=== PATIENT | male | born 1940 | race Caucasian/White ===

== ENCOUNTER → 2019-08-16 14:20 | Outpatient (BNVA) | payer MEDICARE, SELFPAY | PROVIDERS: Family Provider Electrodiagnostic Medicine; PCP Electrodiagnostic Medicine; Visit Provider Specialist | DX: G62.9 Polyneuropathy, unspecified (principal); M54.17 Radiculopathy, lumbosacral region; Z87.891 Personal history of nicotine dependence | CPT/HCPCS: 99214 ==

== ENCOUNTER → 2020-05-01 09:08 | Outpatient (BNVA) | payer MEDICARE, SELFPAY | PROVIDERS: Family Provider Electrodiagnostic Medicine; PCP Electrodiagnostic Medicine; Visit Provider Urology | DX: R31.0 Gross hematuria (principal); N40.1 Benign prostatic hyperplasia with lower urinary tract symptoms; N13.8 Other obstructive and reflux uropathy; Z87.898 Personal history of other specified conditions | CPT/HCPCS: 81003 ==

== ENCOUNTER 2020-07-21 18:20 | Inpatient (IN) | payer MEDICARE, SELFPAY ==
[2020-07-21] VITALS (9 sets, daily range): BP systolic 111–142; BP diastolic 69–106; PULSE 63–75; RESP 13–18; TEMP 36.6; O2SAT 91–99; BMI 26.9
--- NOTE | 2020-07-21 19:01 | ECG_ITS ---
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 Measurements Intervals [place] Rate: 63 P: 61 NC: 183 QRS: 64 QRSD: 102 T: 51 QT: 401 QTc: 410 Interpretive Statements SINUS RHYTHM VOLTAGE CRITERIA FOR LVH [MEETS CRITERIA IN ONE OF: R(aVL), S(V1), R(V5), R(V5/V6)+S(V1)] Compared to ECG 07/31/2018 11:49:45 Left ventricular hypertrophy now present Electronically Signed On 07-22-2020 19:21:13 FIRESTOPPER TECHNICIAN by Terra Crespo M.D. [id number]
--- NOTE | 2020-07-21 19:01 | XRR_ITS ---
PROCEDURE INFORMATION: Exam: XR Chest, 1 View Exam date and time: 07/21/2020 7:07 PM Age: 79 years old Clinical indication: Other: Syncopal; Additional info: Cp TECHNIQUE: Imaging protocol: XR of the chest Views: 1 view. COMPARISON: No relevant prior studies available. FINDINGS: Lungs: Mild emphysematous changes. No focal consolidation. Pleural spaces: Unremarkable. No pleural effusion. No pneumothorax. Heart/Mediastinum: Unremarkable. No cardiomegaly. Bones/joints: Unremarkable. XR/XR chest 1V portable [id number] IMPRESSION: Negative for focal pneumonia.
--- NOTE | 2020-07-21 19:05 | ED_ITS ---
HPI - Syncope General: Chief Complaint: Syncope Stated Complaint: SYNCOPAL EPISODE/ PALE/ DIAPHORETIC Time Seen by Provider: 07/21/20 18:23 Source: patient and EMS Mode of arrival: EMS Limitations: no limitations History of Present Illness: HPI narrative: 79-year-old male states that he had been working outside and came inside sit down and got very diaphoretic and felt sick and had a near syncopal versus possible syncopal event. He was out for seconds and stated he did urinate himself. He denies any headache or chest pain. He states he just feels weak currently and is still diaphoretic. He denies having anything like this in the past. He denies any shortness of breath. Associated symptoms: Deny abdominal pain, fever(s), headache(s) or nausea Review of Systems Const: Denies: fever(s), chills, body aches or change in appetite Eyes: Denies: blurry vision or eye discomfort ENMT: Denies: throat pain or dental pain Card: Reports: syncope Resp: Denies: dyspnea GI: Denies: abdominal pain, nausea, vomiting or diarrhea : Denies: dysuria Musc: Denies: neck pain or back pain Skin/Breast: Denies: rash Neuro: Denies: headache(s) Psych: Denies: depression Riki/Lymph: Denies: easy bruising All/Imm: Denies: urticaria PFSH ED PFSH: Medical History BPH with obstruction/lower urinary tract symptoms Gross hematuria History of BPH History of elevated PSA Incomplete bladder emptying Glass's neuroma of left foot Surgical History History of ankle surgery History of appendectomy History of bilateral inguinal hernia repair History of nasal surgery Status post transurethral resection of prostate Family History Other Cancer Denies family history of Diabetes CAD (coronary artery disease) Hypertension Stroke Social History Smoking and tobacco status: former smoker Quit status (tobacco): has quit using tobacco Year quit tobacco: 1982 Alcohol intake: current Alcohol intake frequency: 0-2 Drinks per Day Alcohol type: wine Adopted: No Caregiver/support person: No Lives independently: No Household members: spouse Marital status: Current occupational status: retired History of recent travel: No Physical Exam Const: COMMON NORMALS: no acute distress, patient oriented x3 and healthy appearing HENMT: COMMON NORMALS: normocephalic and atraumatic HEAD & SCALP: n ormocephalic and atraumatic Eye: COMMON NORMALS: Equal, round and reactive pupils present and EOMs intact bilaterally PUPIL: Yes Equal, round and reactive pupils present Neck/C-Spine: COMMON NORMALS: full ROM and supple Chest: COMMONS NORMALS: normal inspection of the chest and normal palpation of entire chest wall Resp: COMMON NORMALS: normal respiratory effort, No retractions, No use of accessory muscles and clear to auscultation bilaterally AUSCULTATION: clear to auscultation bilaterally Cardio: COMMON NORMALS: regular rate, regular rhythm and No murmurs present (Cardio) RATE: regular rate RHYTHM: regular rhythm GI: COMMON NORMALS: Normal to inspection, nondistended, normoactive bowel sounds present, Soft to palpation, non-tender and no masses PALPATION: Yes Soft to palpation Extremity: COMMON NORMALS: normal to inspection and full ROM Neuro: COMMON NORMALS: patient oriented x3, moves all extremities and no focal motor deficits Psych: COMMON NORMALS: mental status grossly normal, Normal thought process present and cooperative THOUGHT PROCESS: Normal thought process present Skin: COMMON NORMALS: no rashes or lesions noted and no wounds GENERAL SKIN EXAM: no rashes or lesions noted Course Vital Signs: Vital signs: Vital Signs Temperature 97.9 F 07/21/20 18:19 Pulse Rate 69 07/21/20 19:56 Respiratory Rate 14 07/21/20 19:56 Blood Pressure 129/81 07/21/20 19:56 Pulse Oximetry 95 07/21/20 19:56 MDM - Syncope MDM Narrative: Medical decision making narrative: He presents here with a syncopal event. He said no chest pain or headache. His head CT here is negative his 2-hour troponin did increase. We will give him a dose of Lovenox I spoke to the hospitalist and will admit for observation. Lab Data: Labs: Lab Results 07/21/20 07/21/20 07/21/20 Range/Units 18:35 18:35 18:35 WBC 9.6 (4.0-10.0) 10^3/ uL RBC 4.33 (4.1-5.3) 10^6/u L Hgb 12.6 (11.7-16.6) g/dL Hct 37.9 L (42.0-52.0) % MCV 87.5 (80-94) fL MCH 29.1 (28.0-34.0) pg MCHC 33.2 (30.0-36.0) g/dL RDW 14.0 (12.1-15.1) % Plt Count 280 (130-400) 10^3/c mm MPV 9.8 (7.4-10.4) fL Neut % (Auto) 62.5 % Lymph % (Auto) 20.9 % [place] % (Auto) 10.6 % Eos % (Auto) 5.0 % Baso % (Auto) 0.6 % Neut # (Auto) 6.00 (1.8-7.7) 10^3/u L Lymph # (Auto) 2.0 (0.8-4.8) 10^3/u L [place] # (Auto) 1.0 H (0.2-0.9) 10^3/u L Eos # (Auto) 0.5 (0.0-0.8) 10^3/u L Baso # (Auto) 0.1 (0.0-0.1) 10^3/u L Nucleated RBC % (a uto) 0 % Nucleated RBCs # 0.0 /100WBC Sodium 136 (136-145) mmol/L Potassium 4.0 (3.5-5.1) mmol/L Chloride 100 (98-107) mmol/L Carbon Dioxide 24 (22-29) mmol/L Anion Gap 16.0 (5-19) BUN 16 (8-23) mg/dL Creatinine 0.6 L (0.7-1.2) mg/dL GFR Calculation Not Reportable Glucose 120 H (65-115) mg/dL Calculated Osmolal ity 284 L (285-295) mOsm/k g Calcium 9.1 (8.5-10.5) mg/dL Total Bilirubin 0.4 (0.15-1.2) mg/dL AST 24 (0-40) U/L ALT 17 (0-41) U/L Alkaline Phosphata se 68 (40-130) IU/L Troponin T Baselin e 13 (0-15) ng/L Troponin T 120 Min deering (0-15) ng/L Delta Troponin T (0-10) ABS# Total Protein 6.5 L (6.6-8.7) g/dL Albumin 4.2 (3.5-5.2) g/dL Globulin 2.3 (1.3-4.6) g/dL 07/21/20 Range/Units 20:21 WBC (4.0-10.0) 10^3/ uL RBC (4.1-5.3) 10^6/u L Hgb (11.7-16.6) g/dL Hct (42.0-52.0) % MCV (80-94) fL MCH (28.0-34.0) pg MCHC (30.0-36.0) g/dL RDW (12.1-15.1) % Plt Count (130-400) 10^3/c mm MPV (7.4-10.4) fL Neut % (Auto) % Lymph % (Auto) % [place] % (Auto) % Eos % (Auto) % Baso % (Auto) % Neut # (Auto) (1.8-7.7) 10^3/u L Lymph # (Auto) (0.8-4.8) 10^3/u L [place] # (Auto) (0.2-0.9) 10^3/u L Eos # (Auto) (0.0-0.8) 10^3/u L Baso # (Auto) (0.0-0.1) 10^3/u L Nucleated RBC % (a uto) % Nucleated RBCs # /100WBC Sodium (136-145) mmol/L Potassium (3.5-5.1) mmol/L Chloride (98-107) mmol/L Carbon Dioxide (22-29) mmol/L Anion Gap (5-19) BUN (8-23) mg/dL Creatinine (0.7-1.2) mg/dL GFR Calculation Glucose (65-115) mg/dL Calculated Osmolal ity (285-295) mOsm/k g Calcium (8.5-10.5) mg/dL Total Bilirubin (0.15-1.2) mg/dL AST (0-40) U/L ALT (0-41) U/L Alkaline Phosphata se (40-130) IU/L Troponin T Baselin e (0-15) ng/L Troponin T 120 Min [place] 34.23 H (0-15) ng/L Delta Troponin T 21.23 H* (0-10) ABS# Total Protein (6.6-8.7) g/dL Albumin (3.5-5.2) g/dL Globulin (1.3-4.6) g/dL Imaging Data^: CT Head: Attestation: I personally reviewed and interpreted this imaging study as follows: Radiologist's impression: [facility] [address] [address] Scan Report Signed Patient: Marco Antonio Almonte Unit #: [id number] : 1940 Age/Sex: 79 / M ADM Date: 07/21/20 Loc: ER Room/Bed: Attending Dr: Ordering Provider/Ordering MD: Beatriz Key MD Date of Service: 07/21/20 Procedure(s): CT head wo con* [id number] Accession Number(s): [id number] Report Number: [id number] PROCEDURE INFORMATION: Exam: CT Head Without Contrast Exam date and time: 07/21/2020 7:13 PM Age: 79 years old Clinical indication: Syncope and collapse; Patient HX: Syncope while seated TECHNIQUE: Imaging protocol: Computed tomography of the head without contrast. Radiation optimization: All CT scans at this facility use at least one of these dose optimization techniques: automated exposure control; mA and/or kV adjustment per patient size (includes targeted exams where dose is matched to clinical indication); or iterative reconstruction. COMPARISON: No relevant prior studies available. RADIATION DOSE METRICS: Total DLP (mGy-cm): 891.64 FINDINGS: Brain: There is mild cerebral atrophy. No intracranial hemorrhage. No acute brain ischemia. No midline shift of brain. Evans matter and white matter interfaces are preserved. No cerebral sulcal effacement. No basilar cisternal effacement. No space-occupying intracranial mass. Cerebral ventricles: No ventriculomegaly. Bones/joints: Unremarkable. No acute fracture. Paranasal sinuses: Mild severity circumferential right maxillary sinus mucosal thickening. Scattered bilateral ethmoid air cell opacities. Mastoid air cells: Visualized mastoid air cells are well aerated. Soft tissues: Unremarkable. CT/CT head wo con* [id number] IMPRESSION: 1. Negative for acute intracranial abnormality. 2. Mild severity paranasal sinus disease. Radiation Dose CTDIVOL = (mGy): DLP = 891.64 (mGy-cm) CXR: Attestation: I personally reviewed and interpreted this imaging study as follows: My impression: no acute abnormality EKG Data^: EKG 1: Attestation: I personally reviewed and interpreted this EKG as follows: EKG interpretation date: 07/21/20 EKG interpretation time: 19:58 Interpretation: nsr hr [address] or t wave abnormalitiesqrs 102 qtc 407 Discharge Plan Discharge Patient Disposition: Admitted As Inpatient Clinical Impression: Syncope Condition: Stable Prescriptions: No Action [id number] 500 mcg-250 mcg-50 mg-50 mg capsule 1 cap PO DAILY@1200 RF: 0 Men 50 Plus Multivitamin 300-600-300 mcg tablet 1 tab PO DAILY@1200 RF: 0 cholecalciferol (vitamin D3) 50 mcg (2,000 unit) capsule 50 mcg PO DAILY@1200 RF: 0 potassium gluconate 595 mg (99 mg) tablet 595 mg PO DAILY@1200 RF: 0 glucosamine-chondroitin 900 mg tablet See Rx Instructions .ROUTE .COMPLEX RF: 0 magnesium chloride 70 mg tablet,delayed release (DR/EC) 70 mg PO DAILY RF: 0 aspirin [Adult Low Dose Aspirin] 81 mg tablet,delayed release (DR/EC) 81 mg PO DAILY@1200 RF: 0 zinc 50 mg tablet 50 mg PO DAILY@1200 RF: 0 Adult Probiotic 3 billion cell capsule 3,000 mmu cells PO DAILY@1200 RF: 0 Metamucil Packet 1 packet PO DAILY@1200 RF: 0 acetaminophen 1 - 2 tab PO Q6H PRN (Reason: Pain) RF: 0 Referrals: Vazquez Maza DO [Primary Care Provider] - Coding Level of Care Code ED Terminal Computer Operator for Chg Fwd Exam Comprehensive
[2020-07-21 19:28] LABS: Basophils # 0.1 10^3/uL (0.0-0.1); Basophils % 0.6 %; Eosinophils # 0.5 10^3/uL (0.0-0.8); Hematocrit 37.9 % (42.0-52.0); Hemoglobin 12.6 g/dL (11.7-16.6); Lymphocytes % 20.9 %; Mean Corpuscular HGB Conc 33.2 g/dL (30.0-36.0); Mean Corpuscular Hemoglobin 29.1 pg (28.0-34.0); Mean Corpuscular Volume 87.5 fL (80-94); Mean Platelet Volume 9.8 fL (7.4-10.4); Monocytes % 10.6 %; Neutrophils % 62.5 %; Nucleated Red Blood Cells % 0 %; Platelet Count 280 10^3/cmm (130-400); Red Blood Count 4.33 10^6/uL (4.1-5.3); White Blood Count 9.6 10^3/uL (4.0-10.0)
[2020-07-21 19:47] LABS: Alanine Aminotransferase 17 U/L (0-41); Albumin Level 4.2 g/dL (3.5-5.2); Alkaline Phosphatase 68 IU/L (40-130); Aspartate Amino Transferase 24 U/L (0-40); Blood Urea Nitrogen 16 mg/dL (8-23); Calcium 9.1 mg/dL (8.5-10.5); Carbon Dioxide 24 mmol/L (22-29); Chloride 100 mmol/L (98-107); Globulin 2.3 g/dL (1.3-4.6); Glucose 120 mg/dL (65-115); Osmolality Calculated 284 mOsm/kg (285-295); Sodium 136 mmol/L (136-145); Total Bilirubin 0.4 mg/dL (0.15-1.2); Total Protein 6.5 g/dL (6.6-8.7)
[2020-07-21 19:48] LABS: Creatinine Clr Calc Pharmacy 95.6174; Troponin(5th) Baseline 13 ng/L (0-15)
--- NOTE | 2020-07-21 20:22 | PC.NURSE ---
EKG done at 1999 and shown to ER doctor
[2020-07-21 20:48] LABS: Troponin 5 2HR 34.23 ng/L (0-15)
[2020-07-21 20:58] LABS: Troponin 5 2HR Delta 21.23 ABS# (0-10)
--- NOTE | 2020-07-21 21:01 | ECG_ITS ---
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 Measurements Intervals [place] Rate: 70 P: 55 [place]: 180 QRS: 62 QRSD: 98 T: 49 QT: 391 QTc: 424 Interpretive Statements SINUS RHYTHM WITH OCCASIONAL SUPRAVENTRICULAR PREMATURE COMPLEXES POSSIBLE LEFT ATRIAL ENLARGEMENT [-0.1mV P WAVE IN V1/V2] POSSIBLE LEFT VENTRICULAR HYPERTROPHY [VOLTAGE CRITERIA PLUS LAE OR QRS WIDENING] Compared to ECG 07/21/2020 19:58:16 No significant changes Electronically Signed On 07-22-2020 19:35:39 BOX BLANK MACHINE OPERATOR HELPER by Terra Crespo M.D. [id number]
[2020-07-21] MEDS: enoxaparin 100 mg/mL Syringe 90 MG SUBCUT (21:48)
--- NOTE | 2020-07-21 22:11 | PC.NURSE ---
EKG done at 2205 and shown to ER doctor
[2020-07-22] VITALS (59 sets, daily range): BP systolic 108–133; BP diastolic 62–79; PULSE 55–84; RESP 0–27; TEMP 36.4–37.7; O2SAT 90–100
--- NOTE | 2020-07-22 01:01 | ECG_ITS ---
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 Measurements Intervals [place] Rate: 59 P: 29 [place]: 169 QRS: 55 QRSD: 98 T: 37 QT: 401 QTc: 398 Interpretive Statements SINUS BRADYCARDIA VOLTAGE CRITERIA FOR LVH [MEETS CRITERIA IN ONE OF: R(aVL), S(V1), R(V5), R(V5/V6)+S(V1)] Compared to ECG 07/21/2020 22:07:11 Sinus rhythm no longer present Electronically Signed On 07-22-2020 19:35:49 TITLE PROCESSOR by Terra Crespo M.D. [email or web address] general [email or web address] [email or web address] [email or web address] [email or web address]/[id number]
--- NOTE | 2020-07-22 03:47 | PC.NURSE ---
PT IS RESTING IN BED. PT DENIES PAIN. ELECTRICIAN DECK NURSE DID INITIAL ASSESSMENT. PT WAS ORIENTATED TO ROOM. PT IN A SR AND VS WNL. WILL CONTINUE TO MONITOR.
--- NOTE | 2020-07-22 05:02 | USCV_ITS ---
Marco Antonio Almonte Age: 79 Gender: M : 1940 Exam Date: 07/22/2020 07:27 Ordering Phys: Anastasiya Mittal MD Technologist: Bryanna Ulloa Exam Location: [facility] [place] Indication: SYNCOPE BP: 121 / 73 HR: 65 Rhythm: Sinus Technical Quality: Adequate MEASUREMENTS (Male / Female) Normal Values 2D ECHO LV Diastolic Diameter PLAX 4.2 cm 4.2 - 5.9 / 3.9 - 5.3 cm LV Systolic Diameter PLAX 3.1 cm LV Chamber Size 3.4 cm IVS Diastolic Thickness 0.9 cm 0.6 - 1.0 / 0.6 - 0.9 cm IVS Systolic Thickness 1.6 cm LVPW Diastolic Thickness 1.4 cm 0.6 - 1.0 / 0.6 - 0.9 cm LVPW Systolic Thickness 1.9 cm RV Chamber Size 3.9 cm LVOT Diameter 2.1 cm LV Ejection Fraction 2D Teich 51.7 % LV Ejection Fraction MOD 2C 48.2 % LV Ejection Fraction 2C AL 48.9 % LA Diameter 4.0 cm LA Width 3.4 cm LA Height 4.8 cm RA Width 4.7 cm RA Height 5.1 cm Aorta at Sinotubular Diameter 3.5 cm M-MODE LV Diastolic Diameter MM 4.6 cm 4.2 - 5.9 / 3.9 - 5.3 cm LV Systolic Diameter MM 3.2 cm LV Ejection Fraction MM Teich 60.0 % IVS Diastolic Thickness MM 1.1 cm 0.6 - 1.0 / 0.6 - 0.9 cm IVS Systolic Thickness MM 1.5 cm LVPW Diastolic Thickness MM 1.4 cm 0.6 - 1.0 / 0.6 - 0.9 cm LVPW Systolic Thickness MM 1.5 cm Aortic Annulus Diameter 3.5 cm LA Ao Ratio MM 1.1 MV E Point Septal Separation 0.3 cm DOPPLER AV Peak Velocity 485.7 cm/s LVOT Peak Velocity 75.0 cm/s AV Area Cont Eq vti 0.5 cm squared AV Area Cont Eq pk 0.5 cm squared MV Area PHT 2.7 cm squared Mitral E to A Ratio 0.8 MV E' Velocity 40.0 cm/s Mitral E to MV E' Ratio 12.0 Mitral E to LV E' Lateral Ratio 10.6 Mitral E to LV E' Septal Ratio 14.1 TR Peak Velocity 256.6 cm/s TR Peak Gradient 26.3 mmHg TR Mean Velocity 193.5 cm/s TR Mean Gradient 16.9 mmHg TR Velocity Time Integral 73.5 cm TV Peak E Velocity 43.0 cm/s Right Atrial Pressure 3.0 mmHg Pulmonary Artery Systolic Pressu 29.3 mmHg PV Peak Velocity 62.0 cm/s RV Acceleration Time 0.1 s RV Ejection Time 0.3 s RV AcT/ET 0.4 FINDINGS Left Ventricle Moderate concentric left ventricular hypertrophy with a features of mid cavity obliteration during systole. No gross wall motion normalities. Ejection fraction around 70%.Grade I/IV diastolic dysfunction (abnormal relaxation filling pattern), normal to mildly elevated filling pressures. Right Ventricle Normal LV size and ejection fraction Right Atrium Upper limit of normal normal. Left Atrium Mildly dilated left atrium Mitral Valve Thickened mitral valve. Moderate mitral annular calcification. Aortic Valve Stenotic aortic valve with a mild to moderate calcification.trace to mild aortic valve regurgitation. Critical aortic valve stenosis with a peak velocity of 5.01 m/s, peak gradient of 100.5 mmHg with a mean gradient of 51.2 mmHg. The valve area was calculated to be 0.49 cm squared with a valve index of 0.22 Tricuspid Valve Mild tricuspid valve regurgitation. Pulmonic Valve No gross abnormalities noted Pericardium Normal pericardium without effusion. Aorta Normal ascending aorta dimension. CONCLUSIONS 1. Critical aortic valve stenosis with a valve area of 0.49 cm squared.(Peak gradient 100.5 with a mean gradient of 51.2 mm Hg. aortic valve index was 0.22). Mild to moderate aortic valve calcification 2. Moderate concentric left renal hypertrophy with normal ejection fraction of 70%. 3. No significant wall motion normalities. 4. Features of grade 1 left ventricular diastolic dysfunction. 5. Mild left atrial lodgment. 6. Thickened mitral valve with moderate mitral calcification. 7. No intracardiac masses or any pericardial effusion. No similar previous studies are available for comparison. Dr Terra Crespo MD [facility] (Electronically Signed) Final Date: 22 July 2020 14:47 S
--- NOTE | 2020-07-22 05:02 | P.HP_ITS ---
Providers/Chief Complaint Admitting Physician: Anastasiya Mittal MD Primary Care Provider: Vazquez Maza DO Chief Complaint: SYNCOPAL EPISODE/ PALE/ DIAPHORETIC History of Present Illness Marco Antonio Almonte is a 79 year old male who presented after an episode in which she lost it all . He describes having some difficulty getting his truck where he was wanting it to go and difficulty getting into the house. He went to sit down on the couch and really cannot describe well what was going on but it sounds like he passed out. He did have urinary incontinence. Denies any fall or injury. He does not recall any difficulty with his speech preceding this. His witnessed this and was very scared about what happened. Not clear that he had complete loss of consciousness. He does not describe any chest pain, palpitations, nausea or vomiting. He does not really describe dizziness and so many words. He has never experienced anything like today. BPH though is not on any alpha blockade. He was noted to have some bradycardia and also found to have elevated troponin with a +2-hour delta. He is being admitted for further evaluation and treatment under the circumstances. No known history of hypertension, hyperlipidemia, diabetes. He is a remote smoker. No family his tory of coronary artery or other vascular disease. He states that most of his family lived quite long lives. At the present time he is feeling okay. While concerned about what happened he is eager to know when he might be able to get home. Review of Systems Const: Denies: fever(s), chills or change in appetite Eyes: Reports: change in vision ENMT: Denies: throat pain or nasal congestion Card: Reports: syncope; Denies: chest pain, palpitations, edema, dyspnea on exertion or orthopnea Resp: Denies: dyspnea, productive cough or non-productive cough GI: Denies: abdominal pain, nausea, vomiting, diarrhea or constipation : Reports: urinary incontinence (With episode); Denies: difficulty urinating Musc: Reports: back pain Skin/Breast: Denies: rash or pruritus Neuro: Reports: numbness in extremities (Feet); Denies: headache(s), Slurred speech present or seizure-like activity Psych: Denies: anxiety or depression Riki/Lymph: Denies: easy bruising or easy bleeding Medications/Allergies Home Medications Medication Instructions Recorded Confirmed Last Taken Type antiarthritic combination no.2 900 See Rx Instructions .ROUTE .COMPLEX 05/01/20 07/21/20 07/21/20 History mg tablet aspirin 81 mg tablet,delayed 81 mg PO DAILY@119905/01/20 07/21/20 07/21/20 History release cholecalciferol (vitamin D3) 50 50 mcg PO DAILY@119905/01/20 07/21/20 07/21/20 History mcg (2,000 unit) capsule folic 500 mcg-B12 250 mcg-ALA 50 1 cap PO DAILY@119905/01/20 07/21/20 07/21/20 History mg-coQ10 50 xv-ig0-ggi-epa capsule lactobacillus combination no.8 3 3,000 mmu cells PO DAILY@119905/01/20 07/21/20 07/21/20 History billion cell capsule magnesium chloride 70 mg 70 mg PO DAILY 05/01/20 07/21/20 07/21/20 History (magnesium chloride) tablet,delayed release wbasthqz-kch-pycbl acid 300 1 tab PO DAILY@119905/01/20 07/21/20 07/21/20 History mcg-lycopene 600 mcg-lutein 300 mcg tablet potassium gluconate 595 mg (99 mg) 595 mg PO DAILY@119905/01/20 07/21/20 07/21/20 History tablet zinc 50 mg tablet 50 mg PO DAILY@119905/01/20 07/21/20 07/21/20 History acetaminophen 1 - 2 tab PO Q6H PRN 07/21/20 07/21/20 Unknown History psyllium [Metamucil] 1 packet PO DAILY@119907/21/20 07/21/20 07/21/20 History Allergies Allergy/AdvReac Type Severity Reaction Status Date / Time meperidine [From Demerol] Allergy stopped Verified 05/30/20 08:51 breathing PFSH Acute PFSH: Medical History (Updated 07/22/20 @ 05:22 by Anastasiya Mittal MD) BPH with obstruction/lower urinary tract symptoms History of elevated PSA Incomplete bladder emptying Lumbar radiculopathy, chronic L5-S1 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 Surgical History History of ankle surgery History of appendectomy History of bilateral inguinal hernia repair History of nasal surgery Status post transurethral resection of prostate Family History Other Cancer Denies family history of Diabetes CAD (coronary artery disease) Hypertension Stroke Social History (Updated 07/22/20 @ 05:15 by Anastasiya Mittal MD) Smoking and tobacco status: former smoker Quit status (tobacco): has quit using tobacco Year quit tobacco: 1982 Alcohol intake: current Alcohol intake frequency: 0-2 Drinks per Day Alcohol type: wine Adopted: No Household members: spouse Marital status: Current occupational status: retired Vitals/I&O/Wt Last Vital Signs Temp 99.8 F H 07/22/20 03:46 Pulse 63 07/22/20 03:46 Resp 15 07/22/20 03:46 BP 121/73 07/22/20 03:46 Pulse Ox 97 07/22/20 03:46 07/21/20 07/21/20 07/22/20 14:59 22:59 06:59 Intake Total 240 / 240 450 / 690 Balance 240 / 240 450 / 690 Weight last 48 hrs Weight 95.254 kg Physical Exam Const: OTHER: Alert, oriented x3, cooperative HENMT: OTHER: Normocephalic atraumatic, moist mucus membranes Eye: OTHER: Pupils equally round and reactive to light Neck/C-Spine: OTHER: Supple Resp: OTHER: Clear to auscultation bilaterally, no rales, rhonchi or wheezes noted Cardio: OTHER: Bradycardic but regular rhythm, 2/6 holosystolic murmur loudest at the right upper sternal border and radiating into the neck GI: OTHER: Abdomen soft, nontender, nondistended with positive bowel sounds : OTHER: Normal external genitalia Extremity: NARRATIVE EXTREMITY EXAM: No cyanosis, clubbing or edema Neuro: OTHER: Face symmetric, speech clear, moves all extremities Psych: OTHER: Normal affect Skin: OTHER: Dry, no significant rashes or bruises noted Data : 07/21/20 18:35 07/22/20 01:23 Other Labs: Laboratory Last Values WBC 9.6 10^3/uL (4.0-10.0) 07/21/20 18:35 RBC 4.33 10^6/uL (4.1-5.3) 07/21/20 18:35 Hgb 12.6 g/dL (11.7-16.6) 07/21/20 18:35 Hct 37.9 % (42.0-52.0) L 07/21/20 18:35 MCV 87.5 fL (80-94) 07/21/20 18:35 MCH 29.1 pg (28.0-34.0) 07/21/20 18: MCHC 33.2 g/dL (30.0-36.0) 07/21/20 18:35 RDW 14.0 % (12.1-15.1) 07/21/20 18:35 Plt Count 280 10^3/cmm (130-400) 07/21/20 18:35 MPV 9.8 fL (7.4-10.4) 07/21/20 18:35 Neut % (Auto) 62.5 % 07/21/20 18:35 Lymph % (Auto) 20.9 % 07/21/20 18:35 [place] % (Auto) 10.6 % 07/21/20 18:35 Eos % (Auto) 5.0 % 07/21/20 18:35 Baso % (Auto) 0.6 % 07/21/20 18:35 Neut # (Auto) 6.00 10^3/uL (1.8-7.7) 07/21/20 18:35 Lymph # (Auto) 2.0 10^3/uL (0.8-4.8) 07/21/20 18:35 [place] # (Auto) 1.0 10^3/uL (0.2-0.9) H 07/21/20 18:35 Eos # (Auto) 0.5 10^3/uL (0.0-0.8) 07/21/20 18:35 Baso # (Auto) 0.1 10^3/uL (0.0-0.1) 07/21/20 18: Nucleated RBC % (auto) 0 % 07/21/20 18:35 Nucleated RBCs # 0.0 /100WBC 07/21/20 18:35 Sodium 136 mmol/L (136-145) 07/21/20 18: Potassium 4.0 mmol/L (3.5-5.1) 07/21/20 18:35 Chloride 100 mmol/L (98-107) 07/21/20 18:35 Carbon Dioxide 24 mmol/L (22-29) 07/21/20 18:35 Anion Gap 16.0 (5-19) 07/21/20 18:35 BUN 16 mg/dL (8-23) 07/21/20 18:35 Creatinine 0.6 mg/dL (0.7-1.2) L 07/21/20 18:35 GFR Calculation Not Reportable 07/21/20 18:35 Glucose 120 mg/dL (65-115) H 07/21/20 18:35 Calculated Osmolality 284 mOsm/kg (285-295) L 07/21/20 18:35 Calcium 9.1 mg/dL (8.5-10.5) 07/21/20 18:35 Total Bilirubin 0.4 mg/dL (0.15-1.2) 07/21/20 18:35 AST 24 U/L (0-40) 07/21/20 18:35 ALT 17 U/L (0-41) 07/21/20 18:35 Alkaline Phosphatase 68 IU/L (40-130) 07/21/20 18:35 Troponin T Baseline 13 ng/L (0-15) 07/21/20 18:35 Troponin T 120 Minute 34.23 ng/L (0-15) H 07/21/20 20:21 Delta Troponin T 21.23 ABS# (0-10) H* 07/21/20 20:21 Troponin T Hi Sens 6Hr 25.80 ng/L (0-15) H 07/22/20 01:23 Troponin T Hi Sens 6Hr Delta 12.80 ng/L (0-12) H* 07/22/20 01:23 Total Protein 6.5 g/dL (6.6-8.7) L 07/21/20 18:35 Albumin 4.2 g/dL (3.5-5.2) 07/21/20 18:35 Globulin 2.3 g/dL (1.3-4.6) 07/21/20 18:35 CXR: Radiologist's impression: FINDINGS: Lungs: Mild emphysematous changes. No focal consolidation. Pleural spaces: Unremarkable. No pleural effusion. No pneumothorax. Heart/Mediastinum: Unremarkable. No cardiomegaly. Bones/joints: Unremarkable. XR/XR chest 1V portable [id number] IMPRESSION: Negative for focal pneumonia. CT Head: Radiologist's impression: FINDINGS: Brain: There is mild cerebral atrophy. No intracranial hemorrhage. No acute brain ischemia. No midline shift of brain. Evans matter and white matter interfaces are preserved. No cerebral sulcal effacement. No basilar cisternal effacement. No space-occupying intracranial mass. Cerebral ventricles: No ventriculomegaly. Bones/joints: Unremarkable. No acute fracture. Paranasal sinuses: Mild severity circumferential right maxillary sinus mucosal thickening. Scattered bilateral ethmoid air cell opacities. Mastoid air cells: Visualized mastoid air cells are well aerated. Soft tissues: Unremarkable. CT/CT head wo con* [id number] IMPRESSION: 1. Negative for acute intracranial abnormality. 2. Mild severity paranasal sinus disease. A&P Assessment and plan (1) Syncope: Status: Acute Qualifiers: Syncope type: unspecified Qualified Code(s): R55 - Syncope and collapse (2) NSTEMI (non-ST elevated myocardial infarction): Status: Acute (3) Bradycardia: Status: Acute (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 (5) Peripheral neuropathy: Status: Chronic Qualifiers: Peripheral neuropathy type: polyneuropathy, unspecified Qualified Code(s): G62.9 - Polyneuropathy, unspecified Additional A&P Information Observation admission Continue serial cardiac enzymes and EKGs Telemetry monitoring for worsening bradycardic arrhythmia Echocardiogram and carotid ultrasound in the morning Check lipid panel and hemoglobin A1c Aspirin and statin Cardiology consultation, I discussed with Dr. Crespo Have not currently initiated any beta-blockade secondary to intermittent bradycardia Continue Lovenox treatment dose presently Check urinalysis Continue home Metamucil but hold other usual medications which are primarily [id number] for now Supportive care otherwise Further plans pending results of above Plans were discussed with patient and he was given an opportunity to ask questions Full code Attestations Medical Necessity Statement*: Currently anticipated stay less than 2 midnights in a gentleman presenting with what sounds like a syncopal episode today. He is normally fairly active and quite stoic. Unclear exactly what happened but has had some intermittent mild bradycardia and has been found to have a slight bump in his troponin. Necessitates further evaluation at least as noted to ensure safety to return to usual activity. Coding Level of Care Code Acute Travel Consultant for g Fwd Diagnoses Syncope R55 Syncope type: unspecified NSTEMI (non-ST elevated myocardial infarction) I21.4 Bradycardia R00.1 BPH with obstruction/lower urinary tract symptoms N40.1; N13.8 Peripheral neuropathy G62.9 Peripheral neuropathy type: polyneuropathy, unspecified
--- NOTE | 2020-07-22 05:02 | ECG_ITS ---
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 [email or web address] infantsArQulemer[facility].[email or web address]/OM/[id number]
--- NOTE | 2020-07-22 05:14 | USCV_ITS ---
Marco Antonio Almonte Age: 79 Gender: M : 1940 Exam Date: 07/22/2020 07:55 Ordering Phys: Anastasiya Mittal MD Technologist: Bryanna Ulloa [place] [facility] [place]: SYNCOPE Risk Factors: Unknown Previous Vascular Surgery: None Right Brachial BP: / Left Brachial BP: / Right Left Velocity (cm/s) Spectral Plaque Velocity (cm/s) Spectral Plaque Syst/Diast Broadening Syst/Diast Broadening 83.80/ 29.80 Prox CCA 69.10 / 20.20 72.80/ 20.90 Mid CCA 72.20 / 15.50 61.70/ 25.40 Hetro Distal CCA 61.40 / 12.40 Hetro 52.00/ 19.40 Hetro Prox ICA 56.10 / 21.30 Hetro 65.30/ 21.00 Mid ICA 83.30 / 32.30 55.90/ 21.00 Distal ICA 56.10 / 22.60 47.40 Hetro ECA 72.90 Hetro 0.78 ICA/CCA 1.15 Antegrade Vertebral Antegrade 55.90/ 13.20 cm/s 43.90/ 9.70 cm/s Tri Subclavian Bi 87.80 139.4 0 FINDINGS Mild to moderate heterogeneous plaques at the bifurcations bilaterally. Intimal thickening and minimal plaques in the common carotid arteries bilaterally. Antegrade flow in the vertebral arteries bilaterally Normal Doppler flow velocities in the external carotid arteries , subclavian and vertebral arteries bilaterally CONCLUSIONS Mild to moderate heterogeneous plaques at the bifurcations bilaterally with Doppler flow velocities consistent with less than 50% stenosis. Intimal thickening and minimal plaques in the common carotid arteries bilaterally. No significant stenosis in the vertebral or subclavian arteries bilaterally No similar previous studies are available for comparison Dr Terra Crespo MD [facility] (Electronically Signed) Final Date: 22 July 2020 14:54 S
[2020-07-22] MEDS: sodium chloride 0.45% 1,000 ML 30 ML IV (05:37)
--- NOTE | 2020-07-22 06:46 | PC.NURSE ---
PT HAD AN UNEVENTFUL NIGHT. PT DENIES PAIN. WILL CONTINUE TO MONITOR.
[2020-07-22 08:41] LABS: Estmated Average Glucose 105; Hemoglobin A1C 5.3 % (4.0-6.0)
[2020-07-22 08:48] LABS: Blood Urea Nitrogen 14 mg/dL (8-23); Calcium 9.2 mg/dL (8.5-10.5); Carbon Dioxide 24 mmol/L (22-29); Chloride 101 mmol/L (98-107); Chol HDL Ratio 4.47 mg/dL (1.0-5.00); Cholesterol 219 mg/dL (0-200); Creatinine Clr Calc Pharmacy 95.6174; Glucose 108 mg/dL (65-115); HDL Cholesterol 49 mg/dL (60-100); LDL Cholesterol Calculated 153 mg/dL (50-129); LDL HDL Ratio 3.12 RATIO (0.00-3.22); Magnesium 2.3 mg/dL (1.7-2.3); NT Pro B Type Natriuretic Pept 593 pg/mL (0-450); Osmolality Calculated 283 mOsm/kg (285-295); Sodium 136 mmol/L (136-145); Triglycerides 83 mg/dL (0-150)
[2020-07-22 08:57] LABS: Anion Gap 15.1 (5-19); Potassium 4.1 mmol/L (3.5-5.1)
--- NOTE | 2020-07-22 09:07 | PM.CONSULT ---
Providers/Reason For Consult Consulting Physican/Specialty*: CARLOS Crespo MD/cardiology Reason for Consult*: Patient with syncope/near syncope, elevated troponin T Attending Physician: London Karimi MD Primary Care Provider: Vazquez Maza DO History of Present Illness History of Present Illness Marco Antonio Almonte is a 79 year old male is admitted to the hospital through the emergency room, where he presented with complaints of near syncopal episode. He was found to have elevated troponin T with a significant delta at 2 hours. Cardiology consult is requested for further cardiac evaluation recommendations. Mr. Almonte apparently has been doing okay up until last evening when he started getting dizzy, lightheaded while working underneath a trailer. He was feeling extremely weak and felt like going to pass out. 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 Because of the symptoms, he somehow managed to get back into his truck. He sat inside the truck for a while. He felt somewhat better. He managed to get back in his house afterwards. He was sitting up in a chair and was found to be diaphoretic and pale by his . He also was feeling dizzy lightheaded and weak all over the body. Because of the persistence of the symptoms, his called the ambulance and he was brought to the hospital. In the emergency room, his symptoms gradually started subsiding. He had a CT of the head which revealed no acute intracranial pathology. Some features of chronic sinusitis. His chest x-ray was unremarkable. EKG did not reveal any acute ischemic changes. His baseline troponin T was 13 with a 2-hour delta of 21. The BNP was in the 500 range. Patient denies any chest pain. He has some musculoskeletal pain in the shoulders. Denies any fever or chills. No cough. He has been feeling somewhat tired and short of breath lately. He is known to have no cardiac illnesses. He was told to have a heart murmur sometime ago but never had any echocardiogram or other cardiac work-up. He has been fairly healthy otherwise. He is known to have BPH and is being followed up by a urologist. At the time of my examination, patient may have some amount of weakness but he is almost back to his baseline. Denies any unusual shortness of breath. No headache or blurring of vision. No focal motor deficits. No other specific complaints. Patient has no history for any endocarditis. No history for rheumatic valvular heart disease. He had jaundice at the age of 7. No other significant illnesses in the past Review of Systems Narrative: CONSTITUTIONAL: No fever or chills. EYES: No blurring of vision or other visual disturbances lately. ENT: No hoarseness of voice, auditory disturbances or sore throat. CARDIOVASCULAR: As mentioned above. RESPIRATORY: No significant cough. GASTROINTESTINAL: No hematemesis or melena. GENITOURINARY: No dysuria or hematuria. INTEGUMENTARY: No skin rashes or history of skin cancer. NEURO: Syncopal episode as mentioned above. He has a history of numbness affecting both feet PSYCHIATRIC: No history of psychosis or major depression. HEMATOLOGIC: No bleeding disorders or significant anemia. ENDOCRINE: No history of polyuria or polydipsia. MUSCULOSKELETAL: No recent joint pain or swelling. ALLERGY/IMMUNOLOGY: As mentioned above. Meds/Allergies Home Medications and Allergies Home Medications Medication Instructions Recorded Confirmed Last Taken Type antiarthritic combination no.2 900 See Rx Instructions .ROUTE .COMPLEX 05/01/20 07/21/20 07/21/20 History mg tablet aspirin 81 mg tablet,delayed 81 mg PO DAILY@119905/01/20 07/21/20 07/21/20 History release cholecalciferol (vitamin D3) 50 50 mcg PO DAILY@119905/01/20 07/21/20 07/21/20 History mcg (2,000 unit) capsule folic 500 mcg-B12 250 mcg-ALA 50 1 cap PO DAILY@119905/01/20 07/21/20 07/21/20 History mg-coQ10 50 [id number]-epa capsule lactobacillus combination no.8 3 3,000 mmu cells PO DAILY@119905/01/20 07/21/20 07/21/20 History billion cell capsule magnesium chloride 70 mg 70 mg PO DAILY 05/01/20 07/21/20 07/21/20 History (magnesium chloride) tablet,delayed release whsmhhng-jsy-ooscd acid 300 1 tab PO DAILY@119905/01/20 07/21/20 07/21/20 History mcg-lycopene 600 mcg-lutein 300 mcg tablet potassium gluconate 595 mg (99 mg) 595 mg PO DAILY@119905/01/20 07/21/20 07/21/20 History tablet zinc 50 mg tablet 50 mg PO DAILY@1200 05/01/20 07/21/20 07/21/20 History acetaminophen 1 - 2 tab PO Q6H PRN 07/21/20 07/21/20 Unknown History psyllium [Metamucil] 1 packet PO DAILY@1200 07/21/20 07/21/20 07/21/20 History Allergies Allergy/AdvReac Type Severity Reaction Status Date / Time meperidine [From Demerol] Allergy stopped Verified 05/30/20 08:51 breathing Current Medications Current Medications Generic Name Dose Route Start Last Admin Trade Name Freq PRN Reason Stop Dose Admin Sodium Chloride 1,000 mls @ 30 mls/hr 07/22/20 05:15 07/22/20 05:37 Sodium Chloride 0.45% IV 30 mls/hr .Q24H NETO Administration PFSH Acute PFSH: Medical History BPH with obstruction/lower urinary tract symptoms History of elevated PSA Incomplete bladder emptying Lumbar radiculopathy, chronic L5-S1 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 Surgical History History of ankle surgery History of appendectomy History of bilateral inguinal hernia repair History of nasal surgery Status post transurethral resection of prostate Family History Other Cancer Denies family history of Diabetes CAD (coronary artery disease) Hypertension Stroke Social History Smoking and tobacco status: former smoker Quit status (tobacco): has quit using tobacco Year quit tobacco: 1982 Alcohol intake: current Alcohol intake frequency: 0-2 Drinks per Day Alcohol type: wine Adopted: No Household members: spouse Marital status: Current occupational status: retired Vitals/I&O/Wt Last Vital Signs Temp 97.8 F 07/22/20 07:52 Pulse 61 07/22/20 07:52 Resp 13 07/22/20 07:52 BP 123/79 07/22/20 07:52 Pulse Ox 98 07/22/20 07:52 07/21/20 07/22/20 07/22/20 22:59 06:59 14:59 Intake Total 240 / 240 450 / 690 Balance 240 / 240 450 / 690 Weight last 48 hrs Weight 210 lb Physical Exam Narrative: EXAM NARRATIVE: GENERAL: The patient is alert and oriented times three. Not in any acute distress. HEENT: No significant pallor, icterus or lymphadenopathy. The pupils are reactant to light. Oral cavity: There are no mucous membrane lesions. Funduscopic examination: The disk margins appear to be sharp with no exudates or hemorrhages. NECK: Trachea appears to be central. No masses noted. No JVD or thyromegaly appreciated. No carotid bruit. RESPIRATORY: Chest is symmetrical. No intercostals muscle retraction or any accessory muscle activation. There is no chest wall tenderness. Breath sounds are heard bilaterally. No rales or rhonchi heard. No evidence of any consolidation. BREASTS: Deferred. HEART: Ejection systolic murmur of grade 5/6 in the aortic area. No diastolic murmurs. No pericardial rub. ABDOMEN: No vessel pulsations or distention. No tenderness. No organomegaly appreciated. No abdominal bruit. Bowel sounds are normally heard. : Deferred. RECTAL: Deferred. LYMPHATIC: No lymphadenopathy noted in the neck or groin. EXTREMITIES: No edema or cyanosis. No clubbing. The pulses are symmetrical bilaterally. The radial, femoral, dorsalis pedis and the posterior tibial pulses are palpated and found to be relatively of low volume and amplitude. MUSCULOSKELETAL: No acute joint deformities or swelling SKIN: There are no significant scars or skin rash noted. NEUROPSYCHIATRIC: The patient is alert and oriented x3. The higher functions are grossly within normal limits. No tremors or rigidity noted. Data Labs: Other Labs: Laboratory Last Values WBC 9.6 10^3/uL (4.0- 10.0) 07/21/20 18:35 RBC 4.33 10^6/uL (4.1 -5.3) 07/21/20 18:35 Hgb 12.6 g/dL (11.7-1 6.6) 07/21/20 18:35 Hct 37.9 % (42.0-52.0 ) L 07/21/20 18:35 MCV 87.5 fL (80-94) 07/21/20 18:35 MCH 29.1 pg (28.0-34. 0) 07/21/20 18:35 MCHC 33.2 g/dL (30.0-3 6.0) 07/21/20 18:35 RDW 14.0 % (12.1-15.1 ) 07/21/20 18:35 Plt Count 280 10^3/cmm (130 -400) 07/21/20 18:35 MPV 9.8 fL (7.4-10.4) 07/21/20 18:35 Neut % (Auto) 62.5 % 07/21/20 18:35 Lymph % (Auto) 20.9 % 07/21/20 18:35 Dillon % (Auto) 10.6 % 07/21/20 18:35 Eos % (Auto) 5.0 % 07/21/20 18:35 Baso % (Auto) 0.6 % 07/21/20 18:35 Neut # (Auto) 6.00 10^3/uL (1.8 -7.7) 07/21/20 18:35 Lymph # (Auto) 2.0 10^3/uL (0.8- 4.8) 07/21/20 18:35 Dillon # (Auto) 1.0 10^3/uL (0.2- 0.9) H 07/21/20 18:35 Eos # (Auto) 0.5 10^3/uL (0.0- 0.8) 07/21/20 18:35 Baso # (Auto) 0.1 10^3/uL (0.0- 0.1) 07/21/20 18:35 Nucleated RBC % (a uto) 0 % 07/21/20 18:35 Nucleated RBCs # 0.0 /100WBC 07/21/20 18:35 Sodium 136 mmol/L (136-1 45) 07/22/20 01:23 Potassium 4.1 mmol/L (3.5-5 .1) 07/22/20 01:23 Chloride 101 mmol/L (98-10 7) 07/22/20 01:23 Carbon Dioxide 24 mmol/L (22-29) 07/22/20 01:23 Anion Gap 15.1 (5-19) 07/22/20 01:23 BUN 14 mg/dL (8-23) 07/22/20 01:23 Creatinine 0.5 mg/dL (0.7-1. 2) L 07/22/20 01:23 GFR Calculation Not Reportable 07/22/20 01:23 Glucose 108 mg/dL (65-115 ) 07/22/20 01:23 Estimat Average Gl ucose 105 07/21/20 18:35 Hemoglobin A1c 5.3 % (4.0-6.0) 07/21/20 18:35 Calculated Osmolal ity 283 mOsm/kg (285- 295) L 07/22/20 01:23 Calcium 9.2 mg/dL (8.5-10 .5) 07/22/20 01:23 Magnesium 2.3 mg/dL (1.7-2. 3) 07/22/20 01:23 Total Bilirubin 0.4 mg/dL (0.15-1 .2) 07/21/20 18:35 AST 24 U/L (0-40) 07/21/20 18:35 ALT 17 U/L (0-41) 07/21/20 18:35 Alkaline Phosphata se 68 IU/L (40-130) 07/21/20 18:35 Troponin T Baselin e 13 ng/L (0-15) 07/21/20 18:35 Troponin T 120 Min taryn 34.23 ng/L (0-15) H 07/21/20 20:21 Delta Troponin T 21.23 ABS# (0-10) H* 07/21/20 20:21 Troponin T Hi Sens 6Hr 25.80 ng/L (0-15) H 07/22/20 01:23 Troponin T Hi Sens 6Hr Delta 12.80 ng/L (0-12) H* 07/22/20 01:23 NT-Pro-B Natriuret Pep 593 pg/mL (0-450) H 07/22/20 01:23 Total Protein 6.5 g/dL (6.6-8.7 ) L 07/21/20 18:35 Albumin 4.2 g/dL (3.5-5.2 ) 07/21/20 18:35 Globulin 2.3 g/dL (1.3-4.6 ) 07/21/20 18:35 Triglycerides 83 mg/dL (0-150) 07/22/20 01:23 Cholesterol 219 mg/dL (0-200) H 07/22/20 01:23 LDL Cholesterol, C alc 153 mg/dL (50-129 ) H 07/22/20 01:23 HDL Cholesterol 49 mg/dL (60-100) L 07/22/20 01:23 LDL/HDL Ratio 3.12 RATIO (0.00- 3.22) 07/22/20 01:23 Cholesterol/HDL Ra kenya 4.47 mg/dL (1.0-5 .00) 07/22/20 01:23 A&P Assessment and plan (1) Near syncope: The etiology of the syncope is not clear at this time. Most likely the patient may have had some form of cardiac arrhythmia or an acute diastolic heart failure. He has no clinical evidence of any heart failure. The severe aortic valve stenosis could be a major contributing factor for his current symptomatology. Hemodynamically he seems to be stable at this time. Status: Resolved (2) Severe aortic valve stenosis: Patient has echocardiogram evidence of severe aortic valve stenosis. His current symptoms could be related to this. He requires further cardiac work-up to decide on further management. Status: Acute (3) NSTEMI (non-ST elevated myocardial infarction): The elevated troponin T is suggestive of a non-ST elevation myocardial infarction. Possibility of some form of cardiac arrhythmia causing the troponin elevation also is a consideration. EKG does not reveal any acute ischemic changes. Status: Resolved (4) Peripheral neuropathy: Patient has a history of longstanding numbness of both leg/feet. No recent changes. Status: Chronic Qualifiers: Peripheral neuropathy type: polyneuropathy, unspecified Qualified Code(s): G62.9 - Polyneuropathy, unspecified (5) History of elevated PSA: He is being followed by the urologist. No other specific symptoms at this point. Status: Chronic Additional A&P Information Patient may benefit from a cardiac catheterization, to further evaluate his coronary arteries. We will check his lipid profile. I will be reviewing his echocardiogram and carotid Doppler examination which were done this morning. After reviewing this, further recommendations will be made. Thank you for the opportunity to evaluate this patient and make these recommendations. Patient may be kept n.p.o. for the time being. 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
[2020-07-22] MEDS: aspirin 325 mg EC Tablet PO (09:48)
[2020-07-22] MEDS: psyllium powder Pkt 1 PACKET PO (09:48)
--- NOTE | 2020-07-22 09:50 | PC.NURSE ---
Dr Crespo at bedside during medication administration instruction to hold this dose
[2020-07-22 10:42] LABS: ABG PCO2 35.8 mmHg (35-45); ABG PH Result 7.48 (7.35-7.45); Arterial Blood Gas Hematocrit 39.5 % (42-52); Base Excess ABG 3.2 mmol/L (-2.0-2.0); Blood Gas Sample Site Brachial, right; Blood Gas Sample Type Arterial; HCO3 ABG 26.7 mmol/L (22-26); Oxygen Device ROOM AIR
[2020-07-22] MEDS: diphenhydrAMINE 50 mg Capsule PO (11:28)
--- NOTE | 2020-07-22 11:42 | XACV_ITS ---
Exam Room: [facility] Ht: 183 cm Wt: 95 kg BSA: 2.22 m2 Gender: Male : 1940 Any Known Allergies: Demerol Exam Priority: Routine Procedure(s): Procedure Description: Diagnostic procedure Procedure Description: Right Heart Catheterization Procedure Description: O2 saturation Procedure Description: Coronary Angiography Diagnostic Cath Status: Elective Diagnostic Findings * No significant disease noted in the Left Main, LAD, Circumflex, or RCA coronary arteries. * Coronary angiography shows right dominance. * The left main is a medium caliber vessel with minimal plaques at the ostium. No significant stenotic lesions. * The left anterior descending artery is a medium caliber vessel which appears to wrap around the LV apex. The proximal LAD was found to have around 30 to 40% diffuse eccentric narrowing with calcification. * The left circumflex artery is a medium caliber vessel which was found to have around 40% ostial narrowing. It is nondominant vessel with no other significant stenotic lesions. * The intermedius artery is a small to medium caliber high obtuse marginal branch with minimal intimal irregularities. * The right coronary artery is a medium to large caliber dominant vessel with mild diffuse disease. The ostium of the artery was found to have moderate calcification. No other significant stenotic lesions. PCI Status: Elective Conclusions 1. 79-year-old white male with no significant past medical history, presenting with near syncopal episode. Elevated troponin T. He was found to have critical aortic valve stenosis with a valve area of 0.49 cm2 by echocardiogram. For further evaluation of his coronary status, a cardiac catheterization was recommended. Patient underwent left and right heart catheterization with left and right coronary angiogram. The findings are as follows. 2. Mild diffuse coronary artery disease with some coronary calcification especially in the proximal segments. Normal right heart pressures. Cardiac output of 5.6 with an index of 2.6. Recommendations * Continue current medical management and risk factor modification. * Based on the above findings, patient may benefit from aortic valve replacement. This will be discussed the patient family in detail and a final decision will be made afterwards. Patient was transferred back to the medical floor in stable condition. Diagnostic RX Recommendation: other cardiac therapy w/o CABG/PCI Left Ventriculography Findings: * LV gram was not attempted because of the critical . Pressures Phase:Rest AO : 92 / 63 ( 75 ) @ 6:55:00 AM RV : 31 / -1 / @ 6:41:00 AM PA : 25 / 5 ( 14 ) @ 6:37:00 AM RA : a wave = v wave = mean = 4 @ 6:42:00 AM Hemodynamic Findings Right atrial pressure was 5 mmHg. The right ventricular pressure was 30/2. PA pressure was 30/80 with a mean of 14. Pulmonary capillary wedge pressure was 4 mmHg. The cardiac output was calculated to be 5.63 with an index of 2.6(Yo's). O2 Content Phase:Rest PA : O2 Content O2: 65.6 @ 6:37:00 AM Saturations Phase:Rest AO : 92 @ 6:55:00 AM RA : 66 @ 6:45:00 AM RV : 66 @ 6:42:00 AM PA : 66 @ 6:37:00 AM Cardiac Output Phase:Rest Yo : 6 @ 6:55:00 AM Yo Cardiac Index: 3 @ 6:55:00 AM Clinical Evaluation EBL: 5mL-10mL Procedural Details Procedure Consent Obtained. Pre-Procedure Time Out. Identified patient by full name and date of as verbalized by the patient/guarantor. Does the consent match the physician's order: Yes. Accurate & Complete Informed Consent: Yes. Inpatient/Outpatient History & Physical on Chart: Yes. If H&P is completed, is and addenduem needed: No; If yes, is the addendum complete: N/A. Visualize and Verify Site with Patient/Guarantor: N/A. Relevant Radiology Images available: Yes. Pre-op teaching completed and patient verbalized understanding. The risks, benefits, and alternatives of sedation and/or procedure were discussed by physician. The patient agrees to continue. Procedure started. PERRLA. [place], equal hand bottle hop bilaterally. Lungs clear x 5 lobes. IV Site on Arrival: 20 gauge in the left anticubital. IV Fluids: 0.9% NaCl at KVO. 0 mL infused prior to supervisor laboratory. Pre Procedural Pulses: bilateral radial was 3+. Oxygen started at 2liters/min via nasal canula. bilateral groins was prepped with chloroprep then draped in the usual sterile fashion. right radial was prepped with chloroprep then draped in the usual sterile fashion. Physician notified. Baseline sample Acquired. HR: 76 BPM. Equipment: 6F - Radial. [employer] Manifold Kit Model BT 2000. Cardiac Cath Pack. Heparinized Saline (2 units/mL), 1000 mL bag. Physician arrived. Physician scrubbed in. Immediate Pre-Procedure Time Out. Correct Patient: Yes; Correct Procedure: Yes; Correct Site: Yes; Correct Patient Position: Yes; Correct Supplies: Yes; Dried Flammable Prep: Yes; Blood Products Available: No;. Lidocaine 1% infiltrated to the right groin. Venous access obtained with a micropuncture set. Arterial access obtained with micropuncture set. Harrington-Eduard MON catheter inserted. Arterial sheath flushed. Harrington-Eduard out. A 5 anguillan JR4 catheter in over wire. Catheter out. 6FR sheath exchanged for 6FR Flexor 45cm sheath. A 5 anguillan JR4 catheter in over wire. Multiple views taken of right coronary artery. Catheter out. A 5 anguillan JL4 catheter in over wire. Catheter out. A 5 anguillan JL5 catheter in over wire. Multiple views taken of left coronary artery. Catheter out. 6FR flexor sheath exchanged for 6FR regular sheath. Sheath(s) sutured into position with 2-0 silk and sterile 4x4's and Op-site applied over the site. No oozing or signs and symptoms of hematoma noted. Arterial sheath flushed and connected to tranducer and pressure bag with heparinized saline. Post Procedure: Pulses reassessed and unchanged. A Manual Compression was successful obtaining hemostatsis at the Right Femoral vein insertion site. A Suture was successful obtaining hemostatsis at the Right Femoral artery insertion site. PERRLA. Strong, equal hand bottle hop bilaterally. No VTE prophylaxis required. Medication's Wasted: Lidocaine 1% = 4 mL. Medication's Wasted: Verapamil = 5 mg. Medication's Wasted: Heparin = 2500 units. Total IV fluids: 300 mL. Contrast type used: Omnipaque 300 mgI/mL, 500 mL bottle. Post-op diagnosis: Normal Coronaries. [facility] Clinical Fraility Score: 3: Managing Well. Intermission Coordinator Indications: New Onset Angina. Chest Pain Symptom Assessment: Typical Angina Symptoms. Cardiovascular Instability: No. Complications: None. Estimated blood loss: 5mL-10mL. Vital chart was stopped. Procedure completed. Patient transferred by bed to 1st floor. Access Site Site: Right Femoral vein Sheath Size: 6 Fr Hemostasis Method: Manual Compression Hemostasis Success: Successful Site: Right Femoral artery Sheath Size: 5 Fr Hemostasis Method: Suture Hemostasis Success: Successful Procedure Medications Start: 12:12 PM Stop: 12:12 PM Medication: Fentanyl Amount: 50 mcg Route: I.V. Start: 12:13 PM Stop: 12:13 PM Medication: Versed Amount: 1 mg Route: I.V. Start: 12:15 PM Stop: 12:15 PM Medication: Versed Amount: 1 mg Route: I.V. Start: 12:24 PM Stop: 12:24 PM Medication: Fentanyl Amount: 25 mcg Route: I.V. Start: 12:27 PM Stop: 12:27 PM Medication: Versed Amount: 1 mg Route: I.V. Start: 12:42 PM Stop: 12:42 PM Medication: 0.9% Saline Amount: 250 ml Route: I.V. bolus Start: 12:46 PM Stop: 12:46 PM Medication: Versed Amount: 1 mg Route: I.V. Start: 12:51 PM Stop: 12:51 PM Medication: Heparin Amount: 1500 units Route: I.V. Start: 12:55 PM Stop: 12:55 PM Medication: Fentanyl Amount: 25 mcg Route: I.V. I, the attending physician, have reviewed and verified all procedure medications. Yes, all medications given per verbal order History/Risk Factors Hypertension: No Dyslipidemia: No Peripheral Arterial Disease (PAD): No Myocardial Infarction (ME): No Obesity: No Renal Disease: No Prior Interventions PCI: No CABG: No Valve Surgery: No Report Signatures Finalized by Dr Terra Crespo MD [facility] on 07/22/2020 03:07 PM
[2020-07-22] MEDS: sodium chloride 0.9% 1,000 ML 50 ML IV (11:56)
--- NOTE | 2020-07-22 12:14 | W.PM.OPSUD ---
Surgery/Procedure H&P Update DATE OF PROCEDURE: July 22, 2020 DATE H&P PERFORMED: 07/22/20 PREOP DIAGNOSIS: Severe aortic valve stenosis/non-ST elevation myocardial infarction PLANNED PROCEDURE: Operation Date: 07/22/20 12:00 Proposed Procedures p Cardiac Catheterization(Bilateral) - Terra Crespo MD PATIENT REASSESSED PRIOR TO SEDATION, WITH NO CHANGE NOTED: Yes PHYSICAL EXAM: alert, clear to auscultation bilaterally and regular rate & rhythm AIRWAY EVAL/ANESTHESIA PLAN: normal airway, see other exam findings, ASA III, Monitored Anesthesia, Local Anesthesia, Risks, benefits & alternatives of sedation and/or procedure discussed and Patient agrees to continue as planned
--- NOTE | 2020-07-22 12:24 | PC.CHAP ---
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 electric motor repairing supervisor visit [] Patient/Family/Request visit [] Outpatient visit [] Follow-up visit [] Physician referral [] Code/Alert [XX] Routine visit [XX] Staff referral [] Actively dying [] Patient sleeping [] Family support [] [] Out of room [] Palliative care [] [] Receiving care in room [] Pre-surgical visit [] Trauma [] Long length of stay [] ICU visit [] Other: Relational/Emotional Strength [XX] Patient feels connected with others/family/visitors/staff [] Distress [] Loneliness/isolation [] Abandonment Spirituality of Patient [] Person of Pau [] Attends Denominational of their Pau [] Believes in Prayer [] Reads Bible or Alevism materials [] There are Spiritual issues to be addressed [employer] Interventions [] Prayer [] Active listening [XX] Non-anxious presence [] Spiritual/emotional support [] Crisis/trauma care [] Spiritual counseling [] Bereavement support [] Provided bereavement packet [] Provided Bible/devotional materials [] Provided toy/stuffed animal, coloring book to patient or family member [] Provided Communion [] Anointing/Dana [] Salvation [] Completed spiritual assessment [] Other: Impact on Illness or Injury [] Angry [] Fearful [] Anxious [] Often cries [] Exhaustion [] Unable to work [] Unable to attend jehovah's witness [] Unable to walk/stand [] Unable to read [] Unable to drive [] Unable to eat/drink [] Unable to sleep [] Unable to be with family [] Patient intubated [] Other: Summary: Pt was seen prior to be taken to brick and blocker aid labor. Pt was not interested in visiting or prayer. It seemed as tho' pt was trying to relax before the procedure. [employer] Bus Driver offered to keep him in prayer. Time spent with patient: < 5 mins
--- NOTE | 2020-07-22 12:47 | P.PN_ITS ---
Subjective Subjective: Interval history: Patient was examined this morning, he is having his bedside echocardiogram and carotid artery ultrasound, I he tells me that he is doing better, this is never happened before, denies a history of heart failure, no history of CAD, is not exactly sure what aortic stenosis is, but does tell me that when he was preparing his mobile home this afternoon, when he got up off the floor, he just did not feel well, he might of had some chest pain, some lightheadedness, he got into his truck and just did not feel well, he was able to get to his home, where his called EMS Vitals/I&O/Wt Last Vital Signs Temp 97.6 F 07/22/20 11:39 Pulse 59 L 07/22/20 11:39 Resp 12 07/22/20 11:39 BP 112/69 07/22/20 11:39 Pulse Ox 97 07/22/20 11:39 07/21/20 07/22/20 07/22/20 22:59 06:59 14:59 Intake Total 240 / 240 450 / 690 189 / 189 Balance 240 / 240 450 / 690 189 / 189 Weight last 48 hrs Weight 95.254 kg Physical Exam Const: COMMON NORMALS: no acute distress and patient oriented x3 HENMT: COMMON NORMALS: normocephalic HEAD & SCALP: normocephalic Neck/C-Spine: COMMON NORMALS: no JVD Resp: COMMON NORMALS: normal respiratory effort, No retractions, No use of accessory muscles and clear to auscultation bilaterally AUSCULTATION: clear to auscultation bilaterally Cardio: COMMON NORMALS: no JVD, regular rate, regular rhythm, S1 normal heart sound present and S2 normal heart sound present RATE: regular rate RHYTHM: regular rhythm HEART SOUNDS: S1 normal heart sound present, S2 normal heart sound present and Murmur heart sound present GI: COMMON NORMALS: Normal to inspection, nondistended, normoactive bowel sounds present, Soft to palpation, non-tender, No hepatosplenomegaly present, no masses and no bruits PALPATION: Yes Soft to palpation and Yes No h epatosplenomegaly present Extremity: COMMON NORMALS: capillary refill normal, no clubbing, cyanosis or edema, no calf tenderness and no pedal edema Neuro: COMMON NORMALS: patient oriented x3 Psych: COMMON NORMALS: mental status grossly normal Data : 07/21/20 18:35 07/22/20 01:23 A&P Assessment and plan (1) Syncope: Syncope likely secondary to NSTEMI and aortic stenosis -Carotid artery ultrasound pending -Plans on performing a cardiac catheterization later on this morning -Ultrasound shows severe aortic stenosis, will need a TAVR -Currently on aspirin, statin -A1c 5.3 -LDL 153, HDL 49, cholesterol 219 -Telemetry monitoring -Cardiology on consult -Full code -Therapeutic Lovenox for DVT prophylaxis Status: Acute Qualifiers: Syncope type: unspecified Qualified Code(s): R55 - Syncope and collapse (2) NSTEMI (non-ST elevated myocardial infarction): 6-hour troponin 25.8, delta 12.8 Cardiology on consult Plans on performing cardiac catheterization this morning Status: Acute (3) Bradycardia: Continue telemetry monitoring Status: Acute (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 (5) Peripheral neuropathy: Status: Chronic Qualifiers: Peripheral neuropathy type: polyneuropathy, unspecified Qualified Code(s): G62.9 - Polyneuropathy, unspecified (6) Severe aortic valve stenosis: Status: Acute Additional A&P Information atment dose presently Check urinalysis Continue home Metamucil but hold other usual medications which are primarily [id number] for now Supportive care otherwise Further plans pending results of above Plans were discussed with patient and he was given an opportunity to ask qu estions Full code Attestations Medical Necessity Statement*: Patient requires hospitalization, inpatient, g reater than 2 midnights, for NSTEMI, syncope likely secondary to severe aortic stenosis Coding Level of Care Code 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
--- NOTE | 2020-07-22 15:35 | PM.TDS ---
Transfer Summary Providers Date of Admission: 07/22/20 13:17 Date of Discharge: 07/22/20 Attending Provider at Admission: Anastasiya Mittal MD Attending Provider at Transfer: [place] Karimi MD Primary Care Provider: Vazquez Maza DO Anticipated Date of Transfer: Anticipated date of transfer: 07/22/20 Receiving Facility & Provider: Receiving Provider: [] Receiving facility: [] Diagnoses at Discharge Discharge Diagnosis (1) Syncope: Status: Acute Qualifiers: Syncope type: unspecified Qualified Code(s): R55 - Syncope and collapse (2) NSTEMI (non-ST elevated myocardial infarction): Status: Acute (3) Bradycardia: Status: Acute (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 (5) Peripheral neuropathy: Status: 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 Qualifiers: Peripheral neuropathy type: polyneuropathy, unspecified Qualified Code(s): G62.9 - Polyneuropathy, unspecified (6) Severe aortic valve stenosis: Status: Acute Reason for Visit Reason for Visit: SYNCOPAL EPISODE/ PALE/ DIAPHORETIC Hospital Course Hospital Course this is a 79-year-old male with a past medical history of BPH, lumbar radiculopathy, peripheral neuropathy who presents to [facility] due to complaints of presyncopal symptoms Patient was admitted to [facility] for presyncope, CT on the admission did not show significant evidence of acute stroke, patient had no focal neurologic deficits, carotid artery ultrasound showed no hemodynamically significant carotid artery stenosis, UA unremarkable for UTI, chest x-ray unremarkable for pneumonia, no significant electrolyte abnormalities, TSH within normal limits, his EKG did not show any acute ST-T wave changes, his 6-hour troponin was 25.8, 6-hour delta was 12.8 he was kept on aspirin, statin, with telemetry monitoring. Patient's echocardiogram showed critical aortic valve stenosis with an aortic valve area of 0.49 cm?. Cardiology was consulted, patient underwent a cardiac catheterization that did not show any significant obstructive CAD. Thus, patient symptomatology was related to critical aortic valve stenosis. Dr. Jiménez from [facility] accepted transfer for TAVR procedure. Physical Exam Const: COMMON NORMALS: no acute distress and patient oriented x3 HENMT: COMMON NORMALS: normocephalic HEAD & SCALP: normocephalic Neck/C-Spine: COMMON NORMALS: no JVD Resp: COMMON NORMALS: normal respiratory effort, No retractions, No use of accessory muscles and clear to auscultation bilaterally AUSCULTATION: clear to auscultation bilaterally Cardio: COMMON NORMALS: no JVD, regular rate, regular rhythm, S1 normal heart sound present and S2 normal heart sound present RATE: regular rate RHYTHM: regular rhythm HEART SOUNDS: S1 normal heart sound present, S2 normal heart sound present and Murmur heart sound present GI: COMMON NORMALS: Normal to inspection, nondistended, normoactive bowel sounds present, Soft to palpation, non-tender, No hepatosplenomegaly present, no masses and no bruits PALPATION: Yes Soft to palpation and Yes No hepatosplenomegaly present Extremity: COMMON NORMALS: capillary refill normal, no clubbing, cyanosis or edema, no calf tenderness and no pedal edema Neuro: COMMON NORMALS: patient oriented x3 Psych: COMMON NORMALS: mental status grossly normal TS Data Data Completed and Pending: Completed Studies During Hospitalization Category Date Time Status CT head wo con* 7 [id number] Urgent Cat Scan 07/21/20 19:07 Completed MEDICAL RECORDS DIRECTOR request for service Routin e Exams 07/22/20 11:42 Completed XR chest 1V chin ble [id number] Stat Exams 07/21/20 19:01 Completed CV carotid duplex BI* [id number] Routine Ultrasound 07/22/20 05:14 Completed CV echo complete* [id number] Routine Ultrasound 07/22/20 05:02 Completed Pending at discharge Category Date Time Status Complete Blood Co unt w/Auto AM LABS Lab 07/23/20 04:00 Ordered Complete Blood Co unt w/Auto AM LABS Lab 07/24/20 04:00 Ordered Complete Blood Co unt w/Auto AM LABS Lab 07/25/20 04:00 Ordered Comprehensive Met abolic Panel AM LA BS Lab 07/23/20 04:00 Ordered Comprehensive Met abolic Panel AM LA BS Lab 07/24/20 04:00 Ordered Comprehensive Met abolic Panel AM LA BS Lab 07/25/20 04:00 Ordered Magnesium AM LABS Lab 07/23/20 04:00 Ordered Magnesium AM LABS Lab 07/24/20 04:00 Ordered Magnesium AM LABS Lab 07/25/20 04:00 Ordered Phosphorus AM LAB S Lab 07/23/20 04:00 Ordered Phosphorus AM LAB S Lab 07/24/20 04:00 Ordered Phosphorus AM LAB S Lab 07/25/20 04:00 Ordered Urinalysis Routin e Lab 07/22/20 05:16 Uncollected Labs from last 24 hours 07/22/20 07/22/20 07/21/20 01:23 01:23 21:22 WBC RBC Hgb Hct MCV MCH MCHC RDW Plt Count MPV Neut % (Auto) Lymph % (Auto) [place] % (Auto) Eos % (Auto) Baso % (Auto) Neut # (Auto) Lymph # (Auto) [place] # (Auto) Eos # (Auto) Baso # (Auto) Nucleated RBC % (a uto) Nucleated RBCs # Specimen Type Arterial Sample Site Brachial, right ABG pH 7.48 H ABG pCO2 35.8 ABG pO2 81.0 ABG HCO3 26.7 H ABG Base Excess 3.2 H Owen Test N/a Hematocrit 39.5 L O2 Delivery Device Room air FiO2 21.0 Inoculator ID Jlg Sodium 136 Potassium 4.1 Chloride 101 Carbon Dioxide 24 Anion Gap 15.1 BUN 14 Creatinine 0.5 L GFR Calculation Not Reportable Glucose 108 Estimat Average Gl ucose Hemoglobin A1c Calculated Osmolal ity 283 L Calcium 9.2 Magnesium 2.3 Total Bilirubin AST ALT Alkaline Phosphata se Troponin T Baselin e Troponin T 120 Min morongo Delta Troponin T Troponin T Hi Sens 6Hr 25.80 H Troponin T Hi Sens 6Hr Delta 12.80 H* NT-Pro-B Natriuret Pep 593 H Total Protein Albumin Globulin Triglycerides 83 Cholesterol 219 H LDL Cholesterol, C alc 153 H HDL Cholesterol 49 L LDL/HDL Ratio 3.12 Cholesterol/HDL Ra kenya 4.47 07/21/20 07/21/20 07/21/20 20:21 18:35 18:35 WBC RBC Hgb Hct MCV MCH MCHC RDW Plt Count MPV Neut % (Auto) Lymph % (Auto) [place] % (Auto) Eos % (Auto) Baso % (Auto) Neut # (Auto) Lymph # (Auto) [place] # (Auto) Eos # (Auto) Baso # (Auto) Nucleated RBC % (a uto) Nucleated RBCs # Specimen Type Sample Site ABG pH ABG pCO2 ABG pO2 ABG HCO3 ABG Base Excess Owen Test Hematocrit O2 Delivery Device FiO2 Inoculator ID Sodium Potassium Chloride Carbon Dioxide Anion Gap BUN Creatinine GFR Calculation Glucose Estimat Average Gl ucose 105 Hemoglobin A1c 5.3 Calculated Osmolal ity Calcium Magnesium Total Bilirubin AST ALT Alkaline Phosphata se Troponin T Baselin e 13 Troponin T 120 Min morongo 34.23 H Delta Troponin T 21.23 H* Troponin T Hi Sens 6Hr Troponin T Hi Sens 6Hr Delta NT-Pro-B Natriuret Pep Total Protein Albumin Globulin Triglycerides Cholesterol LDL Cholesterol, C alc HDL Cholesterol LDL/HDL Ratio Cholesterol/HDL Ra kenya 07/21/20 07/21/20 18:35 18:35 WBC 9.6 RBC 4.33 Hgb 12.6 Hct 37.9 L MCV 87.5 MCH 29.1 MCHC 33.2 RDW 14.0 Plt Count 280 MPV 9.8 Neut % (Auto) 62.5 Lymph % (Auto) 20.9 [place] % (Auto) 10.6 Eos % (Auto) 5.0 Baso % (Auto) 0.6 Neut # (Auto) 6.00 Lymph # (Auto) 2.0 [place] # (Auto) 1.0 H Eos # (Auto) 0.5 Baso # (Auto) 0.1 Nucleated RBC % (a uto) 0 Nucleated RBCs # 0.0 Specimen Type Sample Site ABG pH ABG pCO2 ABG pO2 ABG HCO3 ABG Base Excess Owen Test Hematocrit O2 Delivery Device FiO2 Inoculator ID Sodium 136 Potassium 4.0 Chloride 100 Carbon Dioxide 24 Anion Gap 16.0 BUN 16 Creatinine 0.6 L GFR Calculation Not Reportable Glucose 120 H Estimat Average Gl ucose Hemoglobin A1c Calculated Osmolal ity 284 L Calcium 9.1 Magnesium Total Bilirubin 0.4 AST 24 ALT 17 Alkaline Phosphata se 68 Troponin T Baselin e Troponin T 120 Min morongo Delta Troponin T Troponin T Hi Sens 6Hr Troponin T Hi Sens 6Hr Delta NT-Pro-B Natriuret Pep Total Protein 6.5 L Albumin 4.2 Globulin 2.3 Triglycerides Cholesterol LDL Cholesterol, C alc HDL Cholesterol LDL/HDL Ratio Cholesterol/HDL Ra kenya Vitals: Last Vital Signs Temp 97.6 F 07/22/20 11:39 Pulse 60 07/22/20 14:41 Resp 20 H 07/22/20 13:45 BP 109/65 07/22/20 13:45 Pulse Ox 98 07/22/20 14:41 TS Medications Medications Home Medications antiarthritic combination no.2 900 mg tablet See Rx Instructions .ROUTE .COMPLEX 05/01/20 [History Confirmed 07/21/20] aspirin 81 mg tablet,delayed release 81 mg PO DAILY@1200 05/01/20 [History Confirmed 07/21/20] cholecalciferol (vitamin D3) 50 mcg (2,000 unit) capsule 50 mcg PO DAILY@1200 05/01/20 [History Confirmed 07/21/20] folic 500 mcg-B12 250 mcg-ALA 50 mg-coQ10 50 [id number] capsule 1 cap PO DAILY@1200 05/01/20 [History Confirmed 07/21/20] lactobacillus combination no.8 3 billion cell capsule 3,000 mmu cells PO DAILY@1200 05/01/20 [History Confirmed 07/21/20] magnesium chloride 70 mg (magnesium chloride) tablet,delayed release 70 mg PO DAILY 05/01/20 [History Confirmed 07/21/20] tlpiuuxw-dis-olqmr acid 300 mcg-lycopene 600 mcg-lutein 300 mcg tablet 1 tab PO DAILY@119905/01/20 [History Confirmed 07/21/20] potassium gluconate 595 mg (99 mg) tablet 595 mg PO DAILY@1200 05/01/20 [History Confirmed 07/21/20] zinc 50 mg tablet 50 mg PO DAILY@119905/01/20 [History Confirmed 07/21/20] acetaminophen 1 - 2 tab PO Q6H PRN 07/21/20 [History Confirmed 07/21/20] psyllium [Metamucil] 1 packet PO DAILY@1200 07/21/20 [History Confirmed 07/21/20] Active Medications Acetaminophen (Acetaminophen 325 Mg Tablet) 650 mg PO Q6H PRN PRN Reason: Mild/Mod Pain Or Temp >/= 101 Aspirin (Aspirin 325 Mg Ec Tablet) 325 mg PO DAILY COUNTS INCLUDE 234 BEDS AT THE [facility] Last Admin: 07/22/20 09:48 Dose: 325 mg Documented by: Atorvastatin Calcium (Atorvastatin 40 Mg Tablet) 40 mg PO BEDTIME COUNTS INCLUDE 234 BEDS AT THE [facility] Bisacodyl (Bisacodyl 5 Mg Tablet) 10 mg PO DAILY PRN PRN Reason: CONSTIPATION Calcium Carbonate (Calcium Carbonate 500 Mg Chew Tablet) 1,000 mg PO Q4H PRN PRN Reason: DYSPEPSI Enoxaparin Sodium (Enoxaparin 100 Mg/Ml Syringe) 100 mg 1 mg/kg (100 mg) SUBCUT Q12H COUNTS INCLUDE 234 BEDS AT THE [facility] Last Admin: 07/22/20 09:48 Dose: Not Given Documented by: Sodium Chloride (Sodium Chloride 0.45%) 1,000 mls @ 30 mls/hr IV .Q24H NETO Last Infusion: 07/22/20 11:55 Dose: 0 mls/hr Documented by: Sodium Chloride (Sodium Chloride 0.9%) 1,000 mls @ 50 mls/hr IV .Q20H ONE Stop: 07/23/20 06:18 Last Admin: 07/22/20 11:56 Dose: 50 mls/hr Documented by: Ondansetron HCl (Ondansetron 2 Mg/Ml Sdv 2 Ml) 4 mg IVP Q8H PRN PRN Reason: vomiting, or N/V if npo Psyllium Hydrophilic Mucilloid (Psyllium Powder Pkt) 1 packet PO DAILY COUNTS INCLUDE 234 BEDS AT THE [facility] Last Admin: 07/22/20 09:48 Dose: 1 packet Documented by: Discharge Plan Discharge Patient Disposition: Home Condition: Stable Prescriptions: No Action [id number] 500 mcg-250 mcg-50 mg-50 mg capsule 1 cap PO DAILY@1200 RF: 0 Men 50 Plus Multivitamin 300-600-300 mcg tablet 1 tab PO DAILY@1200 RF: 0 cholecalciferol (vitamin D3) 50 mcg (2,000 unit) capsule 50 mcg PO DAILY@1200 RF: 0 potassium gluconate 595 mg (99 mg) tablet 595 mg PO DAILY@1200 RF: 0 glucosamine-chondroitin 900 mg tablet See Rx Instructions .ROUTE .COMPLEX RF: 0 magnesium chloride 70 mg tablet,delayed release (DR/EC) 70 mg PO DAILY RF: 0 aspirin [Adult Low Dose Aspirin] 81 mg tablet,delayed release (DR/EC) 81 mg PO DAILY@1200 RF: 0 zinc 50 mg tablet 50 mg PO DAILY@1200 RF: 0 Adult Probiotic 3 billion cell capsule 3,000 mmu cells PO DAILY@1200 RF: 0 Metamucil Packet 1 packet PO DAILY@1200 RF: 0 acetaminophen 1 - 2 tab PO Q6H PRN (Reason: Pain) RF: 0 Referrals: Vazquez Maza DO [Primary Care Provider] - Transfer Attestations Time Spent in Transfer Care*: less than 30 min Quality Metrics Clinical Quality Measures: During this hospital stay, did patient experience: None Coding Level of Care Code Acute Thumb Sewer for g Fwd Diagnoses Syncope R55 Syncope type: unspecified NSTEMI (non-ST elevated myocardial infarction) I21.4 Bradycardia R00.1 BPH with obstruction/lower urinary tract symptoms N40.1; N13.8 Peripheral neuropathy G62.9 Peripheral neuropathy type: polyneuropathy, unspecified Severe aortic valve stenosis I35.0
--- NOTE | 2020-07-22 17:30 | PC.NURSE ---
patient transferred to [facility] for TAVR report called to marisa RN room [id number] patient transferred via ambulance patient alert oriented and instable condition
== END 2020-07-22 17:28 | disposition short-term general hospital (02) | DRG 281 ==
LOC: ER 21:22 → CSU 21:35
PROVIDERS: Internal Medicine Cardiovascular Disease; Admitting Provider Hospitalist; Emergency Provider Emergency Medicine; PCP Electrodiagnostic Medicine; Visit Provider Family Medicine
PROC: 4A023N7 Measurement of Cardiac Sampling and Pressure, Left Heart, Percutaneous Approach (ICD-10-PCS; principal; 2020-07-22 12:00)
DX: I21.4 Non-ST elevation (NSTEMI) myocardial infarction (principal); N13.8 Other obstructive and reflux uropathy; I35.0 Nonrheumatic aortic (valve) stenosis; N40.1 Benign prostatic hyperplasia with lower urinary tract symptoms; R00.1 Bradycardia, unspecified; G62.9 Polyneuropathy, unspecified; M54.16 Radiculopathy, lumbar region; Z79.82 Long term (current) use of aspirin; Z87.891 Personal history of nicotine dependence
CPT/HCPCS: 36415; 36600; 70450; 71045; 80048; 80053; 80061; 82803; 83036; 83735; 83880; 84484; 85025; 93005; 93306; 93456; 93880; 96372; 99285; C1751; C1769; C1887; C1894; G0378; J1644; J1650; J2250; J3010; J3490; J7030; Q0163; Q9967

== ENCOUNTER 2020-08-11 13:57 | Emergency (ER) | payer MEDICARE, SELFPAY ==
[2020-08-11] VITALS (7 sets, daily range): BP systolic 129–186; BP diastolic 61–99; PULSE 61–81; RESP 15–23; TEMP 37.1; O2SAT 96–98; BMI 24.6
--- NOTE | 2020-08-11 14:25 | ED_ITS ---
HPI - Abdominal Pain General: Chief Complaint: Abdominal Pain Stated Complaint: blood in urine Time Seen by Provider: 08/11/20 14:10 History of Present Illness: HPI narrative: 79-year-old male comes in with gross hematuria noted overnight. 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 He is not had any other signs of bleeding no hematochezia melena hematemesis coffee-ground emesis. No fever sweats chills no dysuria urgency or frequency Pertinent past history: none (Recent TAVR procedure, with initiation dual of antiplatelet therapy) Onset (ago): hour(s) Severity: moderate Quality: cramping Radiation: none Exacerbating factors: nothing Relieving factors: nothing Associated Symptoms: Reports hematuria; Denies anorexia, belching, bloating, change in bowel habits, change in stool character, chills, coffee ground emesis, constipation, GI cramping, diarrhea, dyspepsia, dysuria, excessive flatus, fever(s), heartburn, hematochezia, hematemesis, fecal incontinence, loose stools, melena, nausea, poor appetite, syncope and vomiting Review of Systems Const: Denies: fever(s) or chills Card: Denies: syncope GI: Denies: nausea, vomiting, hematemesis, coffee ground emesis, heartburn, constipation, bloating, GI cramping, belching, excessive flatus, fecal incontinence, change in bowel habits, change in stool character, hematochezia or melena : Reports: hematuria; Denies: dysuria PFSH ED PFSH: Medical History BPH with obstruction/lower urinary tract symptoms History of elevated PSA Incomplete bladder emptying Lumbar radiculopathy, chronic L5-S1 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 Surgical History History of ankle surgery History of appendectomy History of bilateral inguinal hernia repair History of nasal surgery Status post transurethral resection of prostate Family History Other Cancer Denies family history of Diabetes CAD (coronary artery disease) Hypertension Stroke Social History (Reviewed 08/11/20 @ 16:59 by CARMINE Boone Smoking and tobacco status: former smoker Quit status (tobacco): has quit using tobacco Year quit tobacco: 1982 Alcohol intake: current Alcohol intake frequency: 0-2 Drinks per Day Alcohol type: wine Adopted: No Household members: spouse Marital status: Current occupational status: retired Physical Exam Const: COMMON NORMALS: no acute distress GENERAL APPEARANCE: cooperative and comfortable ORIENTATION/CONSCIOUSNESS: Yes awake, Yes oriented to person, Yes oriented to place and Yes oriented to time HENMT: COMMON NORMALS: normocephalic, atraumatic and hearing grossly normal bilaterally HEAD & SCALP: normocephalic and atraumatic Eye: COMMON NORMALS: Equal, round and reactive pupils present, EOMs intact bilaterally, conjunctivae normal and no scleral icterus CONJUNCTIVA: Yes conjunctivae normal PUPIL: Yes Equal, round and reactive pupils present Neck/C-Spine: COMMON NORMALS: full ROM, no lymphadenopathy, supple and no JVD Lymph: LYMPHATIC: no lymphadenopathy noted and no lymphedema noted Resp: COMMON NORMALS: normal respiratory effort, No retractions, No use of accessory muscles and clear to auscultation bilaterally AUSCULTATION: clear to auscultation bilaterally Cardio: COMMON NORMALS: no JVD, regular rate, regular rhythm and No murmurs present (Cardio) RATE: regular rate RHYTHM: regular rhythm GI: COMMON NORMALS: Soft to palpation and No hepatosplenomegaly present AUSCULTATION: Yes normoactive bowel sounds PALPATION: Yes Soft to palpation, No Tenderness to palpation present (GI), No Guarding due to palpation present (GI) and Yes No hepatosplenomegaly present Extremity: COMMON NORMALS: normal to inspection, capillary refill normal, no clubbing, cyanosis or edema, no calf tenderness and no pedal edema Neuro: SENSORIUM/ORIENTATION: Yes oriented to person, Yes oriented to place and Yes oriented to time Skin: COMMON NORMALS: no rashes or lesions noted GENERAL SKIN EXAM: no rashes or lesions noted Course Vital Signs: Vital signs: Vital Signs Temperature 98.8 F 08/11/20 14:03 Pulse Rate 81 08/11/20 17:07 Respiratory Rate 15 08/11/20 17:07 Blood Pressure 149/85 08/11/20 16:54 Pulse Oximetry 97 08/11/20 17:07 MDM - Abdominal Pain MDM Narrative: Medical decision making narrative: Patient is asymptomatic gross hematuria with a normal CT. We will get him set up to see Elliott in follow-up. If he has worsening symptoms or is unable to empty his bladder he should return at this point is able to void without difficulty so he does not need a catheter. 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 Lab Data: Labs: Lab Results 08/11/20 08/11/20 08/11/20 Range/Units 14:20 14:20 14:20 WBC 8.1 (4.0-10.0) 10^3/ uL RBC 4.46 (4.1-5.3) 10^6/u L Hgb 12.9 (11.7-16.6) g/dL Hct 39.2 L (42.0-52.0) % MCV 87.9 (80-94) fL MCH 28.9 (28.0-34.0) pg MCHC 32.9 (30.0-36.0) g/dL RDW 13.5 (12.1-15.1) % Plt Count 340 (130-400) 10^3/c mm MPV 8.7 (7.4-10.4) fL Neut % (Auto) 67.3 % Lymph % (Auto) 16.4 % Caldwell % (Auto) 10.8 % Eos % (Auto) 4.3 % Baso % (Auto) 1.0 % Neut # (Auto) 5.41 (1.8-7.7) 10^3/u L Lymph # (Auto) 1.3 (0.8-4.8) 10^3/u L Caldwell # (Auto) 0.9 (0.2-0.9) 10^3/u L Eos # (Auto) 0.4 (0.0-0.8) 10^3/u L Baso # (Auto) 0.1 (0.0-0.1) 10^3/u L Nucleated RBC % (a uto) 0 % Nucleated RBCs # 0.0 /100WBC PT 14.90 (12.1-14.9) SECO NDS INR 1.14 (0.8-1.2) APTT 33.5 (23.9-36.7) SECO NDS Sodium 135 L (136-145) mmol/L Potassium 4.3 (3.5-5.1) mmol/L Chloride 100 (98-107) mmol/L Carbon Dioxide 27 (22-29) mmol/L Anion Gap 12.3 (5-19) BUN 12 (8-23) mg/dL Creatinine 0.7 (0.7-1.2) mg/dL GFR Calculation Not Reportable Glucose 96 (65-115) mg/dL Calculated Osmolal ity 280 L (285-295) mOsm/k g Calcium 9.4 (8.5-10.5) mg/dL Total Bilirubin 0.3 (0.15-1.2) mg/dL AST 22 (0-40) U/L ALT 19 (0-41) U/L Alkaline Phosphata se 83 (40-130) IU/L Creatine Kinase 119 (39-308) U/L Total Protein 7.0 (6.6-8.7) g/dL Albumin 4.4 (3.5-5.2) g/dL Globulin 2.6 (1.3-4.6) g/dL Urine Color (Yellow) Urine Appearance (CLEAR) Urine pH (5-7) Ur Specific Gravit y (1.005-1.030) Urine Protein (Negative) Urine Glucose (UA) (Normal) Urine Ketones (Negative) Urine Blood (Negative) Urine Nitrate (Negative) Urine Bilirubin (Negative) Urine Urobilinogen (Negative) mg/dL Ur Leukocyte Bree ase (Negative) Urine RBC (0-2) /hpf Urine WBC (0-5) /hpf Ur Squamous Epith Cells (0-5) /hpf Amorphous Sediment Urine Bacteria (NONE) /hpf // Range/Units 15:03 WBC (4.0-10.0) 10^3/ uL RBC (4.1-5.3) 10^6/u L Hgb (11.7-16.6) g/dL Hct (42.0-52.0) % MCV (80-94) fL MCH (28.0-34.0) pg MCHC (30.0-36.0) g/dL RDW (12.1-15.1) % Plt Count (130-400) 10^3/c mm MPV (7.4-10.4) fL Neut % (Auto) % Lymph % (Auto) % Caldwell % (Auto) % Eos % (Auto) % Baso % (Auto) % Neut # (Auto) (1.8-7.7) 10^3/u L Lymph # (Auto) (0.8-4.8) 10^3/u L Caldwell # (Auto) (0.2-0.9) 10^3/u L Eos # (Auto) (0.0-0.8) 10^3/u L Baso # (Auto) (0.0-0.1) 10^3/u L Nucleated RBC % (a uto) % Nucleated RBCs # /100WBC PT (12.1-14.9) SECO NDS INR (0.8-1.2) APTT (23.9-36.7) SECO NDS Sodium (136-145) mmol/L Potassium (3.5-5.1) mmol/L Chloride (98-107) mmol/L Carbon Dioxide (22-29) mmol/L Anion Gap (5-19) BUN (8-23) mg/dL Creatinine (0.7-1.2) mg/dL GFR Calculation Glucose (65-115) mg/dL Calculated Osmolal ity (285-295) mOsm/k g Calcium (8.5-10.5) mg/dL Total Bilirubin (0.15-1.2) mg/dL AST (0-40) U/L ALT (0-41) U/L Alkaline Phosphata se (40-130) IU/L Creatine Kinase (39-308) U/L Total Protein (6.6-8.7) g/dL Albumin (3.5-5.2) g/dL Globulin (1.3-4.6) g/dL Urine Color Red (Yellow) Urine Appearance Turbid (CLEAR) Urine pH 7 (5-7) Ur Specific Gravit y 1.010 (1.005-1.030) Urine Protein 1+ H (Negative) Urine Glucose (UA) Norm (Normal) Urine Ketones Negative (Negative) Urine Blood 3+ H (Negative) Urine Nitrate Negative (Negative) Urine Bilirubin Neg (Negative) Urine Urobilinogen Norm (Negative) mg/dL Ur Leukocyte Bree ase Trace H (Negative) Urine RBC Too numerous to c nt H (0-2) /hpf Urine WBC 0-4 H (0-5) /hpf Ur Squamous Epith Cells 0-4 H (0-5) /hpf Amorphous Sediment Not Reportable Urine Bacteria Trace (NONE) /hpf Discharge Plan Discharge Patient Disposition: Home Clinical Impression: Gross hematuria Condition: Stable Prescriptions: No Action [id number] 500 mcg-250 mcg-50 mg-50 mg capsule 1 cap PO DAILY@0700 RF: 0 Men 50 Plus Multivitamin 300-600-300 mcg tablet 1 tab PO DAILY@0700 RF: 0 cholecalciferol (vitamin D3) 50 mcg (2,000 unit) capsule 50 mcg PO DAILY@0700 RF: 0 potassium gluconate 595 mg (99 mg) tablet 595 mg PO DAILY@0700 RF: 0 glucosamine-chondroitin 900 mg tablet See Rx Instructions .ROUTE .COMPLEX RF: 0 magnesium chloride 70 mg tablet,delayed release (DR/EC) 70 mg PO DAILY@07 RF: 0 aspirin [Adult Low Dose Aspirin] 81 mg tablet,delayed release (DR/EC) 81 mg PO DAILY@0700 RF: 0 zinc 50 mg tablet 50 mg PO DAILY@0700 RF: 0 Adult Probiotic 3 billion cell capsule 3 mmu cells PO DAILY@1200 RF: 0 Metamucil Packet 1 packet PO DAILY@0700 RF: 0 acetaminophen 1 - 2 tab PO Q6H PRN (Reason: Pain) RF: 0 atorvastatin 40 mg tablet 40 mg PO DAILY@2200 RF: 0 clopidogrel 75 mg tablet 75 mg PO DAILY@07 RF: 0 Discharge Orders: Discharge ED (Routine); Ordered 08/11/20 Ordered By: Ned Subramanian Referrals: Vazquez Maza DO [Primary Care Provider] - Discharge Diet: Usual diet Discharge Activity: Limit activity as instructed Patient Instructions: Opioid Safety Activity Restrictions/Additional Instructions: No strenuous activities. Case management will follow up with you for an appointment with urology. If you become unable to void return to the emergency room. 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
--- NOTE | 2020-08-11 14:26 | XR_ITS ---
WS: [id number] Portable AP upright chest, 08/11/2020 Clinical Data: dyspnea/cough Comparison: Portable chest, 07/21/2020. Findings: No nodules, masses or effusions are seen. The heart is normal. The pulmonary vascularity is not increased. No pneumonia or pneumothorax is seen. The costophrenic angles were not included on th e film. The aortic arch and descending aorta are tortuous. XR/XR chest 1V portable [id number] Impression: Atherosclerosis.
[2020-08-11 14:44] LABS: Basophils # 0.1 10^3/uL (0.0-0.1); Eosinophils # 0.4 10^3/uL (0.0-0.8); Eosinophils % 4.3 %; Hematocrit 39.2 % (42.0-52.0); Hemoglobin 12.9 g/dL (11.7-16.6); Lymphocytes # 1.3 10^3/uL (0.8-4.8); Lymphocytes % 16.4 %; Mean Corpuscular HGB Conc 32.9 g/dL (30.0-36.0); Mean Corpuscular Hemoglobin 28.9 pg (28.0-34.0); Mean Corpuscular Volume 87.9 fL (80-94); Mean Platelet Volume 8.7 fL (7.4-10.4); Monocytes # 0.9 10^3/uL (0.2-0.9); Monocytes % 10.8 %; Neutrophils # 5.41 10^3/uL (1.8-7.7); Neutrophils % 67.3 %; Nucleated Red Blood Cells % 0 %; Platelet Count 340 10^3/cmm (130-400); Red Blood Count 4.46 10^6/uL (4.1-5.3); Red Cell Distribution Width 13.5 % (12.1-15.1); White Blood Count 8.1 10^3/uL (4.0-10.0)
[2020-08-11 15:01] LABS: INR 1.14 (0.8-1.2)
[2020-08-11 15:04] LABS: Partial Thromboplastin Time 33.5 SECONDS (23.9-36.7)
[2020-08-11 15:05] LABS: Alanine Aminotransferase 19 U/L (0-41); Albumin Level 4.4 g/dL (3.5-5.2); Alkaline Phosphatase 83 IU/L (40-130); Anion Gap 12.3 (5-19); Aspartate Amino Transferase 22 U/L (0-40); Blood Urea Nitrogen 12 mg/dL (8-23); Calcium 9.4 mg/dL (8.5-10.5); Carbon Dioxide 27 mmol/L (22-29); Chloride 100 mmol/L (98-107); Creatine Phosphokinase 119 U/L (39-308); Globulin 2.6 g/dL (1.3-4.6); Glucose 96 mg/dL (65-115); Osmolality Calculated 280 mOsm/kg (285-295); Potassium 4.3 mmol/L (3.5-5.1); Sodium 135 mmol/L (136-145); Total Bilirubin 0.3 mg/dL (0.15-1.2)
--- NOTE | 2020-08-11 15:23 | CTR_ITS ---
PROCEDURE INFORMATION: Exam: CT Abdomen And Pelvis Without Contrast Exam date and time: 08/11/2020 4:06 PM Age: 79 years old Clinical indication: Other: Hematuria; Abdominal pain; Prior surgery; Additional info: Flank pain TECHNIQUE: Imaging protocol: Computed tomography of the abdomen and pelvis without contrast. Total images: 333 Radiation optimization: All CT scans at this facility use at least one of these dose optimization techniques: automated exposure control; mA and/or kV adjustment per patient size (includes targeted exams where dose is matched to clinical indication); or iterative reconstruction. COMPARISON: CT abdomen pelvis w con* [id number] 04/22/2019 3:39 PM RADIATION DOSE METRICS: Total DLP (mGy-cm): 1507.19 FINDINGS: Lungs: Limited assessment of the lung bases fails to reveal evidence for active cardiopulmonary process. Mild senile fibrosis. No visible pericardial effusion. Coronary artery disease. Calcified mitral annulus. Liver: Stable small 1 cm simple hepatic cyst medial segment right hepatic lobe. No visible hepatic mass. Gallbladder and bile ducts: Normal. No calcified stones. No ductal dilation. Pancreas: Pancreas unremarkable. No visible pancreatic ductal ectasia. Spleen: Few scattered splenic granulomas of antecedent disease. Adrenal glands: Adrenal glands unremarkable. Kidneys and ureters: No visible hydronephrosis or perinephric fluid. No visible nephrolithiasis or visible ureterolithiasis. Stomach and bowel: Diverticulosis coli without visible evidence for acute diverticulitis. Nonobstructive bowel pattern. No visible adynamic or reactive ileus. Appendix: The appendix is not visualized presumed surgically absent. Intraperitoneal space: No visible evidence of mesenteric lymphadenitis or active mesenteritis/panniculitis. No visible pneumoperitoneum intraperitoneal ascites. Vasculature: The abdominal aorta is diffusely nonaneurysmal. Moderately advanced arterial sclerotic disease. 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 Again this remains stable. Length 29 mm in greatest with transverse diameter 25 mm and AP width only 21 mm. Lymph nodes: No current visible evidence of active mesenteric or retroperitoneal lymphadenopathy. Urinary bladder: Urinary bladder without filling defect. No visible bladder stone. No visible asymmetrical bladder wall thickening. Reproductive: Prostate hypertrophy. Bones/joints: No visible active or acute osseous pathology. Advanced degenerative disease and degenerative disc disease of the spine with spondylosis deformans and facet arthrosis. Mild levoscoliosis. Soft tissues: Left inguinal hernia containing fat only of small size. CT/CT kidney stone [id number] IMPRESSION: 1. No visible hydronephrosis, hydroureter, ureterolithiasis, nephrolithiasis, or nephrocalcinosis. 2. Other nonurgent, nonemergent, chronic, and age related findings as detailed in text above. Radiation Dose CTDIVOL = (mGy): DLP = 1507.19 (mGy-cm)
[2020-08-11 16:39] LABS: Urine Appearance Turbid (CLEAR); Urine Color Red (Yellow); pH Urine 7 (5-7)
[2020-08-11 16:40] LABS: Add Urine Culture? Yes; Add Urine Microscopic? YES; Bacteria Urine TRACE /hpf; Bilirubin Urine Neg (Negative); Blood Urine 3+ (Negative); Glucose Urine UA Norm (Normal); Ketones Urine Negative (Negative); Leukocyte Esterase Urine Trace (Negative); Nitrate Urine Negative (Negative); Protein Urine 1+ (Negative); RBC Urine TOO NUMEROUS TO CNT /hpf (0-2); Squamous Epithelial Cell Urine 0-4 /hpf (0-5); Urobilinogen Urine Norm (Negative); WBC Urine 0-4 /hpf (0-5)
--- NOTE | 2020-08-14 09:09 | DCPLANNER ---
off track betting manager had message to schedule a follow up appointment for patient with Dr. Gallagher. off track betting manager called the office of Dr. Gallagher, spoke with Yvonne, gave clinic patients information. off track betting manager was told that patients information would be printed and reviewed. Clinic will call patient with appointment information.
--- NOTE | 2020-08-15 07:55 | DCPLANNER ---
Patient has a follow up appointment scheduled for , August 17, 2020 at 11:[address] Gallagher - clinic will call patient with appointment information.
--- NOTE | 2020-08-30 15:48 | DCPLANNER ---
Patient had a follow up appointment scheduled for 08.17.[address] Gallagher - patient did attend appointment.
== END 2020-08-11 17:14 | disposition home or self-care (01) ==
PROVIDERS: Emergency Provider Family Medicine; PCP Electrodiagnostic Medicine
DX: R31.0 Gross hematuria (principal); Z79.82 Long term (current) use of aspirin; Z79.02 Long term (current) use of antithrombotics/antiplatelets; Z87.891 Personal history of nicotine dependence
CPT/HCPCS: 71045; 74176; 80053; 81001; 82550; 85025; 85610; 85730; 87086; 99283

== ENCOUNTER → 2020-08-17 10:01 | Outpatient (BNVA) | payer MEDICARE, SELFPAY | PROVIDERS: PCP Electrodiagnostic Medicine; Visit Provider Urology | DX: R31.0 Gross hematuria (principal) | CPT/HCPCS: 81003 ==

== ENCOUNTER → 2020-09-11 09:04 | Outpatient (BNVA) | payer MEDICARE, SELFPAY | PROVIDERS: PCP Electrodiagnostic Medicine; Visit Provider Internal Medicine Cardiovascular Disease | DX: E78.5 Hyperlipidemia, unspecified (principal) | CPT/HCPCS: 80061; 80076 ==

== ENCOUNTER 2020-10-28 08:38 | Emergency (ER) | payer MEDICARE, SELFPAY ==
[2020-10-28 08:41] VITALS: BP 184/96; PULSE 68; RESP 18; TEMP 36; O2SAT 97; BMI 24.1
--- NOTE | 2020-10-28 08:52 | CTR_ITS ---
PROCEDURE INFORMATION: Exam: CT Head Without Contrast Exam date and time: 10/28/2020 8:56 AM Age: 80 years old Clinical indication: Dizziness TECHNIQUE: Imaging protocol: Computed tomography of the head without contrast. Radiation optimization: All CT scans at this facility use at least one of these dose optimization techniques: automated exposure control; mA and/or kV adjustment per patient size (includes targeted exams where dose is matched to clinical indication); or iterative reconstruction. COMPARISON: CT HEAD 07/21/2020 7:31 PM RADIATION DOSE METRICS: Total DLP (mGy-cm): 790.67 FINDINGS: Brain: No acute appearing brain parenchymal abnormality. No intracranial hemorrhage. No extraaxial fluid collections. There is mild diffuse cerebral atrophy. Cerebral ventricles: No hydrocephalus. Bones/joints: No calvarial fracture. Paranasal sinuses: There is multifocal mucoperiosteal thickening. Mastoid air cells: The mastoid air cells are aerated. Soft tissues: No acute soft tissue abnormality. CT/CT head wo con* [id number] IMPRESSION: No acute intracranial abnormality. Radiation Dose CTDIVOL = (mGy): DLP = 790.67 (mGy-cm)
--- NOTE | 2020-10-28 08:52 | XRR_ITS ---
PROCEDURE INFORMATION: Exam: XR Chest Exam date and time: 10/28/2020 8:56 AM Age: 80 years old Clinical indication: Pain; Chest pressure; Chest pain TECHNIQUE: Imaging protocol: XR of the chest. Views: 1 view. COMPARISON: CR XR chest 1V portable [id number] 08/11/2020 2:29 PM FINDINGS: Lungs: No pneumonia or pulmonary edema. Pleural spaces: No pleural effusion or pneumothorax. Heart/Mediastinum: The cardiac silhouette is not enlarged. The mediastinal contours are normal. Vasculature: The aorta is atherosclerotic. Prior TAVR. Bones/joints: There are multilevel bridging osteophytes in the spine. XR/XR chest 1V portable [id number] IMPRESSION: No acute abnormality.
--- NOTE | 2020-10-28 08:54 | ECG_ITS ---
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 Measurements Intervals [place] Rate: 63 P: 24 MS: 166 QRS: 45 QRSD: 102 T: 31 QT: 366 QTc: 376 Interpretive Statements SINUS RHYTHM Compared to ECG 07/22/2020 09:52:32 Left ventricular hypertrophy no longer present Electronically Signed On 10-28-2020 16:48:33 CDT by Wenceslao Medina M.D. [id number]
--- NOTE | 2020-10-28 08:55 | ED_ITS ---
HPI - General Adult General: Chief complaint: General Medical Stated complaint: blood pressure is high Time Seen by Provider: 10/28/20 08:47 Source: patient, family and RN notes reviewed Limitations: no limitations History of Present Illness: HPI narrative: This patient presents to the emergency department for 2 days worth of feeling off balance balance when he gets up and moves around. Patient also describes headache and dizziness. And has had discomfort in his chest. Patient recently had aortic valve procedure July of this year in [place] at [facility]. Patient states that he does not take any blood pressure medicines and his blood pressure is usually around 120 systolic. But this morning they are close to 170s. On arrival 184. Patient states has been having issues with fullness in his head and dry sinuses concerning for possible issues related to his head making him dizzy. Patient states sometimes he just feels like he is off balance. When he gets up and walks around. Patient denies nausea vomiting or falling. Will do medical evaluation treat as needed. Location: head and chest Radiation: non-radiation Severity: moderate Quality: aching Pain Consistency: intermittent Associated symptoms: Reports chest pain; Deny dyspnea, headache(s), nausea, rash, palpitations or vomiting Review of Systems General: Reports: 10 or more systems reviewed and unremarkable except in HPI and below Const: Denies: fever(s), chills, body aches or fatigue Eyes: Denies: change in vision or blurry vision ENMT: Denies: throat pain, hoarseness or mouth pain Card: Reports: chest pain; Denies: palpitations Resp: Denies: dyspnea GI: Denies: nausea or vomiting : Denies: flank pain, dysuria, urinary frequency, urinary urgency or urinary hesitancy Musc: Denies: neck pain, back pain, extremity pain, extremity swelling, joint pain, joint swelling, joint redness, joint warmth or limited range of motion Skin/Breast: Denies: rash Neuro: Reports: dizziness; Denies: headache(s) Psych: Denies: anxiety or depression PFS ED PFSH: Medical History BPH with obstruction/lower urinary tract symptoms History of elevated PSA Incomplete bladder emptying Lumbar radiculopathy, chronic L5-S1 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 Surgical History History of ankle surgery History of appendectomy History of bilateral inguinal hernia repair History of nasal surgery S/P TAVR (transcatheter aortic valve replacement) Status post transurethral resection of prostate Family History Mother Cancer Denies family history of Diabetes CAD (coronary artery disease) Clotting disorder Dementia Chronic kidney disease (CKD) Suicide Anesthesia complication Bleeding disorder Lung disease Hypertension Stroke Social History Smoking and tobacco status: former smoker Quit status (tobacco): has quit using tobacco Year quit tobacco: 1982 Alcohol intake: current Alcohol intake frequency: 0-2 Drinks per Day Alcohol type: wine Adopted: No Household members: spouse Marital status: Current occupational status: retired Physical Exam Const: COMMON NORMALS: no acute distress, average body habitus, patient oriented x3, no limitations, healthy appearing, alert and well nourished HENMT: COMMON NORMALS: normocephalic, atraumatic, external ears normal, EAC's normal, TM's normal bilaterally, Normal external nose present and Normal nasal mucous membranes and turbinates present HEAD & SCALP: normocephalic and atraumatic NOSE: Normal external nose present and Normal nasal mucous membranes and turbinates present EXTERNAL EAR: Yes external ears normal EXTERNAL AUDITORY CANAL: EAC's normal TYMPANIC MEMBRANE: TM's normal bilaterally Neck/C-Spine: COMMON NORMALS: full ROM, no lymphadenopathy, supple, no meningeal signs, no JVD, Thyroid normal and No carotid bruits THYROID: Th yroid normal Chest: COMMONS NORMALS: normal inspection of the chest, normal palpation of entire chest wall, normal inspection of the breasts and normal palpation of the breasts Breast/axilla inspection: Yes normal inspection of the breasts BREAST/AXILLA PALPATION: Yes normal palpation of the breasts Resp: COMMON NORMALS: normal respiratory effort, No retractions, No use of accessory muscles, clear to auscultation bilaterally and percussion normal AUSCULTATION: clear to auscultation bilaterally PERCUSSION: percussion normal Cardio: COMMON NORMALS: no JVD, regular rate, regular rhythm, S1 normal heart sound present, S2 normal heart sound present, No gallops present (Cardio), No clicks present (Cardio), No murmurs present (Cardio), No rub (Cardio) and Peripheral pulses 2+ throughout RATE: regular rate RHYTHM: regular rhythm HEART SOUNDS: S1 normal heart sound present and S2 normal heart sound present PERIPHERAL PULSES: Peripheral pulses 2+ throughout GI: COMMON NORMALS: Normal to inspection, nondistended, normoactive bowel sounds present, Soft to palpation, non-tender, No hepatosplenomegaly present, no masses and no bruits PALPATION: Yes Soft to palpation and Yes No hepatosplenomegaly present : COMMON NORMALS: Yes no CVA tenderness BLADDER/KIDNEY EXAM: Yes no CVA tenderness Back/Pelvis: COMMON NORMALS: no CVA tenderness, thoracic and lumbar spine normal to inspection, no thoracic nor lumbar tenderness, thoraco-lumbar ROM normal and straight leg raise negative bilaterally Extremity: COMMON NORMALS: normal to inspection, full ROM, capillary refill normal, no joint enlargement, no clubbing, cyanosis or edema, no calf tenderness and no pedal edema Neuro: COMMON NORMALS: patient oriented x3 SENSORIUM/ORIENTATION: Yes alert MENINGEAL SIGNS: Yes no meningeal signs Course Reevaluation(s): Reevaluation #1: Patient resting comfortably comfortably. Blood pressures come down to 140 systolic and patient has no complaints. Patient CT scan negative for any acute findings and all evaluation in the emergency department negative for any acute findings. Patient is stable patient be discharged home. Patient will continue her blood pressure log and follow-up with his primary care physician in 3 to 5 days. Patient states understanding is discharged Time: 10:34 Vital Signs: Vital signs: Vital Signs Temperature 96.8 F L 10/28/20 08:41 Pulse Rate 68 10/28/20 08:41 Respiratory Rate 18 10/28/20 08:41 Blood Pressure 184/96 10/28/20 08:41 Pulse Oximetry 97 10/28/20 08:41 MDM - General Adult MDM Narrative: Medical decision making narrative: This patient presents to the emergency department for 2 days worth of feeling off balance balance when he gets up and moves around. Patient also describes headache and dizziness. And has had discomfort in his chest. Patient recently had aortic valve procedure July of this year in [place] at [facility]. Patient states that he does not take any blood pressure medicines and his blood pressure is usually around 120 systolic. But this morning they are close to 170s. On arrival 184. Patient states has been having issues with fullness in his head and dry sinuses concerning for possible issues related to his head making him dizzy. Patient states sometimes he just feels like he is off balance. When he gets up and walks around. Patient denies nausea vomiting or falling. Patient resting comfortably comfortably. Blood pressures come down to 140 systolic and patient has no complaints. Patient CT scan negative for any acute findings and all evaluation in the emergency department negative for any acute findings. Patient is stable patient be discharged home. Patient will continue her blood pressure log and follow-up with his primary care physician in 3 to 5 days. Medical Records: Attestation: I reviewed the patient's medical records. Lab Data: Attestation: I reviewed the patient's lab results. Labs: Lab Results 10/28/20 10/28/20 10/28/20 Range/Units 09:40 09:40 09:40 WBC 8.7 (4.0-10.0) 10^3/ uL RBC 4.79 (4.1-5.3) 10^6/u L Hgb 13.7 (11.7-16.6) g/dL Hct 41.3 L (42.0-52.0) % MCV 86.2 (80-94) fL MCH 28.6 (28.0-34.0) pg MCHC 33.2 (30.0-36.0) g/dL RDW 15.3 H (12.1-15.1) % Plt Count 267 (130-400) 10^3/c mm MPV 9.1 (7.4-10.4) fL Neut % (Auto) 76.0 % Lymph % (Auto) 11.4 % [place] % (Auto) 9.2 % Eos % (Auto) 2.4 % Baso % (Auto) 0.8 % Neut # (Auto) 6.61 (1.8-7.7) 10^3/u L Lymph # (Auto) 1.0 (0.8-4.8) 10^3/u L [place] # (Auto) 0.8 (0.2-0.9) 10^3/u L Eos # (Auto) 0.2 (0.0-0.8) 10^3/u L Baso # (Auto) 0.1 (0.0-0.1) 10^3/u L Nucleated RBC % (a uto) 0 % Nucleated RBCs # 0.0 /100WBC PT 14.00 (12.1-14.9) SECO NDS INR 1.05 (0.8-1.2) APTT 32.0 (23.9-36.7) SECO NDS Sodium 136 (136-145) mmol/L Potassium 4.5 (3.5-5.1) mmol/L Chloride 100 (98-107) mmol/L Carbon Dioxide 26 (22-29) mmol/L Anion Gap 14.5 (5-19) BUN 10 (8-23) mg/dL GFR Calculation Not Reportable Glucose 86 (65-115) mg/dL Calcium 8.8 (8.5-10.5) mg/dL Total Bilirubin 0.4 (0.15-1.2) mg/dL AST 21 (0-40) U/L ALT 14 (0-41) U/L Alkaline Phosphata se 75 (40-130) IU/L Troponin T Baselin e (0-15) ng/L NT-Pro-B Natriuret Pep 145 (0-450) pg/mL Total Protein 6.8 (6.6-8.7) g/dL Albumin 4.3 (3.5-5.2) g/dL Globulin 2.5 (1.3-4.6) g/dL Urine Color (Yellow) Urine Appearance (CLEAR) Urine pH (5-7) Ur Specific Gravit y (1.005-1.030) Urine Protein (Negative) Urine Glucose (UA) (Normal) Urine Ketones (Negative) Urine Blood (Negative) Urine Nitrate (Negative) Urine Bilirubin (Negative) Urine Urobilinogen (Negative) mg/dL Ur Leukocyte Bree ase (Negative) 10/28/20 10/28/20 Range/Units 09:40 09:40 WBC (4.0-10.0) 10^3/ uL RBC (4.1-5.3) 10^6/u L Hgb (11.7-16.6) g/dL Hct (42.0-52.0) % MCV (80-94) fL MCH (28.0-34.0) pg MCHC (30.0-36.0) g/dL RDW (12.1-15.1) % Plt Count (130-400) 10^3/c mm MPV (7.4-10.4) fL Neut % (Auto) % Lymph % (Auto) % [place] % (Auto) % Eos % (Auto) % Baso % (Auto) % Neut # (Auto) (1.8-7.7) 10^3/u L Lymph # (Auto) (0.8-4.8) 10^3/u L [place] # (Auto) (0.2-0.9) 10^3/u L Eos # (Auto) (0.0-0.8) 10^3/u L Baso # (Auto) (0.0-0.1) 10^3/u L Nucleated RBC % (a uto) % Nucleated RBCs # /100WBC PT (12.1-14.9) SECO NDS INR (0.8-1.2) APTT (23.9-36.7) SECO NDS Sodium (136-145) mmol/L Potassium (3.5-5.1) mmol/L Chloride (98-107) mmol/L Carbon Dioxide (22-29) mmol/L Anion Gap (5-19) BUN (8-23) mg/dL GFR Calculation Glucose (65-115) mg/dL Calcium (8.5-10.5) mg/dL Total Bilirubin (0.15-1.2) mg/dL AST (0-40) U/L ALT (0-41) U/L Alkaline Phosphata se (40-130) IU/L Troponin T Baselin e 9 (0-15) ng/L NT-Pro-B Natriuret Pep (0-450) pg/mL Total Protein (6.6-8.7) g/dL Albumin (3.5-5.2) g/dL Globulin (1.3-4.6) g/dL Urine Color Straw (Yellow) Urine Appearance Clear (CLEAR) Urine pH 7 (5-7) Ur Specific Gravit y 1.005 (1.005-1.030) Urine Protein Neg (Negative) Urine Glucose (UA) Norm (Normal) Urine Ketones Negative (Negative) Urine Blood Neg (Negative) Urine Nitrate Negative (Negative) Urine Bilirubin Neg (Negative) Urine Urobilinogen Norm (Negative) mg/dL Ur Leukocyte Bree ase Negative (Negative) Imaging Data^: CXR: Attestation: I personally reviewed and interpreted this imaging study as follows: My impression: No acute findings CT Head: Attestation: I personally reviewed and interpreted this imaging study as follows: My impression: No acute findings Radiologist's impression: No acute findings EKG Data^: EKG 1: Attestation: I personally reviewed and interpreted this EKG as follows: EKG interpretation date: 10/28/20 EKG interpretation time: 08:57 Prior EKG tracings: not available for review Computer generated interpretation: Chest X-Ray 10/28/20 08:52 IMPRESSION: No acute abnormality. Head CT 10/28/20 08:52 IMPRESSION: No acute intracranial abnormality. Radiation Dose CTDIVOL = (mGy): DLP = 790.67 (mGy-cm) Discharge Plan Discharge Patient Disposition: Home Clinical Impression: Benign essential HTN, Dizziness Condition: Stable Prescriptions: No Action [id number] 500 mcg-250 mcg-50 mg-50 mg capsule 1 cap PO DAILY@0700 RF: 0 Men 50 Plus Multivitamin 300-600-300 mcg tablet 1 tab PO DAILY@0700 RF: 0 cholecalciferol (vitamin D3) 50 mcg (2,000 unit) capsule 50 mcg PO DAILY@0700 RF: 0 potassium gluconate 595 mg (99 mg) tablet 595 mg PO DAILY@0700 RF: 0 glucosamine-chondroitin 900 mg tablet See Rx Instructions .ROUTE .COMPLEX RF: 0 magnesium chloride 70 mg tablet,delayed release (DR/EC) 70 mg PO DAILY@07 RF: 0 zinc 50 mg tablet 50 mg PO DAILY@0700 RF: 0 Adult Probiotic 3 billion cell capsule 3 mmu cells PO DAILY@1200 RF: 0 Metamucil Packet 1 packet PO DAILY@0700 RF: 0 acetaminophen 1 - 2 tab PO Q6H PRN (Reason: Pain) RF: 0 clopidogrel 75 mg tablet 75 mg PO DAILY@07 RF: 0 Discharge Orders: Discharge ED (Routine); Ordered 10/28/20 Ordered By: Mark Godwin Referrals: Vazquez Maza, [Primary Care Provider] - Discharge Diet: Usual diet Discharge Activity: Resume usual activity Patient Instructions: Opioid Safety Activity Restrictions/Additional Instructions: Continue all home medications. Keep and maintain a blood pressure log as instructed. Follow-up with PCP in 2 to 3 days. Coding Level of Care Code ED Air Duct Mechanic for Martag Fwd Exam Comprehensive
[2020-10-28 09:53] LABS: Add Urine Microscopic? NO; Basophils # 0.1 10^3/uL (0.0-0.1); Basophils % 0.8 %; Eosinophils # 0.2 10^3/uL (0.0-0.8); Eosinophils % 2.4 %; Hematocrit 41.3 % (42.0-52.0); Hemoglobin 13.7 g/dL (11.7-16.6); Lymphocytes % 11.4 %; Mean Corpuscular HGB Conc 33.2 g/dL (30.0-36.0); Mean Corpuscular Hemoglobin 28.6 pg (28.0-34.0); Mean Corpuscular Volume 86.2 fL (80-94); Mean Platelet Volume 9.1 fL (7.4-10.4); Monocytes # 0.8 10^3/uL (0.2-0.9); Monocytes % 9.2 %; Neutrophils # 6.61 10^3/uL (1.8-7.7); Nucleated Red Blood Cells % 0 %; Platelet Count 267 10^3/cmm (130-400); Red Blood Count 4.79 10^6/uL (4.1-5.3); Red Cell Distribution Width 15.3 % (12.1-15.1); White Blood Count 8.7 10^3/uL (4.0-10.0)
[2020-10-28 09:55] LABS: Charge for UA Resulting for Rev
[2020-10-28 10:13] LABS: Specific Gravity, Urine 1.005 (1.005-1.030); Urine Appearance Clear (CLEAR); Urine Color Straw (Yellow); pH Urine 7 (5-7)
[2020-10-28 10:14] LABS: Bilirubin Urine Neg (Negative); Blood Urine Neg (Negative); Glucose Urine UA Norm (Normal); Ketones Urine Negative (Negative); Leukocyte Esterase Urine Negative (Negative); Nitrate Urine Negative (Negative); Protein Urine Neg (Negative); Urobilinogen Urine Norm (Negative)
[2020-10-28 10:16] LABS: INR 1.05 (0.8-1.2)
[2020-10-28 10:24] LABS: Troponin(5th) Baseline 9 ng/L (0-15)
[2020-10-28 10:33] LABS: Alanine Aminotransferase 14 U/L (0-41); Albumin Level 4.3 g/dL (3.5-5.2); Alkaline Phosphatase 75 IU/L (40-130); Anion Gap 14.5 (5-19); Aspartate Amino Transferase 21 U/L (0-40); Blood Urea Nitrogen 10 mg/dL (8-23); Calcium 8.8 mg/dL (8.5-10.5); Carbon Dioxide 26 mmol/L (22-29); Chloride 100 mmol/L (98-107); Globulin 2.5 g/dL (1.3-4.6); Glucose 86 mg/dL (65-115); NT Pro B Type Natriuretic Pept 145 pg/mL (0-450); Osmolality Calculated 280 mOsm/kg (285-295); Potassium 4.5 mmol/L (3.5-5.1); Sodium 136 mmol/L (136-145); Total Bilirubin 0.4 mg/dL (0.15-1.2); Total Protein 6.8 g/dL (6.6-8.7)
[2020-10-28 10:55] VITALS: BP 149/86; PULSE 65; RESP 18; O2SAT 97
== END 2020-10-28 10:56 | disposition home or self-care (01) ==
PROVIDERS: Emergency Provider Emergency Medicine; PCP Electrodiagnostic Medicine
DX: I10 Essential (primary) hypertension (principal); R42 Dizziness and giddiness; Z79.02 Long term (current) use of antithrombotics/antiplatelets; Z87.891 Personal history of nicotine dependence; I70.0 Atherosclerosis of aorta; R07.9 Chest pain, unspecified
CPT/HCPCS: 70450; 71045; 80048; 80053; 81003; 83880; 84484; 85025; 85610; 85730; 93005; 99283

== ENCOUNTER → 2020-11-21 08:59 | Outpatient (BNVA) | payer MEDICARE, SELFPAY | PROVIDERS: PCP Electrodiagnostic Medicine; Visit Provider Internal Medicine Cardiovascular Disease | DX: E78.5 Hyperlipidemia, unspecified (principal) | CPT/HCPCS: 80061 ==

== ENCOUNTER → 2021-01-22 08:32 | Outpatient (BNVA) | payer MEDICARE, SELFPAY | PROVIDERS: PCP Electrodiagnostic Medicine; Visit Provider Internal Medicine Cardiovascular Disease | DX: E78.5 Hyperlipidemia, unspecified (principal) | CPT/HCPCS: 80061 ==

== ENCOUNTER → 2021-04-03 09:30 | Outpatient (BNVA) | payer MEDICARE, SELFPAY | PROVIDERS: PCP Electrodiagnostic Medicine; Visit Provider Internal Medicine Cardiovascular Disease | DX: E78.5 Hyperlipidemia, unspecified (principal) | CPT/HCPCS: 80061 ==

== ENCOUNTER 2021-06-13 12:14 | Outpatient (CLI) | payer MEDICARE, SELFPAY ==
--- NOTE | 2021-06-13 12:45 | USCV_ITS ---
Marco Antonio Almonte Age: 80 Gender: M : 1940 Exam Date: 06/13/2021 13:06 Ordering Phys: Terra Crespo MD ([email or web address]) Technologist: IRMA [place] [facility] [place]: dyspnea BP: / HR: Rhythm: Other Technical Quality: Adequate MEASUREMENTS (Male / Female) Normal Values FINDINGS Left Ventricle Normal left ventricular size and systolic function, EF 60%.No regional wall motion abnormalities. Right Ventricle The right ventricle is normal in size and function. Right Atrium The right atrium is normal in size. Left Atrium The left atrium is normal in size. Mitral Valve Structurally normal mitral valve. Moderate mitral annular calcification. Trace mitral valve regurgitation. Aortic Valve Thickened aortic valve. Trace to mild aortic valve regurgitation. Mild aortic valve stenosis, mean gradient 13.5 mmHg, MANUEL 1.65 cm squared. Velocity of 2.54 m/s Tricuspid Valve No gross abnormalities noted Pulmonic Valve Pulmonic valve not well visualized. Pericardium Normal pericardium without effusion. Aorta Normal ascending aorta dimension. CONCLUSIONS Normal left ventricular size and systolic function, EF 60%.No regional wall motion abnormalities. Mild aortic valve stenosis, mean gradient 13.5 mmHg, MANUEL 1.65 cm squared. Velocity of 2.54 m/s. Moderate mitral annular calcification. Thickened mitral valves. Trace mitral valve regurgitation. Trace to mild aortic regurgitation. There is no pericardial effusion. There are no intracardiac masses. Compared to the study from 07/22/2020, the aortic valve stenosis appears to be mild at this time time. Dr Terra Crespo MD [facility] (Electronically Signed) Final Date: 13 June 2021 15:22 S
== END 2021-06-13 12:15 | disposition home or self-care (01) ==
LOC: RAD 12:16
PROVIDERS: PCP Electrodiagnostic Medicine; Visit Provider Internal Medicine Cardiovascular Disease
DX: R06.00 Dyspnea, unspecified (principal); E78.5 Hyperlipidemia, unspecified; I08.0 Rheumatic disorders of both mitral and aortic valves
CPT/HCPCS: 93306

== ENCOUNTER 2021-07-03 09:57 | Outpatient (CLI) | payer MEDICARE, SELFPAY ==
--- NOTE | 2021-07-03 10:20 | XR_ITS ---
WS: [id number] Lumbar spine, 3 views, 07/03/2021 Clinical Data: ACUTE SACROILITIS Comparison: None. Findings: No compression fractures or subluxation is seen. There is disc space narrowing at all lumbar disc lev els. There is a levoscoliosis. There is osteoarthritis of all the lumbar vertebral bodies. There is l oss of the normal lordotic curvature. The transverse processes and SI joints are normal. There is calcification of the abdominal aorta with no aneurysm. XR/XR lumbar spine 2-3V* [id number] Impression: 1. Degenerative disc narrowing at all vertebral body levels with a levoscoliosi s. 2. 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
--- NOTE | 2021-07-03 10:20 | XR_ITS ---
WS: [id number] Right knee, 3 views, 07/03/2021 Clinical Data: ACUTE SACROILITIS/R KNEE PAIN/PATELLO-FEMORAL SYNDROME Comparison: None. Findings: No fractures or dislocations are seen. The joint spaces are normal. The patella is intact. The soft t issues are unremarkable. There is minimal vascular calcification. XR/XR knee RT 3V* [id number] Impression: Negative right knee. Kellgren-Ruperto Classification: grade 0 (none): definite absence of x-ray esau nges of osteoarthritis
== END 2021-07-03 09:58 | disposition home or self-care (01) ==
LOC: RAD 10:10
PROVIDERS: PCP Electrodiagnostic Medicine; Visit Provider Electrodiagnostic Medicine
DX: M25.561 Pain in right knee (principal); M46.1 Sacroiliitis, not elsewhere classified; M47.816 Spondylosis without myelopathy or radiculopathy, lumbar region
CPT/HCPCS: 72100; 73562

== ENCOUNTER → 2021-07-23 09:46 | Outpatient (BNVA) | payer MEDICARE, SELFPAY | PROVIDERS: PCP Electrodiagnostic Medicine; Referring Provider Electrodiagnostic Medicine; Visit Provider Specialist | DX: M17.0 Bilateral primary osteoarthritis of knee (principal) | CPT/HCPCS: 73560; 73565 ==

== ENCOUNTER 2021-09-04 13:29 | Outpatient (CLI) | payer MEDICARE, SELFPAY ==
--- NOTE | 2021-09-04 13:45 | MR_ITS ---
WS: [id number] MRI RIGHT KNEE NONCONTRAST TECHNIQUE: Axial PD, coronal PD fat sat, coronal PD, sagittal PD, and sagittal PD fat-sat images obta ined. CLINICAL INFORMATION: M25.569 - Pain in unspecified kne COMPARISON: None. FINDINGS: Distal quadriceps and patella tendons are intact. Normal ACL and PCL. Hypertrophic patella. Small sup rapatellar effusion. Advanced degenerative narrowing medial and lateral joint compartments worse in t he lateral joint compartment. Grade IV chondromalacia with subchondral edema in the lateral femoral c ondyle and tibial plateau. Blunting of the posterior horn lateral meniscus likely due to chronic tear or prior meniscectomy. hronic appearing intrasubstance signal abnormality involving the medial meniscus with chronic thinni ng. Grade III chondromalacia patella. No subchondral edema. Normal medial and lateral patellar retina culum. Normal popliteal fossa. Normal medial and lateral collateral ligaments. MR/MR knee RT wo con* [id number] IMPRESSION: 1. Advanced tricompartmental degenerative arthritis worse in lateral joint com partment with subchondral edema involving the lateral femoral condyle and tibia l plateau. Complete loss of the lateral compartment joint space. 2. Grade IV chondromalacia lateral joint compartment. 3. Normal ACL and PCL. 4. Blunting of the posterior horn lateral meniscus likely due to chronic tear or prior partial meniscectomy. 5. Hypertrophic patella with grade III chondromalacia. 6. Medial and lateral collateral ligaments are intact. 7. Small suprapatellar effusion. Outbridge grading: grade IV: full-thickness cartilage loss with underlying bon e reactive changes
== END 2021-09-04 13:30 | disposition home or self-care (01) ==
LOC: RAD 13:30
PROVIDERS: PCP Electrodiagnostic Medicine; Visit Provider Specialist
DX: M17.11 Unilateral primary osteoarthritis, right knee (principal); M22.41 Chondromalacia patellae, right knee; M25.461 Effusion, right knee
CPT/HCPCS: 73721

== ENCOUNTER → 2021-09-17 09:59 | Outpatient (BNVA) | payer MEDICARE, SELFPAY | PROVIDERS: PCP Electrodiagnostic Medicine; Visit Provider Internal Medicine Cardiovascular Disease | DX: I10 Essential (primary) hypertension (principal); R00.2 Palpitations; I77.9 Disorder of arteries and arterioles, unspecified; E78.5 Hyperlipidemia, unspecified; I25.10 Atherosclerotic heart disease of native coronary artery without angina pectoris; Z95.2 Presence of prosthetic heart valve; Z87.891 Personal history of nicotine dependence | CPT/HCPCS: 36415; 80048; 83880; 84443; 99214 ==

== ENCOUNTER 2021-10-23 10:51 | Outpatient (CLI) | payer MEDICARE, SELFPAY ==
[2021-10-23 11:46] LABS: Basophils # 0.1 10^3/uL (0.0-0.1); Eosinophils # 0.5 10^3/uL (0.0-0.8); Eosinophils % 5.8 %; Hematocrit 41.5 % (42.0-52.0); Hemoglobin 13.9 g/dL (11.7-16.6); Lymphocytes # 2.1 10^3/uL (0.8-4.8); Lymphocytes % 25.2 %; Mean Corpuscular HGB Conc 33.5 g/dL (30.0-36.0); Mean Corpuscular Hemoglobin 29.4 pg (28.0-34.0); Mean Corpuscular Volume 87.9 fl (80-94); Mean Platelet Volume 9.2 fL (7.4-10.4); Monocytes % 11.8 %; Neutrophils # 4.56 10^3/uL (1.8-7.7); Neutrophils % 56.1 %; Nucleated Red Blood Cells % 0 %; Platelet Count 269 10^3/cmm (130-400); Red Blood Count 4.72 10^6/uL (4.1-5.3); White Blood Count 8.1 10^3/uL (4.0-10.0)
[2021-10-23 12:03] LABS: Anion Gap 13.6 (5-19); Blood Urea Nitrogen 13 mg/dL (8-23); Calcium 8.9 mg/dL (8.5-10.5); Carbon Dioxide 26 mmol/L (22-29); Chloride 97 mmol/L (98-107); Glucose 101 mg/dL (65-115); Magnesium 2.3 mg/dL (1.7-2.3); Osmolality Calculated 274 mOsm/kg (285-295); Potassium 4.6 mmol/L (3.5-5.1); Sodium 132 mmol/L (136-145); Thyroid Stimulating Hormone 1.87 uIU/mL (0.27-4.20)
== END 2021-10-23 10:52 | disposition home or self-care (01) ==
LOC: LAB 10:56
PROVIDERS: PCP Electrodiagnostic Medicine; Visit Provider Internal Medicine Cardiovascular Disease
DX: R00.1 Bradycardia, unspecified (principal); R00.2 Palpitations; I25.10 Atherosclerotic heart disease of native coronary artery without angina pectoris
CPT/HCPCS: 80048; 83735; 84443; 85025

== ENCOUNTER → 2021-10-29 09:19 | Outpatient (BNVA) | payer MEDICARE, SELFPAY | PROVIDERS: PCP Electrodiagnostic Medicine; Visit Provider Specialist | DX: M17.11 Unilateral primary osteoarthritis, right knee (principal) | CPT/HCPCS: 99213 ==

== ENCOUNTER → 2021-11-06 09:03 | Outpatient (BNVA) | payer MEDICARE, SELFPAY | PROVIDERS: PCP Electrodiagnostic Medicine; Visit Provider Podiatrist Foot & Ankle Surgery | DX: L60.3 Nail dystrophy (principal); I73.9 Peripheral vascular disease, unspecified; G62.9 Polyneuropathy, unspecified; Q66.221 Congenital metatarsus adductus, right foot; Q66.222 Congenital metatarsus adductus, left foot; Q66.71 Congenital pes cavus, right foot; Q66.72 Congenital pes cavus, left foot; M77.41 Metatarsalgia, right foot; M77.42 Metatarsalgia, left foot; M79.671 Pain in right foot; M79.672 Pain in left foot | CPT/HCPCS: 11721 ==

== ENCOUNTER 2021-11-09 18:09 | Emergency (ER) | payer MEDICARE, SELFPAY ==
[2021-11-09 18:18] VITALS: BP 98/53; PULSE 93; RESP 16; TEMP 36.9; O2SAT 96; BMI 24.1
--- NOTE | 2021-11-09 18:47 | XRR_ITS ---
PROCEDURE INFORMATION: Exam: XR Chest Exam date and time: 11/09/2021 7:01 PM Age: 81 years old Clinical indication: Cardiovascular condition or disease; Other: Lower extremity edema; Additional info: SOB TECHNIQUE: Imaging protocol: XR of the chest. Views: 1 view. COMPARISON: CR XR chest 1V portable [id number] 10/28/2020 9:04 AM FINDINGS: Lungs: Unremarkable. No consolidation. Pleural spaces: Unremarkable. No pleural effusion. No pneumothorax. Heart/Mediastinum: Unremarkable. No cardiomegaly. TAVR is present. Bones/joints: Unremarkable. XR/XR chest 1V portable [id number] IMPRESSION: No acute findings.
--- NOTE | 2021-11-09 18:47 | ECG_ITS ---
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 Measurements Intervals [place] Rate: 129 P: NE: QRS: 65 QRSD: 93 T: 5 QT: 271 QTc: 398 Interpretive Statements ATRIAL FIBRILLATION WITH RAPID VENTRICULAR RESPONSE NONSPECIFIC T-WAVE ABNORMALITY ABNORMAL RHYTHM ECG Compared to ECG 10/28/2020 08:57:00 T-wave abnormality now present Sinus rhythm no longer present Electronically Signed On 11-09-2021 22:32:34 CDT by Wenceslao Medina M.D. [id number] f
[2021-11-09] MEDS: sodium chloride 0.9% 500 ML 999 ML IV (19:00)
[2021-11-09 19:20] LABS: Basophils # 0.1 10^3/uL (0.0-0.1); Basophils % 0.7 %; Eosinophils # 0.1 10^3/uL (0.0-0.8); Eosinophils % 1.2 %; Hematocrit 42.1 % (42.0-52.0); Hemoglobin 14.3 g/dL (11.7-16.6); Lymphocytes # 1.8 10^3/uL (0.8-4.8); Mean Corpuscular Hemoglobin 29.2 pg (28.0-34.0); Mean Corpuscular Volume 86.1 fl (80-94); Mean Platelet Volume 9.3 fL (7.4-10.4); Monocytes # 0.9 10^3/uL (0.2-0.9); Monocytes % 8.8 %; Nucleated Red Blood Cells % 0 %; Platelet Count 284 10^3/cmm (130-400); Red Blood Count 4.89 10^6/uL (4.1-5.3)
[2021-11-09 19:42] LABS: INR 1.08 (0.8-1.2); Troponin(5th) Baseline 35 ng/L (0-15)
[2021-11-09 19:43] LABS: Partial Thromboplastin Time 30.9 SECONDS (23.9-36.7)
[2021-11-09 19:45] LABS: D Dimer 1.69 ug/mIFEU (0-0.59)
[2021-11-09 19:50] LABS: Procalcitonin 0.05 ng/mL (0-0.5)
[2021-11-09 20:01] LABS: Alanine Aminotransferase 17 U/L (0-41); Albumin Level 4.8 g/dL (3.5-5.2); Alkaline Phosphatase 78 IU/L (40-130); Anion Gap 18.1 (5-19); Aspartate Amino Transferase 22 U/L (0-40); Blood Urea Nitrogen 15 mg/dL (8-23); Calcium 9.7 mg/dL (8.5-10.5); Carbon Dioxide 24 mmol/L (22-29); Chloride 96 mmol/L (98-107); Creatine Phosphokinase 187 U/L (39-308); Globulin 2.6 g/dL (1.3-4.6); Glucose 82 mg/dL (65-115); Osmolality Calculated 278 mOsm/kg (285-295); Potassium 4.1 mmol/L (3.5-5.1); Sodium 134 mmol/L (136-145); Total Bilirubin 0.5 mg/dL (0.15-1.2); Total Protein 7.4 g/dL (6.6-8.7)
--- NOTE | 2021-11-09 20:13 | CTR_ITS ---
PROCEDURE INFORMATION: Exam: CTA Chest With Contrast Exam date and time: 11/09/2021 8:32 PM Age: 81 years old Clinical indication: Abnormal findings; Abnormal diagnostic tests; Elevated d-dimer; Other: Palpitations/ hypotension; Prior surgery; Surgery type: Tavr; Patient HX: Patient C/O palpitations with hypotension. Elevated d dimer. ; Additional info: SOB, palpiations. TECHNIQUE: Imaging protocol: Computed tomographic angiography of the chest with contrast. 3D rendering (Not supervised by radiologist): MIP and/or 3D reconstructed images were created by the technologist. Radiation optimization: All CT scans at this facility use at least one of these dose optimization techniques: automated exposure control; mA and/or kV adjustment per patient size (includes targeted exams where dose is matched to clinical indication); or iterative reconstruction. Contrast material: OMNI 350; Contrast volume: 70 ml; Contrast route: INTRAVENOUS (IV); COMPARISON: CR (CHEST, ) 11/09/2021 7:01 PM RADIATION DOSE METRICS: Total DLP (mGy-cm): 593.3 FINDINGS: Pulmonary arteries: Normal. No pulmonary emboli. Aorta: Unremarkable. No aortic aneurysm. No aortic dissection. Lungs: Mild severity emphysematous lung changes. Negative for consolidation. Negative for endobronchial obstruction. Pleural spaces: Unremarkable. No pneumothorax. No pleural effusion. Heart: TAVR is present. Cardiac chambers are unremarkable. Negative for pericardial effusion. Lymph nodes: Unremarkable. No enlarged lymph nodes. Bones/joints: Unremarkable. No acute fracture. Soft tissues: Unremarkable. CT/CT angio chest PE protcl [id number] IMPRESSION: Negative CTA chest. No acute abnormality identified.
[2021-11-09] MEDS: dilTIAZem 5 mg/mL SDV 5 mL 10 MG IVP (20:20)
[2021-11-09] MEDS: iohexol 350 mg/mL 100 mL Btl IV (20:34)
--- NOTE | 2021-11-09 20:47 | ECG_ITS ---
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 Measurements Intervals [place] Rate: 89 P: 50 OR: 225 QRS: 51 QRSD: 96 T: 39 QT: 349 QTc: 426 Interpretive Statements SINUS RHYTHM WITH PVCs Compared to ECG 11/09/2021 18:30:23 Atrial fibrillation no longer present T-wave abnormality no longer present Electronically Signed On 11-09-2021 22:37:06 CDT by Wenceslao Medina M.D. [id number]
[2021-11-09 21:00] VITALS: BP 110/78; PULSE 84; RESP 18; O2SAT 98
[2021-11-09 21:34] LABS: NT Pro B Type Natriuretic Pept 582 pg/mL (0-450)
[2021-11-09 21:57] LABS: Troponin 5 2HR 31.86 ng/L (0-15)
[2021-11-09 22:00] VITALS: BP 117/78; PULSE 93; RESP 18; O2SAT 98
[2021-11-09 22:00] LABS: Troponin 5 2HR Delta -3.14 ABS# (0-10)
--- NOTE | 2021-11-10 15:28 | W.ED.ARRPALP ---
HPI - Arrhythmia/Palpitations General: Chief Complaint: Arrhythmia/Palpitations Stated Complaint: heart problems and aourtic valve pressure problems Time Seen by Provider: 11/09/21 18:33 Source: patient History of Present Illness: 81-year-old male with a history of TAVR procedure for aortic valve disease presents with palpitations. He notes that he had a very stressful day, and began to feel palpitations. He was recently worn a Holter monitor for months due to similar type symptoms. He had not heard specific results of his Holter response. He denies significant chest pain. He denies significant shortness of breath, although he feels tired. His palpitations seem to have improved significantly since his arrival. MD complaint: rapid heart beat and heart racing Onset (ago): hour(s) Duration: constant Severity: moderate Context: occurred during rest Arrhythmia history: other Associated symptoms: Reports anxiety and nausea; Deny cough, diaphoresis, muscle cramps, sense of impending doom, short of breath, syncope or vomiting Review of Systems Const: Denies: fever(s) or diaphoresis Eyes: Denies: change in vision ENMT: Reports: nasal congestion; Denies: throat pain Card: Reports: palpitations; Denies: chest pain or syncope Resp: Reports: non-productive cough; Denies: dyspnea, productive cough or wheezing GI: Reports: nausea; Denies: vomiting Musc: Denies: muscle cramps Psych: Reports: anxiety PFSH ED PFSH: Medical History BPH with obstruction/lower urinary tract symptoms History of elevated PSA Incomplete bladder emptying Lumbar radiculopathy, chronic L5-S1 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 Surgical History History of ankle surgery History of appendectomy History of bilateral inguinal hernia repair History of nasal surgery S/P TAVR (transcatheter aortic valve replacement) Status post transurethral resection of prostate Family History Mother Cancer Denies family history of Diabetes CAD (coronary artery disease) Clotting disorder Dementia Chronic kidney disease (CKD) Suicide Anesthesia complication Bleeding disorder Lung disease Hypertension Stroke Social History (Reviewed 11/10/21 @ 16:32 by CARMINE Mckinney Smoking and tobacco status: former smoker Quit status (tobacco): has quit using tobacco Year quit tobacco: 1982 Alcohol intake: current Alcohol intake frequency: 0-2 Drinks per Day Alcohol type: wine Adopted: No Household members: spouse Marital status: Current occupational status: retired Physical Exam Const: GENERAL APPEARANCE: cooperative; not ill appearing and not frail appearing HENMT: COMMON NORMALS: normocephalic, atraumatic and Normal external nose present HEAD & SCALP: normocephalic and atraumatic FACE & SINUS: normal facial exam and face symmetric NOSE: Normal external nose present THROAT: posterior oropharynx normal Eye: COMMON NORMALS: Equal, round and reactive pupils present and EOMs intact bilaterally PUPIL: Yes Equal, round and reactive pupils present Neck/C-Spine: GENERAL: Yes trachea midline Chest: CHEST: Yes Symmetrical chest wall rise Resp: COMMON NORMALS: normal respiratory effort, No use of accessory muscles and clear to auscultation bilaterally AUSCULTATION: clear to auscultation bilaterally Cardio: RATE: tachycardic RHYTHM: abnormal rhythm irregularly irregular GI: COMMON NORMALS: Normal to inspection, nondistended, normoactive bowel sounds present and Soft to palpation PALPATION: Yes Soft to palpation Extremity: COMMON NORMALS: no pedal edema Neuro: BRAD COMA SCALE: document GCS findings Brad coma scale eye opening: Spontaneous [place] coma scale verbal response: Orientated Brad coma scale motor response: Obey commands [place] coma scale total score: 15 Course Vital Signs: Vital signs: Vital Signs Temperature 98.4 F 11/09/21 18:18 Pulse Rate 93 11/09/21 22:00 Respiratory Rate 18 11/09/21 22:00 Blood Pressure 117/78 11/09/21 22:00 Pulse Oximetry 98 11/09/21 22:00 MDM - Arrhythmia/Palpitations Medical Decision Making Patient's initial EKG showed an A. fib rhythm. The baseline is a bit off, so it is difficult to say. He was given 10 of Cardizem for tachycardia. His tachycardia improved significantly. Patient is asymptomatic. His CBC is normal. His BMP is normal. His second EKG actually showed a sinus arrhythmia, with frequent PACs. I looked at his Holter monitor results, these seem to be similar. His potassium is normal. His troponin was mildly elevated, but did not change significantly at 2 hours. His inflammatory markers are normal. He did have an elevation in his D-dimer, so CT angio of the chest was performed and is negative. He wishes to go home. He was offered observation admission. He will follow-up with his roll changer. Lab Data : 11/09/21 19:02 11/09/21 19:02 Radiology Impressions Chest X-Ray 11/09/21 18:47 IMPRESSION: No acute findings. Chest CTA 11/09/21 20:13 IMPRESSION: Negative CTA chest. No acute abnormality identified. Laboratory Results WBC 10.0 10^3/uL (4.0-10.0) 11/09/21 19: RBC 4.89 10^6/uL (4.1-5.3) 11/09/21 19: Hgb 14.3 g/dL (11.7-16.6) 11/09/21 19:02 Hct 42.1 % (42.0-52.0) 11/09/21 19:02 MCV 86.1 fl (80-94) 11/09/21 19:02 MCH 29.2 pg (28.0-34.0) 11/09/21 19:02 MCHC 34.0 g/dL (30.0-36.0) 11/09/21 19:02 RDW 14.0 % (12.1-15.1) 11/09/21 19:02 Plt Count 284 10^3/cmm (130-400) 11/09/21 19:02 MPV 9.3 fL (7.4-10.4) 11/09/21 19:02 Neut % (Auto) 71.0 % 11/09/21 19:02 Lymph % (Auto) 18.0 % 11/09/21 19:02 [place] % (Auto) 8.8 % 11/09/21 19:02 Eos % (Auto) 1.2 % 11/09/21 19:02 Baso % (Auto) 0.7 % 11/09/21 19:02 Neut # (Auto) 7.10 10^3/uL (1.8-7.7) 11/09/21 19:02 Lymph # (Auto) 1.8 10^3/uL (0.8-4.8) 11/09/21 19:02 [place] # (Auto) 0.9 10^3/uL (0.2-0.9) 11/09/21 19:02 Eos # (Auto) 0.1 10^3/uL (0.0-0.8) 11/09/21 19:02 Baso # (Auto) 0.1 10^3/uL (0.0-0.1) 11/09/21 19:02 Nucleated RBC % (auto) 0 % 11/09/21 19:02 Nucleated RBCs # 0.0 /100WBC 11/09/21 19:02 PT 14.30 SECONDS (12.1-14.9) 11/09/21 19:02 INR 1.08 (0.8-1.2) 11/09/21 19:02 APTT 30.9 SECONDS (23.9-36.7) 11/09/21 19:02 D-Dimer 1.69 ug/mIFEU (0-0.59) H 11/09/21 19:02 Sodium 134 mmol/L (136-145) L 11/09/21 19:02 Potassium 4.1 mmol/L (3.5-5.1) 11/09/21 19:02 Chloride 96 mmol/L (98-107) L 11/09/21 19:02 Carbon Dioxide 24 mmol/L (22-29) 11/09/21 19:02 Anion Gap 18.1 (5-19) 11/09/21 19:02 BUN 15 mg/dL (8-23) 11/09/21 19:02 Creatinine 0.8 mg/dL (0.7-1.2) 11/09/21 19:02 GFR Calculation Not Reportable 11/09/21 19:02 Glucose 82 mg/dL (65-115) 11/09/21 19:02 Calculated Osmolality 278 mOsm/kg (285-295) L 11/09/21 19:02 Calcium 9.7 mg/dL (8.5-10.5) 11/09/21 19:02 Total Bilirubin 0.5 mg/dL (0.15-1.2) 11/09/21 19:02 AST 22 U/L (0-40) 11/09/21 19:02 ALT 17 U/L (0-41) 11/09/21 19:02 Alkaline Phosphatase 78 IU/L (40-130) 11/09/21 19:02 Creatine Kinase 187 U/L (39-308) 11/09/21 19:02 Troponin T Baseline 35 ng/L (0-15) H 11/09/21 19:02 Troponin T 120 Minute 31.86 ng/L (0-15) H 11/09/21 21:36 Delta Troponin T -3.14 ABS# (0-10) L 11/09/21 21:36 C-Reactive Protein 3.0 mg/L (0.0-4.9) 11/09/21 19:02 NT-Pro-B Natriuret Pep 582 pg/mL (0-450) H 11/09/21 19:02 Total Protein 7.4 g/dL (6.6-8.7) 11/09/21 19:02 Albumin 4.8 g/dL (3.5-5.2) 11/09/21 19:02 Globulin 2.6 g/dL (1.3-4.6) 11/09/21 19:02 Procalcitonin 0.05 ng/mL (0-0.5) 11/09/21 19:02 Discharge Plan Discharge Patient Disposition: Home Clinical Impression: Palpitations Condition: Stable Prescriptions: No Action [id number] 500 mcg-250 mcg-50 mg-50 mg capsule 1 cap PO DAILY@0700 0RF Men 50 Plus Multivitamin 300-600-300 mcg tablet 1 tab PO DAILY@0700 0RF cholecalciferol (vitamin D3) 50 mcg (2,000 unit) capsule 50 mcg PO DAILY@0700 0RF potassium gluconate 595 mg (99 mg) tablet 595 mg PO DAILY@0700 0RF glucosamine-chondroitin 900 mg tablet 900 mg PO DAILY 0RF magnesium chloride 70 mg tablet,delayed release (DR/EC) 70 mg PO DAILY@07 0RF zinc 50 mg tablet 50 mg PO DAILY@0700 0RF Adult Probiotic 3 billion cell capsule 3 mmu cells PO DAILY@1200 0RF Rx Instructions: 1 capsule daily (DME) Custom Molded Orthotics See Rx Instructions .Route .MEDSUPPLY Qty: 1 0RF Rx Instructions: As directed Alpha and [place] clopidogrel 75 mg tablet 75 mg PO DAILY@07 Qty: 90 3RF atorvastatin 20 mg tablet 20 mg PO DAILY Qty: 90 3RF ezetimibe [Zetia] 10 mg tablet 10 mg PO DAILY Qty: 90 3RF metoprolol tartrate 50 mg tablet 50 mg PO BID Qty: 60 5RF acetaminophen 325 mg Tablet 325 mg PO QID PRN (Reason: Pain) 0RF Metamucil Packet 1 packet PO DAILY@0700 0RF Xyzal 5 mg tablet 5 mg PO DAILY 0RF Discharge Orders: Discharge ED (Routine); Ordered 11/09/21 Ordered By: Juan Manuel León Referrals: Vazquez Maza DO [Primary Care Provider] - Patient Instructions: Heart Palpitations (ED) Activity Restrictions/Additional Instructions: Return for worsening palpitations or feeling like your heart is racing or the beat is irregular, chest discomfort, shortness of breath, any other concerning symptoms. Call your heart doctor on Friday morning, let them know you were here, they may wish to perform more tests on you. Coding Level of Care Code ED Accounts Receivable Specialist for Justa Rodriguez
== END 2021-11-09 22:23 | disposition home or self-care (01) ==
PROVIDERS: Emergency Provider Emergency Medicine; PCP Electrodiagnostic Medicine
DX: R00.2 Palpitations (principal); R79.1 Abnormal coagulation profile; R00.0 Tachycardia, unspecified; Z87.891 Personal history of nicotine dependence; Z95.2 Presence of prosthetic heart valve; Z79.02 Long term (current) use of antithrombotics/antiplatelets
CPT/HCPCS: 71045; 71275; 80053; 82550; 83880; 84145; 84484; 85025; 85378; 85610; 85730; 86140; 93005; 96374; 99285; J3490; J7040; Q9967

== ENCOUNTER → 2021-11-15 13:36 | Outpatient (BNVA) | payer MEDICARE, SELFPAY | PROVIDERS: PCP Electrodiagnostic Medicine; Visit Provider Internal Medicine Cardiovascular Disease | DX: I25.10 Atherosclerotic heart disease of native coronary artery without angina pectoris (principal); I49.9 Cardiac arrhythmia, unspecified; I77.9 Disorder of arteries and arterioles, unspecified; Z95.2 Presence of prosthetic heart valve; E78.5 Hyperlipidemia, unspecified; Z87.891 Personal history of nicotine dependence | CPT/HCPCS: 99214 ==

== ENCOUNTER 2021-11-26 08:38 | Emergency (ER) | payer MEDICARE, SELFPAY ==
[2021-11-26 09:27] VITALS: BP 164/85; PULSE 57; RESP 16; TEMP 36.3; O2SAT 99; BMI 24.3
[2021-11-26 09:53] LABS: Basophils # 0.1 10^3/uL (0.0-0.1); Basophils % 0.6 %; Eosinophils # 0.3 10^3/uL (0.0-0.8); Eosinophils % 2.5 %; Hematocrit 41.4 % (42.0-52.0); Hemoglobin 14.3 g/dL (11.7-16.6); Lymphocytes # 1.4 10^3/uL (0.8-4.8); Lymphocytes % 10.3 %; Mean Corpuscular HGB Conc 34.5 g/dL (30.0-36.0); Mean Corpuscular Hemoglobin 29.7 pg (28.0-34.0); Mean Corpuscular Volume 85.9 fl (80-94); Mean Platelet Volume 9.4 fL (7.4-10.4); Monocytes # 1.2 10^3/uL (0.2-0.9); Monocytes % 8.6 %; Neutrophils # 10.73 10^3/uL (1.8-7.7); Neutrophils % 77.5 %; Nucleated Red Blood Cells % 0 %; Platelet Count 263 10^3/cmm (130-400); Red Blood Count 4.82 10^6/uL (4.1-5.3); Red Cell Distribution Width 13.8 % (12.1-15.1); White Blood Count 13.8 10^3/uL (4.0-10.0)
--- NOTE | 2021-11-26 10:06 | CT_ITS ---
WS: [id number] CT ABDOMEN PELVIS TECHNIQUE: Noncontrast CT of the abdomen and pelvis with coronal and sagittal reformatted images. CLINICAL INFORMATION: flank pain COMPARISON: CT August 11, 2020 DLP: 1452.[address] scans at [facility] use at least one of these dose optimization techniques: automated e xposure control; mA and/or kV adjustment per patient size (includes targeted exams where dose is matc hed to clinical indication); or iterative reconstruction. FINDINGS: Prior postoperative changes in the prostate with TURP. Enlarged prostate measuring 5.5 cm in maximum dimension. Increased attenuation debris or blood products within the dorsal bladder. Urine distended bladder. Th is is new from August 11, 2020. Adrenal glands are normal. No obstructing renal or ureteral calculi. Normal GE junction. Stomach and proximal small bowel are normal in appearance. Normal noncontrast liver. Small RIGHT hepatic cyst. Ga llbladder appears unremarkable. Fatty atrophy of the pancreas. Bibasilar atelectasis. Normal caliber abdominal aorta. Aortic calcification. 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 Abdominal aorta measures 2.7 x 2.8 cm in maximum dimension. Ectatic c alcified proximal common iliac arteries. Sigmoid diverticulosis. No evidence of high-grade small or large bowel obstruction. Surgical clips in the RIGHT lower quadrant. Advanced spondylitic changes lumbar spine similar to previous. CT/CT kidney stone 96949 IMPRESSION: 1. Increased attenuation soft tissue thickening or debris in the dorsal bladde r likely hematoma/blood products. Recommend further evaluation with cystoscopy to evaluate for underlying mass/TCC. 2. Prior TURP defect in the prostate. Prostate enlargement measuring 5.5 CM. 3. 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 Aorta measures 2.7 x 2.8 cm unchanged. 4. Tortuous and ectatic common iliac arteries bilaterally unchanged. 5. No other acute findings.
[2021-11-26 10:09] LABS: Alanine Aminotransferase 13 U/L (0-41); Albumin Level 4.8 g/dL (3.5-5.2); Alkaline Phosphatase 85 IU/L (40-130); Anion Gap 12.4 (5-19); Aspartate Amino Transferase 21 U/L (0-40); Blood Urea Nitrogen 13 mg/dL (8-23); Calcium 9.3 mg/dL (8.5-10.5); Carbon Dioxide 29 mmol/L (22-29); Chloride 96 mmol/L (98-107); Globulin 2.8 g/dL (1.3-4.6); Glucose 75 mg/dL (65-115); Lipase 25 U/L (13-60); Osmolality Calculated 275 mOsm/kg (285-295); Potassium 4.4 mmol/L (3.5-5.1); Sodium 133 mmol/L (136-145); Total Bilirubin 0.5 mg/dL (0.15-1.2); Total Protein 7.6 g/dL (6.6-8.7)
--- NOTE | 2021-11-26 10:36 | W.ED.MALEGU ---
HPI - Male Genitourinary General: Chief complaint: Urogenital-Male Stated complaint: urinating blood/high BP/right sided back pain Time Seen by Provider: 11/26/21 10:04 Source: patient Mode of arrival: ambulatory History of Present Illness: 81-year-old male began having painless hematuria this morning. He has had problems with prostate past several years ago he had a TURP done according to him as done by Dr. Gallagher. He is otherwise been fine since then. He had a TAVR procedure done about a month ago he still is on clopidogrel from now but is not on any other anticoagulants. He denies any fever sweats or chills feels like he is having a hard time initiating urination and emptying bladder but he has been able to go so far. He went shortly before coming into the ER this morning. He denies any fever sweats chills no flank pain. No previous history of renal stones. MD Complaint: other (Hematuria) Onset (ago): hour(s) Duration: constant Severity: moderate Quality: aching Relieving factors: urination Exacerbating factors: none Associated symptoms: Reports hematuria; Deny discharge, dysuria, fevers/chills, nausea, rash, swelling, urinary incontinence, urinary retention, mass or vomiting Review of Systems Const: Denies: fever(s), chills, body aches, change in appetite, fatigue or malaise ENMT: Denies: throat pain, ear or mastoid pain, nasal discharge or nasal congestion Card: Denies: chest pain, edema, dyspnea on exertion or orthopnea Resp: Denies: dyspnea, productive cough or non-productive cough GI: Denies: nausea or vomiting : Reports: difficulty urinating and hematuria; Denies: flank pain, dysuria, urinary frequency, urinary urgency or urinary incontinence Skin/Breast: Denies: rash or pruritus PFSH ED PFSH: Medical History BPH with obstruction/lower urinary tract symptoms History of elevated PSA Incomplete bladder emptying Lumbar radiculopathy, chronic L5-S1 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 Surgical History History of ankle surgery History of appendectomy History of bilateral inguinal hernia repair History of nasal surgery S/P TAVR (transcatheter aortic valve replacement) Status post transurethral resection of prostate Family History Mother Cancer Denies family history of Diabetes CAD (coronary artery disease) Clotting disorder Dementia Chronic kidney disease (CKD) Suicide Anesthesia complication Bleeding disorder Lung disease Hypertension Stroke Social History Smoking and tobacco status: former smoker Quit status (tobacco): has quit using tobacco Year quit tobacco: 1982 Alcohol intake: current Alcohol intake frequency: 0-2 Drinks per Day Alcohol type: wine Adopted: No Household members: spouse Marital status: Current occupational status: retired Physical Exam Const: COMMON NORMALS: no acute distress GENERAL APPEARANCE: cooperative and comfortable ORIENTATION/CONSCIOUSNESS: Yes awake, Yes oriented to person, Yes oriented to place and Yes oriented to time HENMT: COMMON NORMALS: normocephalic, atraumatic and hearing grossly normal bilaterally HEAD & SCALP: normocephalic and atraumatic Neck/C-Spine: COMMON NORMALS: no JVD Resp: COMMON NORMALS: normal respiratory effort, No retractions, No use of accessory muscles and clear to auscultation bilaterally AUSCULTATION: clear to auscultation bilaterally Cardio: COMMON NORMALS: no JVD, regular rate, regular rhythm and No murmurs present (Cardio) RATE: regular rate RHYTHM: regular rhythm GI: COMMON NORMALS: Soft to palpation and No hepatosplenomegaly present AUSCULTATION: Yes normoactive bowel sounds PALPATION: Yes Soft to palpation, No Tenderness to palpation present (GI), No Guarding due to palpation present (GI) and Yes No hepatosplenomegaly present Extremity: COMMON NORMALS: normal to inspection, capillary refill normal, no clubbing, cyanosis or edema, no calf tenderness and no pedal edema Neuro: SENSORIUM/ORIENTATION: Yes oriented to person, Yes oriented to place and Yes oriented to time Skin: COMMON NORMALS: no rashes or lesions noted GENERAL SKIN EXAM: no rashes or lesions noted Course Vital Signs: Vital signs: Vital Signs Temperature 97.4 F L 11/26/21 09:27 Pulse Rate 57 L 11/26/21 09:27 Respiratory Rate 16 11/26/21 09:27 Blood Pressure 164/85 11/26/21 09:27 Pulse Oximetry 99 11/26/21 09:27 MDM - Male Medical Decision Making Greater than 600 postvoid residual we will go ahead and place [place] with leg bag irrigate discharge home on [place] follow-up with Dr. Gallagher Medical Records I reviewed the patient's medical records. Lab Data I reviewed the patient's lab results. : 11/26/21 09:35 11/26/21 09:35 Radiology Impressions Abdomen/Pelvis CT 11/26/21 10:06 IMPRESSION: 1. Increased attenuation soft tissue thickening or debris in the dorsal bladder likely hematoma/blood products. Recommend further evaluation with cystoscopy to evaluate for underlying mass/TCC. 2. Prior TURP defect in the prostate. Prostate enlargement measuring 5.5 CM. 3. 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 Aorta measures 2.7 x 2.8 cm unchanged. 4. Tortuous and ectatic common iliac arteries bilaterally unchanged. 5. No other acute findings. Laboratory Results WBC 13.8 10^3/uL (4.0-10.0) H 11/26/21 09:35 RBC 4.82 10^6/uL (4.1-5.3) 11/26/21 09:35 Hgb 14.3 g/dL (11.7-16.6) 11/26/21 09:35 Hct 41.4 % (42.0-52.0) L 11/26/21 09:35 MCV 85.9 fl (80-94) 11/26/21 09:35 MCH 29.7 pg (28.0-34.0) 11/26/21 09:35 MCHC 34.5 g/dL (30.0-36.0) 11/26/21 09:35 RDW 13.8 % (12.1-15.1) 11/26/21 09:35 Plt Count 263 10^3/cmm (130-400) 11/26/21 09:35 MPV 9.4 fL (7.4-10.4) 11/26/21 09:35 Neut % (Auto) 77.5 % 11/26/21 09:35 Lymph % (Auto) 10.3 % 11/26/21 09:35 [place] % (Auto) 8.6 % 11/26/21 09:35 Eos % (Auto) 2.5 % 11/26/21 09:35 Baso % (Auto) 0.6 % 11/26/21 09:35 Neut # (Auto) 10.73 10^3/uL (1.8-7.7) H 11/26/21 09:35 Lymph # (Auto) 1.4 10^3/uL (0.8-4.8) 11/26/21 09:35 [place] # (Auto) 1.2 10^3/uL (0.2-0.9) H 11/26/21 09:35 Eos # (Auto) 0.3 10^3/uL (0.0-0.8) 11/26/21 09:35 Baso # (Auto) 0.1 10^3/uL (0.0-0.1) 11/26/21 09:35 Nucleated RBC % (auto) 0 % 11/26/21 09:35 Nucleated RBCs # 0.0 /100WBC 11/26/21 09:35 PT 13.20 SECONDS (12.1-14.9) 11/26/21 10:50 INR 0.97 (0.8-1.2) 11/26/21 10:50 APTT 32.3 SECONDS (23.9-36.7) 11/26/21 10:50 Sodium 133 mmol/L (136-145) L 11/26/21 09:35 Potassium 4.4 mmol/L (3.5-5.1) 11/26/21 09:35 Chloride 96 mmol/L (98-107) L 11/26/21 09:35 Carbon Dioxide 29 mmol/L (22-29) 11/26/21 09:35 Anion Gap 12.4 (5-19) 11/26/21 09:35 BUN 13 mg/dL (8-23) 11/26/21 09:35 Creatinine 0.7 mg/dL (0.7-1.2) 11/26/21 09:35 GFR Calculation Not Reportable 11/26/21 09:35 Glucose 75 mg/dL (65-115) 11/26/21 09:35 Calculated Osmolality 275 mOsm/kg (285-295) L 11/26/21 09:35 Calcium 9.3 mg/dL (8.5-10.5) 11/26/21 09:35 Total Bilirubin 0.5 mg/dL (0.15-1.2) 11/26/21 09:35 AST 21 U/L (0-40) 11/26/21 09:35 ALT 13 U/L (0-41) 11/26/21 09:35 Alkaline Phosphatase 85 IU/L (40-130) 11/26/21 09:35 Total Protein 7.6 g/dL (6.6-8.7) 11/26/21 09:35 Albumin 4.8 g/dL (3.5-5.2) 11/26/21 09:35 Globulin 2.8 g/dL (1.3-4.6) 11/26/21 09:35 Lipase 25 U/L (13-60) 11/26/21 09:35 Urine Color Red (Yellow) 11/26/21 10:41 Urine Appearance Turbid (CLEAR) 11/26/21 10:41 Urine pH 7 (5-7) 11/26/21 10:41 Ur Specific [place] 1.010 (1.005-1.030) 11/26/21 10:41 Urine Protein 3+ (Negative) H 11/26/21 10:41 Urine Glucose (UA) Norm (Normal) 11/26/21 10:41 Urine Ketones Negative (Negative) 11/26/21 10:41 Urine Blood 3+ (Negative) H 11/26/21 10:41 Urine Nitrate Negative (Negative) 11/26/21 10:41 Urine Bilirubin Neg (Negative) 11/26/21 10:41 Urine Urobilinogen Norm mg/dL (Negative) 11/26/21 10:41 Ur Leukocyte Esterase 1+ (Negative) H 11/26/21 10:41 Urine RBC Too numerous to cnt /hpf (0-2) H 11/26/21 10:41 Urine WBC None /hpf (0-5) 11/26/21 10:41 Ur Squamous Epith Cells None /hpf (0-5) 11/26/21 10:41 Amorphous Sediment Not Reportable 11/26/21 10:41 Urine Bacteria None /hpf (NONE) 11/26/21 10:41 Discharge Plan Discharge Patient Disposition: Home Clinical Impression: Hematuria, Acute urinary retention Condition: Stable Prescriptions: New tamsulosin 0.4 mg capsule 0.4 mg PO DAILY Qty: 30 0RF No Action [id number] 500 mcg-250 mcg-50 mg-50 mg capsule 1 cap PO DAILY@0700 0RF Men 50 Plus Multivitamin 300-600-300 mcg tablet 1 tab PO DAILY@0700 0RF cholecalciferol (vitamin D3) 50 mcg (2,000 unit) capsule 50 mcg PO DAILY@0700 0RF potassium gluconate 595 mg (99 mg) tablet 595 mg PO DAILY@0700 0RF glucosamine-chondroitin 900 mg tablet 900 mg PO DAILY@07 0RF zinc 50 mg tablet 50 mg PO DAILY@0700 0RF (DME) Custom Molded Orthotics See Rx Instructions .Route .MEDSUPPLY Qty: 1 0RF Rx Instructions: As directed Alpha and [place] magnesium L-lactate [Magtab] 84 mg tablet extended release 84 mg PO BID 30 Days Qty: 60 5RF clopidogrel 75 mg tablet 75 mg PO DAILY@07 Qty: 90 3RF metoprolol tartrate 50 mg tablet 50 mg PO BID Qty: 60 5RF acetaminophen 325 mg Tablet 325 mg PO QID PRN (Reason: Pain) 0RF levocetirizine [Xyzal] 5 mg tablet 5 mg PO DAILY PRN (Reason: Allergy Symptoms) 0RF atorvastatin 20 mg tablet 20 mg PO DAILY@22 0RF Zetia 10 mg tablet 10 mg PO DAILY@07 0RF Metamucil 3.4 gram/5.4 gram Powder 1 - 2 tsp PO DAILY@07 0RF Probiotic 1 cap PO QAM 0RF Discharge Orders: Discharge ED (Routine); Ordered 11/26/21 Ordered By: Ned Subramanian Referrals: Vazquez Maza DO [Primary Care Provider] - Discharge Diet: Usual diet Discharge Activity: Increase activity as tolerated Patient Instructions: Opioid Safety Activity Restrictions/Additional Instructions: eye clinic manager will make arrangements for you to follow-up with Dr. Gallagher. If your catheter stops draining the bladder return to the emergency room otherwise leave in place until released by Dr. Gallagher. Coding Level of Care Code ED Dentistry Professor for Justa Fwd Exam Comprehensive
[2021-11-26 11:19] LABS: INR 0.97 (0.8-1.2)
[2021-11-26 11:20] LABS: Partial Thromboplastin Time 32.3 SECONDS (23.9-36.7)
[2021-11-26 11:40] LABS: Urine Color Red (Yellow); pH Urine 7 (5-7)
[2021-11-26 11:42] LABS: Add Urine Microscopic? YES; Bilirubin Urine Neg (Negative); Blood Urine 3+ (Negative); Glucose Urine UA Norm (Normal); Ketones Urine Negative (Negative); Leukocyte Esterase Urine 1+ (Negative); Nitrate Urine Negative (Negative); Protein Urine 3+ (Negative); RBC Urine TOO NUMEROUS TO CNT /hpf (0-2); Urobilinogen Urine Norm (Negative)
[2021-11-26 11:44] LABS: Add Urine Culture? Yes
[2021-11-26 11:49] LABS: Urine Appearance Turbid (CLEAR)
== END 2021-11-26 14:04 | disposition home or self-care (01) ==
PROVIDERS: Physician Assistant; Emergency Provider Family Medicine; PCP Electrodiagnostic Medicine
DX: R31.9 Hematuria, unspecified (principal); R33.9 Retention of urine, unspecified; Z79.02 Long term (current) use of antithrombotics/antiplatelets; Z87.891 Personal history of nicotine dependence
CPT/HCPCS: 51798; 74176; 80053; 81001; 83690; 85025; 85610; 85730; 87086; 99283

== ENCOUNTER 2021-11-26 17:34 | Emergency (ER) | payer MEDICARE, SELFPAY ==
[2021-11-26 17:51] VITALS: BP 141/80; PULSE 64; RESP 16; TEMP 36.8; O2SAT 96; BMI 24.3
[2021-11-26 18:30] LABS: Basophils # 0.1 10^3/uL (0.0-0.1); Basophils % 0.4 %; Eosinophils # 0.3 10^3/uL (0.0-0.8); Eosinophils % 2.7 %; Hematocrit 39.9 % (42.0-52.0); Hemoglobin 13.6 g/dL (11.7-16.6); Lymphocytes # 1.9 10^3/uL (0.8-4.8); Lymphocytes % 16.3 %; Mean Corpuscular HGB Conc 34.1 g/dL (30.0-36.0); Mean Corpuscular Hemoglobin 29.1 pg (28.0-34.0); Mean Corpuscular Volume 85.4 fl (80-94); Mean Platelet Volume 8.9 fL (7.4-10.4); Monocytes # 1.1 10^3/uL (0.2-0.9); Monocytes % 9.4 %; Neutrophils % 70.9 %; Nucleated Red Blood Cells % 0 %; Platelet Count 272 10^3/cmm (130-400); Red Blood Count 4.67 10^6/uL (4.1-5.3); Red Cell Distribution Width 13.8 % (12.1-15.1); White Blood Count 11.6 10^3/uL (4.0-10.0)
[2021-11-26 18:56] LABS: Alanine Aminotransferase 15 U/L (0-41); Albumin Level 4.7 g/dL (3.5-5.2); Alkaline Phosphatase 73 IU/L (40-130); Anion Gap 14.3 (5-19); Aspartate Amino Transferase 20 U/L (0-40); Blood Urea Nitrogen 15 mg/dL (8-23); Calcium 9.4 mg/dL (8.5-10.5); Carbon Dioxide 27 mmol/L (22-29); Chloride 94 mmol/L (98-107); Globulin 2.5 g/dL (1.3-4.6); Glucose 101 mg/dL (65-115); Lipase 29 U/L (13-60); Osmolality Calculated 273 mOsm/kg (285-295); Potassium 4.3 mmol/L (3.5-5.1); Sodium 131 mmol/L (136-145); Total Bilirubin 0.5 mg/dL (0.15-1.2); Total Protein 7.2 g/dL (6.6-8.7)
--- NOTE | 2021-11-26 20:44 | ED_ITS ---
HPI - Male Genitourinary General: Chief complaint: Urogenital-Male Stated complaint: blood in catheter bag Time Seen by Provider: 11/26/21 20:27 Source: patient Mode of arrival: ambulatory Limitations: no limitations History of Present Illness: 81-year-old male who was seen here earlier for urinary retention along with painless hematuria. Patient had a CT scan along with blood work and had a Goncalves placed. Patient comes back this evening stating he is continue to have some hematuria in his Goncalves bag. He denies any pain patient still has been passing urine. Denies any clots he denies any worsening improving factors. Associated symptoms: Reports hematuria; Deny nausea or vomiting Review of Systems Const: Denies: fever(s), chills, body aches or change in appetite Eyes: Denies: blurry vision or eye discomfort ENMT: Denies: throat pain or dental pain Card: Denies: chest pain Resp: Denies: dyspnea GI: Denies: abdominal pain, nausea, vomiting or diarrhea : Reports: hematuria Musc: Denies: neck pain or back pain Skin/Breast: Denies: rash Neuro: Denies: headache(s) Psych: Denies: depression Riki/Lymph: Denies: easy bruising All/Imm: Denies: urticaria PFSH ED PFSH: Medical History BPH with obstruction/lower urinary tract symptoms History of elevated PSA Incomplete bladder emptying Lumbar radiculopathy, chronic L5-S1 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 Surgical History History of ankle surgery History of appendectomy History of bilateral inguinal hernia repair History of nasal surgery S/P TAVR (transcatheter aortic valve replacement) Status post transurethral resection of prostate Family History Mother Cancer Denies family history of Diabetes CAD (coronary artery disease) Clotting disorder Dementia Chronic kidney disease (CKD) Suicide Anesthesia complication Bleeding disorder Lung disease Hypertension Stroke Social History Smoking and tobacco status: former smoker Quit status (tobacco): has quit using tobacco Year quit tobacco: 1982 Alcohol intake: current Alcohol intake frequency: 0-2 Drinks per Day Alcohol type: wine Adopted: No Household members: spouse Marital status: Current occupational status: retired Physical Exam Const: COMMON NORMALS: no acute distress, patient oriented x3 and healthy appearing HENMT: COMMON NORMALS: normocephalic and atraumatic HEAD & SCALP: normocephalic and atraumatic Eye: COMMON NORMALS: Equal, round and reactive pupils present and EOMs intact bilaterally PUPIL: Yes Equal, round and reactive pupils present Neck/C-Spine: COMMON NORMALS: full ROM and supple Chest: COMMONS NORMALS: normal inspection of the chest and normal palpation of entire chest wall Resp: COMMON NORMALS: normal respiratory effort, No retractions, No use of accessory muscles and clear to auscultation bilaterally AUSCULTATION: clear to auscultation bilaterally Cardio: COMMON NORMALS: regular rate, regular rhythm and No murmurs present (Cardio) RATE: regular rate RHYTHM: regular rhythm GI: COMMON NORMALS: Normal to inspection, nondistended, normoactive bowel sounds present, Soft to palpation, non-tender and no masses PALPATION: Yes Soft to palpation : OTHER: goncalves in place hematuria in leg bag Extremity: COMMON NORMALS: normal to inspection and full ROM Neuro: COMMON NORMALS: patient oriented x3, moves all extremities and no focal motor deficits Psych: COMMON NORMALS: mental status grossly normal, Normal thought process present and cooperative THOUGHT PROCESS: Normal thought process present Skin: COMMON NORMALS: no rashes or lesions noted and no wounds GENERAL SKIN EXAM: no rashes or lesions noted Course Vital Signs: Vital signs: Vital Signs Temperature 98.2 F 11/26/21 17:51 Pulse Rate 64 11/26/21 17:51 Respiratory Rate 16 11/26/21 17:51 Blood Pressure 141/80 11/26/21 17:51 Pulse Oximetry 96 11/26/21 17:51 MDM - Male Medical Decision Making Patient presents here with hematuria from his Goncalves his blood work here is normal he had a CT scan done earlier today he is to follow-up with Dr. Gallagher did flush catheter is clear now he is to return if worsening he understands agrees to plan. Lab Data : 11/26/21 18:15 11/26/21 18:15 Laboratory Results WBC 11.6 10^3/uL (4.0-10.0) H 11/26/21 18:15 RBC 4.67 10^6/uL (4.1-5.3) 11/26/21 18:15 Hgb 13.6 g/dL (11.7-16.6) 11/26/21 18:15 Hct 39.9 % (42.0-52.0) L 11/26/21 18:15 MCV 85.4 fl (80-94) 11/26/21 18:15 MCH 29.1 pg (28.0-34.0) 11/26/21 18:15 MCHC 34.1 g/dL (30.0-36.0) 11/26/21 18:15 RDW 13.8 % (12.1-15.1) 11/26/21 18:15 Plt Count 272 10^3/cmm (130-400) 11/26/21 18:15 MPV 8.9 fL (7.4-10.4) 11/26/21 18:15 Neut % (Auto) 70.9 % 11/26/21 18:15 Lymph % (Auto) 16.3 % 11/26/21 18:15 [place] % (Auto) 9.4 % 11/26/21 18:15 Eos % (Auto) 2.7 % 11/26/21 18:15 Baso % (Auto) 0.4 % 11/26/21 18:15 Neut # (Auto) 8.20 10^3/uL (1.8-7.7) H 11/26/21 18:15 Lymph # (Auto) 1.9 10^3/uL (0.8-4.8) 11/26/21 18:15 [place] # (Auto) 1.1 10^3/uL (0.2-0.9) H 11/26/21 18:15 Eos # (Auto) 0.3 10^3/uL (0.0-0.8) 11/26/21 18:15 Baso # (Auto) 0.1 10^3/uL (0.0-0.1) 11/26/21 18:15 Nucleated RBC % (auto) 0 % 11/26/21 18:15 Nucleated RBCs # 0.0 /100WBC 11/26/21 18:15 Sodium 131 mmol/L (136-145) L 11/26/21 18:15 Potassium 4.3 mmol/L (3.5-5.1) 11/26/21 18:15 Chloride 94 mmol/L (98-107) L 11/26/21 18:15 Carbon Dioxide 27 mmol/L (22-29) 11/26/21 18:15 Anion Gap 14.3 (5-19) 11/26/21 18:15 BUN 15 mg/dL (8-23) 11/26/21 18:15 Creatinine 0.6 mg/dL (0.7-1.2) L 11/26/21 18:15 GFR Calculation Not Reportable 11/26/21 18:15 Glucose 101 mg/dL (65-115) 11/26/21 18:15 Calculated Osmolality 273 mOsm/kg (285-295) L 11/26/21 18:15 Calcium 9.4 mg/dL (8.5-10.5) 11/26/21 18:15 Total Bilirubin 0.5 mg/dL (0.15-1.2) 11/26/21 18:15 AST 20 U/L (0-40) 11/26/21 18:15 ALT 15 U/L (0-41) 11/26/21 18:15 Alkaline Phosphatase 73 IU/L (40-130) 11/26/21 18:15 Total Protein 7.2 g/dL (6.6-8.7) 11/26/21 18:15 Albumin 4.7 g/dL (3.5-5.2) 11/26/21 18:15 Globulin 2.5 g/dL (1.3-4.6) 11/26/21 18:15 Lipase 29 U/L (13-60) 11/26/21 18:15 Discharge Plan Discharge Patient Disposition: Home Clinical Impression: Hematuria Condition: Stable Prescriptions: No Action [id number] 500 mcg-250 mcg-50 mg-50 mg capsule 1 cap PO DAILY@0700 0RF Men 50 Plus Multivitamin 300-600-300 mcg tablet 1 tab PO DAILY@0700 0RF cholecalciferol (vitamin D3) 50 mcg (2,000 unit) capsule 50 mcg PO DAILY@0700 0RF potassium gluconate 595 mg (99 mg) tablet 595 mg PO DAILY@0700 0RF glucosamine-chondroitin 900 mg tablet 900 mg PO DAILY@07 0RF zinc 50 mg tablet 50 mg PO DAILY@0700 0RF (DME) Custom Molded Orthotics See Rx Instructions .Route .MEDSUPPLY Qty: 1 0RF Rx Instructions: As directed Alpha and [place] magnesium L-lactate [Magtab] 84 mg tablet extended release 84 mg PO BID 30 Days Qty: 60 5RF clopidogrel 75 mg tablet 75 mg PO DAILY@07 Qty: 90 3RF metoprolol tartrate 50 mg tablet 50 mg PO BID Qty: 60 5RF acetaminophen 325 mg Tablet 325 mg PO QID PRN (Reason: Pain) 0RF levocetirizine [Xyzal] 5 mg tablet 5 mg PO DAILY PRN (Reason: Allergy Symptoms) 0RF atorvastatin 20 mg tablet 20 mg PO DAILY@22 0RF Zetia 10 mg tablet 10 mg PO DAILY@07 0RF Metamucil 3.4 gram/5.4 gram Powder 1 - 2 tsp PO DAILY@07 0RF Probiotic 1 cap PO QAM 0RF tamsulosin 0.4 mg capsule 0.4 mg PO DAILY Qty: 30 0RF Discharge Orders: Discharge ED (Routine); Ordered 11/26/21 Ordered By: Beatriz Key Referrals: Vazquez Maza DO [Primary Care Provider] - Discharge Diet: Advance as tolerated Discharge Activity: Resume usual activity Patient Instructions: Hematuria (ED) Coding Level of Care Code ED Customer Trainer for Martag Fwd Exam Comprehensive
--- NOTE | 2021-11-26 21:39 | PC.NURSE ---
I flushed patient catheter with 1000 ML of sterile water. I was able to remove a large amount of small blood clots with irrigation. I had a complete return of 1600 ML of fluid.
[2021-11-26 22:45] VITALS: BP 135/64; PULSE 62; RESP 18; O2SAT 95
--- NOTE | 2021-11-27 09:18 | PC.SOCIAL ---
Follow Up Appointment Follow up appointment request sent to Dr. Gallagher's office for hematuria and urinary retention.
--- NOTE | 2021-11-30 11:46 | DCPLANNER ---
Addendum entered by Meliza Mcleod 12/21/21 15:54: Patient had a follow up appointment scheduled for 11.27.[address] Gallagher - patient did attend appointment. Original Note: dock manager had message to schedule a follow up appointment for patient with urology. dock manager sent patients information to the front office staff at urology. Patients information will be printed and reviewed. Clinic will call patient with appointment information.
== END 2021-11-26 22:47 | disposition home or self-care (01) ==
PROVIDERS: Emergency Medicine; Emergency Provider Emergency Medicine; PCP Electrodiagnostic Medicine
DX: R31.9 Hematuria, unspecified (principal); Z79.02 Long term (current) use of antithrombotics/antiplatelets; Z87.891 Personal history of nicotine dependence
CPT/HCPCS: 80053; 83690; 85025; 99283

== ENCOUNTER → 2021-11-27 13:42 | Outpatient (BNVA) | payer MEDICARE, SELFPAY | PROVIDERS: PCP Electrodiagnostic Medicine; Visit Provider Urology | DX: R33.8 Other retention of urine (principal); R31.0 Gross hematuria; Z87.898 Personal history of other specified conditions | CPT/HCPCS: 99024 ==

== ENCOUNTER 2021-11-27 14:32 | Inpatient (IN) | payer MEDICARE, SELFPAY ==
--- NOTE | 2021-11-27 14:41 | ECG_ITS ---
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 Measurements Intervals [place] Rate: 58 P: 61 DC: 195 QRS: 51 QRSD: 117 T: 48 QT: 406 QTc: 400 Interpretive Statements SINUS BRADYCARDIA MODERATE INTRAVENTRICULAR CONDUCTION DELAY [110+ ms QRS DURATION] MINIMAL VOLTAGE CRITERIA FOR LVH, CONSIDER NORMAL VARIANT [MEETS CRITERIA IN ONE OF: R(aVL), S(V1), R(V5), R(V5/V6)+S(V1)] Compared to ECG 11/09/2021 21:34:32 Intraventricular conduction delay now present Sinus rhythm no longer present Ventricular premature complex(es) no longer present Electronically Signed On 11-27-2021 22:29:23 CDT by Terra Crespo M.D. [id number]
--- NOTE | 2021-11-27 14:41 | XR_ITS ---
WS: [id number] Exam: XR chest 1V portable [id number] Date/Time of Exam: 11/27/2021 2:46 PM Reason For Exam: dyspnea/cough Comparison 11/09/2021. The lungs are hyperinflated and clear. Cardiomediastinal silhouette is unremarkable. Signs of cardiac valve replacement. No pleural effusions. Regional bony structures are intact. XR/XR chest 1V portable [id number] IMPRESSION: 1. Pulmonary hyperinflation. No acute process.
--- NOTE | 2021-11-27 15:25 | ED_ITS ---
HPI - General Adult General: Chief complaint: General Medical Stated complaint: HYPERTENSIVE Time Seen by Provider: 11/27/21 14:40 Source: patient Mode of arrival: wheelchair Limitations: no limitations History of Present Illness: 81-year-old male presents to the emergency room with complaint of chest discomfort and episode of vomiting and some shortness of breath evidently at the urologist office. He was seen yesterday with urinary retention and painless hematuria and he was discharged home with a leg bag he returned later in the day because he was concerned because of the blood he was seeing in the back leg bag. His hemoglobin repeated at that time was 13.6. He was in the Dr. Gallagher's office today for evaluation of his hematuria before he was seen lightheaded dizzy is reporting a bit of a headache had a near syncopal episode and vomited x1. When I quizzed him on the chest discomfort he is focused more on the fact that he is having a fullness in his abdomen. He relates that to drinking more fluid to try to increase his urinary output. He is concerned that the fullness means he cannot tolerate any more fluid and that is building up because he does not think he is urinating it out. He denies any chest pain any pain in the neck back or arm. He is not really having any shortness of breath now. Neurologically patient is intact. Onset (ago): day(s) Location: abdomen Radiation: non-radiation Severity: mild Quality: dull (Fullness) Pain Consistency: constant Relieving factors: none Associated symptoms: Reports malaise; Deny chest pain, confusion, cough, diaphoresis, decreased appetite, dyspnea, fevers/chills, headache(s), nausea, rash, palpitations, seizures, short of breath, syncope, vomiting or weakness Treatments prior to arrival: none Review of Systems Const: Reports: fatigue and malaise; Denies: fever(s), chills or diaphoresis ENMT: Denies: throat pain, ear or mastoid pain, nasal discharge or nasal conge stion Card: Denies: chest pain, palpitations or syncope Resp: Denies: dyspnea GI: Denies: nausea or vomiting : Reports: difficulty urinating and hematuria; Denies: flank pain, dysuria, urinary frequency or urinary urgency Skin/Breast: Denies: rash Neuro: Reports: difficulty walking, dizziness and difficulty communicating thoughts; Denies: headache(s) or confusion Psych: Reports: anxiety PFSH ED PFSH: Medical History BPH with obstruction/lower urinary tract symptoms History of elevated PSA Incomplete bladder emptying Lumbar radiculopathy, chronic L5-S1 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 Surgical History History of ankle surgery History of appendectomy History of bilateral inguinal hernia repair History of nasal surgery S/P TAVR (transcatheter aortic valve replacement) Status post transurethral resection of prostate Family History Mother Cancer Denies family history of Diabetes CAD (coronary artery disease) Clotting disorder Dementia Chronic kidney disease (CKD) Suicide Anesthesia complication Bleeding disorder Lung disease Hypertension Stroke Social History Smoking and tobacco status: former smoker Quit status (tobacco): has quit using tobacco Year quit tobacco: 1982 Alcohol intake: current Alcohol intake frequency: 0-2 Drinks per Day Alcohol type: wine Adopted: No Household members: spouse Marital status: Current occupational status: retired Physical Exam Const: GENERAL APPEARANCE: cooperative, comfortable and anxious ORIENTATION/CONSCIOUSNESS: Yes awake, Yes oriented to person, Yes oriented to place and Yes oriented to time HENMT: COMMON NORMALS: hearing grossly normal bilaterally Eye: COMMON NORMALS: Equal, round and reactive pupils present, EOMs intact bilaterally, conjunctivae normal and no scleral icterus CONJUNCTIVA: Yes conjunctivae normal PUPIL: Yes Equal, round and reactive pupils present Neck/C-Spine: COMMON NORMALS: full ROM, no lymphadenopathy, supple and no JVD Lymph: LYMPHATIC: no lymphadenopathy noted and no lymphedema noted Resp: COMMON NORMALS: normal respiratory effort, No retractions, No use of accessory muscles and clear to auscultation bilaterally AUSCULTATION: clear to auscultation bilaterally Cardio: COMMON NORMALS: no JVD, regular rate, regular rhythm and No murmurs present (Cardio) RATE: regular rate RHYTHM: regular rhythm GI: COMMON NORMALS: Soft to palpation and No hepatosplenomegaly present AUSCULTATION: Yes normoactive bowel sounds PALPATION: Yes Soft to palpation, No Tenderness to palpation present (GI), No Guarding due to palpation present (GI) and Yes No hepatosplenomegaly present Extremity: COMMON NORMALS: normal to inspection, capillary refill normal, no clubbing, cyanosis or edema, no calf tenderness and no pedal edema Neuro: SENSORIUM/ORIENTATION: Yes oriented to person, Yes oriented to place and Yes oriented to time OTHER: Neurologically intact no focal neurologic deficits are noted Skin: COMMON NORMALS: no rashes or lesions noted GENERAL SKIN EXAM: no rashes or lesions noted Course Vital Signs: Vital signs: Vital Signs Temperature 98.2 F 11/28/21 04:00 Pulse Rate 61 11/28/21 04:00 Respiratory Rate 17 11/28/21 04:00 Blood Pressure 126/78 11/28/21 04:00 Pulse Oximetry 94 11/28/21 04:00 MDM - General Adult Medical Decision Making Patient awake alert and oriented he has difficult time following conversation after repeat the same information multiple times. He has some tangential thinking as well. I think this is all consistent with his hyponatremia. Suspect he induced hyponatremia due to excessive water intake. Discussed with hospitalist will place on observation also will consult Dr. Gallagher. Just prior to coming here he was over at Dr. Gallagher's office for evaluation of urinary retention and painless hematuria. Medical Records I reviewed the patient's medical records. Lab Data I reviewed the patient's lab results. : 11/28/21 04:23 11/28/21 04:23 Radiology Impressions Chest X-Ray 11/27/21 14:41 IMPRESSION: 1. Pulmonary hyperinflation. No acute process. Head CT 11/27/21 17:47 IMPRESSION: Negative for intracranial hemorrhage or mass effect Bladder Ultrasound 11/27/21 17:48 IMPRESSION: 1. [place] catheter in the urinary bladder. 2. Urinary bladder volume equals approximately 77 mm. Laboratory Results WBC 12.2 10^3/uL (4.0-10.0) H 11/27/21 14:45 RBC 3.94 10^6/uL (4.1-5.3) L 11/27/21 14:45 Hgb 11.7 g/dL (11.7-16.6) 11/27/21 14:45 Hct 32.6 % (42.0-52.0) L 11/27/21 14:45 MCV 82.7 fl (80-94) 11/27/21 14:45 MCH 29.7 pg (28.0-34.0) 11/27/21 14:45 MCHC 35.9 g/dL (30.0-36.0) D 11/27/21 14:45 RDW 13.2 % (12.1-15.1) 11/27/21 14:45 Plt Count 252 10^3/cmm (130-400) 11/27/21 14:45 MPV 9.8 fL (7.4-10.4) 11/27/21 14:45 Neut % (Auto) 73.5 % 11/27/21 14:45 Lymph % (Auto) 16.3 % 11/27/21 14:45 [place] % (Auto) 8.1 % 11/27/21 14:45 Eos % (Auto) 1.6 % 11/27/21 14:45 Baso % (Auto) 0.3 % 11/27/21 14:45 Neut # (Auto) 8.94 10^3/uL (1.8-7.7) H 11/27/21 14:45 Lymph # (Auto) 2.0 10^3/uL (0.8-4.8) 11/27/21 14:45 [place] # (Auto) 1.0 10^3/uL (0.2-0.9) H 11/27/21 14:45 Eos # (Auto) 0.2 10^3/uL (0.0-0.8) 11/27/21 14:45 Baso # (Auto) 0.0 10^3/uL (0.0-0.1) 11/27/21 14:45 Nucleated RBC % (auto) 0 % 11/27/21 14:45 Nucleated RBCs # 0.0 /100WBC 11/27/21 14:45 Sodium 118 mmol/L (136-145) L* 11/27/21 14:45 Potassium 3.7 mmol/L (3.5-5.1) 11/27/21 14:45 Chloride 83 mmol/L (98-107) L 11/27/21 14:45 Carbon Dioxide 23 mmol/L (22-29) 11/27/21 14:45 Anion Gap 15.7 (5-19) 11/27/21 14:45 BUN 11 mg/dL (8-23) 11/27/21 14:45 Creatinine 0.5 mg/dL (0.7-1.2) L 11/27/21 14:45 GFR Calculation Not Reportable 11/27/21 14:45 Glucose 117 mg/dL (65-115) H 11/27/21 14:45 Calculated Osmolality 246 mOsm/kg (285-295) L 11/27/21 14:45 Calcium 8.7 mg/dL (8.5-10.5) 11/27/21 14:45 Total Bilirubin 0.9 mg/dL (0.15-1.2) 11/27/21 14:45 AST 22 U/L (0-40) 11/27/21 14:45 ALT 14 U/L (0-41) 11/27/21 14:45 Alkaline Phosphatase 64 IU/L (40-130) 11/27/21 14:45 Troponin T Baseline 13 ng/L (0-15) 11/27/21 14:45 Total Protein 6.7 g/dL (6.6-8.7) 11/27/21 14:45 Albumin 4.3 g/dL (3.5-5.2) 11/27/21 14:45 Globulin 2.4 g/dL (1.3-4.6) 11/27/21 14:45 Discharge Plan Discharge Patient Disposition: Admitted As Inpatient Admit Provider: Andie Wang Clinical Impression: Acute hyponatremia, S/P TAVR (transcatheter aortic valve replacement), Gross hematuria, Urinary retention, Anemia Condition: Stable Coding Level of Care Code ED Foam Rubber Molder for Chg Fwd Exam Comprehensive
[2021-11-27 15:46] LABS: Basophils % 0.3 %; Eosinophils # 0.2 10^3/uL (0.0-0.8); Eosinophils % 1.6 %; Hematocrit 32.6 % (42.0-52.0); Hemoglobin 11.7 g/dL (11.7-16.6); Lymphocytes % 16.3 %; Mean Corpuscular HGB Conc 35.9 g/dL (30.0-36.0); Mean Corpuscular Hemoglobin 29.7 pg (28.0-34.0); Mean Corpuscular Volume 82.7 fl (80-94); Mean Platelet Volume 9.8 fL (7.4-10.4); Monocytes % 8.1 %; Neutrophils # 8.94 10^3/uL (1.8-7.7); Neutrophils % 73.5 %; Nucleated Red Blood Cells % 0 %; Platelet Count 252 10^3/cmm (130-400); Red Blood Count 3.94 10^6/uL (4.1-5.3); Red Cell Distribution Width 13.2 % (12.1-15.1); White Blood Count 12.2 10^3/uL (4.0-10.0)
[2021-11-27 16:07] VITALS: BP 161/82; PULSE 62; RESP 18; TEMP 36.6; O2SAT 96; BMI 24.3
[2021-11-27 16:11] LABS: Troponin(5th) Baseline 13 ng/L (0-15)
[2021-11-27 16:12] VITALS: BP 161/88; PULSE 68; RESP 18; O2SAT 96
[2021-11-27 16:15] VITALS: BP 157/85; PULSE 61; RESP 18; TEMP 36.6; O2SAT 94
[2021-11-27 16:25] LABS: Alanine Aminotransferase 14 U/L (0-41); Albumin Level 4.3 g/dL (3.5-5.2); Alkaline Phosphatase 64 IU/L (40-130); Anion Gap 15.7 (5-19); Aspartate Amino Transferase 22 U/L (0-40); Blood Urea Nitrogen 11 mg/dL (8-23); Calcium 8.7 mg/dL (8.5-10.5); Carbon Dioxide 23 mmol/L (22-29); Chloride 83 mmol/L (98-107); Globulin 2.4 g/dL (1.3-4.6); Glucose 117 mg/dL (65-115); Osmolality Calculated 246 mOsm/kg (285-295); Potassium 3.7 mmol/L (3.5-5.1); Total Bilirubin 0.9 mg/dL (0.15-1.2); Total Protein 6.7 g/dL (6.6-8.7)
[2021-11-27 16:28] LABS: Sodium 118 mmol/L (136-145)
--- NOTE | 2021-11-27 16:41 | ECG_ITS ---
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 Measurements Intervals [place] Rate: 57 P: 74 [place]: 199 QRS: 81 QRSD: 102 T: 77 QT: 399 QTc: 390 Interpretive Statements SINUS BRADYCARDIA Compared to ECG 11/27/2021 14:51:58 Intraventricular conduction delay no longer present Electronically Signed On 11-27-2021 22:37:38 CDT by Terra Crespo M.D. [id number]
--- NOTE | 2021-11-27 17:45 | P.HP_ITS ---
Providers/Chief Complaint Primary Care Provider: Vazquez Maza DO Chief Complaint: HYPERTENSIVE History of Present Illness Marco Antonio Almonte is a 81 year old male with history of BPH, elevated PSA, chronic L5-S1 lumbar radiculopathy, peripheral neuropathy, TAVR 18 months prior with [place] [facility] [place] hospital after he was sent from the urologist office for a near syncopal episode and vomiting x1. He went to see Dr. Ragsdale today for evaluation of his hematuria and before he was seen he got lightheaded dizzy and reported bit of a headache and had a near syncopal episode and vomited x1. He does state that he has been drinking a lot more fluid to try to increase his urinary output. He has a concern of abdominal fullness and that he cannot tolerate any more fluid that is building up because he does not think he is urinating it out. Denies shortness of breath, chest pain, nausea, fever, chills, cough, weakness at this time. At this time, he denies feeling dizzy or nauseated. He says he cannot quantify how much water he drank but is sure it was plenty > 10 glasses. He would like to be moved to a room as soon as possible. Medications/Allergies Home Medications Medication Instructions Recorded Confirmed Last Taken Type antiarthritic combination no.2 900 900 mg PO DAILY@07 05/01/20 11/27/21 11/27/21 History mg tablet (glucosamine-chondroitin) cholecalciferol (vitamin D3) 50 50 mcg PO DAILY@0705/01/20 11/27/21 11/27/21 History mcg (2,000 unit) capsule folic 500 mcg-B12 250 mcg-ALA 50 1 cap PO DAILY@0705/01/20 11/27/21 11/27/21 History mg-coQ10 50 cf-af9-mve-epa capsule llddynww-qtb-apysp acid 300 1 tab PO DAILY@0705/01/20 11/27/21 11/27/21 History mcg-lycopene 600 mcg-lutein 300 mcg tablet (Men 50 Plus Multivitamin) potassium gluconate 595 mg (99 mg) 595 mg PO DAILY@0705/01/20 11/27/21 11/27/21 History tablet zinc 50 mg tablet 50 mg PO DAILY@0705/01/20 11/27/21 11/27/21 History acetaminophen 325 mg tablet 325 mg PO QID PRN 07/21/20 11/27/21 Unknown History clopidogrel 75 mg tablet 75 mg PO DAILY@07 #90 tab 01/22/21 11/27/21 11/27/21 Rx Custom Molded Orthotics #1 ea 04/12/21 11/27/21 Unknown Rx metoprolol tartrate 50 mg tablet 50 mg PO BID #60 tab 10/01/21 11/27/21 11/27/21 Rx magnesium L-lactate 84 mg 84 mg PO BID 30 Days #60 tab 11/15/21 11/27/21 11/25/21 Rx tablet,extended release (Magtab) Lactobacil.acidophilus-Bifido.animalis 1 cap PO DAILY 11/26/21 11/27/21 11/27/21 History 5 billion cell sprinkle capsule (Probiotic) atorvastatin 20 mg tablet 20 mg PO DAILY@11/26/21 11/27/21 11/26/21 History ezetimibe 10 mg tablet (Zetia) 10 mg PO DAILY@11/26/21 11/27/21 11/27/21 History psyllium husk 3.4 gram/5.4 gram 1 - 2 tsp PO DAILY@11/26/21 11/27/21 11/27/21 History oral powder (Metamucil) tamsulosin 0.4 mg capsule 0.4 mg PO DAILY #30 cap 11/26/21 11/27/21 Unknown Rx Allergies Allergy/AdvReac Type Severity Reaction Status Date / Time meperidine [From Demerol] Allergy stopped Verified 11/27/21 16:17 breathing atorvastatin [From Lipitor] AdvReac Severe muscle and Verified 11/27/21 16:17 joint pain PFSH Acute PFSH: Medical History BPH with obstruction/lower urinary tract symptoms History of elevated PSA Incomplete bladder emptying Lumbar radiculopathy, chronic L5-S1 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 Surgical History History of ankle surgery History of appendectomy History of bilateral inguinal hernia repair History of nasal surgery S/P TAVR (transcatheter aortic valve replacement) Status post transurethral resection of prostate Family History Mother Cancer Denies family history of Diabetes CAD (coronary artery disease) Clotting disorder Dementia Chronic kidney disease (CKD) Suicide Anesthesia complication Bleeding disorder Lung disease Hypertension Stroke Social History Smoking and tobacco status: former smoker Quit status (tobacco): has quit using tobacco Year quit tobacco: 1982 Alcohol intake: current Alcohol intake frequency: 0-2 Drinks per Day Alcohol type: wine Adopted: No Household members: spouse Marital status: Current occupational status: retired Vitals/I&O/Wt Last Vital Signs Temp 98 F 11/27/21 16:15 Pulse 61 11/27/21 16:15 Resp 18 11/27/21 16:15 BP 157/85 11/27/21 16:15 Pulse Ox 94 11/27/21 16:15 Weight last 48 hrs Weight 86.183 kg Physical Exam Narrative: Resting comfortably in bed, appears slightly anxious, AOx3 NC/AT, EOMI Normal s1, s2, RRR, no gross murmers Soft, non tender, non distended abdomen, BS + No LE edema Casillas in place with bag attached to left thigh full of bloody urine. No clots in bag at this time. Data : 11/27/21 14:45 11/27/21 18:25 A&P Assessment and plan (1) Acute hyponatremia: Status: Acute (2) Peripheral neuropathy: Status: Chronic Qualifiers: Peripheral neuropathy type: polyneuropathy, unspecified Qualified Code(s): G62.9 - Polyneuropathy, unspecified (3) History of elevated PSA: Status: Chronic (4) Severe aortic valve stenosis: Status: Acute (5) S/P TAVR (transcatheter aortic valve replacement): Status: Acute (6) Dyslipidemia: Status: Acute (7) Benign essential HTN: Status: Acute Plan #Acute Hyponatremia - Seems to iatrogenic from drinking a lot of fluids in last 48 hours. Sodium 130's yesterday. - Will repeat sodium and place on fluid restriction for tonight - Asymptomatic at this time - Check urine sodium, creatinine, serum and urine osmolality - check CT head to r/o intracranial pathology - Will not add IV fluids or hypertonic saline just yet. Will wait till AM to see if self correction with fluid restriction. - Will await studies before further management - Seizure precautions - 1200 cc fluid restriction #Hx of TAVR #BPH #Hematuria - Monitor hematuria today - He saw Dr. ragsdale today and catheter functioning ok - Will do intermittent bladder irrigation - Dr. Ragsdale consulted for further management - Continue metoprolol, magnesium, atorvastatin - Hold plavix for tonight. Full Code Attestations Medical Necessity Statement*: Will cross 2 midnight stay for management of hyponatremia, hematuria. Patient will need in hospital management and monitoring. Coding Level of Care Code Acute Brazing Machine Operator Automatic for Chg Fwd Diagnoses Acute hyponatremia E87.1 Peripheral neuropathy G62.9 Peripheral neuropathy type: polyneuropathy, unspecified History of elevated PSA Z87.898 Severe aortic valve stenosis I35.0 S/P TAVR (transcatheter aortic valve replacement) Z95.2 Dyslipidemia E78.5 Benign essential HTN I10
--- NOTE | 2021-11-27 17:47 | CTR_ITS ---
PROCEDURE INFORMATION: Exam: CT Head Without Contrast Exam date and time: 11/27/2021 6:48 PM Age: 81 years old Clinical indication: Dizziness and syncope and collapse; Additional info: Hypona, vomitting, lightheaded, R/O intracranial pathology TECHNIQUE: Imaging protocol: Computed tomography of the head without contrast. Radiation optimization: All CT scans at this facility use at least one of these dose optimization techniques: automated exposure control; mA and/or kV adjustment per patient size (includes targeted exams where dose is matched to clinical indication); or iterative reconstruction. COMPARISON: CT head wo con* [id number] 10/28/2020 9:15 AM RADIATION DOSE METRICS: Total DLP (mGy-cm): 2408.47 FINDINGS: Brain: Normal. No hemorrhage. Unremarkable white matter. No mass effect. Cerebral ventricles: No ventriculomegaly. Paranasal sinuses: Paranasal sinus mucosal thickening. Mastoid air cells: Visualized mastoid air cells are well aerated. Bones/joints: Unremarkable. No acute fracture. Soft tissues: Unremarkable. CT/CT head wo con* [id number] IMPRESSION: Negative for intracranial hemorrhage or mass effect
--- NOTE | 2021-11-27 17:48 | USR_ITS ---
PROCEDURE INFORMATION: Exam: US Abdomen; Limited Exam date and time: 11/27/2021 5:58 PM Age: 81 years old Clinical indication: Abdominal pain; Acute; Additional info: Eval for urinary retention, bladder scan TECHNIQUE: Imaging protocol: Real time ultrasound of the abdomen with image documentation. Limited exam focused on the region of clinical interest. COMPARISON: CT kidney stone [id number] 08/11/2020 4:27 PM FINDINGS: Urinary bladder: Casillas catheter in the urinary bladder. Urinary bladder volume equals approximately 77 mm. US/US bladder [id number] IMPRESSION: 1. Casillas catheter in the urinary bladder. 2. Urinary bladder volume equals approximately 77 mm.
--- NOTE | 2021-11-27 17:49 | PC.NURSE ---
Urine collected from goncalves & not from bag.
[2021-11-27] MEDS: magnesium lactate 84 mg Tablet PO (17:57)
[2021-11-27] MEDS: metoprolol tartrate 50 mg Tablet PO (17:57)
[2021-11-27] MEDS: pantoprazole 40 mg SDV IVP (17:57)
[2021-11-27 18:00] VITALS: BP 139/84; PULSE 99; RESP 18; O2SAT 96
[2021-11-27 18:16] LABS: Urine Creatinine 16 mg/dL (39-259); Urine Random Sodium 22 mmol/L
[2021-11-27 18:29] LABS: Bilirubin Urine Neg (Negative); Blood Urine 3+ (Negative); Glucose Urine UA Norm (Normal); Ketones Urine 1+ (Negative); Nitrate Urine Negative (Negative); Protein Urine 2+ (Negative); Specific Gravity, Urine 1.005 (1.005-1.030); Sulfosalicylic Acid Urine Positive (Negative); Urine Appearance Clear (CLEAR); Urine Color Red (Yellow); pH Urine 8 (5-7)
[2021-11-27 18:30] LABS: Add Urine Microscopic? YES; Bacteria Urine 4+ /hpf; Leukocyte Esterase Urine 1+ (Negative); RBC Urine TOO NUMEROUS TO CNT /hpf (0-2); Squamous Epithelial Cell Urine 0-4 /hpf (0-5); Urobilinogen Urine Norm (Negative); WBC Urine 0-4 /hpf (0-5)
[2021-11-27 18:31] LABS: Add Urine Culture? Yes
[2021-11-27 19:01] LABS: Anion Gap 15.1 (5-19); Blood Urea Nitrogen 9 mg/dL (8-23); Calcium 8.6 mg/dL (8.5-10.5); Carbon Dioxide 22 mmol/L (22-29); Chloride 85 mmol/L (98-107); Glucose 102 mg/dL (65-115); Osmolality Calculated 245 mOsm/kg (285-295); Potassium 4.1 mmol/L (3.5-5.1); Thyroid Stimulating Hormone 1.57 uIU/mL (0.27-4.20)
[2021-11-27 19:02] VITALS: BP 153/82; PULSE 66; RESP 18; TEMP 36.6
[2021-11-27 19:04] LABS: Sodium 118 mmol/L (136-145)
--- NOTE | 2021-11-27 19:08 | PC.NURSE ---
Report called to Mikala
[2021-11-27 19:53] VITALS: BMI 24.3
[2021-11-27 19:58] VITALS: BP 138/73; PULSE 60; RESP 17; TEMP 36.9; O2SAT 96
[2021-11-27 20:37] LABS: Troponin 5 6HR 14.72 ng/L (0-15)
--- NOTE | 2021-11-27 20:41 | ECG_ITS ---
[facility] Test Date: 2021-11-27 Pat Name: Marco Antonio Almonte Department: Room: 255 Gender: Male [employer]ast: : 1940 Requested By: Ned Adhikari Order Number: [id number] Ritika MD: Terra Crespo M.D. Measurements Intervals Harmon Rate: 60 P: 55 AL: 200 QRS: 57 QRSD: 111 T: 48 QT: 394 QTc: 394 Interpretive Statements SINUS RHYTHM MODERATE INTRAVENTRICULAR CONDUCTION DELAY [110+ ms QRS DURATION] Compared to ECG 11/27/2021 15:48:20 Intraventricular conduction delay now present Sinus bradycardia no longer present Electronically Signed On 11-27-2021 22:41:23 CDT by Terra Crespo M.D. [id number]
--- NOTE | 2021-11-27 20:53 | P.CONIM_ITS ---
Providers/Reason For Consult Consulting Physician/Specialty*: Gallagher/urology Reason for Consult*: Gross hematuria with clot retention Requesting Physician: Sachin Attending Physician: Andie Wang MD Primary Care Provider: Vazquez Maza DO History of Present Illness History of Present Illness Marco Antonio Almonte is a 81 year old male who was scheduled to see me today after 2 ER visits for gross hematuria of unclear etiology. He had developed clot retention had a catheter placed which occluded and then irrigated but the bleeding recurred. He presented to my clinic earlier today shortly after noon and was complaining of chest pain, shortness of breath, nausea and vomiting, hiccups and feeling terrible. His urine was bloody. Based on the concern regarding the systemic symptoms it was recommended that he be evaluated in the emergency department. In the ER he was found to be severely hyponatremic from having consumed a huge amount of fluid quickly to try to dilute his urine. He was admitted for further evaluation and treatment. A CT scan had been performed on 11/26/2021 that showed some clot in the bladder. Prostate showed TUR defect. On the floor tonight he was having difficulty maintaining patency of the cath with some clots coming through and around the catheter. Was not having a lot of pain. I was consulted for further evaluation and treatment. Lab values in the emergency department showed a white count of 12.2, hemoglobin 11.7 down from 13.6. Sodium 118,, creatinine 0.5 PROCEDURE: Casillas catheter placement with bladder irrigation/lavage 16 Czech Casillas catheter removed. 2% lidocaine jelly instilled into the urethra. 18 Czech three-way Couvelaire catheter passed without difficulty. 30 cc placed in the balloon. Bladder was then irrigated with about 1000 cc of sterile water. Small amount of clot was returned but not significantly. The catheter did function well. A total of about 200 cc of thick bloody urine was drained immediately. Normal saline CBI was initiated at a brisk rate with titration down. Nursing staff was instructed in catheter management with CBI manual irrigation etc. Reviewed the findings and status with the patient. Discussed cystoscopy under anesthesia possible fulguration if difficulty maintaining clarity of the urine. Will reevaluate in the morning. Review of Systems Const: Reports: fatigue; Denies: fever(s) or chills Eyes: Denies: change in vision or eye discharge Card: Reports: chest pain; Denies: palpitations Resp: Reports: dyspnea GI: Reports: nausea, vomiting and other (Hiccups); Denies: hematemesis : Reports: difficulty urinating and hematuria Musc: Denies: joint redness Skin/Breast: Denies: rash Neuro: Denies: headache(s) or confusion Psych: Reports: anxiety; Denies: memory loss or difficulty concentrating Endo: Reports: flushing Riki/Lymph: Reports: easy bruising and easy bleeding All/Imm: Denies: urticaria or acute wheezing Medications/Allergies Home Medications Medication Instructions Recorded Confirmed Last Taken Type antiarthritic combination no.2 900 900 mg PO DAILY@07 05/01/20 11/27/21 11/27/21 History mg tablet (glucosamine-chondroitin) cholecalciferol (vitamin D3) 50 50 mcg PO DAILY@0705/01/20 11/27/21 11/27/21 History mcg (2,000 unit) capsule folic 500 mcg-B12 250 mcg-ALA 50 1 cap PO DAILY@0705/01/20 11/27/21 11/27/21 History mg-coQ10 50 oj-yf1-sfk-epa capsule timgzboy-gyb-npkev acid 300 1 tab PO DAILY@69905/01/20 11/27/21 11/27/21 History mcg-lycopene 600 mcg-lutein 300 mcg tablet (Men 50 Plus Multivitamin) potassium gluconate 595 mg (99 mg) 595 mg PO DAILY@0705/01/20 11/27/21 11/27/21 History tablet zinc 50 mg tablet 50 mg PO DAILY@0705/01/20 11/27/21 11/27/21 History acetaminophen 325 mg tablet 325 mg PO QID PRN 07/21/20 11/27/21 Unknown History clopidogrel 75 mg tablet 75 mg PO DAILY@07 #90 tab 01/22/21 11/27/21 11/27/21 Rx Custom Molded Orthotics #1 ea 04/12/21 11/27/21 Unknown Rx metoprolol tartrate 50 mg tablet 50 mg PO BID #60 tab 10/01/21 11/27/21 11/27/21 Rx magnesium L-lactate 84 mg 84 mg PO BID 30 Days #60 tab 11/15/21 11/27/21 11/25/21 Rx tablet,extended release (Magtab) Lactobacil.acidophilus-Bifido.animalis 1 cap PO DAILY 11/26/21 11/27/21 11/27/21 History 5 billion cell sprinkle capsule (Probiotic) atorvastatin 20 mg tablet 20 mg PO DAILY@11/26/21 11/27/21 11/26/21 History ezetimibe 10 mg tablet (Zetia) 10 mg PO DAILY@11/26/21 11/27/21 11/27/21 History psyllium husk 3.4 gram/5.4 gram 1 - 2 tsp PO DAILY@11/26/21 11/27/21 11/27/21 History oral powder (Metamucil) tamsulosin 0.4 mg capsule 0.4 mg PO DAILY #30 cap 11/26/21 11/27/21 Unknown Rx Allergies Allergy/AdvReac Type Severity Reaction Status Date / Time meperidine [From Demerol] Allergy stopped Verified 11/27/21 16:17 breathing atorvastatin [From Lipitor] AdvReac Severe muscle and Verified 11/27/21 16:17 joint pain Current Medications Generic Name Dose Route Start Last Admin Trade Name Freq PRN Reason Stop Dose Admin Magnesium Lactate 84 mg 11/27/21 18:00 11/27/21 17:57 Magnesium Lactate 84 Mg Tablet PO 84 mg BID NETO Administration Metoprolol Tartrate 50 mg 11/27/21 18:00 11/27/21 17:57 Metoprolol Tartrate 50 Mg Tablet PO 50 mg BID NETO Administration Pantoprazole Sodium 40 mg 11/27/21 17:45 11/27/21 17:57 Pantoprazole 40 Mg Sdv IVP 40 mg Q24H NETO Administration PFSH Acute PFSH: Medical History BPH with obstruction/lower urinary tract symptoms History of elevated PSA Incomplete bladder emptying Lumbar radiculopathy, chronic L5-S1 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 Surgical History History of ankle surgery History of appendectomy History of bilateral inguinal hernia repair History of nasal surgery S/P TAVR (transcatheter aortic valve replacement) Status post transurethral resection of prostate Family History Mother Cancer Denies family history of Diabetes CAD (coronary artery disease) Clotting disorder Dementia Chronic kidney disease (CKD) Suicide Anesthesia complication Bleeding disorder Lung disease Hypertension Stroke Social History Smoking and tobacco status: former smoker Quit status (tobacco): has quit using tobacco Year quit tobacco: 1982 Alcohol intake: current Alcohol intake frequency: 0-2 Drinks per Day Alcohol type: wine Adopted: No Household members: spouse Marital status: Current occupational status: retired Vitals/I&O/Wt Last Vital Signs Temp 98.4 F 11/27/21 19:58 Pulse 60 11/27/21 19:58 Resp 17 11/27/21 19:58 BP 138/73 11/27/21 19:58 Pulse Ox 96 11/27/21 19:58 11/27/21 11/27/21 11/27/21 06:59 14:59 22:59 Output Total 650 / 650 Balance -650 / -650 Weight last 48 hrs Weight 190 lb Weight 190 lb Physical Exam Const: COMMON NORMALS: no acute distress, alert and well nourished GENERAL APPEARANCE: well kempt and well developed ORIENTATION/CONSCIOUSNESS: not confused HENMT: COMMON NORMALS: normocephalic and atraumatic HEAD & SCALP: normocep halic and atraumatic Eye: COMMON NORMALS: conjunctivae normal and no scleral icterus CONJUNCTIVA: Yes conjunctivae normal Neck/C-Spine: COMMON NORMALS: full ROM GENERAL: Yes normal visual inspection Lymph: LYMPHATIC: no lymphadenopathy noted and no lymphedema noted Chest: OTHER: Normal chest movements Resp: COMMON NORMALS: normal respiratory effort EFFORT & INSPECTION: No labored and No Actively coughing Cardio: COMMON NORMALS: regular rate and regular rhythm RATE: regular rate RHYTHM: regular rhythm GI: OTHER: Abdomen is nondistended. There are some slight fullness over the bladder. Nontender. No masses. No CVA tenderness : OTHER: Normal external male genitalia. Urethra meatus normal. Circumcised phallus. Normal scrotum and testicles. No abnormal bruising or bleeding. No bloody discharge at the urethral meatus Extremity: COMMON NORMALS: no clubbing, cyanosis or edema Neuro: COMMON NORMALS: no focal motor deficits SENSORIUM/ORIENTATION: Yes alert Psych: COMMON NORMALS: mental status grossly normal APPEARANCE: Yes grossly normal and Yes well kempt ATTITUDE: Yes calm and Yes engaged Skin: COMMON NORMALS: no rashes or lesions noted and no jaundice GENERAL SKIN EXAM: no rashes or lesions noted Data : 11/27/21 14:45 11/27/21 18:25 A&P Assessment and plan (1) Clot retention of urine: Etiology of hematuria unclear. Status: Acute (2) S/P TAVR (transcatheter aortic valve replacement): Status: Acute (3) Gross hematuria: Status: Acute (4) Dizziness: Status: Acute Consult Attestations Medical Necessity Statement: See attending. Could not manage Casillas catheter at home with gross hematuria causing occlusion. Coding Level of Care Code Acute Cement Railroad Car Loader for Chg Fwd Diagnoses S/P TAVR (transcatheter aortic valve replacement) Z95.2 Gross hematuria R31.0 Clot retention of urine R33.8 Dizziness R42 Time Spent (min) 65 Comment Chart review, x-ray review, discussion with other physicians, physical exam, counseling
[2021-11-27 21:00] LABS: Troponin 5 6HR Delta 1.72 ng/L (0-12)
[2021-11-27] MEDS: atorvastatin 40 mg Tablet 20 MG PO (22:07)
[2021-11-27] MEDS: lidocaine 2% Urojet 20 mL TOPICAL (22:07)
[2021-11-28] VITALS: BP 132/69; PULSE 60; RESP 17; O2SAT 94
[2021-11-28 04:00] VITALS: BP 126/78; PULSE 61; RESP 17; TEMP 36.8; O2SAT 94
[2021-11-28 05:02] LABS: Basophils % 0.5 %; Eosinophils # 0.2 10^3/uL (0.0-0.8); Eosinophils % 2.8 %; Hematocrit 32.7 % (42.0-52.0); Hemoglobin 11.5 g/dL (11.7-16.6); Lymphocytes # 1.5 10^3/uL (0.8-4.8); Lymphocytes % 19.9 %; Mean Corpuscular HGB Conc 35.2 g/dL (30.0-36.0); Mean Corpuscular Volume 82.4 fl (80-94); Mean Platelet Volume 9.4 fL (7.4-10.4); Monocytes # 0.9 10^3/uL (0.2-0.9); Monocytes % 11.6 %; Neutrophils # 4.83 10^3/uL (1.8-7.7); Neutrophils % 64.9 %; Nucleated Red Blood Cells % 0 %; Platelet Count 243 10^3/cmm (130-400); Red Blood Count 3.97 10^6/uL (4.1-5.3); Red Cell Distribution Width 13.2 % (12.1-15.1); White Blood Count 7.4 10^3/uL (4.0-10.0)
[2021-11-28 05:35] LABS: Alanine Aminotransferase 14 U/L (0-41); Alkaline Phosphatase 57 IU/L (40-130); Anion Gap 11.8 (5-19); Aspartate Amino Transferase 23 U/L (0-40); Blood Urea Nitrogen 8 mg/dL (8-23); Carbon Dioxide 26 mmol/L (22-29); Chloride 95 mmol/L (98-107); Globulin 2.3 g/dL (1.3-4.6); Glucose 106 mg/dL (65-115); Magnesium 2.1 mg/dL (1.7-2.3); Osmolality Calculated 267 mOsm/kg (285-295); Potassium 3.8 mmol/L (3.5-5.1); Sodium 129 mmol/L (136-145); Total Bilirubin 0.7 mg/dL (0.15-1.2); Total Protein 6.3 g/dL (6.6-8.7)
[2021-11-28] MEDS: ezetimibe 10 mg Tablet PO (06:22)
[2021-11-28] MEDS: cholecalciferol (vitamin D3) 1,000 unit Tablet 2000 UNIT PO (06:22)
[2021-11-28 07:44] VITALS: BP 132/62; PULSE 52; RESP 16; TEMP 37.4; O2SAT 96
--- NOTE | 2021-11-28 07:59 | P.PN_ITS ---
Subjective Subjective: Seen this morning. Sodium this morning 129. Close to his baseline. He states he feels a lot better compared to yesterday. He also saw Dr. Gallagher today. He is on continuous bladder irrigation at this time. He has no other complaints to offer. No acute events overnight. Vitals/I&O/Wt Last Vital Signs Temp 99.3 F 11/28/21 07:44 Pulse 52 L 11/28/21 07:44 Resp 16 11/28/21 07:44 BP 132/62 11/28/21 07:44 Pulse Ox 96 11/28/21 07:44 11/27/21 11/28/21 11/28/21 22:59 06:59 14:59 Intake Total 240 / 240 Output Total 650 / 650 Balance -650 / -650 240 / -410 Weight last 48 hrs Weight 86.183 kg Weight 86.183 kg Physical Exam Narrative: Resting comfortably in bed, appears slightly anxious, AOx3 NC/AT, EOMI Normal s1, s2, RRR, no gross murmers Soft, non tender, non distended abdomen, BS + No LE edema Casillas in place with bag attached to left thigh full of bloody urine. No clots in bag at this time. 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 - Seems to iatrogenic from drinking a lot of fluids in last 48 hours. Sodium 130's yesterday. -I will keep fluid restriction but raise threshold to 1500 cc. - Asymptomatic at this time -Urine sodium 22. Pretty consistent with psychogenic polydipsia. -CT head ruled out intracranial pathology. -Continue to monitor sodium. #Hx of TAVR #BPH #Hematuria - Monitor hematuria today -Continue continuous bladder irrigation. - Dr. Gallagher consulted for further management - Continue metoprolol, magnesium, atorvastatin - Hold plavix for tonight. Full Code Attestations Medical Necessity Statement*: Continuous bladder irrigation going on. He will need to stay tonight in the hospital for that. Also will need to monitor his serum sodium. Coding Level of Care Code Acute Medical Review Specialist for Chg Fwd Diagnoses Urinary retention R33.9 Anemia D64.9 Dizziness R42 Acute hyponatremia E87.1 Peripheral neuropathy G62.9 Peripheral neuropathy type: polyneuropathy, unspecified S/P TAVR (transcatheter aortic valve replacement) Z95.2
[2021-11-28] MEDS: magnesium lactate 84 mg Tablet PO ×2 (09:57→18:09)
[2021-11-28] MEDS: tamsulosin 0.4 mg Capsule PO (09:58)
[2021-11-28] MEDS: metoprolol tartrate 50 mg Tablet PO ×2 (09:59→18:09)
[2021-11-28 11:38] VITALS: BP 109/52; PULSE 80; RESP 16; TEMP 37; O2SAT 95
[2021-11-28 15:56] VITALS: BP 132/69; PULSE 84; RESP 18; TEMP 37.4; O2SAT 95
--- NOTE | 2021-11-28 17:49 | P.PN_ITS ---
Subjective Subjective: Urology follow-up: Hospital day #2. Urine much improved this morning on CBI with fairly reduced dose. Large bore catheter placed with manual irrigation followed by CBI initiation last night. No catheter occlusion problems. He feels much better overall. Decreased abdominal discomfort. No chest pain. Plavix is being held. With improvement I would recommend continued conservative management via CBI. If still requiring CBI tomorrow consider bedside cystoscopy or under anesthesia. Vitals/I&O/Wt Last Vital Signs Temp 99.4 F 11/28/21 15:56 Pulse 84 11/28/21 15:56 Resp 18 11/28/21 15:56 BP 132/69 11/28/21 15:56 Pulse Ox 95 11/28/21 15:56 11/28/21 11/28/21 11/28/21 06:59 14:59 22:59 Intake Total 240 / 240 480 / 480 240 / 720 Balance 240 / -410 480 / 480 240 / 720 Weight last 48 hrs Weight 190 lb Weight 190 lb Physical Exam Narrative: Alert oriented no acute distress Respirations unlabored. No audible wheezing Regular rhythm Abdomen is soft. No palpable masses. Bladder not distended Normal genitourinary exam. Catheter is draining clear urine with some light pink tinge. Normal movement of extremities. No neurologic deficits. GI: RECTAL EXAM: Yes visual inspection normal, Yes normal sphincter tone, Yes prostate normal and Yes other (No gross blood) Data : 11/28/21 04:23 11/28/21 04:23 A&P Assessment and plan (1) Clot retention of urine: Etiology of hematuria unclear. Improving on CBI. Status: Acute (2) S/P TAVR (transcatheter aortic valve replacement): Plavix being held for now Status: Acute (3) Gross hematuria: Status: Acute (4) Dizziness: Status: Acute Plan Continue CBI. Reassess in the morning. Possible bedside or intraoperative cystoscopy. Attestations Medical Necessity Statement*: Still requiring CBI Coding Level of Care Code Acute Police Officer Crime Prevention for Chg Fwd Diagnoses Clot retention of urine R33.8 S/P TAVR (transcatheter aortic valve replacement) Z95.2 Gross hematuria R31.0 Dizziness R42
[2021-11-28] MEDS: pantoprazole 40 mg SDV IVP (18:10)
[2021-11-28 20:00] VITALS: BP 106/58; PULSE 60; RESP 18; TEMP 36.6; O2SAT 97
[2021-11-28] MEDS: atorvastatin 40 mg Tablet 20 MG PO (21:22)
[2021-11-29] VITALS (21 sets, daily range): BP systolic 76–177; BP diastolic 42–87; PULSE 62–118; RESP 16–20; TEMP 36.3–36.8; O2SAT 94–100
--- NOTE | 2021-11-29 02:27 | PC.NURSE ---
patient had been noted and admitted to turning CBI fully open, nurse educated patient in importance of not making adjustments to CBI, patient apologetic and verbalized understanding. new bag hung at 0341
[2021-11-29 05:19] LABS: Basophils # 0.1 10^3/uL (0.0-0.1); Basophils % 0.5 %; Eosinophils # 0.3 10^3/uL (0.0-0.8); Eosinophils % 2.5 %; Hematocrit 33.7 % (42.0-52.0); Hemoglobin 11.8 g/dL (11.7-16.6); Lymphocytes # 2.1 10^3/uL (0.8-4.8); Lymphocytes % 18.9 %; Mean Corpuscular Hemoglobin 29.4 pg (28.0-34.0); Mean Platelet Volume 9.4 fL (7.4-10.4); Monocytes % 9.4 %; Neutrophils # 7.51 10^3/uL (1.8-7.7); Neutrophils % 68.3 %; Nucleated Red Blood Cells % 0 %; Platelet Count 237 10^3/cmm (130-400); Red Blood Count 4.01 10^6/uL (4.1-5.3); Red Cell Distribution Width 13.7 % (12.1-15.1)
[2021-11-29 05:37] LABS: Anion Gap 14.5 (5-19); Blood Urea Nitrogen 12 mg/dL (8-23); Calcium 8.7 mg/dL (8.5-10.5); Carbon Dioxide 23 mmol/L (22-29); Chloride 98 mmol/L (98-107); Glucose 125 mg/dL (65-115); Magnesium 2.1 mg/dL (1.7-2.3); Osmolality Calculated 275 mOsm/kg (285-295); Potassium 3.5 mmol/L (3.5-5.1); Sodium 132 mmol/L (136-145)
--- NOTE | 2021-11-29 05:56 | P.PN_ITS ---
Subjective Subjective: Urology follow-up: Hospital day #3 Hemoglobin stable Hyponatremia mostly corrected. Creatinine 0.6 No untoward events throughout the night. Urine described as pink throughout the night. CBI rate: For the most part at a low rate but when he moves around his urine gets bloody again and requires manual irrigation as well as CBI rate increase. I recommended proceeding to cystoscopy clot evacuation if pertinent and fulguration today when time available in the operating room. Vitals/I&O/Wt Last Vital Signs Temp 97.8 F 11/29/21 04:00 Pulse 62 11/29/21 04:00 Resp 17 11/29/21 04:00 BP 124/71 11/29/21 04:00 Pulse Ox 99 11/29/21 04:00 11/28/21 11/28/21 11/29/21 14:59 22:59 06:59 Intake Total 480 / 480 240 / 720 480 / 1200 Balance 480 / 480 240 / 720 480 / 1200 Weight last 48 hrs Weight 190 lb Weight 190 lb Physical Exam Narrative: Alert and oriented no acute distress Abdomen is soft nontender No labored respiration or audible wheezing Good range of motion of extremities. No focal neurologic defects. Still with bloody urine with CBI running. Increases with activity. Data : 11/29/21 04:37 11/29/21 04:37 A&P Assessment and plan (1) Gross hematuria: Failed conservative therapy with CBI. Plan for cystoscopy clot evacuation fulguration if necessary today. Status: Acute (2) Clot retention of urine: Status: Acute Plan Above Attestations Medical Necessity Statement*: Will take to surgery today. See above Decision for surgery Coding Level of Care Code Acute Security Compliance Engineer for Justa Rodriguez Diagnoses Gross hematuria R31.0 Clot retention of urine R33.8
[2021-11-29] MEDS: ezetimibe 10 mg Tablet PO (06:10)
[2021-11-29] MEDS: cholecalciferol (vitamin D3) 1,000 unit Tablet 2000 UNIT PO (06:10)
[2021-11-29] MEDS: metoprolol tartrate 50 mg Tablet PO ×2 (08:14→18:17)
[2021-11-29] MEDS: tamsulosin 0.4 mg Capsule PO (08:14)
[2021-11-29] MEDS: magnesium lactate 84 mg Tablet PO ×2 (08:14→18:18)
[2021-11-29] MEDS: sodium chloride 0.9% 1,000 ML 30 ML IV (11:15)
--- NOTE | 2021-11-29 11:17 | PM.OP ---
Operative Report Date of procedure: November 29, 2021 Pre-op diagnosis: Clot urinary retention with persistent hematuria Post-op diagnosis: Clot urinary retention with persistent hematuria Procedure done: 1. Cystoscopy with clot evacuation 2. Fulguration of bladder neck Specimens removed/disposition: None Pathology: None Surgeon: Elliott Anesthesia: General (LMA) Estimated blood loss: <3 cc Urine output: Not measured Complications: None Findings: Approximately 75 to 100 cc of clot in the bladder. Evacuated through the cystoscope with an Ellik evacuator 1 small area on the floor of the prostate with mucosal bleeding that was easily controlled with Bugbee cautery probe. Brief History: Mr. Almonte is a very pleasant 81-year-old white male who I followed for some period time for BPH/obstruction and elevated PSA o and ranges 5-8. No defined evidence of prostate cancer. He had been treated historically with dual medical therapy for BPH/obstruction with failure to obtain satisfactory result and ultimately underwent TURP in July 2018 with ultimately good results regarding voiding Recently developed gross hematuria and clot retention requiring catheterization. Has been on Plavix following TAVR. Was managed initially conservative with fluid replacement and then bladder irrigation manually followed by continuous bladder irrigation. Still maintains some persistence of hematuria and there is suspicion that there might be enough clot left in the bladder not able to be cleared with the hematuria catheter to be promoting further bleeding. Has been hemodynamically stable. Recommended cystoscopy under anesthesia clot evacuation possible fulguration. Procedure: After urgent evaluation examination and obtaining of informed consent he was taken to the operating suite on 11/29/2021 where general anesthesia was administered without difficulty after appropriate timeout was performed, SCDs confirmed to be functioning, preoperative antibiotics administered, beta-main protocol confirmed. Prepped and draped in usual sterile fashion in dorsolithotomy position paying careful attention to avoiding pressure points. 21 Vincentian cystoscope with 30 degree lens was introduced into the urethra meatus and advanced into the bladder without difficulty. The bladder was systematically examined with both 30 and 70 degree lenses. On the floor of the bladder there was about 75 -100 cc of old clot. This was evacuated with an Ellik evacuator. The bladder was carefully inspected and there was no bleeding. In the prostatic fossa there was one blood vessel that was oozing consistently and this was fulgurated with the Bugbee cautery probe to complete hemostasis. It was watched for couple minutes without recurrence. Bladder was then drained with a 18 Vincentian three-way Casillas catheter with 20 cc placed in the balloon with efflux being completely clear. Prophylactic CBI with normal saline was initiated at a slow rate. He was awakened in the operating room and returned to recovery room in stable condition. PLANS: 1. Taper off CBI 2. Likely voiding trial tomorrow with anticipated discharge
[2021-11-29] MEDS: levofloxacin-dextrose 5 % 500 MG/100 ML PREMIX 100 MG IV (11:18)
--- NOTE | 2021-11-29 11:33 | PM.PN ---
Subjective Subjective: no acute events overnight going for cystoscopy today Casillas continues to drain bloody urine Sodium better 132 which is patient's baseline. He is in good spirits today and has no complaints at this time. He is looking forward to having a cystoscopy today. Vitals/I&O/Wt Last Vital Signs Temp 97.9 F 11/29/21 11:13 Pulse 76 11/29/21 11:13 Resp 16 11/29/21 11:13 BP 162/85 11/29/21 11:13 Pulse Ox 96 11/29/21 11:13 11/28/21 11/29/21 11/29/21 22:59 06:59 14:59 Intake Total 240 / 720 480 / 1200 Balance 240 / 720 480 / 1200 Weight last 48 hrs Weight 86.183 kg Weight 86.183 kg Physical Exam Narrative: Resting comfortably in bed, appears comfortable at this time. Doing well. NC/AT, EOMI Normal s1, s2, RRR, no gross murmers Soft, non tender, non distended abdomen, BS + No LE edema Casillas in place draining bloody urine Data : 11/29/21 04:37 11/29/21 04:37 Micro: Microbiology 11/27/21 17:50 Urine Culture - Final Urine,Clean Catch A&P Assessment and plan (1) Peripheral neuropathy: Status: Chronic Qualifiers: Peripheral neuropathy type: polyneuropathy, unspecified Qualified Code(s): G62.9 - Polyneuropathy, unspecified (2) History of elevated PSA: Status: Chronic (3) S/P TAVR (transcatheter aortic valve replacement): Status: Acute (4) Dyslipidemia: Status: Acute (5) Benign essential HTN: Status: Acute (6) Urinary retention: Status: Acute (7) Clot retention of urine: Status: Acute (8) Gross hematuria: Status: Acute Plan #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 Sodium 132 and back to baseline. -I will remove fluid restriction at this time. - Asymptomatic at this time -Urine sodium 22.? Pretty consistent with psychogenic polydipsia. -CT head ruled out intracranial pathology. #Hx of TAVR #BPH #Hematuria - Monitor hematuria today -Continue continuous bladder irrigation. - Dr. Gallagher consulted for further management - Continue metoprolol, magnesium, atorvastatin - Hold plavix for tonight. ? Going for cystoscopy today. Full Code Attestations Medical Necessity Statement*: On continuous bladder irrigation. Going for cystoscopy today. Need to stay in the hospital tonight. Coding Level of Care Code Acute Clinical Statistics Manager for Chg Fwd Diagnoses Peripheral neuropathy G62.9 Peripheral neuropathy type: polyneuropathy, unspecified History of elevated PSA Z87.898 S/P TAVR (transcatheter aortic valve replacement) Z95.2 Dyslipidemia E78.5 Benign essential HTN I10 Urinary retention R33.9 Clot retention of urine R33.8 Gross hematuria R31.0
--- NOTE | 2021-11-29 14:57 | ANE.PACU2 ---
Inpatient post-anesthesia follow up: Airway intact: Yes Vital signs: Temperature 97.8 F Pulse Rate 88 Respiratory Rate 16 Blood Pressure 124/77 Pulse Oximetry 97 Oxygen Delivery Me thod Room Air Oxygen Flow Rate 7 Fraction of Inspir ed Oxygen Hydration adequate: Yes Nausea and vomiting: No Pain level: 3 Mental status: Baseline
[2021-11-29 15:13] LABS: Osmolality Serum 250 mOsm/kg (278-305)
[2021-11-29] MEDS: pantoprazole 40 mg SDV IVP (18:16)
[2021-11-29] MEDS: atorvastatin 40 mg Tablet 20 MG PO (19:58)
[2021-11-29] MEDS: acetaminophen 325 mg Tablet PO (19:58)
[2021-11-30] VITALS (7 sets, daily range): BP systolic 117–181; BP diastolic 57–81; PULSE 57–76; RESP 16–18; TEMP 36.3–37.1; O2SAT 96–98
[2021-11-30] MEDS: LORazepam 2 mg/mL INJ 1 mL IVP (00:38)
[2021-11-30 08:52] LABS: Basophils % 0.3 %; Eosinophils # 0.2 10^3/uL (0.0-0.8); Eosinophils % 1.8 %; Hematocrit 32.1 % (42.0-52.0); Lymphocytes % 15.5 %; Mean Corpuscular HGB Conc 34.3 g/dL (30.0-36.0); Mean Corpuscular Hemoglobin 29.6 pg (28.0-34.0); Mean Corpuscular Volume 86.5 fl (80-94); Mean Platelet Volume 9.5 fL (7.4-10.4); Monocytes # 1.4 10^3/uL (0.2-0.9); Monocytes % 10.4 %; Neutrophils # 9.41 10^3/uL (1.8-7.7); Neutrophils % 71.6 %; Nucleated Red Blood Cells % 0 %; Platelet Count 248 10^3/cmm (130-400); Red Blood Count 3.71 10^6/uL (4.1-5.3); White Blood Count 13.1 10^3/uL (4.0-10.0)
[2021-11-30] MEDS: cholecalciferol (vitamin D3) 1,000 unit Tablet 2000 UNIT PO (08:53)
[2021-11-30] MEDS: magnesium lactate 84 mg Tablet PO ×2 (08:53→18:31)
[2021-11-30] MEDS: thiamine 100 mg Tablet PO (08:53)
[2021-11-30] MEDS: ezetimibe 10 mg Tablet PO (08:53)
[2021-11-30] MEDS: multivitamin therapeutic Tablet 1 TAB PO (08:54)
[2021-11-30] MEDS: metoprolol tartrate 50 mg Tablet PO ×2 (08:54→18:28)
[2021-11-30] MEDS: folic acid 1 mg Tablet PO (08:54)
[2021-11-30] MEDS: tamsulosin 0.4 mg Capsule PO (08:54)
--- NOTE | 2021-11-30 09:14 | PC.SOCIAL ---
IMM Update pg 2 of IMM updated and reviewed w/ patient. Copy provided and copy placed in chart.
[2021-11-30 09:15] LABS: Blood Urea Nitrogen 13 mg/dL (8-23); Carbon Dioxide 23 mmol/L (22-29); Chloride 93 mmol/L (98-107); Glucose 118 mg/dL (65-115); Osmolality Calculated 267 mOsm/kg (285-295); Sodium 128 mmol/L (136-145)
--- NOTE | 2021-11-30 11:13 | P.PN_ITS ---
Subjective Subjective: Seen this morning. Patient had episodes of confusion overnight as per nursing staff and he pulled out his Casillas catheter which was replaced in this morning. WBC count 13.1, sodium again 128. Serum osmolality 267 calculated. I removed patient's fluid restriction yesterday unsure if he drank a lot of water. Intake not recorded accurately. Patient did have cystoscopy yesterday and a bleeding vessel was cauterized. Vitals/I&O/Wt Last Vital Signs Temp 97.4 F L 11/30/21 08:11 Pulse 71 11/30/21 08:11 Resp 18 11/30/21 08:11 BP 150/77 11/30/21 08:11 Pulse Ox 98 11/30/21 08:11 11/29/21 11/30/21 11/30/21 22:59 06:59 14:59 Intake Total 240 / 1810 120 / 120 Balance 240 / 1805 120 / 120 Physical Exam Narrative: Resting comfortably in bed, appears comfortable at this time.? Alert and oriented x3 at the time of my assessment. NC/AT, EOMI Normal s1, s2, RRR, no gross murmers Soft, non tender, non distended abdomen, BS + No LE edema Casillas in place draining light pink urine Urinary Catheter Management: 3-way Urethral CBI: Cath Placed During This Visit: yes, but has since been removed by the nurse Reason for Continuing Indwelling Catheter: Acute Urinary Retention or Obstruction Urinary Catheter Date of Insertion: 11/29/21 Urinary Catheter Time of Insertion: 11:53 Date Urinary Catheter Removed: 11/29/21 Time Urinary Catheter Discontinued: 11:43 Data : 11/30/21 08:18 11/30/21 08:18 Micro: Microbiology 11/27/21 17:50 Urine Culture - Final Urine,Clean Catch A&P Assessment and plan (1) Peripheral neuropathy: Status: Chronic Qualifiers: Peripheral neuropathy type: polyneuropathy, unspecified Qualified Code(s): G62.9 - Polyneuropathy, unspecified (2) History of elevated PSA: Status: Chronic (3) S/P TAVR (transcatheter aortic valve replacement): Status: Acute (4) Dyslipidemia: Status: Acute (5) Nocturia: Status: Acute (6) Benign essential HTN: Status: Acute (7) Urinary retention: Status: Acute (8) Anemia: Status: Acute (9) Gross hematuria: Status: Acute (10) Atherosclerosis of coronary artery of [place] heart without angina pectoris: Status: Acute Plan #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 Sodium 132 and back to baseline. -I will remove fluid restriction at this time. - Asymptomatic at this time -Urine sodium 22.? Pretty consistent with psychogenic polydipsia. -CT head ruled out intracranial pathology. 11/30 --> patient sodium again is 128. Fluid restriction was removed yesterday. Unsure how much he drank as there is no accurate intake recorded in the chart. I will check urine sodium again. I will counseled the patient on watching his fluid intake. #Hx of TAVR #BPH #Hematuria #Leukocytosis - Dr. Gallagher consulted for further management - Continue metoprolol, magnesium, atorvastatin -Restart Plavix ? Cystoscopy done yesterday showed bleeding vessel which was cauterized. Urology has advised to keep the Casillas catheter and and to remove sometime in the next week. \-Does have leukocytosis which is possibly stress response. I will monitor in hospital for fever and repeat her urine analysis and culture. Patient is cleared for discharge as per urology. I would like to observe patient overnight due to his hyponatremia. #Delirium Most likely in hospital delirium Full Code Attestations Medical Necessity Statement*: Monitor patient overnight due to hyponatremia that has occurred again and leukocytosis. Coding Level of Care Code Acute Roofing Machine Tender for Justa Fwd Diagnoses Peripheral neuropathy G62.9 Peripheral neuropathy type: polyneuropathy, unspecified History of elevated PSA Z87.898 S/P TAVR (transcatheter aortic valve replacement) Z95.2 Dyslipidemia E78.5 Nocturia R35.1 Benign essential HTN I10 Urinary retention R33.9 Anemia D64.9 Gross hematuria R31.0 Atherosclerosis of coronary artery of [place] heart without angina pectoris I25.10
--- NOTE | 2021-11-30 13:30 | P.PN_ITS ---
Subjective Subjective: Urology follow-up: Postop day #1 clot evacuation fulguration His urine cleared up very well postoperatively. Last night unfortunately pulled his catheter out with the balloon inflated. After catheter was replaced his urethral bleeding slowed dramatically. Still having a little bit but nothing of any concern. Urine this morning was light pink and it has cleared since that time. I have recommended that the catheter remain in place until mid next week. We will conduct a voiding trial possibly cystoscopy. From urologic perspective I think he is safe to go home. I did speak to the nursing staff who felt that the hospitalist managing his care wanted to observe 1 more night. I reviewed with the patient that I will be out of town this afternoon until Friday morning. Reviewed with nursing staff catheter management strategies etc. I also called his and reviewed the plans. She is comfortable with that. Instructed her that I would be out of town this weekend. Medications: Reviewed: Yes Vitals/I&O/Wt Last Vital Signs Temp 98.7 F 11/30/21 11:22 Pulse 71 11/30/21 11:22 Resp 16 11/30/21 11:22 BP 153/75 11/30/21 11:22 Pulse Ox 98 11/30/21 11:22 11/29/21 11/30/21 11/30/21 22:59 06:59 14:59 Intake Total 240 / 1810 360 / 360 Balance 240 / 1805 360 / 360 Physical Exam Narrative: He is alert but seems to be slightly confused. Knows where he is references to time etc. No labored respiration. No audible wheezing Abdomen is soft and nontender. Has a minimal amount of blood around the meatus but nothing of any consequence and no severe bleeding currently. Catheter in good position. Draining clear urine. Normal extremity movement. Urinary Catheter Management: 3-way Urethral CBI: Cath Placed During This Visit: yes, but has since been removed by the nurse Reason for Continuing Indwelling Catheter: Acute Urinary Retention or Obstruction Urinary Catheter Date of Insertion: 11/29/21 Urinary Catheter Time of Insertion: 11:53 Date Urinary Catheter Removed: 11/29/21 Time Urinary Catheter Discontinued: 11:43 Data : 11/30/21 08:18 11/30/21 08:18 Micro: Microbiology 11/27/21 17:50 Urine Culture - Final Urine,Clean Catch A&P Assessment and plan (1) Gross hematuria: Urine has remained clear post fulguration and clot removal except for a brief period of time after catheter had to be replaced after he forcibly removed it. It does not appear to be any significant consequences of that other than some minor bleeding. Status: Acute (2) Clot retention of urine: Resolved Status: Acute Plan Above Attestations Medical Necessity Statement*: Urologically ready for discharge. Final discharge assessment by hospitalist service. Coding Level of Care Code Acute Creative Perfumer for Justa Rodriguez Diagnoses Gross hematuria R31.0 Clot retention of urine R33.8
[2021-11-30] MEDS: LORazepam 2 mg/mL INJ 1 mL 1 MG IVP (17:27)
[2021-11-30] MEDS: pantoprazole 40 mg SDV IVP (18:27)
[2021-11-30 19:09] LABS: Urine Random Sodium 67 mmol/L
[2021-11-30] MEDS: atorvastatin 40 mg Tablet 20 MG PO (19:36)
[2021-12-01] VITALS: BP 115/64; PULSE 71; RESP 19; TEMP 36.6; O2SAT 95
--- NOTE | 2021-12-01 00:28 | PC.NURSE ---
Patient answers correctly to person, place, time and situation, but gets out of bed without assistance, pulls off wires and clothes and begins walking in the hallway. Bed alarm is set.
[2021-12-01 04:00] VITALS: BP 114/64; PULSE 68; RESP 19; TEMP 37; O2SAT 98
[2021-12-01 04:22] VITALS: PULSE 68
[2021-12-01] MEDS: cholecalciferol (vitamin D3) 1,000 unit Tablet 2000 UNIT PO (05:01)
[2021-12-01] MEDS: ezetimibe 10 mg Tablet PO (05:01)
[2021-12-01 05:17] LABS: Basophils # 0.1 10^3/uL (0.0-0.1); Basophils % 0.7 %; Eosinophils # 0.6 10^3/uL (0.0-0.8); Eosinophils % 6.3 %; Hematocrit 28.4 % (42.0-52.0); Hemoglobin 10.1 g/dL (11.7-16.6); Lymphocytes % 21.8 %; Mean Corpuscular HGB Conc 35.6 g/dL (30.0-36.0); Mean Corpuscular Hemoglobin 29.3 pg (28.0-34.0); Mean Corpuscular Volume 82.3 fl (80-94); Mean Platelet Volume 9.6 fL (7.4-10.4); Monocytes % 10.8 %; Neutrophils # 5.47 10^3/uL (1.8-7.7); Neutrophils % 60.2 %; Nucleated Red Blood Cells % 0 %; Platelet Count 238 10^3/cmm (130-400); Red Blood Count 3.45 10^6/uL (4.1-5.3); Red Cell Distribution Width 13.3 % (12.1-15.1); White Blood Count 9.1 10^3/uL (4.0-10.0)
[2021-12-01 05:37] LABS: Anion Gap 13.3 (5-19); Blood Urea Nitrogen 11 mg/dL (8-23); Calcium 8.8 mg/dL (8.5-10.5); Carbon Dioxide 25 mmol/L (22-29); Chloride 94 mmol/L (98-107); Glucose 104 mg/dL (65-115); Magnesium 2.1 mg/dL (1.7-2.3); Osmolality Calculated 266 mOsm/kg (285-295); Potassium 4.3 mmol/L (3.5-5.1); Sodium 128 mmol/L (136-145)
[2021-12-01 07:38] VITALS: BP 118/68; PULSE 70; RESP 16; O2SAT 94
[2021-12-01] MEDS: thiamine 100 mg Tablet PO (08:54)
[2021-12-01] MEDS: metoprolol tartrate 50 mg Tablet PO (08:55)
[2021-12-01] MEDS: multivitamin therapeutic Tablet 1 TAB PO (08:55)
[2021-12-01] MEDS: folic acid 1 mg Tablet PO (08:55)
[2021-12-01] MEDS: magnesium lactate 84 mg Tablet PO (09:51)
[2021-12-01] MEDS: tamsulosin 0.4 mg Capsule PO (09:51)
[2021-12-01 11:13] VITALS: BP 143/84; PULSE 62; RESP 16; O2SAT 98
--- NOTE | 2021-12-01 11:37 | PM.DCS ---
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 (2) History of elevated PSA: Status: Chronic (3) S/P TAVR (transcatheter aortic valve replacement): Status: Acute (4) Dyslipidemia: Status: Acute (5) Nocturia: Status: Acute (6) Benign essential HTN: Status: Acute (7) Urinary retention: Status: Acute (8) Anemia: Status: Acute (9) Gross hematuria: Status: Acute (10) Atherosclerosis of coronary artery of [place] heart without angina pectoris: Status: Acute Reason for Visit Reason for Visit: HYPERTENSIVE Brief History: Marco Antonio Almonte is a 81 year old male with history of BPH, elevated PSA, chronic L5-S1 lumbar radiculopathy, peripheral neuropathy, TAVR 18 months prior with bovine valve done [place] [facility] [place] to the hospital after he was sent from the urologist office for a near syncopal episode and vomiting x1.? He went to see Dr. Gallagher today for evaluation of his hematuria and before he was seen he got lightheaded dizzy and reported bit of a headache and had a near syncopal episode and vomited x1.? He does state that he has been drinking a lot more fluid to try to increase his urinary output.? He has a concern of abdominal fullness and that he cannot tolerate any more fluid that is building up because he does not think he is urinating it out.? Denies shortness of breath, chest pain, nausea, fever, chills, cough, weakness at this time. At this time, he denies feeling dizzy or nauseated. He says he cannot quantify how much water he drank but is sure it was plenty > 10 glasses. He would like to be moved to a room as soon as possible. Hospital Course Hospital Course Patient presented to the hospital after being sent from urology office for near syncopal episode and vomiting x1. Please see HPI for further details. Patient was admitted for acute hyponatremia as sodium was 118 on admission. 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 After fluid restriction of 1200 cc patient sodium automatically corrected to 130. Next day patient went for cystoscopy with Dr. Gallagher a bleeding vessel was seen which was cauterized. Overnight patient got delirious and pulled out his Casillas catheter and therefore it was replaced in the next morning. He had an elevated white count as well. No antibiotics were started as this was thought to be from stress response. Patient reported his alcohol use to be 1 to 2 glasses of wine occasionally. However our suspicion he may have underreporting his alcohol use as he did show symptoms of withdrawal and was placed on CIWA protocol. He received a few doses of Ativan. Day of discharge patient was doing much better. He requested to go home. Plan was to send him to Dr. Gallagher as an outpatient to follow-up. Patient will leave the hospital with a Casillas today. His sodium again has gone down to 128 once a fluid restriction was removed. 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 I discussed this with the patient and told him to be on a water restriction once he goes home. I discussed this with nephrology over the phone as well and they advised to repeat labs in [address] patient on fluid restriction and not to add salt tablets at this time. 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 I discussed this with the patient and he will follow-up with his primary care doctor and get his labs done outpatient as well. Patient was sent home in stable condition. Hematuria has resolved day of discharge. Casillas catheter left in as per instructions from Dr. Gallagher. Physical Exam Narrative: Resting comfortably in bed, appearing comfortable, alert oriented x3. NC/AT, EOMI Normal s1, s2, RRR, no gross murmers Soft, non tender, non distended abdomen, BS + No LE edema Casillas in place showing clear light yellow urine. Urinary Catheter Management: 3-way Urethral CBI: Cath Placed During This Visit: yes, but has since been removed by the nurse Reason for Continuing Indwelling Catheter: Other Urinary Catheter Date of Insertion: 11/29/21 Urinary Catheter Time of Insertion: 11:53 Date Urinary Catheter Removed: 11/29/21 Time Urinary Catheter Discontinued: 11:43 Discharge Data Studies Completed and Pending Completed Studies During Hospitalization Category Date Time Status CT head wo con* [id number] Urgent Cat Scan 11/27/21 17:47 Completed XR chest 1V portable [id number] Stat Exams 11/27/21 14:41 Completed US bladder [id number] Urgent Ultrasound 11/27/21 17:48 Completed Radiology Impressions Chest X-Ray 11/27/21 14:41 IMPRESSION: 1. Pulmonary hyperinflation. No acute process. Head CT 11/27/21 17:47 IMPRESSION: Negative for intracranial hemorrhage or mass effect Bladder Ultrasound 11/27/21 17:48 IMPRESSION: 1. Casillas catheter in the urinary bladder. 2. Urinary bladder volume equals approximately 77 mm. Laboratory Results WBC 9.1 10^3/uL (4.0-10.0) 12/01/21 04:32 RBC 3.45 10^6/uL (4.1-5.3) L 12/01/21 04:32 Hgb 10.1 g/dL (11.7-16.6) L 12/01/21 04:32 Hct 28.4 % (42.0-52.0) L 12/01/21 04:32 MCV 82.3 fl (80-94) 12/01/21 04:32 MCH 29.3 pg (28.0-34.0) 12/01/21 04:32 MCHC 35.6 g/dL (30.0-36.0) 12/01/21 04:32 RDW 13.3 % (12.1-15.1) 12/01/21 04:32 Plt Count 238 10^3/cmm (130-400) 12/01/21 04:32 MPV 9.6 fL (7.4-10.4) 12/01/21 04:32 Neut % (Auto) 60.2 % 12/01/21 04:32 Lymph % (Auto) 21.8 % 12/01/21 04:32 [place] % (Auto) 10.8 % 12/01/21 04:32 Eos % (Auto) 6.3 % 12/01/21 04:32 Baso % (Auto) 0.7 % 12/01/21 04:32 Neut # (Auto) 5.47 10^3/uL (1.8-7.7) 12/01/21 04:32 Lymph # (Auto) 2.0 10^3/uL (0.8-4.8) 12/01/21 04:32 [place] # (Auto) 1.0 10^3/uL (0.2-0.9) H 12/01/21 04:32 Eos # (Auto) 0.6 10^3/uL (0.0-0.8) 12/01/21 04:32 Baso # (Auto) 0.1 10^3/uL (0.0-0.1) 12/01/21 04:32 Nucleated RBC % (auto) 0 % 12/01/21 04:32 Nucleated RBCs # 0.0 /100WBC 12/01/21 04:32 Sodium 128 mmol/L (136-145) L 12/01/21 04:32 Potassium 4.3 mmol/L (3.5-5.1) 12/01/21 04:32 Chloride 94 mmol/L (98-107) L 12/01/21 04:32 Carbon Dioxide 25 mmol/L (22-29) 12/01/21 04:32 Anion Gap 13.3 (5-19) 12/01/21 04:32 BUN 11 mg/dL (8-23) 12/01/21 04:32 Creatinine 0.6 mg/dL (0.7-1.2) L 12/01/21 04:32 GFR Calculation Not Reportable 12/01/21 04:32 Glucose 104 mg/dL (65-115) 12/01/21 04:32 Serum Osmolality 250 mOsm/kg (278-305) L 11/27/21 18:25 Calculated Osmolality 266 mOsm/kg (285-295) L 12/01/21 04:32 Calcium 8.8 mg/dL (8.5-10.5) 12/01/21 04:32 Magnesium 2.1 mg/dL (1.7-2.3) 12/01/21 04:32 Total Bilirubin 0.7 mg/dL (0.15-1.2) 11/28/21 04:23 AST 23 U/L (0-40) 11/28/21 04:23 ALT 14 U/L (0-41) 11/28/21 04:23 Alkaline Phosphatase 57 IU/L (40-130) 11/28/21 04:23 Troponin T Baseline 13 ng/L (0-15) 11/27/21 14:45 Troponin T Hi Sens 6Hr 14.72 ng/L (0-15) 11/27/21 19:59 Troponin T Hi Sens 6Hr Delta 1.72 ng/L (0-12) 11/27/21 19:59 Total Protein 6.3 g/dL (6.6-8.7) L 11/28/21 04:23 Albumin 4.0 g/dL (3.5-5.2) 11/28/21 04:23 Globulin 2.3 g/dL (1.3-4.6) 11/28/21 04:23 TSH 1.57 uIU/mL (0.27-4.20) 11/27/21 18:25 Urine Color Red (Yellow) 11/27/21 17:50 Urine Appearance Clear (CLEAR) 11/27/21 17:50 Urine pH 8 (5-7) H 11/27/21 17:50 Ur Specific [place] 1.005 (1.005-1.030) 11/27/21 17:50 Urine Protein 2+ (Negative) H 11/27/21 17:50 Urine Glucose (UA) Norm (Normal) 11/27/21 17:50 Urine Ketones 1+ (Negative) H 11/27/21 17:50 Urine Blood 3+ (Negative) H 11/27/21 17:50 Urine Nitrate Negative (Negative) 11/27/21 17:50 Urine Bilirubin Neg (Negative) 11/27/21 17:50 Prot Sulfosalicylic Acd Positive (Negative) 11/27/21 17:50 Urine Urobilinogen Norm mg/dL (Negative) 11/27/21 17:50 Ur Leukocyte Esterase 1+ (Negative) H 11/27/21 17:50 Urine RBC Too numerous to cnt /hpf (0-2) H 11/27/21 17:50 Urine WBC 0-4 /hpf (0-5) H 11/27/21 17:50 Ur Squamous Epith Cells 0-4 /hpf (0-5) H 11/27/21 17:50 Amorphous Sediment Not Reportable 11/27/21 17:50 Urine Bacteria 4+ /hpf (NONE) H 11/27/21 17:50 Urine Osmolality Cancelled 11/27/21 17:50 Ur Random Sodium 67 mmol/L 11/30/21 18:23 Urine Creatinine 16 mg/dL (39-259) L 11/27/21 17:50 Vitals Last Vital Signs Temp 98.6 F 12/01/21 04:00 Pulse 62 12/01/21 11:13 Resp 16 12/01/21 11:13 BP 143/84 12/01/21 11:13 Pulse Ox 98 12/01/21 11:13 Discharge Plan Discharge Patient Disposition: Home Condition: Stable Prescriptions: New folic acid 1 mg Tablet 1 mg PO DAILY 30 Days Qty: 30 0RF Vitamin B-1 (mononitrate) 100 mg Tablet 100 mg PO DAILY 30 Days Qty: 30 0RF Continued [id number] 500 mcg-250 mcg-50 mg-50 mg capsule 1 cap PO DAILY@0700 0RF Men 50 Plus Multivitamin 300-600-300 mcg tablet 1 tab PO DAILY@0700 0RF cholecalciferol (vitamin D3) 50 mcg (2,000 unit) capsule 50 mcg PO DAILY@0700 0RF potassium gluconate 595 mg (99 mg) tablet 595 mg PO DAILY@0700 0RF glucosamine-chondroitin 900 mg tablet 900 mg PO DAILY@07 0RF zinc 50 mg tablet 50 mg PO DAILY@0700 0RF (DME) Custom Molded Orthotics See Rx Instructions .Route .MEDSUPPLY Qty: 1 0RF Rx Instructions: As directed Alpha and [place] magnesium L-lactate [Magtab] 84 mg tablet extended release 84 mg PO BID 30 Days Qty: 60 5RF clopidogrel 75 mg tablet 75 mg PO DAILY@07 Qty: 90 3RF metoprolol tartrate 50 mg tablet 50 mg PO BID Qty: 60 5RF acetaminophen 325 mg Tablet 325 mg PO QID PRN (Reason: Pain) 0RF atorvastatin 20 mg tablet 20 mg PO DAILY@22 0RF ezetimibe [Zetia] 10 mg tablet 10 mg PO DAILY@07 0RF Probiotic 5 billion cell Capsule, Sprinkle 1 cap PO DAILY 0RF Metamucil 3.4 gram/5.4 gram Powder 1 - 2 tsp PO DAILY@07 0RF tamsulosin 0.4 mg capsule 0.4 mg PO DAILY Qty: 30 0RF Discharge Orders: Discharge Order (Routine); Ordered 12/01/21 Ordered By: Andie Wang Other Ambulatory Orders: Basic Metabolic Panel (Routine) Timeframe: 4 Days Facility: [facility] - Location: Lab - Main Lab Ordered By: Andie Wang Complete Blood Count w/Auto (Routine) Timeframe: 4 Days Location: Determined by Patient Ordered By: Andie Wang Referrals: Franco Gallagher MD [Physician] - 1 week (Please call [phone] to schedule a follow up appointment with Dr. Gallagher for 1 week. Thank you.) Vazquez Maza DO [Primary Care Provider] - (Please call [phone] to schedule a follow up appointment with Dr. Maza for 7-10 days. Thank you.) Discharge Diet: Cardiac Discharge Activity: Resume usual activity Patient Instructions: Thiamine (By mouth) ([facility] Vitamin B1, Nature's..., Folic Acid (By mouth) (FA-8, [place], Folacin-800, Methylfolate), Peripheral Neuropathy (GEN), Opioid Safety Activity Restrictions/Additional Instructions: Don't take greater than 1200 ml of fluids total daily (any form of liquid would count towards this). Repeat lab work as directed and follow with primary care doctor as discussed. Please follow up with Dr. Gallagher in his clinic [facility] a week of discharge. Discharge Attestations Time Spent in Discharge Care*: less than 30 min Quality Metrics Clinical Quality Measures [ No reported AMI, CVA or VTE this stay] Coding Level of Care Code Acute [facility] [place] note Diagnoses Peripheral neuropathy G62.9 Peripheral neuropathy type: polyneuropathy, unspecified History of elevated PSA Z87.898 S/P TAVR (transcatheter aortic valve replacement) Z95.2 Dyslipidemia E78.5 Nocturia R35.1 Benign essential HTN I10 Urinary retention R33.9 Anemia D64.9 Gross hematuria R31.0 Atherosclerosis of coronary artery of [place] heart without angina pectoris I25.10
[2021-12-01 14:40] VITALS: BP 143/84; PULSE 62; RESP 16; O2SAT 98
== END 2021-12-01 12:45 | disposition home or self-care (01) | DRG 669 ==
LOC: ER 16:15 → MEDSURG 21:05
PROVIDERS: Urology; Admitting Provider Internal Medicine; Emergency Provider Family Medicine; PCP Electrodiagnostic Medicine; Visit Provider Internal Medicine
PROC: 0TJB8ZZ Inspection of Bladder, Via Natural or Artificial Opening Endoscopic (ICD-10-PCS; CPT 52000; principal; 2021-11-29 11:15)
PROC: 0T5B8ZZ Destruction of Bladder, Via Natural or Artificial Opening Endoscopic (ICD-10-PCS; 2021-11-29 11:15)
DX: R31.0 Gross hematuria (principal); E87.1 Hypo-osmolality and hyponatremia; F10.239 Alcohol dependence with withdrawal, unspecified; R63.1 Polydipsia; Z95.2 Presence of prosthetic heart valve; E78.5 Hyperlipidemia, unspecified; R35.1 Nocturia; I10 Essential (primary) hypertension; D64.9 Anemia, unspecified; I25.10 Atherosclerotic heart disease of native coronary artery without angina pectoris; Z87.891 Personal history of nicotine dependence; G62.9 Polyneuropathy, unspecified; Z79.02 Long term (current) use of antithrombotics/antiplatelets; N40.1 Benign prostatic hyperplasia with lower urinary tract symptoms; R33.8 Other retention of urine; I35.0 Nonrheumatic aortic (valve) stenosis
CPT/HCPCS: 36415; 51798; 70450; 71045; 74176; 76857; 80048; 80053; 81001; 82570; 83690; 83735; 83930; 83935; 84300; 84443; 84484; 85025; 85610; 85730; 87086; 93005; 96365; 96372; 99283; 99285; C9113; J1956; J2060; J2370; J2704; J3010; J3411; J3490; J7030; P9041

== ENCOUNTER → 2021-12-12 14:16 | Outpatient (BNVA) | payer MEDICARE, SELFPAY | PROVIDERS: PCP Electrodiagnostic Medicine; Visit Provider Urology | DX: N42.1 Congestion and hemorrhage of prostate (principal); R33.8 Other retention of urine; S37.30XA Unspecified injury of urethra, initial encounter; X58.XXXA Exposure to other specified factors, initial encounter | CPT/HCPCS: 52000; 99213 ==

== ENCOUNTER → 2022-03-12 08:09 | Outpatient (BNVA) | payer MEDICARE, SELFPAY | PROVIDERS: PCP Electrodiagnostic Medicine; Visit Provider Podiatrist Foot & Ankle Surgery | DX: I73.9 Peripheral vascular disease, unspecified (principal); L60.3 Nail dystrophy; G62.9 Polyneuropathy, unspecified; Q66.221 Congenital metatarsus adductus, right foot; Q66.222 Congenital metatarsus adductus, left foot; Q66.71 Congenital pes cavus, right foot; M77.41 Metatarsalgia, right foot; Q66.72 Congenital pes cavus, left foot; M77.42 Metatarsalgia, left foot | CPT/HCPCS: 99213 ==

== ENCOUNTER → 2022-03-21 14:46 | Outpatient (BNVA) | payer MEDICARE, SELFPAY | PROVIDERS: PCP Electrodiagnostic Medicine; Visit Provider Urology | DX: S37.30XA Unspecified injury of urethra, initial encounter (principal); N42.1 Congestion and hemorrhage of prostate | CPT/HCPCS: 81003; 99213 ==

== ENCOUNTER → 2022-05-16 15:27 | Outpatient (BNVA) | payer MEDICARE, SELFPAY | PROVIDERS: PCP Family Medicine; Visit Provider Internal Medicine Cardiovascular Disease | DX: I49.9 Cardiac arrhythmia, unspecified (principal); R19.7 Diarrhea, unspecified; I10 Essential (primary) hypertension; I25.10 Atherosclerotic heart disease of native coronary artery without angina pectoris; E78.5 Hyperlipidemia, unspecified; I77.9 Disorder of arteries and arterioles, unspecified; R25.2 Cramp and spasm; Z95.2 Presence of prosthetic heart valve; Z79.02 Long term (current) use of antithrombotics/antiplatelets; Z79.899 Other long term (current) drug therapy; Z87.891 Personal history of nicotine dependence; Z90.79 Acquired absence of other genital organ(s); Z87.440 Personal history of urinary (tract) infections | CPT/HCPCS: 36415; 80061; 80076; 83735; 99214 ==

== ENCOUNTER → 2022-07-30 08:01 | Outpatient (BNVA) | payer MEDICARE, SELFPAY | PROVIDERS: PCP Family Medicine; Visit Provider Podiatrist Foot & Ankle Surgery | DX: I73.9 Peripheral vascular disease, unspecified (principal); L60.3 Nail dystrophy; G62.9 Polyneuropathy, unspecified; Q66.221 Congenital metatarsus adductus, right foot; Q66.222 Congenital metatarsus adductus, left foot; Q66.71 Congenital pes cavus, right foot; Q66.72 Congenital pes cavus, left foot; M77.41 Metatarsalgia, right foot; M77.42 Metatarsalgia, left foot | CPT/HCPCS: 11721 ==

== ENCOUNTER → 2022-09-10 11:13 | Outpatient (BNVA) | payer MEDICARE, SELFPAY | PROVIDERS: PCP Family Medicine; Visit Provider Family Medicine | DX: M19.90 Unspecified osteoarthritis, unspecified site (principal); G62.9 Polyneuropathy, unspecified; E78.5 Hyperlipidemia, unspecified; I10 Essential (primary) hypertension; D64.9 Anemia, unspecified | CPT/HCPCS: 80053; 80061; 82607; 85025 ==

== ENCOUNTER → 2022-10-30 08:22 | Outpatient (BNVA) | payer MEDICARE, SELFPAY | PROVIDERS: PCP Family Medicine; Visit Provider Podiatrist Foot & Ankle Surgery | DX: I73.9 Peripheral vascular disease, unspecified (principal); L60.8 Other nail disorders; G62.9 Polyneuropathy, unspecified; Q66.221 Congenital metatarsus adductus, right foot; Q66.222 Congenital metatarsus adductus, left foot; Q66.71 Congenital pes cavus, right foot; Q66.72 Congenital pes cavus, left foot; M77.41 Metatarsalgia, right foot; M77.42 Metatarsalgia, left foot; L60.3 Nail dystrophy | CPT/HCPCS: 11721 ==

== ENCOUNTER → 2022-11-27 10:11 | Outpatient (BNVA) | payer MEDICARE, SELFPAY | PROVIDERS: PCP Family Medicine; Visit Provider Specialist | DX: Z95.2 Presence of prosthetic heart valve (principal); E78.5 Hyperlipidemia, unspecified; I25.10 Atherosclerotic heart disease of native coronary artery without angina pectoris; Z87.891 Personal history of nicotine dependence | CPT/HCPCS: 99214 ==

== ENCOUNTER → 2023-01-01 08:28 | Outpatient (BNVA) | payer MEDICARE, SELFPAY | PROVIDERS: PCP Family Medicine; Visit Provider Podiatrist Foot & Ankle Surgery | DX: L60.3 Nail dystrophy; I73.9 Peripheral vascular disease, unspecified; G62.9 Polyneuropathy, unspecified; Q66.221 Congenital metatarsus adductus, right foot; Q66.222 Congenital metatarsus adductus, left foot; Q66.71 Congenital pes cavus, right foot; Q66.72 Congenital pes cavus, left foot; M77.41 Metatarsalgia, right foot; M77.42 Metatarsalgia, left foot | CPT/HCPCS: 11721 ==

== ENCOUNTER 2023-01-19 14:04 | Inpatient (IN) | payer MEDICARE, SELFPAY ==
[2023-01-19] VITALS (35 sets, daily range): BP systolic 89–166; BP diastolic 58–129; PULSE 85–186; RESP 11–25; TEMP 36.8–36.9; O2SAT 88–98
--- NOTE | 2023-01-19 14:26 | ECG_ITS ---
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 Measurements Intervals [place] Rate: 159 P: 0 AK: 0 QRS: 56 QRSD: 96 T: 26 QT: 264 QTc: 429 Interpretive Statements ATRIAL FIBRILLATION WITH RAPID VENTRICULAR RESPONSE NONSPECIFIC ST & T-WAVE ABNORMALITY CRITICAL TEST RESULT Compared to ECG 11/27/2021 21:56:40 T-wave abnormality now present Sinus rhythm no longer present Intraventricular conduction delay no longer present Electronically Signed On 01-19-2023 18:24:41 CDT by Tez Murray M.D. [id number]
--- NOTE | 2023-01-19 14:29 | XRR_ITS ---
PROCEDURE INFORMATION: Exam: XR Chest Exam date and time: 01/19/2023 2:59 PM Age: 82 years old Clinical indication: Shortness of breath; Additional info: SOB TECHNIQUE: Imaging protocol: Radiologic exam of the chest. Views: 1 view. COMPARISON: CR XR chest 1V portable [id number] 11/27/2021 3:00 PM FINDINGS: Lungs: Unremarkable. No consolidation. Pleural spaces: Unremarkable. No pleural effusion. No pneumothorax. Heart/Mediastinum: Unremarkable. No cardiomegaly. Bones/joints: Unremarkable for age. XR/XR chest 1V portable [id number] IMPRESSION: Negative chest exam.
--- NOTE | 2023-01-19 14:31 | W.ED.CHESTPA ---
HPI - Chest Pain General: Chief Complaint: Chest Pain Stated Complaint: SOB, Chest pressure Time Seen by Provider: 01/19/23 14:23 Source: patient Mode of arrival: ambulatory Limitations: no limitations History of Present Illness: 82-year-old male history of A-fib states over the last 3 days has had some cough congestion has been having some chest tightness and he states he felt like his hearts been racing he is in A-fib with RVR here heart rate here is in the 180s. He denies any worsening improving factors he denies any fevers. Associated symptoms: Reports palpitations; Deny abdominal pain, dyspnea, fever(s), nausea or vomiting Review of Systems Const: Denies: fever(s), chills, body aches or change in appetite ENMT: Denies: throat pain or dental pain Card: Reports: chest pain and palpitations Resp: Reports: non-productive cough; Denies: dyspnea GI: Denies: abdominal pain, nausea, vomiting or diarrhea : Denies: dysuria Musc: Denies: neck pain or back pain Skin/Breast: Denies: rash Neuro: Denies: headache(s) PFSH ED PFSH: Medical History BPH with obstruction/lower urinary tract symptoms History of elevated PSA Incomplete bladder emptying Lumbar radiculopathy, chronic L5-S1 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 Surgical History History of ankle surgery History of appendectomy History of bilateral inguinal hernia repair History of nasal surgery S/P TAVR (transcatheter aortic valve replacement) Status post transurethral resection of prostate Family History Mother Cancer Denies family history of Diabetes CAD (coronary artery disease) Clotting disorder Dementia Chronic kidney disease (CKD) Suicide Anesthesia complication Bleeding disorder Lung disease Hypertension Stroke Social History Smoking and tobacco status: former smoker Quit status (tobacco): has quit using tobacco Year quit tobacco: 1982 Alcohol intake: current Alcohol intake frequency: 0-2 Drinks per Day Alcohol type: wine Substance/Drug Use: never Adopted: No Household members: spouse Marital status: Current occupational status: retired Physical Exam Const: COMMON NORMALS: patient oriented x3 HENMT: COMMON NORMALS: normocephalic and atraumatic HEAD & SCALP: normocephalic and atraumatic Eye: COMMON NORMALS: Equal, round and reactive pupils present and EOMs intact bilaterally PUPIL: Yes Equal, round and reactive pupils present Neck/C-Spine: COMMON NORMALS: supple Chest: COMMONS NORMALS: normal inspection of the chest and normal palpation of entire chest wall Resp: COMMON NORMALS: normal respiratory effort, No retractions, No use of accessory muscles and clear to auscultation bilaterally AUSCULTATION: clear to auscultation bilaterally Cardio: COMMON NORMALS: No murmurs present (Cardio) RATE: tachycardic RHYTHM: abnormal rhythm irregularly irregular GI: COMMON NORMALS: Normal to inspection, nondistended, normoactive bowel sounds present, Soft to palpation, non-tender and no masses PALPATION: Yes Soft to palpation Extremity: COMMON NORMALS: normal to inspection and full ROM Neuro: COMMON NORMALS: patient oriented x3, moves all extremities and no focal motor deficits Psych: COMMON NORMALS: mental status grossly normal, Normal thought process present and cooperative THOUGHT PROCESS: Normal thought process present Skin: COMMON NORMALS: no rashes or lesions noted and no wounds GENERAL SKIN EXAM: no rashes or lesions noted Course Vital Signs: Vital signs: Vital Signs Pulse Rate 186 H 01/19/23 14:15 Respiratory Rate 20 H 01/19/23 14:15 Blood Pressure 140/122 01/19/23 14:15 Pulse Oximetry 95 01/19/23 14:15 Oxygen Delivery Me thod Room Air 01/19/23 14:15 MDM - Chest Pain Medical Decision Making Patient presents here with A-fib with RVR he is also COVID-positive his heart rate here is improving on a Cardizem drip he is not requiring any oxygen spoke to hospitalist will admit at this time Medical Records I reviewed the patient's medical records. Lab Data I reviewed the patient's lab results. 01/19/23 14:53 01/19/23 14:53 Radiology Impressions Chest X-Ray 01/19/23 14:29 IMPRESSION: Negative chest exam. Laboratory Results WBC 10.8 10^3/uL (4.0-10.0) H 01/19/23 14:53 RBC 4.69 10^6/uL (4.1-5.3) 01/19/23 14:53 Hgb 13.8 g/dL (11.7-16.6) 01/19/23 14:53 Hct 41.5 % (42.0-52.0) L 01/19/23 14:53 MCV 88.5 fl (80-94) 01/19/23 14:53 MCH 29.4 pg (28.0-34.0) 01/19/23 14:53 MCHC 33.3 g/dL (30.0-36.0) 01/19/23 14:53 RDW 14.4 % (12.1-15.1) 01/19/23 14:53 Plt Count 225 10^3/cmm (130-400) 01/19/23 14:53 MPV 9.0 fL (7.4-10.4) 01/19/23 14:53 Neut % (Auto) 79.8 % 01/19/23 14:53 Lymph % (Auto) 5.9 % 01/19/23 14:53 [place] % (Auto) 10.8 % 01/19/23 14:53 Eos % (Auto) 2.2 % 01/19/23 14:53 Baso % (Auto) 0.9 % 01/19/23 14:53 Neut # (Auto) 8.59 10^3/uL (1.8-7.7) H 01/19/23 14:53 Lymph # (Auto) 0.6 10^3/uL (0.8-4.8) L 01/19/23 14:53 [place] # (Auto) 1.2 10^3/uL (0.2-0.9) H 01/19/23 14:53 Eos # (Auto) 0.2 10^3/uL (0.0-0.8) 01/19/23 14:53 Baso # (Auto) 0.1 10^3/uL (0.0-0.1) 01/19/23 14:53 Nucleated RBC % (auto) 0 % 01/19/23 14:53 Nucleated RBCs # 0.0 /100WBC 01/19/23 14:53 PT 13.30 SECONDS (12.1-14.9) 01/19/23 14:53 INR 0.98 (0.8-1.2) 01/19/23 14:53 Sodium 135 mmol/L (136-145) L 01/19/23 14:53 Potassium 4.1 mmol/L (3.5-5.1) 01/19/23 14:53 Chloride 96 mmol/L (98-107) L 01/19/23 14:53 Carbon Dioxide 25 mmol/L (22-29) 01/19/23 14:53 Anion Gap 18.1 (5-19) 01/19/23 14:53 BUN 12 mg/dL (8-23) 01/19/23 14:53 Creatinine 0.8 mg/dL (0.7-1.2) 01/19/23 14:53 GFR Calculation Not Reportable 01/19/23 14:53 Glucose 136 mg/dL (65-115) H 01/19/23 14:53 Calculated Osmolality 282 mOsm/kg (285-295) L 01/19/23 14:53 Calcium 8.7 mg/dL (8.5-10.5) 01/19/23 14:53 Total Bilirubin 0.4 mg/dL (0.15-1.2) 01/19/23 14:53 AST 23 U/L (0-40) 01/19/23 14:53 ALT 17 U/L (0-41) 01/19/23 14:53 Alkaline Phosphatase 82 U/L (40-130) 01/19/23 14:53 Troponin T Baseline 11 ng/L (0-15) 01/19/23 14:53 NT-Pro-B Natriuret Pep 370 pg/mL (0-450) 01/19/23 14:53 Total Protein 7.1 g/dL (6.6-8.7) 01/19/23 14:53 Albumin 4.4 g/dL (3.5-5.2) 01/19/23 14:53 Globulin 2.7 g/dL (1.3-4.6) 01/19/23 14:53 SARS-CoV-2 Ag (Rapid) positive (Negative) 01/19/23 14:45 EKG Data EKG 1: I personally reviewed and interpreted this EKG as follows: EKG interpretation date: 01/19/23 EKG interpretation time: 14:26 Interpretation: afib with rvr hr [address] or t wave abnormalitie qrs 96 qtc 353 Critical Care Time Critical Care Time: Critical Care Time: Yes Total Critical Care Time: 40 Attestation: The high probability of a clinically significant, sudden or life threatening deterioration of the patient's cv system(s) required my full and direct attention, intervention and personal management. The critical care time is as shown. This time is in addition to time spent performing any reported procedures but includes the following: [x] Data and vital sign review and interpretation [x] Patient assessment, examination and intervention [x] Documentation [x] Medication orders and management Discharge Plan Discharge Condition: Stable Prescriptions: No Action [id number] 500 mcg-250 mcg-50 mg-50 mg capsule 1 cap PO DAILY@0700 Men 50 Plus Multivitamin 300-600-300 mcg tablet 1 tab PO DAILY@0700 cholecalciferol (vitamin D3) 50 mcg (2,000 unit) capsule 50 mcg PO DAILY@0700 potassium gluconate 595 mg (99 mg) tablet 595 mg PO DAILY@0700 glucosamine-chondroitin 900 mg tablet 900 mg PO DAILY@07 (DME) Custom Molded Orthotics See Rx Instructions .Route .MEDSUPPLY Qty: 1 0RF Rx Instructions: As directed Alpha and [place] aspirin [Adult Low Dose Aspirin] 81 mg tablet,delayed release (DR/EC) 81 mg PO DAILY ezetimibe [Zetia] 10 mg tablet 10 mg PO DAILY@07 Qty: 90 3RF magnesium L-lactate [Magtab] 84 mg tablet extended release 84 mg PO BID Qty: 180 3RF zinc acetate 50 mg (zinc) Capsule 50 mg PO DAILY atorvastatin 20 mg tablet 20 mg PO QPM metoprolol tartrate 50 mg tablet 50 mg PO BID Probiotic 5 billion cell Capsule, Sprinkle 1 cap PO DAILY Metamucil 3.4 gram/5.4 gram Powder 1 - 2 tsp PO DAILY@07 Coding Level of Care Code ED [employer]eles[employer] 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
[2023-01-19] MEDS: dilTIAZem 5 mg/mL SDV 5 mL 20 MG IVP (14:34)
[2023-01-19] MEDS: sodium chloride 0.9% 1,000 ML 999 ML IV (14:35)
[2023-01-19 15:00] LABS: Basophils # 0.1 10^3/uL (0.0-0.1); Basophils % 0.9 %; Eosinophils # 0.2 10^3/uL (0.0-0.8); Eosinophils % 2.2 %; Hematocrit 41.5 % (42.0-52.0); Hemoglobin 13.8 g/dL (11.7-16.6); Lymphocytes # 0.6 10^3/uL (0.8-4.8); Lymphocytes % 5.9 %; Mean Corpuscular HGB Conc 33.3 g/dL (30.0-36.0); Mean Corpuscular Hemoglobin 29.4 pg (28.0-34.0); Mean Corpuscular Volume 88.5 fl (80-94); Monocytes # 1.2 10^3/uL (0.2-0.9); Monocytes % 10.8 %; Neutrophils # 8.59 10^3/uL (1.8-7.7); Neutrophils % 79.8 %; Nucleated Red Blood Cells % 0 %; Platelet Count 225 10^3/cmm (130-400); Red Blood Count 4.69 10^6/uL (4.1-5.3); Red Cell Distribution Width 14.4 % (12.1-15.1); White Blood Count 10.8 10^3/uL (4.0-10.0)
[2023-01-19 15:08] LABS: INR 0.98 (0.8-1.2)
--- NOTE | 2023-01-19 15:12 | PC.PHAR ---
PT STS HE STOPPED TAKING ALL HIS MEDICATIONS 3-4 DAYS AGO DUE TO BLOOD IN HIS URINE
[2023-01-19 15:16] LABS: Troponin(5th) Baseline 11 ng/L (0-15)
[2023-01-19] MEDS: dilTIAZem 100 MG in sodium chloride 0.9% (add-van) 100 ML IV (15:17)
[2023-01-19 15:23] LABS: Alanine Aminotransferase 17 U/L (0-41); Albumin Level 4.4 g/dL (3.5-5.2); Alkaline Phosphatase 82 U/L (40-130); Anion Gap 18.1 (5-19); Aspartate Amino Transferase 23 U/L (0-40); Blood Urea Nitrogen 12 mg/dL (8-23); Calcium 8.7 mg/dL (8.5-10.5); Carbon Dioxide 25 mmol/L (22-29); Chloride 96 mmol/L (98-107); Globulin 2.7 g/dL (1.3-4.6); Glucose 136 mg/dL (65-115); NT Pro B Type Natriuretic Pept 370 pg/mL (0-450); Osmolality Calculated 282 mOsm/kg (285-295); Potassium 4.1 mmol/L (3.5-5.1); Sodium 135 mmol/L (136-145); Total Bilirubin 0.4 mg/dL (0.15-1.2); Total Protein 7.1 g/dL (6.6-8.7)
[2023-01-19 15:42] LABS: SARS Covid-2 Antigen positive (Negative)
[2023-01-19] MEDS: dexamethasone 10 mg/mL INJ IVP (15:56)
--- NOTE | 2023-01-19 16:49 | P.HP_ITS ---
Providers/Chief Complaint Admitting Physician: Lisa Liang MD Primary Care Provider: Garry Gamble DO Chief Complaint: SOB, Chest pressure History of Present Illness Ray Zeynep Almonte is a 82 year old male hx of TAVR, benign essential hypertension, bilat carotid disease, dyslipidemia and atherosclerosis., recurrent palpitations who is presenting to the ER today for c/o chest discomfort and palpitations. He has also been experiencing increased dry cough and congestion over the past, much more than his usual post nasal drip and other allergies. No h/o fever. In the ER he was noted to have A fib with RVR with HR 180s upon arrival. He received cardizem pushes and then started on cardizem infusion howevre he continues to have HR 130s at this time. he has tested Covid positive on Ag testing. It is unclear to me at this time if he carries a diagnosis of A fib in the past- holter report from 2021 showed non sustained V tach. He states that he suffers from hematuria from time to time and then he stops his heart medications - however I am unable to see any anticoagulanats on his home medication list or outpatient notes- will need to clairfy medications with his pharmacy in am Review of Systems General: Reports: 10 or more systems reviewed and unremarkable except in HPI and below Const: Denies: fever(s), chills or body aches Eyes: Denies: change in vision, blurry vision or photophobia ENMT: Reports: hoarseness; Denies: throat pain, enlarged tonsils, odynophagia or nasal congestion Card: Denies: chest pain, palpitations, irregular heart rhythm, edema, swelling of feet/ankles, lightheadedness, pre-syncope, dyspnea on exertion or orthopnea Resp: Denies: dyspnea, productive cough, non-productive cough, wheezing, stridor, pain on inspiration, change in phlegm color, hemoptysis or chest congestion GI: Denies: abdominal pain, nausea, vomiting, hematemesis, coffee ground emesis, dysphagia, heartburn, diarrhea, constipation, GI cramping, change in stool character, hematochezia or melena : Denies: flank pain, dysuria, urinary frequency, urinary urgency, urinary hesitancy or hematuria Musc: Denies: neck pain, back pain, extremity pain, joint swelling, joint warmth or deformity Neuro: Denies: headache(s), numbness in extremities, weakness in extremities, sensory changes, difficulty walking, frequent falls, dizziness, vertigo, behavioral changes, Slurred speech present or seizure-like activity Psych: Denies: anxiety, depression, suicidal ideation or homicidal ideation Endo: Denies: polyuria, polydipsia, tired all the time, cold intolerance or hot flashes Riki/Lymph: Denies: easy bruising or easy bleeding Medications/Allergies Home Medications Medication Instructions Recorded Confirmed Last Taken Type antiarthritic combination no.2 900 900 mg PO DAILY@05/01/20 01/19/23 11/27/21 History mg tablet (glucosamine-chondroitin) cholecalciferol (vitamin D3) 50 50 mcg PO DAILY@69905/01/20 01/19/23 11/27/21 History mcg (2,000 unit) capsule folic 500 mcg-B12 250 mcg-ALA 50 1 cap PO DAILY@69905/01/20 01/19/23 11/27/21 History mg-coQ10 50 jq-bu4-ydn-epa capsule vczcjlai-dku-qhuvz acid 300 1 tab PO DAILY@69905/01/20 01/19/23 11/27/21 History mcg-lycopene 600 mcg-lutein 300 mcg tablet (Men 50 Plus Multivitamin) potassium gluconate 595 mg (99 mg) 595 mg PO DAILY@69905/01/20 01/19/23 11/27/21 History tablet Custom Molded Orthotics #1 ea 04/12/21 01/19/23 Unknown Rx Lactobacil.acidophilus-Bifido.animalis 1 cap PO DAILY 11/26/21 01/19/23 11/27/21 History 5 billion cell sprinkle capsule (Probiotic) psyllium husk 3.4 gram/5.4 gram 1 - 2 tsp PO DAILY@11/26/21 01/19/23 01/16/23 History oral powder (Metamucil) ezetimibe 10 mg tablet (Zetia) 10 mg PO DAILY@07 #90 tabs 06/12/22 01/19/23 Unknown Rx magnesium L-lactate 84 mg 84 mg PO BID #180 tabs 07/23/22 01/19/23 Unknown Rx tablet,extended release (Magtab) aspirin 81 mg tablet,delayed 81 mg PO DAILY 11/27/22 01/19/23 Unknown History release (Adult Low Dose Aspirin) atorvastatin 20 mg tablet 20 mg PO QPM 01/19/23 01/19/23 Unknown History metoprolol tartrate 50 mg tablet 50 mg PO BID 01/19/23 01/19/23 Unknown History zinc acetate 50 mg (zinc) capsule 50 mg PO DAILY 01/19/23 01/19/23 Unknown History Allergies Allergy/AdvReac Type Severity Reaction Status Date / Time meperidine [From Demerol] Allergy stopped Verified 01/19/23 15:09 breathing atorvastatin [From Lipitor] AdvReac Severe muscle and Verified 01/19/23 15:09 joint pain PFSH Acute PFSH: Medical History BPH with obstruction/lower urinary tract symptoms History of elevated PSA Incomplete bladder emptying Lumbar radiculopathy, chronic L5-S1 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 Surgical History History of ankle surgery History of appendectomy History of bilateral inguinal hernia repair History of nasal surgery S/P TAVR (transcatheter aortic valve replacement) Status post transurethral resection of prostate Family History Mother Cancer Denies family history of Diabetes CAD (coronary artery disease) Clotting disorder Dementia Chronic kidney disease (CKD) Suicide Anesthesia complication Bleeding disorder Lung disease Hypertension Stroke Social History Smoking and tobacco status: former smoker Quit status (tobacco): has quit using tobacco Year quit tobacco: 1982 Alcohol intake: current Alcohol intake frequency: 0-2 Drinks per Day Alcohol type: wine Substance/Drug Use: never Adopted: No Household members: spouse Marital status: Current occupational status: retired Vitals/I&O/Wt Last Vital Signs Pulse 186 H 01/19/23 14:15 Resp 20 H 01/19/23 14:15 BP 140/122 01/19/23 14:15 Pulse Ox 95 01/19/23 14:15 O2 Del Method Room Air 01/19/23 14:15 01/19/23 01/19/23 01/19/23 06:59 14:59 22:59 Intake Total 1005.667 / 1005.667 Balance 1005.667 / 1005.667 Weight last 48 hrs Weight 84.822 kg Physical Exam Narrative: General: No acute distress, AO x3 HEENT: PERRLA, pupils bilaterally equal and reactive, pallors not present Chest: Normal vesicular breath sounds, no added sounds, equal good air entry bilaterally CVS: S1-S2 regular, no murmurs, no tachycardia, no gallops, no rubs Abdomen: Soft, nontender, no organomegaly, bowel sounds present Neuro: No focal deficits, no facial deformity, AO x3, power 5/5 in all limbs Data 01/19/23 14:53 01/19/23 14:53 Other Labs: Radiology Impressions Chest X-Ray 01/19/23 14:29 IMPRESSION: Negative chest exam. Laboratory Results WBC 10.8 10^3/uL (4.0-10.0) H 01/19/23 14:53 RBC 4.69 10^6/uL (4.1-5.3) 01/19/23 14:53 Hgb 13.8 g/dL (11.7-16.6) 01/19/23 14:53 Hct 41.5 % (42.0-52.0) L 01/19/23 14:53 MCV 88.5 fl (80-94) 01/19/23 14:53 MCH 29.4 pg (28.0-34.0) 01/19/23 14:53 MCHC 33.3 g/dL (30.0-36.0) 01/19/23 14:53 RDW 14.4 % (12.1-15.1) 01/19/23 14:53 Plt Count 225 10^3/cmm (130-400) 01/19/23 14:53 MPV 9.0 fL (7.4-10.4) 01/19/23 14:53 Neut % (Auto) 79.8 % 01/19/23 14:53 Lymph % (Auto) 5.9 % 01/19/23 14:53 [place] % (Auto) 10.8 % 01/19/23 14:53 Eos % (Auto) 2.2 % 01/19/23 14:53 Baso % (Auto) 0.9 % 01/19/23 14:53 Neut # (Auto) 8.59 10^3/uL (1.8-7.7) H 01/19/23 14:53 Lymph # (Auto) 0.6 10^3/uL (0.8-4.8) L 01/19/23 14:53 [place] # (Auto) 1.2 10^3/uL (0.2-0.9) H 01/19/23 14:53 Eos # (Auto) 0.2 10^3/uL (0.0-0.8) 01/19/23 14:53 Baso # (Auto) 0.1 10^3/uL (0.0-0.1) 01/19/23 14:53 Nucleated RBC % (auto) 0 % 01/19/23 14:53 Nucleated RBCs # 0.0 /100WBC 01/19/23 14:53 PT 13.30 SECONDS (12.1-14.9) 01/19/23 14:53 INR 0.98 (0.8-1.2) 01/19/23 14:53 D-Dimer 1.19 ug/mIFEU (0-0.59) H 01/19/23 19:14 Sodium 135 mmol/L (136-145) L 01/19/23 14:53 Potassium 4.1 mmol/L (3.5-5.1) 01/19/23 14:53 Chloride 96 mmol/L (98-107) L 01/19/23 14:53 Carbon Dioxide 25 mmol/L (22-29) 01/19/23 14:53 Anion Gap 18.1 (5-19) 01/19/23 14:53 BUN 12 mg/dL (8-23) 01/19/23 14:53 Creatinine 0.8 mg/dL (0.7-1.2) 01/19/23 14:53 GFR Calculation Not Reportable 01/19/23 14:53 Glucose 136 mg/dL (65-115) H 01/19/23 14:53 Calculated Osmolality 282 mOsm/kg (285-295) L 01/19/23 14:53 Calcium 8.7 mg/dL (8.5-10.5) 01/19/23 14:53 Total Bilirubin 0.4 mg/dL (0.15-1.2) 01/19/23 14:53 AST 23 U/L (0-40) 01/19/23 14:53 ALT 17 U/L (0-41) 01/19/23 14:53 Alkaline Phosphatase 82 U/L (40-130) 01/19/23 14:53 Troponin T Baseline 11 ng/L (0-15) 01/19/23 14:53 Troponin T 120 Minute 36.13 ng/L (0-15) H 01/19/23 19:14 Delta Troponin T 25.13 ABS# (0-10) H* 01/19/23 19:14 C-Reactive Protein 16.6 mg/L (0.0-4.9) H 01/19/23 19:14 NT-Pro-B Natriuret Pep 370 pg/mL (0-450) 01/19/23 14:53 Total Protein 7.1 g/dL (6.6-8.7) 01/19/23 14:53 Albumin 4.4 g/dL (3.5-5.2) 01/19/23 14:53 Globulin 2.7 g/dL (1.3-4.6) 01/19/23 14:53 TSH 0.95 uIU/mL (0.27-4.20) 01/19/23 19:14 SARS-CoV-2 Ag (Rapid) positive (Negative) 01/19/23 14:45 A&P Assessment and plan (1) Atrial fibrillation with RVR: A fib with RVR with HR 180 upon presentation Now on cardizem drip with HR continuing to be in 130s Additionally developing intermittent non suatined vtach Will change cardizem gtt to amiodarone infusion Trop series trend at 2 hrs trend 11---> 36 with delta 25 Awaiting 6 hr trend elevated troponin may be related to type 2 ID due to rapid HR vs NStemi, will await trend Start Lovenox 1mg/kg every 12hrs given positive delta will need to ascertain intermediate a/c based on risk benefit keeping in mind risk of recurrent hematuria and confirming his outpatient medications (2) COVID-19: Currently saturating 93% on RA check CRP and trend started on Remdisivir 200 mg x 1 followed by 100mg iv daily Received 10mg IVP dexamethsone in ER CXR without consolidation check D dimer (3) S/P TAVR (transcatheter aortic valve replacement): (4) Elevated troponin: As above Attestations Medical Necessity Statement*: > 2 midnight admission is anticipated for management of A fib with RVR ? new onset , COVID 19, evaluation of elevated troponins Diagnoses Atrial fibrillation with RVR I48.91 COVID-19 U07.1 S/P TAVR (transcatheter aortic valve replacement) Z95.2 Elevated troponin R77.8
[2023-01-19] MEDS: atorvastatin 40 mg Tablet 20 MG PO (18:47)
[2023-01-19] MEDS: metoprolol tartrate 50 mg Tablet PO (18:47)
[2023-01-19] MEDS: enoxaparin 40 mg/0.4 mL Syringe SUBCUT ×2 (18:47→23:22)
[2023-01-19] MEDS: remdesivir 200 MG in sodium chloride 0.9% (100 ml) 100 ML 100 MG IV (18:47)
[2023-01-19 19:42] LABS: D Dimer 1.19 ug/mIFEU (0-0.59)
[2023-01-19 19:48] LABS: Troponin 5 2HR 36.13 ng/L (0-15)
[2023-01-19 19:56] LABS: C Reactive Protein 16.6 mg/L (0.0-4.9); Thyroid Stimulating Hormone 0.95 uIU/mL (0.27-4.20)
[2023-01-19 20:02] LABS: Troponin 5 2HR Delta 25.13 ABS# (0-10)
[2023-01-19] MEDS: pneumococcal (23 valent) SDV 0.5 mL IM (20:34)
--- NOTE | 2023-01-19 20:42 | ECG_ITS ---
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 Measurements Intervals Dana Rate: 87 P: 0 VT: 0 QRS: 54 QRSD: 99 T: 37 QT: 346 QTc: 417 Interpretive Statements ATRIAL FLUTTER ABNORMAL RHYTHM ECG Compared to ECG 01/19/2023 14:26:20 Atrial fibrillation no longer present T-wave abnormality no longer present Electronically Signed On 01-20-2023 10:23:30 CDT by Tez Murray M.D. [id number]
[2023-01-20] VITALS (9 sets, daily range): BP systolic 114–161; BP diastolic 68–88; PULSE 64–91; RESP 13–22; TEMP 36.5–37; O2SAT 95–98
[2023-01-20 01:42] LABS: Troponin 5 6HR 31.37 ng/L (0-15)
[2023-01-20 01:52] LABS: Troponin 5 6HR Delta 20.37 ng/L (0-12)
[2023-01-20 05:37] LABS: Basophils % 0.4 %; Hematocrit 39.4 % (42.0-52.0); Hemoglobin 12.9 g/dL (11.7-16.6); Lymphocytes # 0.8 10^3/uL (0.8-4.8); Lymphocytes % 9.7 %; Mean Corpuscular HGB Conc 32.7 g/dL (30.0-36.0); Mean Corpuscular Hemoglobin 29.1 pg (28.0-34.0); Mean Corpuscular Volume 88.9 fl (80-94); Mean Platelet Volume 9.4 fL (7.4-10.4); Monocytes # 0.6 10^3/uL (0.2-0.9); Neutrophils # 7.02 10^3/uL (1.8-7.7); Neutrophils % 82.4 %; Nucleated Red Blood Cells % 0 %; Platelet Count 219 10^3/cmm (130-400); Red Blood Count 4.43 10^6/uL (4.1-5.3); Red Cell Distribution Width 14.5 % (12.1-15.1); White Blood Count 8.5 10^3/uL (4.0-10.0)
[2023-01-20 06:02] LABS: Alanine Aminotransferase 15 U/L (0-41); Albumin Level 3.8 g/dL (3.5-5.2); Alkaline Phosphatase 66 U/L (40-130); Anion Gap 16.4 (5-19); Aspartate Amino Transferase 20 U/L (0-40); Blood Urea Nitrogen 11 mg/dL (8-23); Calcium 8.6 mg/dL (8.5-10.5); Carbon Dioxide 21 mmol/L (22-29); Chloride 102 mmol/L (98-107); Globulin 2.7 g/dL (1.3-4.6); Glucose 143 mg/dL (65-115); Magnesium 2.1 mg/dL (1.7-2.3); Osmolality Calculated 282 mOsm/kg (285-295); Potassium 4.4 mmol/L (3.5-5.1); Sodium 135 mmol/L (136-145); Total Bilirubin 0.3 mg/dL (0.15-1.2); Total Protein 6.5 g/dL (6.6-8.7)
[2023-01-20] MEDS: ezetimibe 10 mg Tablet PO (06:10)
--- NOTE | 2023-01-20 09:02 | USCV_ITS ---
Marco Antonio Almonte Age: 82 Gender: M : 1940 Exam Date: 01/20/2023 13:11 Ordering Phys: Jhony Herrera MD Technologist: Tom Taylor Exam Location: [facility] [place] Indication: elevated troponin, psvt, BP: 132 / 73 HR: 80 Rhythm: Sinus Technical Quality: Adequate MEASUREMENTS (Male / Female) Normal Values 2D ECHO LV Diastolic Diameter PLAX 4.8 cm 4.2 - 5.9 / 3.9 - 5.3 cm LV Systolic Diameter PLAX 2.6 cm IVS Diastolic Thickness 1.3 cm 0.6 - 1.0 / 0.6 - 0.9 cm IVS Systolic Thickness 1.7 cm LVPW Diastolic Thickness 1.3 cm 0.6 - 1.0 / 0.6 - 0.9 cm LVPW Systolic Thickness 1.5 cm LVOT Diameter 2.4 cm LV Ejection Fraction 2D Teich 75.8 % LV Ejection Fraction MOD 2C 65.6 % LV Ejection Fraction 2C AL 66.6 % LA Diameter 4.6 cm IVC Diameter 1.7 cm M-MODE MV E Point Septal Separation 0.7 cm DOPPLER AV Peak Velocity 240.0 cm/s LVOT Peak Velocity 111.0 cm/s AV Area Cont Eq vti 2.3 cm squared AV Area Cont Eq pk 2.1 cm squared MV Area PHT 5.0 cm squared Mitral E to A Ratio 1.3 MV E' Velocity 58.5 cm/s Mitral E to MV E' Ratio 10.5 Mitral E to LV E' Lateral Ratio 8.9 Mitral E to LV E' Septal Ratio 12.8 TR Peak Velocity 275.3 cm/s TR Peak Gradient 30.3 mmHg TV Peak E Velocity 89.0 cm/s Right Atrial Pressure 3.0 mmHg Pulmonary Artery Systolic Pressu 33.3 mmHg RV Acceleration Time 0.1 s FINDINGS Left Ventricle Left ventricle is normal in size. LV systolic function is normal with EF 55 to 60%. No regional wall motion abnormalities are seen. Right Ventricle Normal in size and function Right Atrium Normal in size Left Atrium Normal in size Mitral Valve Moderate to severe mitral annular calcification. Mild mitral regurgitation. Aortic Valve Aortic valve is thickened. Mild aortic stenosis with aortic valve area of 2.3 cm2 and mean gradient across aortic valve of 12 mmHg. Tricuspid Valve Trace tricuspid regurgitation. Insufficient TR jet to calculate RVSP. Pulmonic Valve Not well visualized Pericardium Normal Aorta Normal in size IVC Appears to be normal CONCLUSIONS LV systolic function is normal with EF 55 to 60%. Mild mitral regurgitation Mild aortic stenosis Trace tricuspid regurgitation. Compared to prior echocardiogram from 2021, no significant changes are seen Wenceslao Medina MD (Electronically Signed) Final Date: 20 January 2023 18:33 S
[2023-01-20] MEDS: acetaminophen 325 mg Tablet 650 MG PO (09:21)
[2023-01-20] MEDS: aspirin 81 mg EC Tablet PO (09:22)
[2023-01-20] MEDS: pantoprazole DR 40 mg Tablet PO (09:22)
[2023-01-20] MEDS: dexamethasone 4 mg Tablet 6 MG PO (09:22)
[2023-01-20] MEDS: enoxaparin 80 mg/0.8 mL Syringe SUBCUT ×2 (09:22→20:41)
[2023-01-20] MEDS: metoprolol tartrate 50 mg Tablet PO ×2 (09:22→18:22)
[2023-01-20] MEDS: cetylpyridinium Lozenge 1 EACH MUCOUS MEM (11:18)
--- NOTE | 2023-01-20 13:14 | P.PN_ITS ---
Subjective Subjective: This morning having some sore throat. Mild cough. No chest pain. Could not sleep well at night. Reports recently has had some stress involving his family. Vitals/I&O/Wt Last Vital Signs Temp 98.4 F 01/20/23 11:47 Pulse 64 01/20/23 11:54 Resp 20 H 01/20/23 11:54 BP 123/74 01/20/23 11:54 Pulse Ox 96 01/20/23 11:54 O2 Del Method Room Air 01/20/23 11:54 01/19/23 01/20/23 01/20/23 22:59 06:59 14:59 Intake Total 1303.000 / 1303.000 509.482 / 1812.482 240 / 240 Output Total 150 / 150 1300 / 1450 Balance 1153.000 / 1153.000 -790.518 / 362.482 240 / 240 Weight last 48 hrs Weight 84.822 kg Physical Exam Const: COMMON NORMALS: patient oriented x3 and alert GENERAL APPEARANCE: cooperative ORIENTATION/CONSCIOUSNESS: Yes awake HENMT: COMMON NORMALS: oropharynx normal Neck/C-Spine: COMMON NORMALS: no JVD Resp: COMMON NORMALS: normal respiratory effort and clear to auscultation bilaterally AUSCULTATION: clear to auscultation bilaterally Cardio: COMMON NORMALS: no JVD, regular rhythm, S1 normal heart sound present, S2 normal heart sound present and No murmurs present (Cardio) RHYTHM: regular rhythm HEART SOUNDS: S1 normal heart sound present and S2 normal heart sound present GI: COMMON NORMALS: Normal to inspection, nondistended, normoactive bowel s ounds present, Soft to palpation and non-tender PALPATION: Yes Soft to pa lpation Extremity: COMMON NORMALS: no joint enlargement and no pedal edema Neuro: COMMON NORMALS: patient oriented x3 and moves all extremities SENSORIUM/ORIENTATION: Yes alert Skin: COMMON NORMALS: no rashes or lesions noted GENERAL SKIN EXAM: no rashes or lesions noted Data 01/20/23 05:00 01/20/23 05:00 A&P Assessment and plan (1) Atrial fibrillation with RVR: Overnight with episodes of NSVT. Continues on amiodarone drip. Continue t elemetry monitoring. Continue drip, tonight likely we will switch over to oral amiodarone. Monitor heart rhythm. Discussed with him noted abnormality of troponin, possible demand ischemia, versus consideration of acute PR. Obtaining TTE. NT proBNP noted 370. Overall would rather suspect troponin elevation secondary to demand ischemia with tachycardia, COVID. Continue metoprolol. Continue Lovenox for now, although has been at risk of recurrent hematuria. Magnesium noted 2.1. Potassium 4.4. Follow-up chemistry. TSH noted WNL. (2) COVID-19: On remdesivir, Decadron for COVID-19. Continue remdesivir. Stop Decadron. Continues on Lovenox as above. Follow-up D-dimer. Currently saturating 93% on RA check CRP and trend started on Remdisivir 200 mg x 1 followed by 100mg iv daily Received 10mg IVP dexamethsone in ER CXR without consolidation check D dimer (3) S/P TAVR (transcatheter aortic valve replacement): (4) Elevated troponin: As above Plan Discussed with case management. Attestations Medical Necessity Statement*: Continue admission for assessment management of A-fib with RVR, episodes of NSVT, troponin elevation, COVID-19. Diagnoses Atrial fibrillation with RVR I48.91 COVID-19 U07.1 S/P TAVR (transcatheter aortic valve replacement) Z95.2 Elevated troponin R77.8
[2023-01-20] MEDS: atorvastatin 40 mg Tablet 20 MG PO (18:22)
[2023-01-20] MEDS: remdesivir 100 MG in sodium chloride 0.9% (100 ml) 100 ML IV (18:24)
[2023-01-20] MEDS: amiodarone 200 mg Tablet 400 MG PO (20:40)
--- NOTE | 2023-01-20 23:50 | PC.NURSE ---
staff witnessed patient walking down hallway, patient followed by Dr Stephenson and this nurse to [facility] building, Dr Stephenson asked if patient wanted to stay and he agreed to stay, patient escorted back to room, when asked where he was going he just stated guess that's what happens when you have old guys cooped up isolated half crazy , patient oriented to person, place, and situation, when askied time he just stated I'm tired , patient placed back on tele monitor and educated on staying in room due for safety and infection control
[2023-01-21] VITALS: BP 185/107; PULSE 92; RESP 15; TEMP 36.8; O2SAT 95
[2023-01-21] MEDS: hyDRALAzine 20 mg/mL INJ 1 mL 10 MG IVP (00:16)
--- NOTE | 2023-01-21 03:05 | PC.NURSE ---
bp at midnight v/s 185/107, notified Dr Stephenson, received order for IV hydralazine, pt restless, up to chair, keeps taking telemetry off, asks is bp was still high, recheck was 166/91, states that is still high for him and I'll probably be pissing blood with a bp that high , asks if I could put tele back on he states, well I'd prefer not to , notified Dr Stephenson of bp and refusal of telemetry, continue to monitor
[2023-01-21 04:00] VITALS: BP 181/91; PULSE 88; RESP 18; TEMP 37; O2SAT 95
[2023-01-21] MEDS: zolpidem 5 mg Tablet PO (04:30)
[2023-01-21 04:35] LABS: Basophils % 0.1 %; Eosinophils % 0.1 %; Hematocrit 43.1 % (42.0-52.0); Hemoglobin 14.9 g/dL (11.7-16.6); Lymphocytes # 1.5 10^3/uL (0.8-4.8); Lymphocytes % 8.8 %; Mean Corpuscular HGB Conc 34.6 g/dL (30.0-36.0); Mean Corpuscular Hemoglobin 29.3 pg (28.0-34.0); Mean Corpuscular Volume 84.8 fl (80-94); Mean Platelet Volume 9.8 fL (7.4-10.4); Monocytes # 2.1 10^3/uL (0.2-0.9); Monocytes % 12.2 %; Neutrophils % 78.3 %; Nucleated Red Blood Cells % 0 %; Platelet Count 275 10^3/cmm (130-400); Red Blood Count 5.08 10^6/uL (4.1-5.3); Red Cell Distribution Width 14.3 % (12.1-15.1); White Blood Count 17.5 10^3/uL (4.0-10.0)
[2023-01-21 04:47] LABS: D Dimer 1.35 ug/mIFEU (0-0.59)
[2023-01-21 05:03] LABS: Alanine Aminotransferase 21 U/L (0-41); Albumin Level 4.5 g/dL (3.5-5.2); Alkaline Phosphatase 76 U/L (40-130); Anion Gap 17.9 (5-19); Aspartate Amino Transferase 31 U/L (0-40); Blood Urea Nitrogen 19 mg/dL (8-23); Calcium 9.1 mg/dL (8.5-10.5); Carbon Dioxide 21 mmol/L (22-29); Chloride 93 mmol/L (98-107); Globulin 3.2 g/dL (1.3-4.6); Glucose 119 mg/dL (65-115); Osmolality Calculated 269 mOsm/kg (285-295); Potassium 3.9 mmol/L (3.5-5.1); Sodium 128 mmol/L (136-145); Total Bilirubin 0.4 mg/dL (0.15-1.2); Total Protein 7.7 g/dL (6.6-8.7)
[2023-01-21 05:51] VITALS: PULSE 90
[2023-01-21] MEDS: aspirin 81 mg EC Tablet PO (08:50)
[2023-01-21] MEDS: metoprolol tartrate 50 mg Tablet PO (08:50)
[2023-01-21] MEDS: pantoprazole DR 40 mg Tablet PO (08:50)
[2023-01-21] MEDS: amiodarone 200 mg Tablet 400 MG PO (08:50)
--- NOTE | 2023-01-21 09:29 | PC.CHAP ---
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 warehouse freight handler visit [] Patient/Family/Request visit [] Outpatient visit [] Follow-up visit [] Physician referral [] Code/Alert [] Routine visit [] Staff referral [] Actively dying [] Patient sleeping [] Family support [] [] Out of room [] Palliative care [] [] Receiving care in room [] Pre-surgical visit [] Trauma [] Long length of stay [] ICU visit [x] Other: Contact precaution did not enter Relational/Emotional Strength [] Patient feels connected with others/family/visitors/staff [] Distress [] Loneliness/isolation [] Abandonment Spirituality of Patient [] Person of Pau [] Attends Hoahaoism of their Pau [] Believes in Prayer [] Reads Bible or Islam materials [] There are Spiritual issues to be addressed House Calls Nurse Practitioner Interventions [] Prayer [] Active listening [] Non-anxious presence [] Spiritual/emotional support [] Crisis/trauma care [] Spiritual counseling [] Bereavement support [] Provided bereavement packet [] Provided Bible/devotional materials [] Provided toy/stuffed animal, coloring book to patient or family member [] Provided Communion [] Anointing/[place] [] Salvation [] Completed spiritual assessment [] Other: Impact on Illness or Injury [] Angry [] Fearful [] Anxious [] Often cries [] Exhaustion [] Unable to work [] Unable to attend temple [] Unable to walk/stand [] Unable to read [] Unable to drive [] Unable to eat/drink [] Unable to sleep [] Unable to be with family [] Patient intubated [] Other: Summary Time spent with patient
[2023-01-21 11:24] VITALS: BP 172/105; PULSE 81; RESP 18; O2SAT 96
--- NOTE | 2023-01-21 12:07 | PM.DCS ---
Discharge Providers Date of Admission: 01/19/23 15:26 Date of Discharge: January 21, 2023 Attending Provider at Admission: Lisa Liang MD Attending Provider at Discharge: Jhony Herrera Primary Care Provider: Garry Gamble DO Diagnoses at Discharge Discharge Diagnosis (1) Atrial fibrillation with RVR: Status: Acute (2) COVID-19: Status: Acute (3) S/P TAVR (transcatheter aortic valve replacement): Status: Acute (4) Elevated troponin: Status: Acute Reason for Visit Reason for Visit: SOB, Chest pressure Hospital Course Hospital Course Pleasant 82-year-old gentleman with history of TAVR, HTN, bilateral carotid disease, HLD, atherosclerosis, recurrent palpitations, was admitted due to chest discomfort, palpitations, congestion over the preceding 3 days, on presentation in atrial fibrillation with RVR heart rate in 180s, received Cardizem and was started on drip. Found positive for COVID-19 was started on treatment with remdesivir, Decadron. He reported that he had stopped his heart medications for a while entirely before resuming them. As he was in persistent A-fib with RVR as well as with intermittent nonsustained V. tach episodes he was switched over to amiodarone drip. Subsequently switched to oral amiodarone. Discussed with him risks of amiodarone therapy, he is asked to follow-up with cardiology for reassessment and consideration of alternative measures. Hospitalization was anticoagulated both with atrial fibrillation initially consideration of possible NSTEMI noted positive troponin delta although overall mild rise at 2 hours to 36.13, 6 R31.37. Echocardiogram was assessed and without regional wall motion abnormality, with normal EF, he remained chest pain-free. Symptoms and presentation likely related to A-fib with RVR and tachycardia, responsible also for mild troponin elevation. He tolerated anticoagulation well in the hospital. No episodes of hematuria or other bleeding, hemoglobin remained steady. 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 He otherwise is doing well in terms of COVID-19. D-dimer with noted mild persistent elevation, today 1.35. Otherwise he has not required any oxygen support, has been ambulating, yesterday ambulated out into the hallway as he felt isolated in his room, expect should continue to recover well although please reassess for any complications. He is instructed to seek medical attention in case of any worsening or new concerning symptoms. Physical Exam Const: COMMON NORMALS: patient oriented x3 and alert GENERAL APPEARANCE: cooperative ORIENTATION/CONSCIOUSNESS: Yes awake HENMT: COMMON NORMALS: oropharynx normal Neck/C-Spine: COMMON NORMALS: no JVD Resp: COMMON NORMALS: normal respiratory effort and clear to auscultation bilaterally AUSCULTATION: clear to auscultation bilaterally Cardio: COMMON NORMALS: no JVD, regular rhythm, S1 normal heart sound present, S2 normal heart sound present and No murmurs present (Cardio) RHYTHM: regular rhythm HEART SOUNDS: S1 normal heart sound present and S2 normal heart sound present GI: COMMON NORMALS: Normal to inspection, nondistended, normoactive bowel sounds present, Soft to palpation and non-tender PALPATION: Yes Soft to palpation Extremity: COMMON NORMALS: no joint enlargement and no pedal edema Neuro: COMMON NORMALS: patient oriented x3 and moves all extremities SENSORIUM/ORIENTATION: Yes alert Skin: COMMON NORMALS: no rashes or lesions noted GENERAL SKIN EXAM: no rashes or lesions noted Discharge Data Studies Completed and Pending Completed Studies During Hospitalization Category Date Time Status XR chest 1V portable [id number] Stat Exams 01/19/23 14:29 Completed CV. echo complete* [id number] Routine Ultrasound 01/20/23 09:02 Completed Pending at discharge Category Date Time Status Complete Blood Count w/Auto AM LABS Lab 01/22/23 04:00 Ordered Complete Blood Count w/Auto AM LABS Lab 01/23/23 04:00 Ordered Comprehensive Metabolic Panel AM LABS Lab 01/22/23 04:00 Ordered Comprehensive Metabolic Panel AM LABS Lab 01/23/23 04:00 Ordered Radiology Impressions Chest X-Ray 01/19/23 14:29 IMPRESSION: Negative chest exam. Laboratory Results WBC 17.5 10^3/uL (4.0-10.0) H 01/21/23 03:50 RBC 5.08 10^6/uL (4.1-5.3) 01/21/23 03:50 Hgb 14.9 g/dL (11.7-16.6) 01/21/23 03:50 Hct 43.1 % (42.0-52.0) 01/21/23 03:50 MCV 84.8 fl (80-94) 01/21/23 03:50 MCH 29.3 pg (28.0-34.0) 01/21/23 03:50 MCHC 34.6 g/dL (30.0-36.0) D 01/21/23 03:50 RDW 14.3 % (12.1-15.1) 01/21/23 03:50 Plt Count 275 10^3/cmm (130-400) 01/21/23 03:50 MPV 9.8 fL (7.4-10.4) 01/21/23 03:50 Neut % (Auto) 78.3 % 01/21/23 03:50 Lymph % (Auto) 8.8 % 01/21/23 03:50 [place] % (Auto) 12.2 % 01/21/23 03:50 Eos % (Auto) 0.1 % 01/21/23 03:50 Baso % (Auto) 0.1 % 01/21/23 03:50 Neut # (Auto) 13.70 10^3/uL (1.8-7.7) H 01/21/23 03:50 Lymph # (Auto) 1.5 10^3/uL (0.8-4.8) 01/21/23 03:50 [place] # (Auto) 2.1 10^3/uL (0.2-0.9) H 01/21/23 03:50 Eos # (Auto) 0.0 10^3/uL (0.0-0.8) 01/21/23 03:50 Baso # (Auto) 0.0 10^3/uL (0.0-0.1) 01/21/23 03:50 Nucleated RBC % (auto) 0 % 01/21/23 03:50 Nucleated RBCs # 0.0 /100WBC 01/21/23 03:50 PT 13.30 SECONDS (12.1-14.9) 01/19/23 14:53 INR 0.98 (0.8-1.2) 01/19/23 14:53 D-Dimer 1.35 ug/mIFEU (0-0.59) H 01/21/23 03:50 Sodium 128 mmol/L (136-145) L 01/21/23 03:50 Potassium 3.9 mmol/L (3.5-5.1) 01/21/23 03:50 Chloride 93 mmol/L (98-107) L 01/21/23 03:50 Carbon Dioxide 21 mmol/L (22-29) L 01/21/23 03:50 Anion Gap 17.9 (5-19) 01/21/23 03:50 BUN 19 mg/dL (8-23) 01/21/23 03:50 Creatinine 0.7 mg/dL (0.7-1.2) 01/21/23 03:50 GFR Calculation Not Reportable 01/21/23 03:50 Glucose 119 mg/dL (65-115) H 01/21/23 03:50 Calculated Osmolality 269 mOsm/kg (285-295) L 01/21/23 03:50 Calcium 9.1 mg/dL (8.5-10.5) 01/21/23 03:50 Magnesium 2.1 mg/dL (1.7-2.3) 01/20/23 05:00 Total Bilirubin 0.4 mg/dL (0.15-1.2) 01/21/23 03:50 AST 31 U/L (0-40) 01/21/23 03:50 ALT 21 U/L (0-41) 01/21/23 03:50 Alkaline Phosphatase 76 U/L (40-130) 01/21/23 03:50 Troponin T Baseline 11 ng/L (0-15) 01/19/23 14:53 Troponin T 120 Minute 36.13 ng/L (0-15) H 01/19/23 19:14 Delta Troponin T 25.13 ABS# (0-10) H* 01/19/23 19:14 Troponin T Hi Sens 6Hr 31.37 ng/L (0-15) H 01/20/23 01:14 Troponin T Hi Sens 6Hr Delta 20.37 ng/L (0-12) H* 01/20/23 01:14 C-Reactive Protein 16.6 mg/L (0.0-4.9) H 01/19/23 19:14 NT-Pro-B Natriuret Pep 370 pg/mL (0-450) 01/19/23 14:53 Total Protein 7.7 g/dL (6.6-8.7) 01/21/23 03:50 Albumin 4.5 g/dL (3.5-5.2) 01/21/23 03:50 Globulin 3.2 g/dL (1.3-4.6) 01/21/23 03:50 TSH 0.95 uIU/mL (0.27-4.20) 01/19/23 19:14 SARS-CoV-2 Ag (Rapid) positive (Negative) 01/19/23 14:45 Vitals Last Vital Signs Temp 98.6 F 01/21/23 04:00 Pulse 81 01/21/23 11:24 Resp 18 01/21/23 11:24 BP 172/105 01/21/23 11:24 Pulse Ox 96 01/21/23 11:24 O2 Del Method Room Air 01/21/23 04:00 Discharge Plan Discharge Patient Disposition: Home Condition: Stable Prescriptions: New amiodarone [Pacerone] 200 mg Tablet See Rx Instructions .ROUTE .COMPLEX 90 Days Qty: 360 0RF Rx Instructions: Milligram twice daily for 6 days, then switch to 200 mg twice daily Eliquis 5 mg tablet 5 mg PO BID Qty: 180 0RF Continued [id number] 500 mcg-250 mcg-50 mg-50 mg capsule 1 cap PO DAILY@0700 Men 50 Plus Multivitamin 300-600-300 mcg tablet 1 tab PO DAILY@0700 cholecalciferol (vitamin D3) 50 mcg (2,000 unit) capsule 50 mcg PO DAILY@0700 potassium gluconate 595 mg (99 mg) tablet 595 mg PO DAILY@0700 glucosamine-chondroitin 900 mg tablet 900 mg PO DAILY@07 (DME) Custom Molded Orthotics See Rx Instructions .Route .MEDSUPPLY Qty: 1 0RF Rx Instructions: As directed Alpha and [place] aspirin [Adult Low Dose Aspirin] 81 mg tablet,delayed release (DR/EC) 81 mg PO DAILY ezetimibe [Zetia] 10 mg tablet 10 mg PO DAILY@07 Qty: 90 3RF magnesium L-lactate [Magtab] 84 mg tablet extended release 84 mg PO BID Qty: 180 3RF zinc acetate 50 mg (zinc) Capsule 50 mg PO DAILY atorvastatin 20 mg tablet 20 mg PO QPM metoprolol tartrate 50 mg tablet 50 mg PO BID Probiotic 5 billion cell Capsule, Sprinkle 1 cap PO DAILY Metamucil 3.4 gram/5.4 gram Powder 1 - 2 tsp PO DAILY@07 Discharge Orders: Discharge Order (Routine); Ordered 01/21/23 Ordered By: Jhony Herrera Referrals: Darby Smalls FNP [Nurse Practitioner] - 01/28/23 10:15 am Garry Gamble DO [Primary Care Provider] - 01/30/23 10:20 am Patient Instructions: Amiodarone (By mouth) (Cordarone, Pacerone), Apixaban (By mouth) (Eliquis), A-fib (Atrial Fibrillation) (GEN), Viral Pneumonia (GEN), COVID-19 (Coronavirus Disease 2019) (GEN) Activity Restrictions/Additional Instructions: Please follow-up with cardiology in office for reassessment of atrial fibrillation, as well as due to noted mild elevation of troponin on presentation. Continue amiodarone 400 mg twice daily for 6 more days then switch to 200 mg twice daily. Please be aware of possible adverse effects with amiodarone as discussed. Please have your primary doctor continue to monitor your lungs, liver, thyroid, eyes and for any other adverse effects related to amiodarone. 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 Do not limit your salt intake. Please have your primary doctor follow-up your sodium level which is slightly low. Seek medical attention in case of any worsening or new concerning symptoms. Discharge Attestations Time Spent in Discharge Care*: greater than 30 min Quality Metrics Clinical Quality Measures [ No reported AMI, CVA or VTE this stay] Coding Level of Care Code 22384 Total time (in minutes) for Discharge: 45 Diagnoses Atrial fibrillation with RVR I48.91 COVID-19 U07.1 S/P TAVR (transcatheter aortic valve replacement) Z95.2 Elevated troponin R77.8
[2023-01-21 12:13] VITALS: BP 172/105; PULSE 81; RESP 18; O2SAT 96
--- NOTE | 2023-01-21 12:57 | PC.NURSE ---
Discharge Note Patient discharged to home via POV accompanied by son. Discharge instructions reviewed with patient and/or sales support representative. Mobile pharmacy medications and/or prescriptions provided. Belongings/home medications returned.
== END 2023-01-21 12:30 | disposition home or self-care (01) | DRG 308 ==
LOC: ER 14:34 → CSU 15:42
PROVIDERS: Admitting Provider Student in an Organized Health Care Education/Training Program; Emergency Provider Emergency Medicine; PCP Family Medicine; Visit Provider Internal Medicine
DX: I48.19 Other persistent atrial fibrillation (principal); U07.1 COVID-19; N13.8 Other obstructive and reflux uropathy; Z95.2 Presence of prosthetic heart valve; I10 Essential (primary) hypertension; E78.5 Hyperlipidemia, unspecified; I47.20 Ventricular tachycardia, unspecified; Z79.82 Long term (current) use of aspirin; R77.8 Other specified abnormalities of plasma proteins; N40.1 Benign prostatic hyperplasia with lower urinary tract symptoms; R39.14 Feeling of incomplete bladder emptying; M54.16 Radiculopathy, lumbar region; G60.8 Other hereditary and idiopathic neuropathies; Z90.79 Acquired absence of other genital organ(s); Z87.891 Personal history of nicotine dependence
CPT/HCPCS: 36415; 70450; 71045; 74176; 80048; 80053; 81001; 82607; 83605; 83735; 83880; 83935; 84145; 84295; 84300; 84443; 84484; 85025; 85378; 85610; 86140; 87040; 87077; 87086; 87186; 87426; 90471; 90732; 93005; 93306; 96365; 96366; 96372; 96375; 96376; 99285; G0378; J0248; J0282; J0360; J0696; J1100; J1200; J1630; J1650; J2060; J3370; J3411; J3490; J7030; J7060; J8540

== ENCOUNTER 2023-01-22 11:25 | Inpatient (IN) | payer MEDICARE, SELFPAY ==
[2023-01-22 11:33] VITALS: BMI 20.4
--- NOTE | 2023-01-22 11:54 | XR_ITS ---
WS: [id number] Portable AP upright chest, 01/22/2023 Clinical Data: ams Comparison: Portable chest, 01/19/2023 Findings: No nodules, masses or effusions are seen. The heart is normal. The pulmonary vascularity is not increased. No pneumonia or pneumothorax is seen. The aortic arch and descending thoracic aorta s hows tortuosity. Impression: Atherosclerosis.
--- NOTE | 2023-01-22 12:16 | W.ED.AMS ---
HPI - Altered Mental Status General: Chief Complaint: Altered Mental Status Stated Complaint: AMS Covid + Time Seen by Provider: 01/22/23 11:29 Limitations: altered mental status History of Present Illness: Patient brought here by EMS for evaluation for mental status. Patient's family reports patient has been hallucinating as well as having combative behavior for the last 2 days. Family reports the patient was just discharged from this facility yesterday and is COVID-positive. Patient's COVID symptoms began approximately 6 days ago and patient was tested +3 days ago. Patient is alert will not directly answer questions or follow commands. History was taken from the chart. 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 Surgical History History of ankle surgery History of appendectomy History of bilateral inguinal hernia repair History of nasal surgery S/P TAVR (transcatheter aortic valve replacement) Status post transurethral resection of prostate Family History Mother Cancer Denies family history of Diabetes CAD (coronary artery disease) Clotting disorder Dementia Chronic kidney disease (CKD) Suicide Anesthesia complication Bleeding disorder Lung disease Hypertension Stroke Social History Smoking and tobacco status: former smoker Quit status (tobacco): has quit using tobacco Year quit tobacco: 1982 Alcohol intake: current Alcohol intake frequency: 0-2 Drinks per Day Alcohol type: wine Substance/Drug Use: never Adopted: No Household members: spouse Marital status: Current occupational status: retired Physical Exam Const: COMMON NORMALS: no acute distress, average body habitus, healthy appearing, alert and well nourished HENMT: COMMON NORMALS: normocephalic, atraumatic, hearing grossly normal bilaterally, external ears normal, Normal external nose present and moist oral mucous membranes HEAD & SCALP: normocephalic and atraumatic NOSE: Normal external nose present EXTERNAL EAR: Yes external ears normal Neck/C-Spine: COMMON NORMALS: full ROM, no lymphadenopathy, supple, no meningeal signs, no JVD and Thyroid normal THYROID: Thyroid normal Chest: COMMONS NORMALS: normal inspection of the chest and normal palpation of entire chest wall Resp: COMMON NORMALS: normal respiratory effort, No retractions, No use of accessory muscles and clear to auscultation bilaterally AUSCULTATION: clear to auscultation bilaterally Cardio: COMMON NORMALS: no JVD, regular rate, regular rhythm, S1 normal heart sound present, S2 normal heart sound present, No gallops present (Cardio), No clicks present (Cardio), No murmurs present (Cardio) and No rub (Cardio) RATE: regular rate RHYTHM: regular rhythm HEART SOUNDS: S1 normal heart sound present and S2 normal heart sound present GI: COMMON NORMALS: Normal to inspection, nondistended, normoactive bowel sounds present, Soft to palpation, non-tender, No hepatosplenomegaly present and no masses PALPATION: Yes Soft to palpation and Yes No hepatosplenomegaly present : COMMON NORMALS: Yes no CVA tenderness BLADDER/KIDNEY EXAM: Yes no CVA tenderness Back/Pelvis: COMMON NORMALS: no CVA tenderness Neuro: SENSORIUM/ORIENTATION: Yes alert MENINGEAL SIGNS: Yes no meningeal signs Course Vital Signs: Vital signs: Vital Signs Temperature 98.9 F 01/22/23 14:40 Pulse Rate 73 01/22/23 14:40 Respiratory Rate 16 01/22/23 14:40 Blood Pressure 182/101 01/22/23 14:40 Pulse Oximetry 95 01/22/23 14:40 MDM - Altered Mental Status Medical Decision Making Presents to the ER with altered mental status having visual and auditory hallucinations agitation and cussing and trying to hit his . Patient was just recently discharged here for acute kidney injury where patient may have had steroids while he was an inpatient here. Patient is approximately 6 days out from the start of his COVID symptomatology. Dr. Herrera was consulted and said since patient is 6 days out from the beginning of his symptomatology he does not even need to be in isolation. We both agree this is probably more of a [facility] psych issue then appear urinary tract delusional issue. Patient will go ahead and be treated with Rocephin here and transferred to a [facility] psych facility if possible. Differential Diagnosis Likely altered mental status; Unlikely alcoholic intoxication, delirium, dementia, hypoglycemia, hyponatremia, subarachnoid hemorrhage or sepsis Medical Records I reviewed the patient's medical records. Lab Data I reviewed the patient's lab results. 01/22/23 12:21 01/22/23 12:21 Radiology Impressions Abdomen/Pelvis CT 01/22/23 15:13 IMPRESSION: 1. No calcified urolithiasis, obstructive uropathy, or focal bladder abnormality. 2. 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 Head CT 01/22/23 15:13 IMPRESSION: 1. No acute intracranial findings. 2. Moderate paranasal sinus disease. 3. Additional chronic and incidental findings as above. Laboratory Results WBC 10.3 10^3/uL (4.0-10.0) H 01/22/23 12:21 RBC 4.98 10^6/uL (4.1-5.3) 01/22/23 12:21 Hgb 14.4 g/dL (11.7-16.6) 01/22/23 12:21 Hct 43.2 % (42.0-52.0) 01/22/23 12:21 MCV 86.7 fl (80-94) 01/22/23 12:21 MCH 28.9 pg (28.0-34.0) 01/22/23 12:21 MCHC 33.3 g/dL (30.0-36.0) 01/22/23 12:21 RDW 14.2 % (12.1-15.1) 01/22/23 12:21 Plt Count 235 10^3/cmm (130-400) 01/22/23 12:21 MPV 8.9 fL (7.4-10.4) 01/22/23 12:21 Neut % (Auto) 73.0 % 01/22/23 12:21 Lymph % (Auto) 12.4 % 01/22/23 12:21 [place] % (Auto) 14.1 % 01/22/23 12:21 Eos % (Auto) 0.0 % 01/22/23 12:21 Baso % (Auto) 0.1 % 01/22/23 12:21 Neut # (Auto) 7.51 10^3/uL (1.8-7.7) 01/22/23 12:21 Lymph # (Auto) 1.3 10^3/uL (0.8-4.8) 01/22/23 12:21 [place] # (Auto) 1.5 10^3/uL (0.2-0.9) H 01/22/23 12:21 Eos # (Auto) 0.0 10^3/uL (0.0-0.8) 01/22/23 12:21 Baso # (Auto) 0.0 10^3/uL (0.0-0.1) 01/22/23 12:21 Nucleated RBC % (auto) 0 % 01/22/23 12:21 Nucleated RBCs # 0.0 /100WBC 01/22/23 12:21 Sodium 125 mmol/L (136-145) L 01/22/23 12:21 Potassium 3.8 mmol/L (3.5-5.1) 01/22/23 12:21 Chloride 91 mmol/L (98-107) L 01/22/23 12:21 Carbon Dioxide 21 mmol/L (22-29) L 01/22/23 12:21 Anion Gap 16.8 (5-19) 01/22/23 12:21 BUN 21 mg/dL (8-23) 01/22/23 12:21 Creatinine 0.6 mg/dL (0.7-1.2) L 01/22/23 12:21 GFR Calculation Not Reportable 01/22/23 12:21 Glucose 120 mg/dL (65-115) H 01/22/23 12:21 Calculated Osmolality 264 mOsm/kg (285-295) L 01/22/23 12:21 Lactic Acid 1.1 mmol/L (0.5-2.2) 01/22/23 12:21 Calcium 8.9 mg/dL (8.5-10.5) 01/22/23 12:21 Magnesium 2.1 mg/dL (1.7-2.3) 01/22/23 12:21 Total Bilirubin 0.7 mg/dL (0.15-1.2) 01/22/23 12:21 AST 44 U/L (0-40) H 01/22/23 12:21 ALT 27 U/L (0-41) 01/22/23 12:21 Alkaline Phosphatase 65 U/L (40-130) 01/22/23 12:21 Total Protein 7.3 g/dL (6.6-8.7) 01/22/23 12:21 Albumin 4.2 g/dL (3.5-5.2) 01/22/23 12:21 Globulin 3.1 g/dL (1.3-4.6) 01/22/23 12:21 Procalcitonin 0.06 ng/mL (0-0.5) 01/22/23 12:21 Urine Color Yellow (Yellow) 01/22/23 14:31 Urine Appearance Cloudy (CLEAR) A 01/22/23 14:31 Urine pH 8 (5-7) H 01/22/23 14:31 Ur Specific [place] 1.015 (1.005-1.030) 01/22/23 14:31 Urine Protein Neg (Negative) 01/22/23 14:31 Urine Glucose (UA) Norm (Normal) 01/22/23 14:31 Urine Ketones Negative (Negative) 01/22/23 14:31 Urine Blood 2+ (Negative) H 01/22/23 14:31 Urine Nitrate Negative (Negative) 01/22/23 14:31 Urine Bilirubin Neg (Negative) 01/22/23 14:31 Urine Urobilinogen Norm mg/dL (Negative) 01/22/23 14:31 Ur Leukocyte Esterase 1+ (Negative) H 01/22/23 14:31 Urine RBC 0-4 /hpf (0-2) H 01/22/23 14:31 Urine WBC 0-4 /hpf (0-5) H 01/22/23 14:31 Ur Squamous Epith Cells 0-4 /hpf (0-5) H 01/22/23 14:31 Amorphous Sediment Not Reportable 01/22/23 14:31 Urine Bacteria 2+ /hpf (NONE) H 01/22/23 14:31 EKG Data EKG 1: I personally reviewed and interpreted this EKG as follows: EKG interpretation date: 01/22/23 EKG interpretation time: 12:21 Prior EKG tracings: not available for review Interpretation: EKG showed ventricular rate 69 beats minute, [place] interval 178, QRS duration 107, QTc 417, normal sinus rhythm no ST-T wave changes Discharge Plan Discharge Patient Disposition: Xfer Psychiatric Hosp Clinical Impression: Auditory hallucinations, Hallucination, visual, Agitation Urinary tract infection Qualifiers: Urinary tract infection type: acute cystitis Hematuria presence: with hematuria Qualified Code(s): N30.01 - Acute cystitis with hematuria Condition: Stable Referrals: Garry Gamble DO [Primary Care Provider] - Patient Instructions: Hyponatremia (ED), Benzodiazepine Use Disorder (ED), Dementia (ED), Non-diabetic Hypoglycemia (ED), Hypoglycemia in a Person with Diabetes (ED), Concussion (ED), Alcohol Intoxication (ED), Subarachnoid Hemorrhage (GEN), Altered Mental Status (ED) Coding Level of Care Code ED [employer] for Justa Rodriguez
--- NOTE | 2023-01-22 12:21 | ECG_ITS ---
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 Measurements Intervals [place] Rate: 69 P: 52 IA: 178 QRS: 55 QRSD: 107 T: 52 QT: 399 QTc: 428 Interpretive Statements SINUS RHYTHM Compared to ECG 01/19/2023 20:42:49 Atrial flutter no longer present Electronically Signed On 01-22-2023 14:44:41 CDT by Tez Murray M.D. [email or web address]oh[id number]
[2023-01-22 12:33] LABS: Basophils % 0.1 %; Hematocrit 43.2 % (42.0-52.0); Hemoglobin 14.4 g/dL (11.7-16.6); Lymphocytes # 1.3 10^3/uL (0.8-4.8); Lymphocytes % 12.4 %; Mean Corpuscular HGB Conc 33.3 g/dL (30.0-36.0); Mean Corpuscular Hemoglobin 28.9 pg (28.0-34.0); Mean Corpuscular Volume 86.7 fl (80-94); Mean Platelet Volume 8.9 fL (7.4-10.4); Monocytes # 1.5 10^3/uL (0.2-0.9); Monocytes % 14.1 %; Neutrophils # 7.51 10^3/uL (1.8-7.7); Nucleated Red Blood Cells % 0 %; Platelet Count 235 10^3/cmm (130-400); Red Blood Count 4.98 10^6/uL (4.1-5.3); Red Cell Distribution Width 14.2 % (12.1-15.1); White Blood Count 10.3 10^3/uL (4.0-10.0)
[2023-01-22 12:50] LABS: Lactic Sepsis W/Reflex 1.1 mmol/L (0.5-2.2)
[2023-01-22 13:05] LABS: Alanine Aminotransferase 27 U/L (0-41); Albumin Level 4.2 g/dL (3.5-5.2); Alkaline Phosphatase 65 U/L (40-130); Anion Gap 16.8 (5-19); Aspartate Amino Transferase 44 U/L (0-40); Blood Urea Nitrogen 21 mg/dL (8-23); Calcium 8.9 mg/dL (8.5-10.5); Carbon Dioxide 21 mmol/L (22-29); Chloride 91 mmol/L (98-107); Globulin 3.1 g/dL (1.3-4.6); Glucose 120 mg/dL (65-115); Magnesium 2.1 mg/dL (1.7-2.3); Osmolality Calculated 264 mOsm/kg (285-295); Potassium 3.8 mmol/L (3.5-5.1); Sodium 125 mmol/L (136-145); Total Bilirubin 0.7 mg/dL (0.15-1.2); Total Protein 7.3 g/dL (6.6-8.7)
[2023-01-22 13:13] LABS: Procalcitonin 0.06 ng/mL (0-0.5)
[2023-01-22 14:40] VITALS: BP 182/101; PULSE 73; RESP 16; TEMP 37.2; O2SAT 95
[2023-01-22 14:57] LABS: Add Urine Microscopic? YES; Bilirubin Urine Neg (Negative); Blood Urine 2+ (Negative); Glucose Urine UA Norm (Normal); Ketones Urine Negative (Negative); Leukocyte Esterase Urine 1+ (Negative); Nitrate Urine Negative (Negative); Protein Urine Neg (Negative); Specific Gravity, Urine 1.015 (1.005-1.030); Urine Appearance Cloudy (CLEAR); Urine Color Yellow (Yellow); Urobilinogen Urine Norm (Negative); pH Urine 8 (5-7)
[2023-01-22 14:58] LABS: Add Urine Culture? Yes; Bacteria Urine 2+ /hpf; RBC Urine 0-4 /hpf (0-2); Squamous Epithelial Cell Urine 0-4 /hpf (0-5); WBC Urine 0-4 /hpf (0-5)
--- NOTE | 2023-01-22 15:05 | PC.NURSE ---
PT PLACED ON CONTINUOUS NIBP, SPO2, AND CM
--- NOTE | 2023-01-22 15:13 | CTR_ITS ---
PROCEDURE INFORMATION: Exam: CT Abdomen And Pelvis Without Contrast Exam date and time: 01/22/2023 3:36 PM Age: 82 years old Clinical indication: Other: Hematuria TECHNIQUE: Imaging protocol: Computed tomography of the abdomen and pelvis without contrast. Radiation optimization: All CT scans at this facility use at least one of these dose optimization techniques: automated exposure control; mA and/or kV adjustment per patient size (includes targeted exams where dose is matched to clinical indication); or iterative reconstruction. REPORTING DATA: Count of CT and Cardiac NM exams in prior 12 months: This patient has received 0 known CTs and 0 known cardiac nuclear medicine studies in the 12 months prior to the current study. COMPARISON: 1. CT kidney stone [id number] 08/11/2020 4:[address] abdomen pelvis w con* [id number] 04/22/2019 3:[address] kidney stone [id number] 11/26/2021 10:45 AM RADIATION DOSE METRICS: Total DLP (mGy-cm): 970.42 FINDINGS: Lungs: Mild dependent atelectasis. Calcified left lower lobe granuloma. Heart: Prosthetic aortic valve. Coronary arteries: Coronary artery calcification. Liver: Stable subcentimeter hepatic hypodensities. Stable punctate hepatic calcifications. Gallbladder and bile ducts: Normal. No calcified stones. No ductal dilation. Pancreas: Normal without ductal dilatation. Spleen: Tiny splenic calcifications in keeping with sequela of old granulomatous disease. Adrenal glands: Normal. No mass. Kidneys and ureters: Mild symmetric perirenal fat stranding is likely age related. No calcified urolithiasis. No hydronephrosis. Stomach and bowel: No dilatation. No mucosal thickening. Colonic diverticulosis without findings of diverticulitis. Appendix: No evidence of appendicitis. Intraperitoneal space: No free air, free fluid, or well-organized fluid collection. 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 Stable tortuous ectatic iliac arteries. Lymph nodes: Calcified left hilar lymph nodes. No enlarged lymph nodes. Urinary bladder: Urinary bladder is unremarkable. Reproductive: Evidence of prior TURP. Enlarged prostate measures 5.2 cm in transverse dimension. Bones/joints: No acute fracture. Advanced multilevel spinal degenerative changes. Degenerative changes of the hips. Soft tissues: Small fat containing left inguinal hernia. Postsurgical changes from prior hernia repair at the right pelvis. Small focus of subcutaneous air and stranding at the anterior left lower abdominal subcutaneous wall, likely recent injection. CT/CT abdomen pelvis wo con [id number] IMPRESSION: 1. No calcified urolithiasis, obstructive uropathy, or focal bladder abnormality. 2. 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
--- NOTE | 2023-01-22 15:13 | CTR_ITS ---
PROCEDURE INFORMATION: Exam: CT Head Without Contrast Exam date and time: 01/22/2023 3:34 PM Age: 82 years old Clinical indication: Altered mental status/memory loss; Additional info: AMS TECHNIQUE: Imaging protocol: Computed tomography of the head without contrast. Radiation optimization: All CT scans at this facility use at least one of these dose optimization techniques: automated exposure control; mA and/or kV adjustment per patient size (includes targeted exams where dose is matched to clinical indication); or iterative reconstruction. REPORTING DATA: Count of CT and Cardiac NM exams in prior 12 months: This patient has received 0 known CTs and 0 known cardiac nuclear medicine studies in the 12 months prior to the current study. COMPARISON: CT head wo con* [id number] 11/27/2021 6:48 PM RADIATION DOSE METRICS: Total DLP (mGy-cm): 1149.75 FINDINGS: Brain: Diffuse cerebral atrophy, consistent with patient's age. No hemorrhage. Preserved bingham-white matter differentiation. Unremarkable white matter. No mass effect. Intracranial vascular calcifications. Cerebral ventricles: No ventriculomegaly. Paranasal sinuses: Moderate patchy ethmoid air cell opacification bilaterally. Mild chronic appearing jfefw-hjjpqjp-tskd-left maxillary sinus mucoperiosteal thickening. Mild mucosal thickening in the frontal and sphenoid sinuses. Mastoid air cells: Visualized mastoid air cells are well aerated. Orbital cavities: Evidence of left lens replacement. Bones/joints: No acute fracture. Right TMJ degenerative change. Soft tissues: Unremarkable. CT/CT head wo con* [id number] IMPRESSION: 1. No acute intracranial findings. 2. Moderate paranasal sinus disease. 3. Additional chronic and incidental findings as above.
--- NOTE | 2023-01-22 15:30 | PC.NURSE ---
Shyann yelled for assistance and I went to the room where the pt was on his knees and head proped up on the male vistors abd w arms hanging at his side. The male visitor says this is what he did last night before he had a seizure. I attempted to speak to the pt and he would not speak. I yelled for help as I held pt upright with the visitor. Kathy and Jordyn both came to assist pt back to bed. Vitals taken immediately.
[2023-01-22 16:30] VITALS: BP 177/99; PULSE 79; RESP 18; O2SAT 96
--- NOTE | 2023-01-22 17:20 | PC.NURSE ---
PHARMACY CALLED TO REQUEST VERIFICATION OF IVP HALOPERIDOL. PHARMACIST LORI STATES HALOPERIDOL CAN BE GIVEN IVP WITH CARDIAC MONITORING. 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 DR POWELL VERBALLY STATED TO GIVE 5MG HALOPERIDOL IVP.
[2023-01-22] MEDS: cefTRIAXone 1,000 MG in sodium chloride 0.9% (plus) 50 ML 100 MG IV (17:26)
[2023-01-22] MEDS: haloperidol inj 5 mg/mL INJ 1 mL IVP (17:26)
--- NOTE | 2023-01-22 17:40 | PC.NURSE ---
PT HAS BEEN VERY COMBATIVE WITH FAMILY PRESENT. PT ATTEMPTS TO GET OUT OF BED AND WANDER OR LEAVE THE FACILITY. PT REDIRECTED AND ASKED TO RETURN TO BED. PT COOPERATES WITH STAFF.
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
[2023-01-22 18:38] VITALS: BP 173/91; PULSE 84; RESP 18; O2SAT 94
[2023-01-22 19:36] LABS: Thyroid Stimulating Hormone 1.83 uIU/mL (0.27-4.20); Vitamin B12 995 pg/mL (232-1245)
[2023-01-22 20:59] VITALS: BP 146/75; PULSE 77; RESP 16; O2SAT 97
--- NOTE | 2023-01-23 02:59 | PC.NURSE ---
Pt is currently resting in bed at this time asleep. HS brought hospital bed around 0130 which the pt has been asleep in since then.
--- NOTE | 2023-01-23 04:00 | PC.NURSE ---
Pt awake and quietly watching TV in bed. Pt is having calm conversation with PSA and security about TV shows.
--- NOTE | 2023-01-23 04:27 | PC.NURSE ---
[facility] called and refused d/t medical reasons. [facility] called and they won't accept the pt until he is 10 days out from onset of covid symptoms [facility] called and message left [facility] [place] [facility] [place] called and they are on divert d/t covid [facility] in [place] called and pt needs to be days out from onset of symptoms [facility] in [place] called and they have no beds can try again in the morning [facility] in [place] called and they have no beds can try again in the morning [facility] called and they have no beds can try again in the morning [facility] in [place] called and they have no beds can try again in the morning [facility] in [place] called and they have no beds can try again in the morning
--- NOTE | 2023-01-23 06:04 | PC.NURSE ---
PSA informed RN that pt is becoming restless and wishing to leave. Pt states that I have not gotten any sleep and I am just stuck here. I want to leave. RN informed . Will continue to monitor.
--- NOTE | 2023-01-23 06:22 | PC.NURSE ---
Lab techs into room to draw labs at 0600. Lab techs informed RN that pt was completely asleep during lab draw. RN informed .
[2023-01-23 07:02] LABS: Anion Gap 15.5 (5-19); Blood Urea Nitrogen 15 mg/dL (8-23); Calcium 8.1 mg/dL (8.5-10.5); Carbon Dioxide 22 mmol/L (22-29); Chloride 91 mmol/L (98-107); Glucose 113 mg/dL (65-115); Osmolality Calculated 262 mOsm/kg (285-295); Potassium 3.5 mmol/L (3.5-5.1); Sodium 125 mmol/L (136-145)
[2023-01-23] MEDS: sodium chloride 0.9% 1,000 ML 999 ML IV (07:38)
[2023-01-23 07:48] VITALS: BP 124/79; PULSE 94; O2SAT 95
--- NOTE | 2023-01-23 07:49 | PC.NURSE ---
Assumed care at 0700. Pt appears to be resting at this time with equal respirations and no apparent distress.
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
[2023-01-23 13:14] VITALS: BP 172/92; PULSE 92; RESP 18; TEMP 36.4; O2SAT 96
[2023-01-23] MEDS: aspirin 81 mg EC Tablet PO (14:33)
[2023-01-23] MEDS: urea 15 gm Powder PO (14:34)
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
[2023-01-23 15:47] VITALS: BP 146/75; PULSE 101; RESP 18; TEMP 36.4; O2SAT 97
[2023-01-23] MEDS: apixaban 5 mg Tablet PO (17:58)
[2023-01-23] MEDS: amiodarone 200 mg Tablet PO (17:58)
[2023-01-23] MEDS: metoprolol tartrate 50 mg Tablet PO (17:58)
[2023-01-23] MEDS: magnesium lactate 84 mg Tablet PO (18:04)
[2023-01-23 18:36] LABS: Urine Random Sodium 56 mmol/L
[2023-01-23 19:10] LABS: Sodium 124 mmol/L (136-145)
[2023-01-23 19:57] VITALS: BP 153/78; PULSE 68; RESP 17; TEMP 36.9; O2SAT 96
[2023-01-24] VITALS (7 sets, daily range): BP systolic 126–170; BP diastolic 71–93; PULSE 57–87; RESP 16–18; TEMP 36.4–37.1; O2SAT 92–98
[2023-01-24 04:55] LABS: Basophils % 0.3 %; Eosinophils # 0.2 10^3/uL (0.0-0.8); Hematocrit 38.1 % (42.0-52.0); Hemoglobin 13.4 g/dL (11.7-16.6); Lymphocytes # 1.4 10^3/uL (0.8-4.8); Lymphocytes % 18.9 %; Mean Corpuscular HGB Conc 35.2 g/dL (30.0-36.0); Mean Corpuscular Hemoglobin 29.2 pg (28.0-34.0); Mean Platelet Volume 8.6 fL (7.4-10.4); Monocytes # 1.1 10^3/uL (0.2-0.9); Monocytes % 14.6 %; Neutrophils # 4.73 10^3/uL (1.8-7.7); Neutrophils % 64.1 %; Nucleated Red Blood Cells % 0 %; Platelet Count 233 10^3/cmm (130-400); Red Blood Count 4.59 10^6/uL (4.1-5.3); Red Cell Distribution Width 13.8 % (12.1-15.1); White Blood Count 7.4 10^3/uL (4.0-10.0)
[2023-01-24 05:13] LABS: Anion Gap 13.7 (5-19); Blood Urea Nitrogen 15 mg/dL (8-23); Calcium 8.2 mg/dL (8.5-10.5); Carbon Dioxide 24 mmol/L (22-29); Chloride 91 mmol/L (98-107); Glucose 103 mg/dL (65-115); Osmolality Calculated 261 mOsm/kg (285-295); Potassium 3.7 mmol/L (3.5-5.1); Sodium 125 mmol/L (136-145)
[2023-01-24] MEDS: ezetimibe 10 mg Tablet PO (06:08)
[2023-01-24] MEDS: OLANZapine 5 mg ODT PO (08:10)
--- NOTE | 2023-01-24 09:12 | PC.CHAP ---
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 global compensation analyst visit [] Patient/Family/Request visit [] Outpatient visit [] Follow-up visit [] Physician referral [] Code/Alert [] Routine visit [] Staff referral [] Actively dying [] Patient sleeping [] Family support [] [] Out of room [] Palliative care [] [x] Receiving care in room [] Pre-surgical visit [] Trauma [] Long length of stay [] ICU visit [] Other: Relational/Emotional Strength [] Patient feels connected with others/family/visitors/staff [] Distress [] Loneliness/isolation [] Abandonment Spirituality of Patient [] Person of Pau [] Attends Pentecostalism of their [place] [] Believes in Prayer [] Reads Bible or Yarsanism materials [] There are Spiritual issues to be addressed Arborist Interventions [] Prayer [] Active listening [] Non-anxious presence [] Spiritual/emotional support [] Crisis/trauma care [] Spiritual counseling [] Bereavement support [] Provided bereavement packet [] Provided Bible/devotional materials [] Provided toy/stuffed animal, coloring book to patient or family member [] Provided Communion [] Anointing/[place] [] Salvation [] Completed spiritual assessment [] Other: Impact on Illness or Injury [] Angry [] Fearful [] Anxious [] Often cries [] Exhaustion [] Unable to work [] Unable to attend oriental orthodox [] Unable to walk/stand [] Unable to read [] Unable to drive [] Unable to eat/drink [] Unable to sleep [] Unable to be with family [] Patient intubated [] Other: Summary Time spent with patient
--- NOTE | 2023-01-24 10:00 | P.NPUHP_ITS ---
Providers/Chief Complaint Admitting Physician: Jhony Herrera Primary Care Provider: Garry Gamble DO Chief Complaint: AMS Covid + HPI NPU History of Present Illness Marco Antonio Almonte is a 82 year old male who presented to the emergency department with the following report: Chief Complaint: Altered Mental Status Stated Complaint: AMS Covid + Time Seen by Provider: 01/22/23 11:29 Limitations: altered mental status History of Present Illness: Patient brought here by EMS for evaluation for mental status. Patient's family reports patient has been hallucinating as well as having combative behavior for the last 2 days. Family reports the patient was just discharged from this facility yesterday and is COVID-positive. Patient's COVID symptoms began approximately 6 days ago and patient was tested +3 days ago. Patient is alert will not directly answer questions or follow commands. History was taken from the chart. The patient presents today reporting that he initially came to the hospital for a heart problem and had COVID. He stated that he has been here for a couple weeks. He seemed pretty frustrated with his current situation. We discussed that there is a concern about some irritability and a physical confrontation this morning. He said that is a result of being stuck in this current situation. He reports that he came for a heart problem, then they ?tagged? him with COVID and stuck him a room and he couldn?t get out of the room. He expressed that he feels like he is being patronized and is frustrated that after they get him ?pissed off? they ask how he feels. He reports that basically, he is locked in and can?t get out of here, unless he ?kicked someone?s ass.? He somewhat meandered in the conversation. When asked about a report of a conflict at home, he said there are always conflicts, but denied anything physical. He talked about being put in a comprised situation, and with all supports being removed, this is what you get. He again talked about being tagged with COVID and being held. We discussed his very low sodium levels, and he responded saying they just need to give him something to correct it, which led to a discussion about them trying to do that but not being able to because he has not allowed them to give the IV and administer the treatment. Then asked him if he would allow a nurse to start an IV and administer the treatment, and he did not give a straightforward answer to that question. He reports that what he needs is clothes to wear and being able to leave if he wants to. He again stated that he has been here for two weeks, and seemed confused about the timeframe of when he had left the hospital and came back, which is when the Emergency Department discovered the low sodium level. He again talked about being here for two weeks. He thought he had been here a lot longer than the couple of days he has been here again. We discussed him getting the treatment to correct the sodium level would be the most likely way for him to be discharged. He was unable to give me any insight into his d ecision making. He seemed to be only moved by the ability to leave or not. He could not demonstrated understanding of his condition, he could not demonstrate a understanding of the risks or benefits from treating or alternative treatments. He can only express his desire to leave. He rambled quite a bit and repeated the same statements and continued to be clearly confused about the timeline of events. Meds NPU Home Medications Medication Instructions Recorded Confirmed Last Taken Type antiarthritic combination no.2 900 900 mg PO DAILY@07 05/01/20 01/22/23 11/27/21 History mg tablet (glucosamine-chondroitin) cholecalciferol (vitamin D3) 50 50 mcg PO DAILY@0705/01/20 01/22/23 11/27/21 History mcg (2,000 unit) capsule folic 500 mcg-B12 250 mcg-ALA 50 1 cap PO DAILY@0705/01/20 01/22/23 11/27/21 History mg-coQ10 50 ul-fv4-edl-epa capsule sazxkabh-haw-mgyfn acid 300 1 tab PO DAILY@0700 05/01/20 01/22/23 11/27/21 History mcg-lycopene 600 mcg-lutein 300 mcg tablet (Men 50 Plus Multivitamin) potassium gluconate 595 mg (99 mg) 595 mg PO DAILY@0700 05/01/20 01/22/23 11/27/21 History tablet Custom Molded Orthotics #1 ea 04/12/21 01/22/23 Unknown Rx Lactobacil.acidophilus-Bifido.animalis 1 cap PO DAILY 11/26/21 01/22/23 11/27/21 History 5 billion cell sprinkle capsule (Probiotic) psyllium husk 3.4 gram/5.4 gram 1 - 2 tsp PO DAILY@07 11/26/21 01/22/23 01/16/23 History oral powder (Metamucil) ezetimibe 10 mg tablet (Zetia) 10 mg PO DAILY@07 #90 tabs 06/12/22 01/22/23 Unknown Rx magnesium L-lactate 84 mg 84 mg PO BID #180 tabs 07/23/22 01/22/23 Unknown Rx tablet,extended release (Magtab) aspirin 81 mg tablet,delayed 81 mg PO DAILY 11/27/22 01/22/23 Unknown History release (Adult Low Dose Aspirin) atorvastatin 20 mg tablet 20 mg PO QPM 01/19/23 01/22/23 Unknown History metoprolol tartrate 50 mg tablet 50 mg PO BID 01/19/23 01/22/23 Unknown History zinc acetate 50 mg (zinc) capsule 50 mg PO DAILY 01/19/23 01/22/23 Unknown History amiodarone 200 mg tablet (Pacerone) See Rx Instructions .Route 01/21/23 01/22/23 Unknown Rx .COMPLEX 90 days #360 tabs apixaban 5 mg tablet (Eliquis) 5 mg PO BID #180 tabs 01/21/23 01/22/23 Unknown Rx Allergies Allergy/AdvReac Type Severity Reaction Status Date / Time meperidine [From Demerol] Allergy stopped Verified 01/19/23 15:09 breathing atorvastatin [From Lipitor] AdvReac Severe muscle and Verified 01/19/23 15:09 joint pain PFSH NPU PFSH: Medical History BPH with obstruction/lower urinary tract symptoms History of elevated PSA Incomplete bladder emptying Lumbar radiculopathy, chronic L5-S1 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 Surgical History History of ankle surgery History of appendectomy History of bilateral inguinal hernia repair History of nasal surgery S/P TAVR (transcatheter aortic valve replacement) Status post transurethral resection of prostate Family History Mother Cancer Denies family history of Diabetes CAD (coronary artery disease) Clotting disorder Dementia Chronic kidney disease (CKD) Suicide Anesthesia complication Bleeding disorder Lung disease Hypertension Stroke Social History Smoking and tobacco status: former smoker Quit status (tobacco): has quit using tobacco Year quit tobacco: 1982 Alcohol intake: current Alcohol intake frequency: 0-2 Drinks per Day Alcohol type: wine Substance/Drug Use: never Adopted: No Household members: spouse Marital status: Current occupational status: retired Mental Status Exam MSE Comments: This is a well-nourished well-developed white male looking younger than his stated age with just a pair of jeans shorts on socks and shoes/slippers with appropriate grooming and eye contact. No abnormal movements except for mild psychomotor retardation. Mostly resistant to conversation and evaluation in mild distress. Speech was hyperverbal and increased rate and normal volume and slightly pressured. Mood described as irritated, affect congruent. Thought process linear and at times organized. Thought content: Patient denies suicidal ideation but did endorse feelings of aggression towards others especially those preventing him from leaving. There is no delusions reported but clear confusion and lack of recollection of the timeline of him being here appearing to have some paranoid versus persecutory thinking, he denied auditory or visual hallucinations but there were reports of such. Attention and concentration were limited and memory was unreliable but none were formally tested. He is alert and oriented times person and place. Insight, judgment and impulse control are all impaired. Vitals/I&O/Wt Last Vital Signs Temp 97.6 F 01/24/23 07:35 Pulse 87 01/24/23 07:35 Resp 18 01/24/23 07:35 BP 160/93 01/24/23 07:35 Pulse Ox 98 01/24/23 07:35 O2 Del Method Room Air 01/24/23 07:35 01/23/23 01/24/23 01/24/23 22:59 06:59 14:59 Intake Total 240 / 1240 120 / 120 Balance 240 / 1240 120 / 120 Weight last 48 hrs Weight 70.307 kg Data NPU 01/25/23 05:00 01/25/23 05:00 Micro: Microbiology 01/22/23 12:21 Blood Culture - Preliminary Blood NEGATIVE TO DATE 01/22/23 12:21 Blood Culture - Preliminary Blood NEGATIVE TO DATE Microbiology 01/22/23 12:21 Blood Blood Culture - Preliminary NEGATIVE TO DATE 01/22/23 12:21 Blood Blood Culture - Preliminary NEGATIVE TO DATE A&P Assessment and plan (1) Hyponatremia: (2) Auditory hallucinations: (3) Hallucination, visual: (4) Agitation: (5) Urinary tract infection: Qualifiers: Hematuria presence: with hematuria Urinary tract infection type: acute cystitis Qualified Code(s): N30.01 - Acute cystitis with hematuria (6) Elevated troponin: (7) Atrial fibrillation with RVR: (8) COVID-19: (9) Altered mental status: Plan This is an 82-year-old white male with significant medical comorbidities with recent report of cardiac issues, recent hospitalization with COVID who returns after a very short stay after discharging a couple of days ago with erratic behavior and had noted sodium of 125 who presents likely delirious and resistant to treatment. 1. Continue current medication. 2. Patient is currently likely delirious secondary to recent medical challenges and current low sodium such that he is overrun by feelings of paranoia and feelings about his rights that are interfering with his thought process and he is unable to make informed consent. 3. Recommend treating with what ever processes are necessary to get an IV and fluids back into him as he does not have any appreciation of the risks of his condition or the benefits of any interventions including not acting. 4. We will continue to follow Attestations NPU Medical Necessity Statement*: N/A. Please see primary team note for medical necessity but agree with continued hospitalization and treatment with the standard of care for his condition given his inability to make informed consent. Coding Level of Care Code Acute Code for [facility] Fwd Diagnoses Hyponatremia E87.1 Auditory hallucinations R44.0 Hallucination, visual R44.1 Agitation R45.1 Urinary tract infection N30.01 Hematuria presence: with hematuria Urinary tract infection type: acute cystitis Elevated troponin R77.8 Atrial fibrillation with RVR I48.91 COVID-19 U07.1 Altered mental status R41.82
[2023-01-24] MEDS: psyllium powder Pkt 1 PACKET PO (10:53)
[2023-01-24] MEDS: urea 15 gm Powder PO (10:53)
[2023-01-24] MEDS: aspirin 81 mg EC Tablet PO (12:25)
[2023-01-24] MEDS: magnesium lactate 84 mg Tablet PO ×2 (12:25→18:14)
[2023-01-24] MEDS: amiodarone 200 mg Tablet PO ×2 (12:25→18:14)
[2023-01-24] MEDS: zinc gluconate 50 mg Tablet PO (12:26)
[2023-01-24] MEDS: apixaban 5 mg Tablet PO ×2 (12:26→18:14)
[2023-01-24] MEDS: metoprolol tartrate 50 mg Tablet PO ×2 (12:30→18:15)
--- NOTE | 2023-01-24 14:12 | PC.NURSE ---
Primary Contact Son of patient called and requested that he be moved to primary contact since his mother is recovering from a stroke and she gets confused. Contact information changed as requested. The patient's remains next of kin with a primary contact as his son.
--- NOTE | 2023-01-24 20:12 | P.PN_ITS ---
Subjective Subjective: This morning he was reported having some episodes of agitation, left side and him trying to punch the wall, additional episode subsequently with him hitting the one-to-one sitter. Discussing with him he does not bring up these episodes, overall states he has been better, denies trouble breathing. No chills today. No headache nausea vomiting or diarrhea. Vitals/I&O/Wt Last Vital Signs Temp 97.8 F 01/24/23 16:00 Pulse 76 01/24/23 16:00 Resp 16 01/24/23 16:00 BP 149/89 01/24/23 16:00 Pulse Ox 97 01/24/23 16:00 O2 Del Method Room Air 01/24/23 12:12 01/24/23 01/24/23 01/24/23 06:59 14:59 22:59 Intake Total 120 / 120 240 / 360 Balance 120 / 120 240 / 360 Physical Exam Const: COMMON NORMALS: patient oriented x3 (Oriented but takes him little bit of time to come up with the answers.) and alert GENERAL APPEARANCE: cooperative ORIENTATION/CONSCIOUSNESS: Yes awake HENMT: COMMON NORMALS: oropharynx normal Neck/C-Spine: COMMON NORMALS: no JVD Resp: COMMON NORMALS: normal respiratory effort and clear to auscultation bi laterally AUSCULTATION: clear to auscultation bilaterally Cardio: COMMON NORMALS: no JVD, regular rhythm, S1 normal heart sound present, S2 normal heart sound present and No murmurs present (Cardio) RHYTHM: regular rhythm HEART SOUNDS: S1 normal heart sound present and S2 normal heart sound present GI: COMMON NORMALS: Normal to inspection, nondistended, normoactive bowel sounds present, Soft to palpation and non-tender PALPATION: Yes Soft to palpation Extremity: COMMON NORMALS: no joint enlargement and no pedal edema Neuro: COMMON NORMALS: patient oriented x3 (Oriented but takes him little bit of time to come up with the answers.) and moves all extremities SENSORIUM/ORIENTATION: Yes alert Skin: COMMON NORMALS: no rashes or lesions noted GENERAL SKIN EXAM: no rashes or lesions noted Data 01/24/23 04:46 01/24/23 04:46 Micro: Microbiology 01/22/23 14:31 Urine Culture - Preliminary Urine,Clean Catch A&P Assessment and plan (1) Hyponatremia: Sodium noted 125. Without further worsening, but so far and improved. Continue urea, continue regular diet. Recheck sodium. Suspected SIADH. Urine sodium noted 56. Pending osmolality. Did not respond to fluid challenge. Does not appear fluid overloaded. Hyponatremia appears euvolemic. 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 Started on urea. Regular diet. Follow-up sodium level. At risk of overshoot/too rapid rise of sodium, OTS. Recheck sodium. Sodium noted 125. Recently 128. On 01/20 was 135. Check urine sodium, urine osmolality. TSH noted normal. Review of medications does not reveal anything that should obviously cause hyponatremia. (2) Agitation: Few episodes of agitation, discussed with psychiatry. History independently obtained from nursing staff. He is started on Zyprexa. Still difficult to say that this is not acute metabolic encephalopathy or medication toxicity, steroid- induced psychosis, after recent hospitalization which is possible. Possibly also combination of hyponatremia. Continue to reorient. Supportive measures. Treat hyponatremia as above. No longer on any steroids. Otherwise cannot exclude some possibility of psychiatric illness, possibly mild dementia. Continue to reassess condition. So far no further agitation. 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 Possibly underlying psychiatric illness perhaps with some early dementia. Pending psychiatric assessment. UA not suggestive of UTI. Abdomen pelvis CT without obstructive uropathy. 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 Chest x-ray noted without focal pneumonia. Follow-up CBC, chemistry. (3) Auditory hallucinations: So far denies auditory hallucinations. Pending psychiatric assessment. 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 Appreciate psychiatric recommendations, monitor condition, consideration of admission to geriatric psychiatric facility with correction of metabolic abnormality. (4) Hallucination, visual: No reports of visual hallucinations. Plan Recent COVID-19: Symptoms have pretty much resolved. No issues with respiratio n. Saturating well on room air. No cough. A-fib with RVR: Continue Eliquis. Continue Amio. Has been doing well in terms of heart rates. Status post TAVR. BPH: Monitor for urine retention. UA not suggestive of UTI. No urinary symptoms. Lumbosacral radiculopathy: Fall precautions Peripheral neuropathy: Fall precautions Discussed with psychiatry, case management. Attestations Medical Necessity Statement*: Continue admission for assessment and management of hyponatremia, acute encephalopathy, possible acute metabolic encephalopathy, possible steroid- induced psychosis, versus psychiatric illness. Diagnoses Hyponatremia E87.1 Agitation R45.1 Auditory hallucinations R44.0 Hallucination, visual R44.1
[2023-01-25 03:13] VITALS: BP 103/64; PULSE 60; RESP 15; TEMP 36.7; O2SAT 93
[2023-01-25 05:22] LABS: Basophils % 0.3 %; Eosinophils # 0.3 10^3/uL (0.0-0.8); Eosinophils % 3.1 %; Hematocrit 39.6 % (42.0-52.0); Hemoglobin 13.7 g/dL (11.7-16.6); Lymphocytes % 21.1 %; Mean Corpuscular HGB Conc 34.6 g/dL (30.0-36.0); Mean Corpuscular Hemoglobin 28.9 pg (28.0-34.0); Mean Corpuscular Volume 83.5 fl (80-94); Monocytes # 1.3 10^3/uL (0.2-0.9); Monocytes % 13.6 %; Neutrophils # 5.81 10^3/uL (1.8-7.7); Neutrophils % 61.5 %; Nucleated Red Blood Cells % 0 %; Platelet Count 256 10^3/cmm (130-400); Red Blood Count 4.74 10^6/uL (4.1-5.3); Red Cell Distribution Width 13.7 % (12.1-15.1); White Blood Count 9.4 10^3/uL (4.0-10.0)
[2023-01-25 05:45] LABS: Blood Urea Nitrogen 18 mg/dL (8-23); Calcium 8.8 mg/dL (8.5-10.5); Carbon Dioxide 27 mmol/L (22-29); Chloride 91 mmol/L (98-107); Glucose 101 mg/dL (65-115); Osmolality Calculated 266 mOsm/kg (285-295); Sodium 127 mmol/L (136-145)
[2023-01-25] MEDS: ezetimibe 10 mg Tablet PO (06:13)
[2023-01-25 08:00] VITALS: BP 148/86; PULSE 77; RESP 16; TEMP 36.8; O2SAT 96
[2023-01-25] MEDS: urea 15 gm Powder PO (08:47)
[2023-01-25] MEDS: psyllium powder Pkt 1 PACKET PO (08:47)
[2023-01-25] MEDS: magnesium lactate 84 mg Tablet PO ×2 (08:48→17:45)
[2023-01-25] MEDS: metoprolol tartrate 50 mg Tablet PO ×2 (08:48→17:45)
[2023-01-25] MEDS: aspirin 81 mg EC Tablet PO (08:48)
[2023-01-25] MEDS: apixaban 5 mg Tablet PO ×2 (08:48→17:45)
[2023-01-25] MEDS: zinc gluconate 50 mg Tablet PO (08:48)
[2023-01-25] MEDS: amiodarone 200 mg Tablet PO ×2 (08:48→17:45)
[2023-01-25 11:22] VITALS: BP 149/73; PULSE 66; RESP 18; TEMP 37.2; O2SAT 96
--- NOTE | 2023-01-25 11:47 | W.PM.NPUPNS ---
Subjective NPU Subjective: Patient presented today reporting that he was doing okay. His family was in the room and seem to help around him as he was more resistant to this account underwriter and to conversations however he did continue to have some mild responses and it was unclear whether he was trying to be funny or trying to be a jerk. He did have an IV in his arm at the time and seem to be less resistant to recommendations. Mental Status Exam MSE Comments: This is a well-nourished well-developed white male looking younger than his stated age with just a pair of jeans shorts on socks and shoes/slippers with appropriate grooming and eye contact. No abnormal movements except for mild psychomotor retardation. Mostly resistant to conversation and evaluation in mild distress. Speech was hyperverbal and increased rate and normal volume and slightly pressured. Mood described as irritated, affect congruent. Thought process linear and at times organized. Thought content: Patient denies suicidal ideation but did endorse feelings of aggression towards others especially those preventing him from leaving. There is no delusions reported but clear confusion and lack of recollection of the timeline of him being here appearing to have some paranoid versus persecutory thinking, he denied auditory or visual hallucinations but there were reports of such. Attention and concentration were limited and memory was unreliable but none were formally tested. He is alert and oriented times person and place. Insight, judgment and impulse control are all impaired. Vitals/I&O/Wt Last Vital Signs Temp 98.9 F 01/25/23 11:22 Pulse 66 01/25/23 11:22 Resp 18 01/25/23 11:22 BP 149/73 01/25/23 11:22 Pulse Ox 96 01/25/23 11:22 O2 Del Method Room Air 01/25/23 11:22 01/24/23 01/25/23 01/25/23 22:59 06:59 14:59 Intake Total 240 / 360 240 / 240 Balance 240 / 360 240 / 240 Data NPU 01/27/23 04:30 01/27/23 04:30 Micro: Microbiology 01/22/23 14:31 Urine Culture - Preliminary Urine,Clean Catch Microbiology 01/22/23 14:31 Urine,Clean Catch Urine Culture - Preliminary A&P Assessment and plan (1) Hyponatremia: (2) Auditory hallucinations: (3) Hallucination, visual: (4) Agitation: (5) Urinary tract infection: Qualifiers: Hematuria presence: with hematuria Urinary tract infection type: acute cystitis Qualified Code(s): N30.01 - Acute cystitis with hematuria (6) Elevated troponin: (7) Atrial fibrillation with RVR: (8) COVID-19: (9) Altered mental status: Plan This is an 82-year-old white male with significant medical comorbidities with recent report of cardiac issues, recent hospitalization with COVID who returns after a very short stay after discharging a couple of days ago with erratic behavior and had noted sodium of 125 who presents likely delirious and resistant to treatment. 1. Continue current medication. 2. Patient is currently likely delirious secondary to recent medical challenges and current low sodium such that he is overrun by feelings of paranoia and feelings about his rights that are interfering with his thought process and he is unable to make informed consent. 3. Recommend treating with what ever processes are necessary to get an IV and fluids back into him as he does not have any appreciation of the risks of his condition or the benefits of any interventions including not acting. 4. We will continue to follow Attestations NPU Medical Necessity Statement*: N/A. Please see primary team note for medical necessity but agree with continued hospitalization and treatment with the standard of care for his condition given his inability to make informed consent. Coding Level of Care Code Acute Code for [facility] Diagnoses Hyponatremia E87.1 Auditory hallucinations R44.0 Hallucination, visual R44.1 Agitation R45.1 Urinary tract infection N30.01 Hematuria presence: with hematuria Urinary tract infection type: acute cystitis Elevated troponin R77.8 Atrial fibrillation with RVR I48.91 COVID-19 U07.1 Altered mental status R41.82
--- NOTE | 2023-01-25 13:13 | P.PN_ITS ---
Subjective Subjective: He denies any complaints today. Oriented x3. Limited recollection from prior hospitalization, reports having a heart issue, COVID, does not recall details. Discussing with one-to-one sitter, no further issues. Vitals/I&O/Wt Last Vital Signs Temp 98.9 F 01/25/23 11:22 Pulse 66 01/25/23 11:22 Resp 18 01/25/23 11:22 BP 149/73 01/25/23 11:22 Pulse Ox 96 01/25/23 11:22 O2 Del Method Room Air 01/25/23 11:22 01/24/23 01/25/23 01/25/23 22:59 06:59 14:59 Intake Total 240 / 360 480 / 480 Balance 240 / 360 480 / 480 Physical Exam Const: COMMON NORMALS: patient oriented x3 (Oriented but takes him little bit of time to come up with the answers.) and alert GENERAL APPEARANCE: cooperative ORIENTATION/CONSCIOUSNESS: Yes awake HENMT: COMMON NORMALS: oropharynx normal Neck/C-Spine: COMMON NORMALS: no JVD Resp: COMMON NORMALS: normal respiratory effort and clear to auscultation bilaterally AUSCULTATION: clear to auscultation bilaterally Cardio: COMMON NORMALS: no JVD, regular rhythm, S1 normal heart sound present, S2 normal heart sound present and No murmurs present (Cardio) RHYTHM: regular rhythm HEART SOUNDS: S1 normal heart sound present and S2 normal heart sound present GI: COMMON NORMALS: Normal to inspection, nondistended, normoactive bowel sounds present, Soft to palpation and non-tender PALPATION: Yes Soft to palpation Extremity: COMMON NORMALS: no joint enlargement and no pedal edema Neuro: COMMON NORMALS: patient oriented x3 (Oriented but takes him little bit of time to come up with the answers.) and moves all extremities SENSORIUM/ORIENTATION: Yes alert Skin: COMMON NORMALS: no rashes or lesions noted GENERAL SKIN EXAM: no rashes or lesions noted Data 01/25/23 05:00 01/25/23 05:00 Micro: Microbiology 01/22/23 14:31 Urine Culture - Preliminary Urine,Clean Catch A&P Assessment and plan (1) Hyponatremia: Slow improvement, up to 127. Continue urea. Continue regular diet. Avoid overly rapid rise. at risk of ODS with overly rapid rise. Recheck sodium level. Suspected SIADH. Urine sodium noted 56. On review of osmolality still pending. (2) Agitation: This appears to be possibly showing some improvement with Zyprexa. 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 He is calm, oriented, somewhat limited recollection of recent events. Suspected may be Acute metabolic encephalopathy with delirium with recent COVID, hospitalization, steroid psychosis, hyponatremia. Continue treatment of hyponatremia. Has been Off steroids. continue to reassess mental status. psychiatry note appreciated. Discussed with case management. afebrile. CBC noted normal, WBC 9.4. No neutrophils. Mild monocytosis 1.3. Renal parameters unremarkable. /18Few episodes of agitation, discussed with psychiatry. History independently obtained from nursing staff. He is started on Zyprexa. Still difficult to say that this is not acute metabolic encephalopathy or medication toxicity, steroid-induced psychosis, after recent hospitalization which is possible. Possibly also combination of hyponatremia. Continue to reorient. Supportive measures. Treat hyponatremia as above. No longer on any steroids. Otherwise cannot exclude some possibility of psychiatric illness, possibly mild dementia. Continue to reassess condition. So far no further agitation. 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 Possibly underlying psychiatric illness perhaps with some early dementia. Pending psychiatric assessment. UA not suggestive of UTI. Abdomen pelvis CT without obstructive uropathy. 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 Chest x-ray noted without focal pneumonia. Follow-up CBC, chemistry. (3) Auditory hallucinations: Denies visual or auditory hallucinations. Pending psychiatric assessment. 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 Appreciate psychiatric recommendations, monitor condition, consideration of admission to geriatric psychiatric facility with correction of metabolic abnormality. (4) Hallucination, visual: Denies hallucinations. Plan Recent COVID-19: Symptoms have pretty much resolved. No issues with respiration. Saturating well on room air. No cough. A-fib with RVR: Continue Eliquis. Continue Amio. Has been doing well in terms of heart rates. Status post TAVR. BPH: Monitor for urine retention. UA not suggestive of UTI. No urinary symptoms. Lumbosacral radiculopathy: Fall precautions Peripheral neuropathy: Fall precautions Discussed with case management. Attestations Medical Necessity Statement*: Continue admission for assessment management of hyponatremia, agitation suspected delirium secondary to acute metabolic encephalopathy. Diagnoses Hyponatremia E87.1 Agitation R45.1 Auditory hallucinations R44.0 Hallucination, visual R44.1
[2023-01-25 15:58] VITALS: BP 151/88; PULSE 67; RESP 18; TEMP 36.8; O2SAT 96
[2023-01-25 19:57] VITALS: BP 108/67; PULSE 62; RESP 16; TEMP 36.8; O2SAT 95
[2023-01-25 23:36] VITALS: BP 150/80; PULSE 69; RESP 16; TEMP 36.5; O2SAT 94
[2023-01-26 03:58] VITALS: BP 177/81; PULSE 66; RESP 18; TEMP 36.6; O2SAT 95
--- NOTE | 2023-01-26 04:39 | PC.NURSE ---
patient came out of his room with eyes closed and opened the door to go into the room next to his. nursing staff spoke to the patient but he did not respond, maintained closed eyes. staff took patient by the hand and led him back into his room and into bed with eyes closed and never opening nor responding to staff verbally. patient then came to the door 35 minutes later and opened his door to business development consultant the [place] and yelled fire fire fire with eyes closed then turned around and went back into his room. staff went into the room, patient was up in room and threw his eye glass case into the trash, staff inquired if he was going to the bathroom, patient responded that he was and went into the restroom., no fire was to be seen within the room so staff retrieved the eye glass case from the trash and left the room. aide checked on patient shortly after and patient was in bed resting with eyes closed. patient then left the room 20 minutes later with eyes closed and attempted to go into a neighboring room again and was redirected back to his room as he stated he needed to go to the bathroom. patient was placed in bed and bed alarm was turned on. patient is currently resting with eyes closed, rails up x2 and call light within reach. will continue to monitor.
[2023-01-26 06:19] LABS: Basophils % 0.3 %; Eosinophils # 0.2 10^3/uL (0.0-0.8); Hematocrit 40.5 % (42.0-52.0); Hemoglobin 13.2 g/dL (11.7-16.6); Lymphocytes % 16.7 %; Mean Corpuscular HGB Conc 32.6 g/dL (30.0-36.0); Mean Corpuscular Hemoglobin 28.6 pg (28.0-34.0); Mean Corpuscular Volume 87.7 fl (80-94); Mean Platelet Volume 8.8 fL (7.4-10.4); Monocytes # 1.5 10^3/uL (0.2-0.9); Monocytes % 12.6 %; Neutrophils # 8.01 10^3/uL (1.8-7.7); Neutrophils % 67.9 %; Nucleated Red Blood Cells % 0 %; Platelet Count 284 10^3/cmm (130-400); Red Blood Count 4.62 10^6/uL (4.1-5.3); Red Cell Distribution Width 14.3 % (12.1-15.1); White Blood Count 11.8 10^3/uL (4.0-10.0)
[2023-01-26 06:43] LABS: Anion Gap 12.9 (5-19); Blood Urea Nitrogen 20 mg/dL (8-23); Calcium 8.6 mg/dL (8.5-10.5); Carbon Dioxide 26 mmol/L (22-29); Chloride 97 mmol/L (98-107); Glucose 117 mg/dL (65-115); Osmolality Calculated 278 mOsm/kg (285-295); Potassium 3.9 mmol/L (3.5-5.1); Sodium 132 mmol/L (136-145)
[2023-01-26 07:31] VITALS: BP 145/78; PULSE 79; RESP 16; TEMP 37.2; O2SAT 95
[2023-01-26] MEDS: ezetimibe 10 mg Tablet PO (07:33)
[2023-01-26] MEDS: OLANZapine 10 mg VIAL 5 MG IM ×3 (13:42→18:03)
--- NOTE | 2023-01-26 14:05 | PC.SOCIAL ---
SDOH CM to room to complete SDOH and patient layed in bed w/ eyes closed and refused to answer questions or open eyes.
[2023-01-26] MEDS: vancomycin 1,250 MG/250 ML PIGGYBACK 250 MG IV (14:40)
--- NOTE | 2023-01-26 15:24 | PC.NURSE ---
At 1522 patient's sitter told staff members that patient verbalized he was going to beat the shit out of her . Nurse, Orientee, and Charge Nurse responded immediately to find the patient up in the room. Patient was trying to pull out his IV. Nurse and Orientee spoke calmly to the patient explaining that pulling on his IV will result in bleeding and being hurt. Patient then reached up and ripped out his IV. Nurse(s) were present until the bleeding subsided.
--- NOTE | 2023-01-26 16:50 | PC.NURSE ---
Nurse called Andrea in Pharmacy to ask about STK medication with Zyprexa and sterile water. Andrea explained this is a system issue and will be addressed. STK medication and sterile water was documented as not given as instructed.
--- NOTE | 2023-01-26 17:35 | P.PN_ITS ---
Subjective Subjective: This morning reported bizarre behavior, getting up and walking on the hallway, triggering alarm trying to open the door to the back stairway. Initially seemed to be like he was sleepwalking per nursing report. Later in the afternoon noted pushing his nurse away when inquiring about his condition. Would not speak with me today. Did appear to be able to hear me, as when asked to if he can squeeze my hand gripped it forcefully. Later on additionally trying to walk out into the hallway. Vitals/I&O/Wt Last Vital Signs Temp 99.0 F 01/26/23 07:31 Pulse 79 01/26/23 07:31 Resp 16 01/26/23 07:31 BP 145/78 01/26/23 07:31 Pulse Ox 95 01/26/23 07:31 O2 Del Method Room Air 01/26/23 07:31 01/26/23 01/26/23 01/26/23 06:59 14:59 22:59 Intake Total 240 / 960 120 / 120 Balance 240 / 960 120 / 120 Physical Exam Const: GENERAL APPEARANCE: not cooperative HENMT: COMMON NORMALS: oropharynx normal Neck/C-Spine: COMMON NORMALS: no JVD Resp: COMMON NORMALS: normal respiratory effort and clear to auscultation bilaterally AUSCULTATION: clear to auscultation bilaterally Cardio: COMMON NORMALS: no JVD, regular rhythm, S1 normal heart sound present, S2 normal heart sound present and No murmurs present (Cardio) RHYTHM: regular rhythm HEART SOUNDS: S1 normal heart sound present and S2 normal heart sound present GI: COMMON NORMALS: Normal to inspection, nondistended, normoactive bowel sounds present, Soft to palpation and non-tender PALPATION: Yes Soft to palpation Extremity: COMMON NORMALS: no joint enlargement and no pedal edema Neuro: COMMON NORMALS: moves all extremities Skin: COMMON NORMALS: no rashes or lesions noted GENERAL SKIN EXAM: no rashes or lesions noted Data 01/26/23 05:36 01/26/23 05:36 Micro: Microbiology 01/26/23 13:22 Blood Culture - Preliminary Blood SPECIMEN COLLECTED 01/26/23 13:15 Blood Culture - Preliminary Blood SPECIMEN COLLECTED 01/22/23 14:31 Urine Culture - Final Urine,Clean Catch Staphylococcus epidermidis A&P Assessment and plan (1) Agitation: Further bizarre behavior today, again still unclear etiology, noted as if he was trying to sleep walk early this morning, walking out to the back hallway, trig gering alarm in the back stairway. Later in the afternoon pushing his nurse away during interview. Applying unnecessary force when asked to squeeze my hand. Later trying to walk out into the hallway again. Olanzapine changed to IM by psychiatry. Requested one-to-one sitter. Still question of possible metabolic encephalopathy, some question of possible UTI noted, Staph epidermidis in urine, but more than 100,000 CFU. Requesting vancomycin, blood culture. Noted mild leukocytosis 11.8, neutrophils, 8.01. Monocytosis 1.5. Hyponatremia otherwise he is resolving, sodium 132. No respiratory issues. Recent hospitalization for COVID-19, was on steroids at that time, not on any steroids since discharge. Afebrile. Renal parameters unremarkable. Abdomen pelvis CT without obstructive uropathy. 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 Chest x-ray noted without focal pneumonia. Follow-up CBC, chemistry. No discharge at current time, could still pose risk to self or others. (2) Hyponatremia: Now resolving, sodium up to 132. Continue urea. Continue regular diet. Avoid overly rapid rise. at risk of ODS with overly rapid rise. Recheck sodium level. Suspected SIADH. Urine sodium noted 56. On review of osmolality still pending. (3) Auditory hallucinations: Denied any hallucinations yesterday. (4) Hallucination, visual: Yesterday denied hallucinations. Plan Recent COVID-19: Symptoms have pretty much resolved. No issues with respiration. Saturating well on room air. No cough. A-fib with RVR: Continue Eliquis. Continue Amio. Has been doing well in terms of heart rates. Status post TAVR. BPH: Monitor for urine retention. Possible UTI as above. Lumbosacral radiculopathy: Fall precautions Peripheral neuropathy: Fall precautions Discussed with psychiatry. Attestations Medical Necessity Statement*: Continue admission for assessment management of possible encephalopathy, UTI, bizarre behavior, agitation, improving hyponatremia, after recent COVID-19. Diagnoses Agitation R45.1 Hyponatremia E87.1 Auditory hallucinations R44.0 Hallucination, visual R44.1
--- NOTE | 2023-01-26 19:05 | W.PM.NPUPNS ---
Subjective NPU Subjective: Patient presented today reporting that he was doing okay. However he appeared quite impaired likely from the medications that he had been given during the day finally being fully on board. He was in need of assistance to his bed and eventually did allow this property underwriter and the nurses to assist, onto his bed when he laid down and did not express any concerns or needs. Mental Status Exam MSE Comments: This is a well-nourished well-developed white male looking younger than his stated age with adequate dress and appropriate grooming and eye contact. No abnormal movements except for significant psychomotor retardation consistent with the IM medication starting to take effect. Mostly resistant to conversation and evaluation in mild distress. Speech was limited in spontaneity and limited in verbosity as well. Mood not described, affect subdued and starting to appear quite sleepy. Thought process linear and at times organized. Thought content: Patient did not report suicidal or homicidal ideation. There were no delusions reported but clear confusion existed at this time likely due to his current presentation with significant medication on board, he did not appear to be attending to internal stimuli. Attention, concentration and memory were all impaired but none were formally tested. He is alert and oriented times person. Insight, judgment and impulse control are all impaired. Vitals/I&O/Wt Last Vital Signs Temp 97.4 F L 01/27/23 04:00 Pulse 79 01/27/23 04:00 Resp 17 01/27/23 04:00 BP 126/67 01/27/23 04:00 Pulse Ox 94 01/27/23 04:00 O2 Del Method Room Air 01/27/23 04:00 01/26/23 01/26/23 01/27/23 14:59 22:59 06:59 Intake Total 120 / 120 250 / 370 55 / 425 Output Total 400 / 400 Balance 120 / 120 250 / 370 -345 / 25 Data NPU 01/27/23 04:30 01/27/23 04:30 Micro: Microbiology 01/26/23 13:22 Blood Culture - Preliminary Blood SPECIMEN COLLECTED 01/26/23 13:15 Blood Culture - Preliminary Blood SPECIMEN COLLECTED Microbiology 01/26/23 13:22 Blood Blood Culture - Preliminary SPECIMEN COLLECTED 01/26/23 13:15 Blood Blood Culture - Preliminary SPECIMEN COLLECTED A&P Assessment and plan (1) Hyponatremia: (2) Auditory hallucinations: (3) Hallucination, visual: (4) Agitation: (5) Urinary tract infection: Qualifiers: Hematuria presence: with hematuria Urinary tract infection type: acute cystitis Qualified Code(s): N30.01 - Acute cystitis with hematuria (6) Elevated troponin: (7) Atrial fibrillation with RVR: (8) COVID-19: (9) Altered mental status: Plan This is an 82-year-old white male with significant medical comorbidities with recent report of cardiac issues, recent hospitalization with COVID who returns after a very short stay after discharging a couple of days ago with erratic behavior and had noted sodium of 125 who presents likely delirious and resistant to treatment. 1. Continue current medication. 2. Patient is currently likely delirious secondary to recent medical challenges and current low sodium such that he is overrun by feelings of paranoia and feelings about his rights that are interfering with his thought process and he is unable to make informed consent. 3. Recommend treating with what ever processes are necessary to get an IV and fluids back into him as he does not have any appreciation of the risks of his condition or the benefits of any interventions including not acting. Patient's sodium has normalized but he continues to have significant altered mental status with erratic behaviors. We will continue to identify whether this is delirium or represents a more permanent process. 4. We will continue to follow 5. Had talk to staff about use of as needed IM Zyprexa earlier. And now we discussed utilizing Haldol Ativan and Benadryl as he continues to be hyperkinetic, out of bed and resistant to treatment posing additional danger to himself. Attestations NPU Medical Necessity Statement*: N/A. Please see primary team note for medical necessity but agree with continued hospitalization and treatment with the standard of care for his condition given his inability to make informed consent. Coding Level of Care Code Acute Code for [facility] Diagnoses Hyponatremia E87.1 Auditory hallucinations R44.0 Hallucination, visual R44.1 Agitation R45.1 Urinary tract infection N30.01 Hematuria presence: with hematuria Urinary tract infection type: acute cystitis Elevated troponin R77.8 Atrial fibrillation with RVR I48.91 COVID-19 U07.1 Altered mental status R41.82
[2023-01-26] MEDS: LORazepam 2 mg/mL INJ 1 mL 1 MG IM (19:20)
[2023-01-26] MEDS: diphenhydrAMINE 50 mg/mL SDV 1mL IM (19:20)
[2023-01-26] MEDS: haloperidol inj 5 mg/mL INJ 1 mL IM (19:21)
[2023-01-26 20:00] VITALS: BP 132/75; PULSE 89; RESP 17; TEMP 36.6; O2SAT 93
--- NOTE | 2023-01-26 22:14 | ECG_ITS ---
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 Measurements Intervals [place] Rate: 81 P: 20 HI: 183 QRS: 40 QRSD: 120 T: 15 QT: 395 QTc: 459 Interpretive Statements SINUS RHYTHM POSSIBLE INFERIOR MYOCARDIAL INFARCTION , PROBABLY OLD [30 ms Q WAVE IN II/aVF] Compared to ECG 01/22/2023 12:21:35 Myocardial infarct finding now present Electronically Signed On 01-27-2023 11:08:46 CDT by Lay Mathews M.D. [email or web address]
--- NOTE | 2023-01-26 22:14 | P.EN_ITS ---
Event Note Event Note: Patient has been repeatedly agitated this evening. I was called by nursing staff with him banging his head on the wall among other things. It was not forceful but repetitive. He has a red maame on his forehead. He did not get either doses of his Eliquis today. He is not on any other form of a nticoagulation. He had hit the wall with his hand earlier prior to this shift as I understand it. I reviewed medications that have been administered today. Since approximately 2 PM he has had 15 mg of Zyprexa, 5 mg of Haldol, 1 mg of Ativan 2 mg of Benadryl. Last EKG was done on the . At that time QTc was 468. He has a history of atrial fibrillation and is supposed to be on metoprolol and amiodarone but has refused at least the most recent doses of these medications. Current heart rate is in the 80s. Blood pressure 130s over 70s. Oxygen saturation on room air 93%. I had been called requesting additional sedating medication. Given his age, cardiac history and medications already administered today combined with the fact that his hallucinations and agitation appear to be acute related to COVID or other recent issues, I am not comfortable administering further antipsychotics due to risk of sudden cardiac /cardiac arrhythmia. I have discussed the case with pharmacy, ER physician, on-call neurology as I have explored options for additional therapy. I have reviewed attending physician and psychiatry notes. At this time I am going to administer Depacon 500 mg IV. His IV was lost earlier. He is currently in restraints for his safety due to behavior and has calm down to a degree that I think we will be able to place an IV. Nursing staff are trying now. We will also try to get an EKG to have a more recent QT interval available. Prior to him coming down enough that I think we will be able to get an IV in place I had begun arrangements to transfer him to the ICU. At this time I am staying on the floor to be immediately available to nursing staff and patient. A bed is available in the ICU should we need it but I will first see if we can get the Depacon on board and how he responds to that. At some point this evening after Depacon infusion is complete and if he remains calm, I will order a noncontrasted CT of the head given his use of Eliquis and banging his head on the wall. EKG has been done and current QTc is 459. Due to computer problems I am unable to view the EKG directly myself at this time though will seek a device where I might be able to accomplish this as soon as I have an opportunity. Event Notes Attestations Time Spent in Patient Care: 16 - 35 minutes I have spent 35 minutes in additional care for this patient this evening since coming on shift Other Coding Information Prolonged care (total time indicated above or notated here)
[2023-01-26] MEDS: valproic acid inj 500 MG in sodium chloride 0.9% 50 ML 55 MG IV (22:17)
--- NOTE | 2023-01-26 22:26 | W.PM.BREST ---
Face to Face: Restrn/Seclusion Events leading up to initiation: Demonstrating self-destructive behavior (cutting, hitting hoffman etc.) Evaluation of patient's immediate situation: No signs of physical distress (redness on forehead where he was banging it on wall) and Signs of psychological distress Patient reaction since intervention applied: Behaviors/threats have lessened, but still present Recent labs reviewed: Yes Review of medications: Yes Patient's current medical/behavioral condition: New concerns (describe) (received much medication last 7 hrs, still agitated, unclear reason, on anticoag, not getting usual cardiac medications as refuses, see event note for other details) Need for restraint or seclusion is: Continued Attending notified: Attending completed assessment
[2023-01-27] VITALS: BP 131/71; PULSE 74; RESP 16; TEMP 36.4; O2SAT 99
--- NOTE | 2023-01-27 00:05 | CTR_ITS ---
PROCEDURE INFORMATION: Exam: CT Head Without Contrast Exam date and time: 01/27/2023 12:56 AM Age: 82 years old Clinical indication: Injury or trauma; Fall; Blunt trauma (contusions or hematomas); Patient HX: Patient intentionally struck forehead against wall. On eliquis. ; Additional info: On eliquis, hitting head against wall TECHNIQUE: Imaging protocol: Computed tomography of the head without contrast. Radiation optimization: All CT scans at this facility use at least one of these dose optimization techniques: automated exposure control; mA and/or kV adjustment per patient size (includes targeted exams where dose is matched to clinical indication); or iterative reconstruction. REPORTING DATA: Count of CT and Cardiac NM exams in prior 12 months: This patient has received 2 known CTs and 0 known cardiac nuclear medicine studies in the 12 months prior to the current study. COMPARISON: CT head wo con* [id number] 01/22/2023 3:34 PM RADIATION DOSE METRICS: Total DLP (mGy-cm): 2211.38 FINDINGS: Brain: No focal hemorrhage or midline shift is identified. The ventricles and parenchyma show moderate atrophy and chronic bicerebral white matter ischemic change. Cerebral ventricles: No ventriculomegaly or evidence of hydrocephalus. Paranasal sinuses: Moderate areas of sinus mucosal thickening. Mastoid air cells: Visualized mastoid air cells are well aerated. Bones/joints: No displaced skull fracture is noted. Soft tissues: Unremarkable. Vasculature: Diffuse vascular calcifications are present. CT/CT head wo con* [id number] IMPRESSION: 1. No acute intracranial abnormality. 2. Moderate age-related changes. 3. Sinus disease.
[2023-01-27 04:00] VITALS: BP 126/67; PULSE 79; RESP 17; TEMP 36.3; O2SAT 94
[2023-01-27 05:23] LABS: Add Urine Microscopic? YES; Bilirubin Urine Neg (Negative); Blood Urine 2+ (Negative); Glucose Urine UA Norm (Normal); Ketones Urine 1+ (Negative); Leukocyte Esterase Urine Negative (Negative); Nitrate Urine Negative (Negative); Protein Urine Neg (Negative); RBC Urine 0-4 /hpf (0-2); Specific Gravity, Urine 1.015 (1.005-1.030); Squamous Epithelial Cell Urine 0-4 /hpf (0-5); Urine Appearance Clear (CLEAR); Urine Color Yellow (Yellow); Urobilinogen Urine Norm (Negative); pH Urine 6 (5-7)
[2023-01-27 05:24] LABS: Add Urine Culture? No; Bacteria Urine TRACE /hpf; Mucus Urine 3+ /hpf
[2023-01-27 05:37] LABS: Basophils % 0.2 %; Eosinophils # 0.1 10^3/uL (0.0-0.8); Eosinophils % 0.7 %; Hematocrit 36.2 % (42.0-52.0); Hemoglobin 12.1 g/dL (11.7-16.6); Lymphocytes # 1.6 10^3/uL (0.8-4.8); Lymphocytes % 14.5 %; Mean Corpuscular HGB Conc 33.4 g/dL (30.0-36.0); Mean Corpuscular Hemoglobin 28.8 pg (28.0-34.0); Mean Corpuscular Volume 86.2 fl (80-94); Mean Platelet Volume 9.2 fL (7.4-10.4); Monocytes # 1.1 10^3/uL (0.2-0.9); Monocytes % 10.2 %; Neutrophils # 7.93 10^3/uL (1.8-7.7); Neutrophils % 73.9 %; Nucleated Red Blood Cells % 0 %; Platelet Count 259 10^3/cmm (130-400); Red Cell Distribution Width 14.4 % (12.1-15.1); White Blood Count 10.7 10^3/uL (4.0-10.0)
[2023-01-27 05:48] LABS: Troponin T (5th) Once 18 ng/L (0-15)
[2023-01-27 05:55] LABS: Alanine Aminotransferase 23 U/L (0-41); Albumin Level 3.7 g/dL (3.5-5.2); Alkaline Phosphatase 65 U/L (40-130); Anion Gap 14.3 (5-19); Aspartate Amino Transferase 26 U/L (0-40); Blood Urea Nitrogen 22 mg/dL (8-23); Calcium 8.2 mg/dL (8.5-10.5); Carbon Dioxide 25 mmol/L (22-29); Chloride 97 mmol/L (98-107); Globulin 2.1 g/dL (1.3-4.6); Glucose 91 mg/dL (65-115); Osmolality Calculated 277 mOsm/kg (285-295); Potassium 4.3 mmol/L (3.5-5.1); Sodium 132 mmol/L (136-145); Total Bilirubin 0.8 mg/dL (0.15-1.2); Total Protein 5.8 g/dL (6.6-8.7)
[2023-01-27] MEDS: vancomycin 1,250 MG/250 ML PIGGYBACK 250 MG IV (06:43)
[2023-01-27 07:48] VITALS: BP 135/72; PULSE 71; RESP 18; TEMP 36.5; O2SAT 96
--- NOTE | 2023-01-27 07:49 | PC.NURSE ---
DURING SHIFT REPORT PATIENT WAS AGITATED AND BEGAN PUNCHING THE WALL. THE PATIENTS RIGHT KNUCKLE SPLIT OPEN. WHILE DRIPPING BLOOD ON THE [place] AND FLOOR THE PATIENT WAS GUIDED TO A CHAIR IN THE ROOM TO SIT DOWN WITH ASSISTANCE. THE PATIENT WAS TURNING TO SIT HE BEGAN FLINGING THE INJURED HAND IN THE DIRECTION OF STAFF TO SPLASH THEM. WHEN ASKED TO STOP THE PATIENT CONTINUED. THIS CLOCK MAKER ASKED THE PATIENT IF HE WOULD ALLOW ME TO BANDAGE HIS HAND AND THE PATIENT SHRUGGED. THIS CLOCK MAKER PLACED BANDAGE ON PATIENTS HAND AND VERBAL DEESCALATION WAS ATTEMPTED BY CLOCK MAKER WHILE DAY NURSE PULLED IV ATIVAN, HALDOL, AND BENADRYL. MEDICATION WAS ADMINISTERED TO THE PATIENT WHILE HE WAS IN CHAIR AND THEN ASSISTED TO THE BED WHERE HE WAS LEFT WITH PSA OBSERVING. WITHIN 5 MINUTES THE PATIENT WAS UP AGAIN AND STAFF HAD TO ENTER ROOM TO INTERVENE DUE TO AGGRESSIVE AND AGITATED BEHAVIOR. THIS CONTINUED SEVERAL TIMES OVER THE COURSE OF 30 MINUTES WITH MULTIPLE INTERCEPTIONS BY STAFF, REDIRECTION TO BED WITH ALARM ON, AND PATIENT LEAVING THE BED ONCE MORE. THE CALL LIGHT WENT OFF AGAIN AND STAFF WAS MET WITH PATIENT SHOVING A HIGH BACK CHAIR INTO THE PSA WHILE HEADING TO THE BEDROOM DOOR. HE CAME TOWARD ENTERING STAFF HE SIDE STEPPED WITH AN UNSTEADY GAIT TO THE RIGHT AND WAS CAUGHT BY CLOCK MAKER AT THE ELBOW. RETAIL OPERATIONS MANAGER TOOK PATIENT BY THE OTHER ARM AND TOGETHER PATIENT WAS STEADIED. WHILE STANDING STILL THE PATIENTS LEGS BEGAN TO WEAKEN AND BUCKLE. CLOCK MAKER AND STAFF LOWED THE PATIENT DOWN SLOWLY TO SITTING POSITION AGAINST WALL NEAR DOOR. A PILLOW WAS PLACED BEHIND THE PATIENTS HEAD FOR HIM TO LEAN BACK ON THE WALL AND TO PAD THE HEAD TO PREVENT ANY POTENTIAL SELF HARM ATTEMPTS. VERBAL COMMUNICATION AND DEESCALATION RESUMED ONCE MORE WITH PATIENT. ATTEMPTS AT REORIENTATION AND REDIRECTION WERE TRIED. PATIENT WAS HAVING VISUAL HALLUCINATIONS AND SAW BEES IN THE ROOM AND WANTED THEM REMOVED. CLOCK MAKER INFORMED PATIENT THAT I WOULD TAKE CARE OF THE BEES ONCE WE GOT HIM BACK INTO BED AND IF HE WAS CALMED DOWN WE COULD MOVE TO THE BED. PATIENT AGREED AND WITH STAFF ASSISTANCE WAS AMBULATED TO THE BED AND PLACED IN IT WITH SITTER MONITORING. SITTER WAS CHANGED OUT TO ONE OF THE FLOOR AIDES TO SEE IF PATIENT WOULD RESPOND BETTER TO A DIFFERENT PERSON. PATIENT CONTINUED TO GET OUT OF BED AND WAS TRYING TO TAKE THE TV AND CARE BOARDS OFF THE WALL, ROAMING THROUGH THE ROOM AND CIRCLING TOWARDS THE EXIT OF THE ROOM NUMEROUS TIME REQUIRING REDIRECTION BACK TOWARDS THE BED. PATIENT MADE VERBAL THREATS AND WOULD RAISE FISTS. DR OLIVER WAS CONTACTED TO SEE IF THERE WAS SOMETHING ELSE THAT COULD BE ADMINISTERED TO THE PATIENT TO HELP CALM HIM DOWN. WAS CONCERNED THAT WITH THE AMOUNT OF ANTIPSYCHOTICS PATIENT HAD ALREADY BEEN GIVEN IF ANY MORE WERE ADDED IT COULD POTENTIALLY BE FATAL AND INFORMED CLOCK MAKER THAT SHE WOULD REVIEW THE CHART AND CONTACT THE NURSE. UPON ONE OF THE CHECK INS WITH SITTER IT WAS REPORTED THAT THE PATIENT HAD JUST RAN AT THE WALL WITH HEAD LOWERED UNTIL CONTACT WAS MADE WITH FORCE TWICE. AT THIS POINT DR OLIVER WAS CONTACTED AGAIN AND INFORMED OF PATIENTS ATTEMPTS AT SELF HARM. ORDER WAS GIVEN FOR SOFT RESTRAINTS AND THEY WERE APPLIED. WHILE IN RESTRAINTS PATIENT FELL ASLEEP AND WHEN DR OLIVER WAS UPDATED SHE GAVE VERBAL ORDER TO MAINTAIN RESTRAINTS TO GAIN IV ACCESS AND ADMINISTER STAT INFUSION OF VALPROIC ACID TO AID IN IMPROVING BEHAVIORS. IV ACCESS WAS GAINED AND IV MEDICATION WAS INFUSED. AT 2320 WHILE PATIENT RESTED IN BED WITH EYES CLOSED AND EVEN RESPIRATIONS RESTRAINTS WERE REMOVED FROM PATIENT. SITTER WAS MAINTAINED THROUGH THE NIGHT. PATIENT WOKE UP ONCE AT 0330 DISORIENTATED. THIS CLOCK MAKER INFORMED HIM OF WHAT HAD HAPPENED AND THE EVENTS THAT HAD TRANSPIRED. PATIENT HAD NO RECOLLECTION OF THE FACTS RELAYED TO HIM. HE WAS INITIALLY IRRITATED WITH STAFF PRESENCE IN HIS ROOM UNTIL HE WAS INFORMED AT WHICH POINT HE MADE NO EYE CONTACT AND STARED OFF AT THE WALL. THIS CLOCK MAKER TOLD THE PATIENT THAT IF HE HAD ANY QUESTIONS HE NEEDED ANSWERED THAT I WOULD BE JUST OUTSIDE AND THE SITTER COULD PUSH THE LIGHT AND I WOULD COME AND EXPLAIN ANYTHING HE NEEDED. I ALSO TOLD HIM THAT I HAD CALLED HIS SON TO UPDATE HIM ON HIS CONDITION AND OUR INTERVENTIONS. THE PATIENT WENT BACK TO SLEEP AND REMAINED SO FOR THE DURATION OF THIS WRITERS SHIFT.
--- NOTE | 2023-01-27 11:15 | PC.SOCIAL ---
Addendum entered by Ml Menjivar RN 01/27/23 12:45: Correction IMM was updated w/ patients son over phone and offered to provide number if needed. Original Note: IMM Update pg 2 of IMM updated and reviewed w/ patient. Copy provided and Copy dated, initialed and placed in chart.
[2023-01-27 11:48] VITALS: BP 127/65; PULSE 69; RESP 16; TEMP 36.6; O2SAT 94
[2023-01-27] MEDS: psyllium powder Pkt 1 PACKET PO (12:34)
[2023-01-27] MEDS: apixaban 5 mg Tablet PO ×2 (12:34→17:59)
[2023-01-27] MEDS: urea 15 gm Powder PO (12:34)
[2023-01-27] MEDS: zinc gluconate 50 mg Tablet PO (12:34)
[2023-01-27] MEDS: ezetimibe 10 mg Tablet PO (12:34)
[2023-01-27] MEDS: metoprolol tartrate 50 mg Tablet PO ×2 (12:34→17:59)
[2023-01-27] MEDS: amiodarone 200 mg Tablet PO ×2 (12:35→17:59)
[2023-01-27] MEDS: aspirin 81 mg EC Tablet PO (12:35)
[2023-01-27] MEDS: magnesium lactate 84 mg Tablet PO ×2 (12:35→17:59)
--- NOTE | 2023-01-27 14:45 | P.PN_ITS ---
Subjective Subjective: Overnight events noted. Patient Guirgius, alert and cooperative currently. He is able to correctly tell me his name, date of , was able to finish 25% of his breakfast this morning. He notes that he is in [place] at [facility]. He has been calm with his sitter today. Medications: Reviewed: Yes Vitals/I&O/Wt Last Vital Signs Temp 97.9 F 01/27/23 11:48 Pulse 69 01/27/23 11:48 Resp 16 01/27/23 11:48 BP 127/65 01/27/23 11:48 Pulse Ox 94 01/27/23 11:48 O2 Del Method Room Air 01/27/23 11:48 01/26/23 01/27/23 01/27/23 22:59 06:59 14:59 Intake Total 250 / 370 55 / 425 430 / 430 Output Total 400 / 400 200 / 200 Balance 250 / 370 -345 / 25 230 / 230 Physical Exam Narrative: General: No acute distress, AO x3 HEENT: PERRLA, pupils bilaterally equal and reactive, pallors not present Chest: Normal vesicular breath sounds, no added sounds, equal good air entry bilaterally CVS: S1-S2 regular, no murmurs, no tachycardia, no gallops, no rubs Abdomen: Soft, nontender, no organomegaly, bowel sounds present Neuro: No focal deficits, no facial deformity, AO x3, power 5/5 in all limbs Data 01/27/23 04:30 01/27/23 04:30 Micro: Microbiology 01/26/23 13:22 Blood Culture - Preliminary Blood NEGATIVE TO DATE 01/26/23 13:15 Blood Culture - Preliminary Blood NEGATIVE TO DATE 01/22/23 12:21 Blood Culture - Final Blood NO GROWTH AFTER 5 DAYS 01/22/23 12:21 Blood Culture - Final Blood NO GROWTH AFTER 5 DAYS A&P Assessment and plan (1) Agitation: Overnight events noted. This morning patient is awake alert and oriented x3, he has been calm and cooperative and able to answer all questions. Additional history obtained from son is that patient drinks alcohol every day. He tells me that he drinks a bottle of wine every day. He has not had any withdrawal symptoms in the past. Hyponatremia is corrected to 132 today, unlikely to be a cause of his symptoms currently. We will add CIWA monitoring with as needed Ativan Additionally add thiamine. Recent hospitalization for COVID-19, was on steroids at that time, not on any steroids since discharge. Afebrile. Discontinue antibiotics no evidence of untreated infection currently Abdomen pelvis CT without obstructive uropathy. 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 Chest x-ray noted without focal pneumonia. If patient has recurrent episodes of agitation, plan to move to ICU with initiation of Precedex drip while optimizing his medications Continue Zyprexa 5 mg p.o. twice daily as needed. (2) Hyponatremia: Now resolving, sodium up to 132. Continue urea. Continue regular diet. Avoid overly rapid rise. at risk of ODS with overly rapid rise. Recheck sodium level. Suspected SIADH. Urine sodium noted 56. (3) Auditory hallucinations: Alert awake oriented this morning (4) Hallucination, visual: Yesterday denied hallucinations. Plan Recent COVID-19: Symptoms have pretty much resolved. No issues with respiration. Saturating well on room air. No cough. A-fib with RVR: Continue Eliquis. Continue Amio. Has been doing well in terms of heart rates. Status post TAVR. BPH: Monitor for urine retention. Possible UTI as above. Lumbosacral radiculopathy: Fall precautions Peripheral neuropathy: Fall precautions Attestations Medical Necessity Statement*: Closely monitor mental status today given her acute events of overnight. Add thiamine and CIWA scores. Coding Level of Care Code Acute Code for Chg Fwd Diagnoses Agitation R45.1 Hyponatremia E87.1 Auditory hallucinations R44.0 Hallucination, visual R44.1
[2023-01-27 15:38] VITALS: BP 114/71; PULSE 65; RESP 16; TEMP 36.6; O2SAT 97
--- NOTE | 2023-01-27 17:49 | P.NPUPN_ITS ---
Subjective NPU Subjective: Patient resting quietly with sitter at bedside. Not easily aroused so allows him to sleep. No reports of problematic behaviors through the day thus far. Eating activity where he gets hyperarousal may represent sundowning. Mental Status Exam MSE Comments: This is a well-nourished well-developed white male looking younger than his stated age with adequate dress and appropriate grooming and eye contact. No abnormal movements except for significant psychomotor retardation. Not easily arousabl so allowede to continue sleeping. Speech was absent. Mood not described, affect subdued and sleepy. Thought process not notable Thought content: Patient did not report suicidal or homicidal ideation. There were no delusions reported. Attention, concentration and memory were not observed. He was sleeping and not arousable. Vitals/I&O/Wt Last Vital Signs Temp 97.4 F L 01/27/23 04:00 Pulse 79 01/27/23 04:00 Resp 17 01/27/23 04:00 BP 126/67 01/27/23 04:00 Pulse Ox 94 01/27/23 04:00 O2 Del Method Room Air 01/27/23 04:00 01/26/23 01/26/23 01/27/23 14:59 22:59 06:59 Intake Total 120 / 120 250 / 370 55 / 425 Output Total 400 / 400 Balance 120 / 120 250 / 370 -345 / 25 Data NPU 01/28/23 04:42 01/27/23 04:30 Micro: Microbiology 01/26/23 13:22 Blood Culture - Preliminary Blood SPECIMEN COLLECTED 01/26/23 13:15 Blood Culture - Preliminary Blood SPECIMEN COLLECTED Microbiology 01/26/23 13:22 Blood Blood Culture - Preliminary SPECIMEN COLLECTED 01/26/23 13:15 Blood Blood Culture - Preliminary SPECIMEN COLLECTED A&P Assessment and plan (1) Hyponatremia: (2) Auditory hallucinations: (3) Hallucination, visual: (4) Agitation: (5) Urinary tract infection: Qualifiers: Hematuria presence: with hematuria Urinary tract infection type: acute cystitis Qualified Code(s): N30.01 - Acute cystitis with hematuria (6) Elevated troponin: (7) Atrial fibrillation with RVR: (8) COVID-19: (9) Altered mental status: Plan This is an 82-year-old white male with significant medical comorbidities with recent report of cardiac issues, recent hospitalization with COVID who returns after a very short stay after discharging a couple of days ago with erratic behavior and had noted sodium of 125 who presents likely delirious and resistant to treatment. 1. Continue current medication. 2. Patient is currently likely delirious secondary to recent medical challenges and current low sodium such that he is overrun by feelings of paranoia and feelings about his rights that are interfering with his thought process and he is unable to make informed consent. 3. Recommend treating with what ever processes are necessary to get an IV and fluids back into him as he does not have any appreciation of the risks of his condition or the benefits of any interventions including not acting. Patient's sodium has normalized but he continues to have significant altered mental status with erratic behaviors. We will continue to identify whether this is delirium or represents a more permanent process. 4. We will continue to follow 5. Had talk to staff about use of as needed IM Zyprexa earlier. And now we discussed utilizing Haldol Ativan and Benadryl as he continues to be hyperkinetic, out of bed and resistant to treatment posing additional danger to himself. 6. He had some events overnight but presents this afternoon quietly resting and demonstrating none of the behaviors from last night. Attestations NPU Medical Necessity Statement*: N/A. Please see primary team note for medical necessity but agree with continued hospitalization and treatment with the standard of care for his condition given his inability to make informed consent. Coding Level of Care Code Acute Code for [facility] Diagnoses Hyponatremia E87.1 Auditory hallucinations R44.0 Hallucination, visual R44.1 Agitation R45.1 Urinary tract infection N30.01 Hematuria presence: with hematuria Urinary tract infection type: acute cystitis Elevated troponin R77.8 Atrial fibrillation with RVR I48.91 COVID-19 U07.1 Altered mental status R41.82
[2023-01-27 20:00] VITALS: BP 158/81; PULSE 66; RESP 17; TEMP 36.9; O2SAT 96
[2023-01-28] VITALS: BP 185/83; PULSE 62; RESP 17; TEMP 36.9; O2SAT 96
[2023-01-28 01:50] VITALS: BP 156/76; PULSE 63; RESP 19; TEMP 37; O2SAT 97
[2023-01-28 04:41] VITALS: BP 172/75; PULSE 75; RESP 18; O2SAT 97
[2023-01-28 05:04] LABS: Basophils % 0.4 %; Eosinophils # 0.3 10^3/uL (0.0-0.8); Eosinophils % 2.8 %; Hematocrit 41.1 % (42.0-52.0); Hemoglobin 13.8 g/dL (11.7-16.6); Lymphocytes % 19.5 %; Mean Corpuscular HGB Conc 33.6 g/dL (30.0-36.0); Mean Corpuscular Hemoglobin 29.3 pg (28.0-34.0); Mean Corpuscular Volume 87.3 fl (80-94); Mean Platelet Volume 8.6 fL (7.4-10.4); Monocytes % 9.5 %; Neutrophils % 67.5 %; Nucleated Red Blood Cells % 0 %; Platelet Count 307 10^3/cmm (130-400); Red Blood Count 4.71 10^6/uL (4.1-5.3); Red Cell Distribution Width 14.1 % (12.1-15.1); White Blood Count 10.1 10^3/uL (4.0-10.0)
[2023-01-28 05:34] LABS: Alanine Aminotransferase 23 U/L (0-41); Albumin Level 3.9 g/dL (3.5-5.2); Alkaline Phosphatase 69 U/L (40-130); Anion Gap 13.7 (5-19); Aspartate Amino Transferase 27 U/L (0-40); Blood Urea Nitrogen 24 mg/dL (8-23); Calcium 8.9 mg/dL (8.5-10.5); Carbon Dioxide 26 mmol/L (22-29); Chloride 97 mmol/L (98-107); Globulin 2.9 g/dL (1.3-4.6); Glucose 99 mg/dL (65-115); Osmolality Calculated 280 mOsm/kg (285-295); Potassium 3.7 mmol/L (3.5-5.1); Sodium 133 mmol/L (136-145); Total Bilirubin 0.9 mg/dL (0.15-1.2); Total Protein 6.8 g/dL (6.6-8.7)
[2023-01-28 08:00] VITALS: BP 152/79; PULSE 59; RESP 16; O2SAT 94
[2023-01-28] MEDS: psyllium powder Pkt 1 PACKET PO (10:22)
[2023-01-28] MEDS: multivitamin therapeutic Tablet 1 TAB PO (10:23)
[2023-01-28] MEDS: aspirin 81 mg EC Tablet PO (10:23)
[2023-01-28] MEDS: amiodarone 200 mg Tablet PO (10:23)
[2023-01-28] MEDS: urea 15 gm Powder PO (10:23)
[2023-01-28] MEDS: folic acid 1 mg Tablet PO (10:24)
[2023-01-28] MEDS: magnesium lactate 84 mg Tablet PO (10:24)
[2023-01-28] MEDS: thiamine 100 mg Tablet PO (10:24)
[2023-01-28] MEDS: apixaban 5 mg Tablet PO (10:24)
[2023-01-28] MEDS: metoprolol tartrate 50 mg Tablet PO (10:24)
[2023-01-28 12:00] VITALS: BP 107/71; PULSE 80; RESP 16; TEMP 36.4; O2SAT 93
[2023-01-28 14:57] VITALS: BP 107/71; PULSE 80; RESP 16; TEMP 36.4; O2SAT 93
--- NOTE | 2023-01-28 18:26 | PM.DCS ---
Discharge Providers Date of Admission: 01/24/23 14:31 Date of Discharge: January 28, 2023 Attending Provider at Admission: Jhony Herrera Attending Provider at Discharge: Lisa Liang MD Primary Care Provider: Garry Gamble DO Diagnoses at Discharge Discharge Diagnosis (1) Hyponatremia: Status: Acute (2) Auditory hallucinations: Status: Acute (3) Hallucination, visual: Status: Acute (4) Agitation: Status: Acute (5) Urinary tract infection: Status: Acute Qualifiers: Hematuria presence: with hematuria Urinary tract infection type: acute cystitis Qualified Code(s): N30.01 - Acute cystitis with hematuria (6) Elevated troponin: Status: Acute (7) Atrial fibrillation with RVR: Status: Acute (8) COVID-19: Status: Acute (9) Altered mental status: Status: Acute Reason for Visit Reason for Visit: AMS Covid + Brief History: Patient was recently admitted to the hospital between January 19 to January 21, 2023 with COVID and A-fib which was appropriately treated. He returned to the hospital on January 23, 2023 with reported hallucinations and aggressive behavior towards family. He was noted to have hyponatremia with sodium of 125 which eventually improved during the course of hospitalization with treatment with urea tablets. Initially during the course of hospitalization he continued to exhibit agitation and aggressiveness. On the night of January 26, 2023 he got extremely agitated and was banging his head on the wall. He was aggressive towards a sitter at bedside. He had received Zyprexa Haldol Ativan and Benadryl without any significant change. Eventually needed to have Depakote infusion. The next day on January 27, 2023 after the above interventions patient remained calm and cooperative. He was alert awake and oriented x3 and remained so during the course of admission on January 27 and January 28. He answers all questions appropriately. Does not recall the events of this admission, however does remember being in the hospital recently with COVID. Possibilities for his acute altered mental status include hyponatremia, reported history of daily alcohol use at home with possibility of alcohol withdrawal currently, vitamin B1 deficiency due to chronic alcohol use and resulting [place] psychosis, though this appears to be less likely given quick improvement over the last 2 days of admission. Since he has been alert awake oriented for the past 2 days on this admission, his altered mental status appears to be resolved. Zyprexa has been added at 2.5 mg twice daily to his home regimen after discussion with psychiatry. He has recovered well with regards to his COVID. No noted hypoxia. He is ambulating well, complains only of minor fatigue. He is discharged home with his family today Physical Exam Narrative: General: No acute distress, AO x3 HEENT: PERRLA, pupils bilaterally equal and reactive, pallors not present Chest: Normal vesicular breath sounds, no added sounds, equal good air entry bilaterally CVS: S1-S2 regular, no murmurs, no tachycardia, no gallops, no rubs Abdomen: Soft, nontender, no organomegaly, bowel sounds present Neuro: No focal deficits, no facial deformity, AO x3, power 5/5 in all limbs Discharge Data Studies Completed and Pending Completed Studies During Hospitalization Category Date Time Status CT abdomen pelvis wo con [id number] Stat Cat Scan 01/22/23 15:[address] head wo con* [id number] Routine Cat Scan 01/27/23 00:[address] head wo con* [id number] Stat Cat Scan 01/22/23 15:13 Completed XR chest 1V portable [id number] Stat Exams 01/22/23 11:54 Completed Pending at discharge Category Date Time Status Blood Culture Stat Lab 01/26/23 13:22 Results Osmolality Urine Routine Lab 01/23/23 17:30 Received Radiology Impressions Abdomen/Pelvis CT 01/22/23 15:13 IMPRESSION: 1. No calcified urolithiasis, obstructive uropathy, or focal bladder abnormality. 2. 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 Head CT 01/27/23 00:05 IMPRESSION: 1. No acute intracranial abnormality. 2. Moderate age-related changes. 3. Sinus disease. Laboratory Results WBC 10.1 10^3/uL (4.0-10.0) H 01/28/23 04:42 RBC 4.71 10^6/uL (4.1-5.3) 01/28/23 04:42 Hgb 13.8 g/dL (11.7-16.6) 01/28/23 04:42 Hct 41.1 % (42.0-52.0) L 01/28/23 04:42 MCV 87.3 fl (80-94) 01/28/23 04:42 MCH 29.3 pg (28.0-34.0) 01/28/23 04:42 MCHC 33.6 g/dL (30.0-36.0) 01/28/23 04:42 RDW 14.1 % (12.1-15.1) 01/28/23 04:42 Plt Count 307 10^3/cmm (130-400) 01/28/23 04:42 MPV 8.6 fL (7.4-10.4) 01/28/23 04:42 Neut % (Auto) 67.5 % 01/28/23 04:42 Lymph % (Auto) 19.5 % 01/28/23 04:42 Wheeler % (Auto) 9.5 % 01/28/23 04:42 Eos % (Auto) 2.8 % 01/28/23 04:42 Baso % (Auto) 0.4 % 01/28/23 04:42 Neut # (Auto) 6.80 10^3/uL (1.8-7.7) 01/28/23 04:42 Lymph # (Auto) 2.0 10^3/uL (0.8-4.8) 01/28/23 04:42 Wheeler # (Auto) 1.0 10^3/uL (0.2-0.9) H 01/28/23 04:42 Eos # (Auto) 0.3 10^3/uL (0.0-0.8) 01/28/23 04:42 Baso # (Auto) 0.0 10^3/uL (0.0-0.1) 01/28/23 04:42 Nucleated RBC % (auto) 0 % 01/28/23 04:42 Nucleated RBCs # 0.0 /100WBC 01/28/23 04:42 Sodium 133 mmol/L (136-145) L 01/28/23 04:42 Potassium 3.7 mmol/L (3.5-5.1) 01/28/23 04:42 Chloride 97 mmol/L (98-107) L 01/28/23 04:42 Carbon Dioxide 26 mmol/L (22-29) 01/28/23 04:42 Anion Gap 13.7 (5-19) 01/28/23 04:42 BUN 24 mg/dL (8-23) H 01/28/23 04:42 Creatinine 0.6 mg/dL (0.7-1.2) L 01/28/23 04:42 GFR Calculation Not Reportable 01/28/23 04:42 Glucose 99 mg/dL (65-115) 01/28/23 04:42 Calculated Osmolality 280 mOsm/kg (285-295) L 01/28/23 04:42 Lactic Acid 1.1 mmol/L (0.5-2.2) 01/22/23 12:21 Calcium 8.9 mg/dL (8.5-10.5) 01/28/23 04:42 Magnesium 2.1 mg/dL (1.7-2.3) 01/22/23 12:21 Total Bilirubin 0.9 mg/dL (0.15-1.2) 01/28/23 04:42 AST 27 U/L (0-40) 01/28/23 04:42 ALT 23 U/L (0-41) 01/28/23 04:42 Alkaline Phosphatase 69 U/L (40-130) 01/28/23 04:42 Troponin T Gen 5 ng/L 18 ng/L (0-15) H 01/27/23 04:30 Total Protein 6.8 g/dL (6.6-8.7) 01/28/23 04:42 Albumin 3.9 g/dL (3.5-5.2) 01/28/23 04:42 Globulin 2.9 g/dL (1.3-4.6) 01/28/23 04:42 Vitamin B12 995 pg/mL (232-1245) 01/22/23 12:21 Procalcitonin 0.06 ng/mL (0-0.5) 01/22/23 12:21 TSH 1.83 uIU/mL (0.27-4.20) 01/22/23 12:21 Urine Color Yellow (Yellow) 01/27/23 03:48 Urine Appearance Clear (CLEAR) 01/27/23 03:48 Urine pH 6 (5-7) 01/27/23 03:48 Ur Specific [place] 1.015 (1.005-1.030) 01/27/23 03:48 Urine Protein Neg (Negative) 01/27/23 03:48 Urine Glucose (UA) Norm (Normal) 01/27/23 03:48 Urine Ketones 1+ (Negative) H 01/27/23 03:48 Urine Blood 2+ (Negative) H 01/27/23 03:48 Urine Nitrate Negative (Negative) 01/27/23 03:48 Urine Bilirubin Neg (Negative) 01/27/23 03:48 Urine Urobilinogen Norm mg/dL (Negative) 01/27/23 03:48 Ur Leukocyte Esterase Negative (Negative) 01/27/23 03:48 Urine RBC 0-4 /hpf (0-2) H 01/27/23 03:48 Urine WBC 5-10 /hpf (0-5) H 01/27/23 03:48 Ur Squamous Epith Cells 0-4 /hpf (0-5) H 01/27/23 03:48 Amorphous Sediment Not Reportable 01/27/23 03:48 Urine Bacteria Trace /hpf (NONE) 01/27/23 03:48 Urine Mucus 3+ /hpf 01/27/23 03:48 Ur Random Sodium 56 mmol/L 01/23/23 17:30 Vitals Last Vital Signs Temp 97.5 F L 01/28/23 14:57 Pulse 80 01/28/23 14:57 Resp 16 01/28/23 14:57 BP 107/71 01/28/23 14:57 Pulse Ox 93 01/28/23 14:57 O2 Del Method Room Air 01/28/23 04:41 Discharge Plan Discharge Patient Disposition: Home Condition: Stable Prescriptions: New olanzapine 5 mg Tablet,Disintegrating 2.5 mg PO BID 15 Days Qty: 15 0RF Vitamin B-1 (mononitrate) 100 mg Tablet 100 mg PO DAILY 30 Days Qty: 30 0RF Continued [id number] 500 mcg-250 mcg-50 mg-50 mg capsule 1 cap PO DAILY@0700 Men 50 Plus Multivitamin 300-600-300 mcg tablet 1 tab PO DAILY@0700 cholecalciferol (vitamin D3) 50 mcg (2,000 unit) capsule 50 mcg PO DAILY@0700 potassium gluconate 595 mg (99 mg) tablet 595 mg PO DAILY@0700 glucosamine-chondroitin 900 mg tablet 900 mg PO DAILY@07 (DME) Custom Molded Orthotics See Rx Instructions .Route .MEDSUPPLY Qty: 1 0RF Rx Instructions: As directed Alpha and [place] aspirin [Adult Low Dose Aspirin] 81 mg tablet,delayed release (DR/EC) 81 mg PO DAILY ezetimibe [Zetia] 10 mg tablet 10 mg PO DAILY@07 Qty: 90 3RF magnesium L-lactate [Magtab] 84 mg tablet extended release 84 mg PO BID Qty: 180 3RF atorvastatin 20 mg tablet 20 mg PO QPM metoprolol tartrate 50 mg tablet 50 mg PO BID amiodarone [Pacerone] 200 mg Tablet See Rx Instructions .ROUTE .COMPLEX 90 Days Qty: 360 0RF Rx Instructions: Milligram twice daily for 6 days, then switch to 200 mg twice daily Probiotic 5 billion cell Capsule, Sprinkle 1 cap PO DAILY Metamucil 3.4 gram/5.4 gram Powder 1 - 2 tsp PO DAILY@07 Eliquis 5 mg tablet 5 mg PO BID 90 Days Qty: 180 0RF Discontinued zinc acetate 50 mg (zinc) Capsule 50 mg PO DAILY Discharge Orders: Discharge Order (Routine); Ordered 01/28/23 Ordered By: Lisa Liang Referrals: Garry Gamble DO [Primary Care Provider] - 02/04/23 9:40 am () Discharge Diet: Usual diet Patient Instructions: Hyponatremia (ED), Benzodiazepine Use Disorder (ED), Dementia (ED), Non-diabetic Hypoglycemia (ED), Hypoglycemia in a Person with Diabetes (ED), Concussion (ED), Alcohol Intoxication (ED), Subarachnoid Hemorrhage (GEN), Altered Mental Status (ED), Opioid Safety Discharge Attestations Time Spent in Discharge Care*: greater than 30 min Quality Metrics Clinical Quality Measures [ No reported AMI, CVA or VTE this stay] Coding Level of Care Code Acute Code for Chg Fwd Diagnoses Hyponatremia E87.1 Auditory hallucinations R44.0 Hallucination, visual R44.1 Agitation R45.1 Urinary tract infection N30.01 Hematuria presence: with hematuria Urinary tract infection type: acute cystitis Elevated troponin R77.8 Atrial fibrillation with RVR I48.91 COVID-19 U07.1 Altered mental status R41.82
[2023-01-29 16:15] LABS: Osmolality Urine 602 mOsm/kg (50-1200)
== END 2023-01-28 14:59 | disposition home or self-care (01) | DRG 640 ==
LOC: ER 01-23 08:05 → MEDSURG 01-23 11:10
PROVIDERS: Emergency Medicine; Hospitalist; Admitting Provider Internal Medicine; Emergency Provider Emergency Medicine; PCP Family Medicine; Visit Provider Student in an Organized Health Care Education/Training Program
DX: E87.1 Hypo-osmolality and hyponatremia (principal); G93.41 Metabolic encephalopathy; U07.1 COVID-19; R44.0 Auditory hallucinations; N30.01 Acute cystitis with hematuria; I48.91 Unspecified atrial fibrillation; R45.1 Restlessness and agitation; F10.10 Alcohol abuse, uncomplicated; Z79.82 Long term (current) use of aspirin; Z79.01 Long term (current) use of anticoagulants; N40.1 Benign prostatic hyperplasia with lower urinary tract symptoms; R33.8 Other retention of urine; R39.14 Feeling of incomplete bladder emptying; Z90.79 Acquired absence of other genital organ(s); M54.16 Radiculopathy, lumbar region; G62.9 Polyneuropathy, unspecified; Z87.891 Personal history of nicotine dependence; R77.8 Other specified abnormalities of plasma proteins; Z95.2 Presence of prosthetic heart valve
CPT/HCPCS: 36415; 70450; 71045; 74176; 80048; 80053; 81001; 82607; 83605; 83735; 83935; 84145; 84295; 84300; 84443; 84484; 85025; 87040; 87077; 87086; 87186; 93005; 96365; 96372; 96375; 99285; G0378; J0696; J1200; J1630; J2060; J3370; J3411; J3490; J7030

== ENCOUNTER → 2023-02-20 13:08 | Outpatient (BNVA) | payer MEDICARE, SELFPAY | PROVIDERS: PCP Family Medicine; Visit Provider Family Medicine | DX: E87.1 Hypo-osmolality and hyponatremia (principal) | CPT/HCPCS: 80048 ==

== ENCOUNTER → 2023-03-05 08:29 | Outpatient (BNVA) | payer MEDICARE, SELFPAY | PROVIDERS: PCP Family Medicine; Visit Provider Podiatrist Foot & Ankle Surgery | DX: L60.8 Other nail disorders (principal); L60.3 Nail dystrophy; I73.9 Peripheral vascular disease, unspecified; G62.9 Polyneuropathy, unspecified | CPT/HCPCS: 11721 ==

== ENCOUNTER → 2023-05-21 12:00 | Outpatient (BNVA) | payer MEDICARE, SELFPAY | PROVIDERS: PCP Family Medicine; Visit Provider Family Medicine | DX: R82.90 Unspecified abnormal findings in urine (principal) | CPT/HCPCS: 81000 ==

== ENCOUNTER → 2023-06-04 08:22 | Outpatient (BNVA) | payer MEDICARE, SELFPAY | PROVIDERS: PCP Family Medicine; Visit Provider Podiatrist Foot & Ankle Surgery | DX: M79.671 Pain in right foot (principal); M79.672 Pain in left foot; L60.3 Nail dystrophy; I73.9 Peripheral vascular disease, unspecified; G62.9 Polyneuropathy, unspecified | CPT/HCPCS: 11721 ==

== ENCOUNTER → 2023-06-11 09:46 | Outpatient (BNVA) | payer MEDICARE, SELFPAY | PROVIDERS: PCP Family Medicine; Visit Provider Internal Medicine Cardiovascular Disease | DX: Z95.2 Presence of prosthetic heart valve (principal); E78.5 Hyperlipidemia, unspecified; I48.0 Paroxysmal atrial fibrillation; I25.10 Atherosclerotic heart disease of native coronary artery without angina pectoris; I10 Essential (primary) hypertension; I77.9 Disorder of arteries and arterioles, unspecified; Z87.891 Personal history of nicotine dependence; Z79.01 Long term (current) use of anticoagulants | CPT/HCPCS: 99214 ==

== ENCOUNTER 2023-06-17 08:39 | Outpatient (CLI) | payer MEDICARE, SELFPAY ==
[2023-06-17 09:13] LABS: Alanine Aminotransferase 22 U/L (0-41); Albumin Level 4.6 g/dL (3.5-5.2); Alkaline Phosphatase 73 U/L (40-130); Aspartate Amino Transferase 24 U/L (0-40); Chol HDL Ratio 2.87 mg/dL (1.0-5.00); Cholesterol 158 mg/dL (0-200); HDL Cholesterol 55 mg/dL (60-100); LDL Cholesterol Calculated 91 mg/dL (50-129); LDL HDL Ratio 1.65 RATIO (0.00-3.22); Total Bilirubin 0.8 mg/dL (0.15-1.2); Total Protein 7.6 g/dL (6.6-8.7); Triglycerides 59 mg/dL (0-150)
== END 2023-06-17 08:40 | disposition home or self-care (01) ==
LOC: LAB 08:41
PROVIDERS: PCP Family Medicine; Visit Provider Internal Medicine Cardiovascular Disease
DX: E78.5 Hyperlipidemia, unspecified (principal)
CPT/HCPCS: 36415; 80061; 80076

== ENCOUNTER → 2023-07-15 08:31 | Outpatient (BNVA) | payer MEDICARE, SELFPAY | PROVIDERS: PCP Family Medicine; Visit Provider Otolaryngology | DX: R05.8 Other specified cough (principal); J34.89 Other specified disorders of nose and nasal sinuses | CPT/HCPCS: 99203; 99205 ==

== ENCOUNTER → 2023-08-19 08:26 | Outpatient (BNVA) | payer MEDICARE, SELFPAY | PROVIDERS: PCP Family Medicine; Visit Provider Podiatrist Foot & Ankle Surgery | DX: L60.3 Nail dystrophy; I73.9 Peripheral vascular disease, unspecified; G62.9 Polyneuropathy, unspecified | CPT/HCPCS: 11721 ==

== ENCOUNTER 2023-11-02 11:25 | Emergency (ER) | payer MEDICARE, SELFPAY ==
[2023-11-02 11:57] VITALS: TEMP 36.9
--- NOTE | 2023-11-02 12:24 | XRR_ITS ---
PROCEDURE INFORMATION: Exam: XR Left Foot Exam date and time: 11/02/2023 12:32 PM Age: 83 years old Clinical indication: Pain; Foot; Left; Additional info: L mid foot pain and swelling TECHNIQUE: Imaging protocol: Radiologic exam of the left foot. Views: 3 or more views. COMPARISON: CR XR ankle LT min 3V* [id number] 11/02/2023 12:32 PM FINDINGS: Bones/joints: Diffuse bony demineralization without acute fracture or dislocation. Mild degenerative change at the 1st MTP and TMT joints. Soft tissues: Mild lateral ankle soft tissue swelling. Vasculature: Peripheral arterial calcifications. XR/XR foot LT min 3V* [id number] IMPRESSION: No acute fracture or dislocation.
--- NOTE | 2023-11-02 12:24 | XRR_ITS ---
PROCEDURE INFORMATION: Exam: XR Left Ankle Exam date and time: 11/02/2023 12:32 PM Age: 83 years old Clinical indication: Pain; Ankle; Left; Additional info: L ankle pain and swelling TECHNIQUE: Imaging protocol: Radiologic exam of the left ankle. Views: 3 or more views. COMPARISON: CR (LOW EXM, ) 11/02/2023 12:32 PM FINDINGS: Bones/joints: No acute fracture or dislocation. Joint spacing and alignment are maintained. Soft tissues: Lateral ankle soft tissue swelling. Vasculature: Peripheral arterial calcifications. XR/XR ankle LT min 3V* [id number] IMPRESSION: Lateral ankle soft tissue swelling without acute fracture or dislocation.
--- NOTE | 2023-11-02 12:29 | W.ED.EXTPRO ---
HPI - Extremity Problem General: Chief complaint: Extremity Injury, Lower Stated complaint: LT knee pain (multiple falls) Time Seen by Provider: 11/02/23 11:31 Source: patient and family Mode of arrival: ambulatory (with crutches from home) Limitations: no limitations History of Present Illness: Fall couple days ago and helping around due to knee pain started having left foot pain. Reports left ankle swelling has been since the initial fall but left ankle does not have much pain. Just in the left midfoot. 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 Incomplete bladder emptying History of elevated PSA Peripheral neuropathy axonal sensorimotor polyneuropathy Surgical History S/P TAVR (transcatheter aortic valve replacement) History of bilateral inguinal hernia repair History of nasal surgery History of ankle surgery History of appendectomy Status post transurethral resection of prostate Family History Mother Cancer Denies family history of Diabetes CAD (coronary artery disease) Clotting disorder Dementia Chronic kidney disease (CKD) Suicide Anesthesia complication Bleeding disorder Lung disease Hypertension Stroke Social History Smoking and tobacco/nicotine status: former use of tobacco/nicotine Quit status (tobacco/nicotine): has quit using Year quit tobacco: 1982 Alcohol intake: current Alcohol intake frequency: 0-2 Drinks per Day Alcohol type: wine Substance/Drug Use: never Adopted: No Household members: spouse Marital status: Current occupational status: retired Physical Exam Const: COMMON NORMALS: no acute distress, average body habitus, patient oriented x3, healthy appearing, alert and well nourished GENERAL APPEARANCE: well kempt and well developed HENMT: COMMON NORMALS: normocephalic, atraumatic and external ears normal HEAD & SCALP: normocephalic and atraumatic EXTERNAL EAR: Yes external ears normal Eye: COMMON NORMALS: EOMs intact bilaterally and conjunctivae normal CONJUNCTIVA: Yes conjunctivae normal Neck/C-Spine: COMMON NORMALS: full ROM Chest: CHEST: Yes Symmetrical chest wall rise Resp: COMMON NORMALS: normal respiratory effort, No retractions and No use of accessory muscles Cardio: COMMON NORMALS: regular rate and regular rhythm RATE: regular rate RHYTHM: regular rhythm PERIPHERAL PULSES: other (Radial pulses 2+ and symmetric) Extremity: COMMON NORMALS: capillary refill normal and no clubbing, cyanosis or edema GENERAL: Yes weight-bearing difficulty (LLE) EXTREMITY IMAGE (FRONT): 1. point tenderness, no edema, no laxity, no pain with varus or valgus stress. neg drawer test 2. edema with mild redness, non-tender 3. erythema, tender, mild calor. DP pulses intact. Neuro: COMMON NORMALS: patient oriented x3 SENSORIUM/ORIENTATION: Yes alert Psych: APPEARANCE: Yes well kempt Skin: COMMON NORMALS: no rashes or lesions noted, no wounds, turgor normal and no jaundice GENERAL SKIN EXAM: no rashes or lesions noted and turgor normal Course Vital Signs: Vital signs: Vital Signs Temperature 98.4 F 11/02/23 11:57 Pulse Rate 87 11/02/23 12:32 Pulse Oximetry 96 11/02/23 12:32 Oxygen Delivery Me thod Room Air 11/02/23 12:32 MDM - Extremity (Nontraumatic) Medical Decision Making Differential to include sprain fracture gout. The left knee has some point tenderness probably a mild irritation of the MCL but no pain with valgus or varus stress. The left ankle has some swelling laterally but nontender. The left foot has mild calor and tenderness. X-rays have been performed and are negative for fracture. Suspect gout versus midfoot sprain. Differential Diagnosis Likely gout; Unlikely cellulitis, superficial thrombophlebitis, deep venous thrombosis of upper extremity, lower extremity edema or deep vein thrombosis of lower extremity Lab Data Radiology Impressions Ankle X-Ray 11/02/23 12:24 IMPRESSION: Lateral ankle soft tissue swelling without acute fracture or dislocation. Foot X-Ray 11/02/23 12:24 IMPRESSION: No acute fracture or dislocation. All radiology interpretation(s) finalized by discharge Discharge Plan Discharge Patient Disposition: Home Clinical Impression: Sprain of foot, left Qualifiers: Encounter type: initial encounter Qualified Code(s): S93.602A - Unspecified sprain of left foot, initial encounter Condition: Stable Prescriptions: New indomethacin 50 mg capsule 50 mg PO TID 5 Days Qty: 15 0RF Rx Instructions: administer with food or milk No Action Men 50 Plus Multivitamin 300-600-300 mcg tablet 1 tab PO DAILY@0700 potassium gluconate 595 mg (99 mg) tablet 595 mg PO DAILY@0700 (DME) Custom Molded Orthotics See Rx Instructions .Route .MEDSUPPLY Qty: 1 0RF Rx Instructions: As directed [place] [facility] [place] promethazine-DM 6.25-15 mg/5 mL syrup 10 ml PO Q6H PRN (Reason: cough/congestion) Qty: 200 2RF thiamine HCl (vitamin B1) 100 mg tablet PO melatonin 10 mg capsule 10 mg PO DAILY aspirin [Adult Low Dose Aspirin] 81 mg tablet,delayed release (DR/EC) 81 mg PO DAILY metoprolol tartrate 50 mg tablet 50 mg PO BID Qty: 180 3RF Eliquis 5 mg tablet 5 mg PO BID 90 Days Qty: 180 0RF atorvastatin 40 mg tablet 40 mg PO DAILY Qty: 90 3RF ezetimibe [Zetia] 10 mg tablet 10 mg PO DAILY@07 Qty: 90 3RF magnesium L-lactate [Magtab] 84 mg tablet extended release 84 mg PO BID Qty: 180 3RF Metamucil 3.4 gram/5.4 gram Powder 1 - 2 tsp PO DAILY@07 Discharge Orders: Discharge ED (Routine); Ordered 11/02/23 Ordered By: Nathan Manning Referrals: Garry Gamble DO [Primary Care Provider] - Discharge Diet: Usual diet Discharge Activity: Use walker/crutches as instructed Patient Instructions: Crutch Instructions (ED), Foot Sprain (ED) Activity Restrictions/Additional Instructions: Follow-up with primary care in 1 week. Coding Level of Care Code ED [employer] Matcher for Justa Rodriguez
[2023-11-02 12:32] VITALS: PULSE 87; O2SAT 96
[2023-11-02] MEDS: colchicine 0.6 mg Tablet 1.19999999999999996 MG PO (13:55)
[2023-11-02 14:41] VITALS: PULSE 86; O2SAT 92
== END 2023-11-02 14:43 | disposition home or self-care (01) ==
PROVIDERS: Emergency Provider Emergency Medicine; PCP Family Medicine
DX: S93.602A Unspecified sprain of left foot, initial encounter (principal); Z79.82 Long term (current) use of aspirin; Z79.01 Long term (current) use of anticoagulants; Z87.891 Personal history of nicotine dependence; W19.XXXA Unspecified fall, initial encounter
CPT/HCPCS: 73610; 73630; 99284

== ENCOUNTER → 2023-11-10 14:07 | Outpatient (BNVA) | payer MEDICARE, SELFPAY | PROVIDERS: PCP Family Medicine; Visit Provider Internal Medicine Cardiovascular Disease | DX: I25.10 Atherosclerotic heart disease of native coronary artery without angina pectoris (principal); Z95.2 Presence of prosthetic heart valve; I48.91 Unspecified atrial fibrillation; E78.5 Hyperlipidemia, unspecified; I77.9 Disorder of arteries and arterioles, unspecified; Z87.891 Personal history of nicotine dependence | CPT/HCPCS: 99214 ==

== ENCOUNTER → 2023-11-25 08:42 | Outpatient (BNVA) | payer MEDICARE, SELFPAY | PROVIDERS: PCP Family Medicine; Visit Provider Podiatrist Foot & Ankle Surgery | DX: L60.3 Nail dystrophy (principal); I73.9 Peripheral vascular disease, unspecified; G62.9 Polyneuropathy, unspecified | CPT/HCPCS: 11721 ==

== ENCOUNTER 2024-01-29 09:49 | Outpatient (CLI) | payer MEDICARE, SELFPAY ==
--- NOTE | 2024-01-29 10:07 | CT_ITS ---
WS: [id number] CT PARANASAL SINUSES HISTORY: CHRONIC SINUSITIS TECHNIQUE: Contiguous 2.0 mm axial images obtained through the sinuses. Images are reconstructed in sagittal and coronal planes. All CT scans at [facility] use at least one of these dose optimi zation techniques: automated exposure control; mA and/or kV adjustment per patient size (includes tar geted exams where dose is matched to clinical indication); or iterative reconstruction. DLP: 359.48 mGy.cm COMPARISON: None available. Frontal sinuses: Well-aerated frontal sinuses. Sphenoid sinus: Mild frothy secretions in the anterior sphenoid sinuses. No air-fluid levels. Slight mucoperiosteal thickening in the anterior LEFT sphenoid. Ethmoid sinuses: Bilateral moderate ethmoid air cell disease. There is mucoperiosteal thickening pred ominantly within the mid to posterior ethmoid air cells. Maxillary sinus: Very minimal mucoperiosteal thickening. No air-fluid levels. Ostiomeatal unit: Ostiomeatal units are both patent. Mild conchal bullosa LEFT middle turbinate. Very slight S-shaped curvature nasal septum without spurr ing. The visualized orbits and globes are normal. CT/CT sinus wo con* [id number] IMPRESSION: 1. No air-fluid levels or acute sinusitis. 2. Mild mucoperiosteal thickening in the sphenoid, ethmoid and maxillary sinus es. Most significant disease in the ethmoid air cells. 3. No obstruction of the ostiomeatal units.
== END 2024-01-29 09:50 | disposition home or self-care (01) ==
PROVIDERS: PCP Electrodiagnostic Medicine; Visit Provider Electrodiagnostic Medicine
DX: J32.9 Chronic sinusitis, unspecified (principal); J34.89 Other specified disorders of nose and nasal sinuses
CPT/HCPCS: 70486

== ENCOUNTER 2024-02-08 06:21 | Emergency (ER) | payer MEDICARE, SELFPAY ==
[2024-02-08] VITALS (25 sets, daily range): BP systolic 125–181; BP diastolic 77–115; PULSE 78–132; RESP 14–26; TEMP 36.6; O2SAT 84–97; BMI 26.4
--- NOTE | 2024-02-08 06:26 | ECG_ITS ---
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 Measurements Intervals [place] Rate: 97 P: 46 MO: 177 QRS: 58 QRSD: 113 T: 38 QT: 350 QTc: 447 Interpretive Statements SINUS RHYTHM WITH FREQUENT VENTRICULAR PREMATURE COMPLEXES MODERATE INTRAVENTRICULAR CONDUCTION DELAY [110+ ms QRS DURATION] Compared to ECG 01/26/2023 22:14:57 Ventricular premature complex(es) now present Intraventricular conduction delay now present Myocardial infarct finding no longer present Electronically Signed On 02-08-2024 14:28:43 CDT by Wenceslao Medina M.D. [id number]
--- NOTE | 2024-02-08 06:26 | XRR_ITS ---
PROCEDURE INFORMATION: Exam: XR Chest Exam date and time: 02/08/2024 6:34 AM Age: 83 years old Clinical indication: Cough and dyspnea; Additional info: AMS TECHNIQUE: Imaging protocol: Radiologic exam of the chest. Views: 1 view. COMPARISON: CR XR chest 2V* [id number] 01/21/2024 4:35 PM FINDINGS: Lungs: Unremarkable. No consolidation. Pleural spaces: Unremarkable. No pleural effusion. No pneumothorax. Heart/Mediastinum: The patient is post trans aortic valve replacement. Bones/joints: Degenerative changes are noted in the bones. XR/XR chest 1V portable [id number] IMPRESSION: No acute cardiopulmonary disease.
--- NOTE | 2024-02-08 06:26 | CTR_ITS ---
PROCEDURE INFORMATION: Exam: CT Head Without Contrast Exam date and time: 02/08/2024 6:41 AM Age: 83 years old Clinical indication: Altered mental status/memory loss; Additional info: AMS TECHNIQUE: Imaging protocol: Computed tomography of the head without contrast. Radiation optimization: All CT scans at this facility use at least one of these dose optimization techniques: automated exposure control; mA and/or kV adjustment per patient size (includes targeted exams where dose is matched to clinical indication); or iterative reconstruction. COMPARISON: CT head wo con* [id number] 01/27/2023 12:56 AM RADIATION DOSE METRICS: Total DLP (mGy-cm): 1080.75 FINDINGS: Brain: Normal. No hemorrhage. Unremarkable white matter. No mass effect. Cerebral ventricles: No ventriculomegaly. Paranasal sinuses: Visualized sinuses are unremarkable. No fluid levels. Mastoid air cells: Visualized mastoid air cells are well aerated. Orbital cavities: The patient is post bilateral cataract surgery. Bones: Unremarkable. No acute fracture. Soft tissues: Unremarkable. CT/CT head wo con* [id number] IMPRESSION: No acute intracranial process.
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
[2024-02-08 06:48] LABS: Basophils # 0.1 10^3/uL (0.0-0.1); Basophils % 0.7 %; Eosinophils # 0.1 10^3/uL (0.0-0.8); Eosinophils % 0.8 %; Hematocrit 41.1 % (37-53); Lymphocytes # 1.9 10^3/uL (0.8-4.8); Lymphocytes % 14.2 %; Mean Corpuscular HGB Conc 33.3 g/dL (30-55); Mean Corpuscular Hemoglobin 29.3 pg (27-33); Mean Platelet Volume 8.9 fL (7.4-10.4); Monocytes # 1.6 10^3/uL (0.2-0.9); Monocytes % 11.9 %; Neutrophils # 9.76 10^3/uL (1.8-7.7); Nucleated Red Blood Cells % 0 %; Platelet Count 255 10^3/cmm (157-399); Red Blood Count 4.67 10^6/uL (3.85-5.65); Red Cell Distribution Width 14.7 % (12.1-15.1); White Blood Count 13.56 10^3/uL (3.29-11.43)
[2024-02-08] MEDS: sodium chloride 0.9% 1,000 ML 999 ML IV (06:54)
[2024-02-08 07:07] LABS: Troponin(5th) Baseline 17 ng/L (0-15)
[2024-02-08 07:09] LABS: INR 1.07 (0.8-1.2)
[2024-02-08 07:14] LABS: Glucose Point of Care 114 mg/dL (70-110)
[2024-02-08 07:15] LABS: Ammonia 25 umol/L (16-60)
[2024-02-08 07:45] LABS: Alanine Aminotransferase 20 U/L (0-41); Alkaline Phosphatase 65 U/L (40-130); Anion Gap 17.9 (5-19); Aspartate Amino Transferase 37 U/L (0-40); Blood Urea Nitrogen 17 mg/dL (8-23); Calcium 8.7 mg/dL (8.5-10.5); Carbon Dioxide 19 mmol/L (22-29); Chloride 101 mmol/L (98-107); Creatinine Clr Calc Pharmacy 86.2744; Globulin 2.7 g/dL (1.3-4.6); Glucose 114 mg/dL (65-115); Osmolality Calculated 280 mOsm/kg (285-295); Potassium 3.9 mmol/L (3.5-5.1); Sodium 134 mmol/L (136-145); Thyroid Stimulating Hormone 1.74 uIU/mL (0.27-4.20); Total Bilirubin 0.9 mg/dL (0.15-1.2); Total Protein 6.7 g/dL (6.6-8.7)
[2024-02-08 07:51] LABS: Alcohol Level < 10 mg/dL (0-10)
[2024-02-08 08:22] LABS: Charge for UA Resulting for Rev
[2024-02-08 08:27] LABS: Bilirubin Urine Negative (Negative); Blood Urine Negative (Negative); Glucose Urine UA Negative (Normal); Ketones Urine 1+ (Negative); Leukocyte Esterase Urine Negative (Negative); Nitrate Urine Negative (Negative); Protein Urine Negative (Negative); Specific Gravity, Urine 1.011 (1.005-1.030); Urine Appearance Clear (CLEAR); Urine Color Yellow (Yellow); Urobilinogen Urine 0.2 mg/dL (Negative); pH Urine 6.5 (5-7)
[2024-02-08 08:32] LABS: Hyaline Casts Urine 2.05 /lpf; Squamous Epithelial Cell Urine 0-5 /hpf (0-5); WBC Urine 0-5 /hpf (0-5)
[2024-02-08 08:51] LABS: Troponin 5 2HR 16.17 ng/L (0-15)
[2024-02-08 08:58] LABS: Troponin 5 2HR Delta -0.83 ABS# (0-10)
[2024-02-08] MEDS: haloperidol inj 5 mg/mL INJ 1 mL IM (09:19)
[2024-02-08] MEDS: LORazepam 2 mg/mL INJ 1 mL 0.5 MG IM (09:19)
[2024-02-08 09:37] LABS: Bacteria Urine 1+ /hpf
[2024-02-08 09:38] LABS: UA Slide Review UA Slide Review Perf
[2024-02-08 09:40] LABS: Influenza A by IFA negative (Negative); Influenza B by IFA negative (Negative); SARS Covid-2 Antigen negative (Negative)
[2024-02-08 09:46] LABS: RSV Transfer Patient (ED) Negative (Negative)
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
--- NOTE | 2024-02-08 12:26 | ECG_ITS ---
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 Measurements Intervals [place] Rate: 91 P: 43 CT: 168 QRS: 55 QRSD: 109 T: 34 QT: 342 QTc: 423 Interpretive Statements SINUS RHYTHM WITH OCCASIONAL VENTRICULAR PREMATURE COMPLEXES Compared to ECG 02/08/2024 07:18:59 Intraventricular conduction delay no longer present Electronically Signed On 02-08-2024 14:28:51 CDT by Wenceslao Medina M.D. [email or web address] [email or web address] at [email or web address] Medical Technologiesmercy [id number]
[2024-02-08 13:02] LABS: Troponin 5 6HR 18.77 ng/L (0-15); Troponin 5 6HR Delta 1.77 ng/L (0-12)
--- NOTE | 2024-02-08 20:37 | PC.NURSE ---
CALL PLACED TO PT'S SON AT PT'S REQUEST TO ASK FOR A PHONE. AT THE TIME OF THIS CONVERSATION, PT ANSWERS ALL ORIENTATION QUESTIONS CORRECTLY, FOLLOWS INSTRUCTIONS, AND HAS APPROPRIATE CONVERSATION.
[2024-02-08 21:52] LABS: Amphetamines Screen Urine Negative (Negative); Barbiturates Screen Urine Negative (Negative); Benzodiazepines Screen Urine Negative (Negative); Cocaine Screen Urine Negative (Negative); Opiate Screen Urine Negative (Negative); PCP Screen Urine Negative (Negative); THC Screen Urine Negative (Negative)
== END 2024-02-08 23:47 ==
PROVIDERS: Emergency Medicine; Emergency Provider Emergency Medicine; PCP Electrodiagnostic Medicine
DX: R41.82 Altered mental status, unspecified (principal); Z87.891 Personal history of nicotine dependence; Z11.52 Encounter for screening for COVID-19
CPT/HCPCS: 36415; 36416; 70450; 71045; 80053; 80306; 80307; 81003; 81015; 82140; 82962; 83735; 84443; 84484; 85025; 85610; 87426; 87804; 87899; 93005; 96360; 96372; 99285; J1630; J2060; J7030

== ENCOUNTER 2024-03-01 15:44 | Emergency (ER) | payer MEDICARE, SELFPAY ==
--- NOTE | 2024-03-01 15:51 | XRR_ITS ---
PROCEDURE INFORMATION: Exam: XR Chest Exam date and time: 03/01/2024 4:08 PM Age: 83 years old Clinical indication: Other: Weakness TECHNIQUE: Imaging protocol: Radiologic exam of the chest. Views: 1 view. COMPARISON: CR (CHEST, ) 02/08/2024 6:34 AM FINDINGS: Lungs: Unremarkable. No consolidation. Pleural spaces: Unremarkable. No pleural effusion. No pneumothorax. Heart/Mediastinum: Unremarkable. No cardiomegaly. Bones/joints: Unremarkable. XR/XR chest 1V portable [id number] IMPRESSION: No acute findings.
--- NOTE | 2024-03-01 15:51 | CTR_ITS ---
PROCEDURE INFORMATION: Exam: CT Head Without Contrast Exam date and time: 03/01/2024 4:22 PM Age: 83 years old Clinical indication: Altered mental status/memory loss; Additional info: Encephalopathy, altered mental status TECHNIQUE: Imaging protocol: Computed tomography of the head without contrast. Radiation optimization: All CT scans at this facility use at least one of these dose optimization techniques: automated exposure control; mA and/or kV adjustment per patient size (includes targeted exams where dose is matched to clinical indication); or iterative reconstruction. COMPARISON: CT head wo con* [id number] 02/08/2024 6:41 AM RADIATION DOSE METRICS: Total DLP (mGy-cm): 1096 FINDINGS: Brain: Normal. No hemorrhage. Unremarkable white matter. No mass effect or acute infarct. Cerebral ventricles: No ventriculomegaly. No midline shift. Paranasal sinuses: Visualized sinuses are unremarkable. No fluid levels. Mastoid air cells: Visualized mastoid air cells are well aerated. Bones: Unremarkable. No acute fracture. Soft tissues: Unremarkable. CT/CT head wo con* [id number] IMPRESSION: No acute intracranial abnormality.
[2024-03-01 15:59] VITALS: BP 168/108; PULSE 68; RESP 17; TEMP 37.1; O2SAT 97; BMI 23.1
--- NOTE | 2024-03-01 16:10 | ECG_ITS ---
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 Measurements Intervals [place] Rate: 71 P: 47 [place]: 177 QRS: 73 QRSD: 96 T: 64 QT: 349 QTc: 380 Interpretive Statements SINUS RHYTHM VOLTAGE CRITERIA FOR LVH [MEETS CRITERIA IN ONE OF: R(aVL), S(V1), R(V5), R(V5/V6)+S(V1)] Early repolarization changes Compared to ECG 02/08/2024 11:50:28 Left ventricular hypertrophy now present Ventricular premature complex(es) no longer present Electronically Signed On 03-01-2024 23:25:05 CDT by Terra Crespo M.D. [id number]
[2024-03-01 16:35] LABS: Basophils # 0.1 10^3/uL (0.0-0.1); Basophils % 0.5 %; Eosinophils # 0.2 10^3/uL (0.0-0.8); Eosinophils % 2.2 %; Hematocrit 37.9 % (37-53); Lymphocytes # 1.8 10^3/uL (0.8-4.8); Lymphocytes % 16.9 %; Mean Corpuscular Hemoglobin 29.4 pg (27-33); Mean Corpuscular Volume 89.2 fl (82-101); Monocytes # 1.1 10^3/uL (0.2-0.9); Monocytes % 10.5 %; Neutrophils # 7.33 10^3/uL (1.8-7.7); Neutrophils % 69.5 %; Nucleated Red Blood Cells % 0 %; Platelet Count 313 10^3/cmm (157-399); Red Blood Count 4.25 10^6/uL (3.85-5.65); Red Cell Distribution Width 14.6 % (12.1-15.1); White Blood Count 10.54 10^3/uL (3.29-11.43)
--- NOTE | 2024-03-01 16:37 | ED_ITS ---
HPI - Altered Mental Status 2 General: Chief Complaint: Altered Mental Status Stated Complaint: decreased LOC, ams Time Seen by Provider: 03/01/24 15:49 History of Present Illness: 83-year-old man who presents emergency r oom by ambulance with decreased responsiveness. Apparently he was found in his car with the heat on and running and was unresponsive. Upon arrival here he talks to me and says that he had an catatonic event . He says he has these quite regularly. EMS reports that he had been in the psychiatric facility at [facility] recently. Currently has no focal motor deficits. He seems awake and alert. He has no complaints. He does have an odd affect. Related Data Home Medications Medication Instructions Recorded Confirmed [id number] 300 mcg-K 60 1 tab PO DAILY@0700 05/01/20 11/25/23 mcg-lycop 600 mcg-lutein 300 mcg tablet (Men 50 Plus Multivitamin) potassium gluconate 595 mg (99 mg) 595 mg PO DAILY@0700 05/01/20 11/25/23 tablet psyllium husk 3.4 gram/5.4 gram 1 - 2 tsp PO DAILY@07 11/26/21 11/25/23 oral powder (Metamucil) aspirin 81 mg tablet,delayed 81 mg PO DAILY 07/15/23 11/25/23 release (Adult Low Dose Aspirin) melatonin 10 mg capsule 10 mg PO DAILY 07/15/23 11/25/23 thiamine HCl (vitamin B1) 100 mg mg PO 07/15/23 11/25/23 tablet Previous Rx's Medication Instructions Recorded Custom Molded Orthotics #1 ea 04/12/21 metoprolol tartrate 50 mg tablet 50 mg PO BID #180 tabs 02/21/23 atorvastatin 40 mg tablet 40 mg PO DAILY #90 tabs 06/24/23 ezetimibe 10 mg tablet (Zetia) 10 mg PO DAILY@07 #90 tabs 07/08/23 magnesium L-lactate 84 mg 84 mg PO BID #180 tabs 08/01/23 tablet,extended release (Magtab) Allergies Allergy/AdvReac Type Severity Reaction Status Date / Time meperidine [From Demerol] Allergy stopped Verified 11/25/23 08:45 breathing atorvastatin [From Lipitor] AdvReac Severe muscle and Verified 11/25/23 08:45 joint pain Review of Systems 2 Narrative: Constitutional symptoms: Negative except as documented in HPI. Skin symptoms: Negative except as documented in HPI. Eye symptoms: Negative except as documented in HPI. ENMT symptoms: Negative except as documented in HPI. Respiratory symptoms: Negative except as documented in HPI. Cardiovascular symptoms: Negative except as documented in HPI. Gastrointestinal symptoms: Negative except as documented in HPI. Genitourinary symptoms: Negative except as documented in HPI. Musculoskeletal symptoms: Negative except as documented in HPI. Neurologic symptoms: Negative except as documented in HPI. Psychiatric symptoms: Negative except as documented in HPI. Endocrine symptoms: Negative except as documented in HPI. 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 Incomplete bladder emptying History of elevated PSA Peripheral neuropathy axonal sensorimotor polyneuropathy Surgical History S/P TAVR (transcatheter aortic valve replacement) History of bilateral inguinal hernia repair History of nasal surgery History of ankle surgery History of appendectomy Status post transurethral resection of prostate Family History Mother Cancer Denies family history of Diabetes CAD (coronary artery disease) Clotting disorder Dementia Chronic kidney disease (CKD) Suicide Anesthesia complication Bleeding disorder Lung disease Hypertension Stroke Social History Smoking and tobacco/nicotine status: former use of tobacco/nicotine Quit status (tobacco/nicotine): has quit using Year quit tobacco: 1982 Alcohol intake: current Alcohol intake frequency: 0-2 Drinks per Day Alcohol type: wine Substance/Drug Use: never Adopted: No Household members: spouse Marital status: Current occupational status: retired Physical Exam 2 Narrative: General: Alert, no acute distress. Skin: Warm, dry. Head: Normocephalic, atraumatic. Neck: Supple, trachea midline. Eye: Extraocular movements are intact. Ears, nose, mouth and throat: mucosa moist. Cardiovascular: Regular, Normal peripheral perfusion. Respiratory: Lungs are clear to auscultation, respirations are non-labored, breath sounds are equal, Symmetrical chest wall expansion. Gastrointestinal: Soft, Nontender, Non distended Musculoskeletal: Normal ROM, no deformity. Neurological: Alert, No focal neurological deficit observed. Psychiatric: Cooperative, odd/flat affect Course 2 Vital Signs: Vital signs: Vital Signs Temperature 98.7 F 03/01/24 15:59 Pulse Rate 63 03/01/24 18:25 Respiratory Rate 16 03/01/24 18:25 Blood Pressure 139/66 03/01/24 18:25 Pulse Oximetry 90 03/01/24 18:25 Oxygen Delivery Me thod Room Air 03/01/24 18:25 MDM - Altered Mental Status Medical Decision Making Medical decision making: Differential diagnosis including but not limited to and based on the above HPI, review of systems and physical exam: In this patient with altered mental status: Stroke. Hypoglycemia. Metabolic encephalopathy. Infections such as pneumonia, urinary tract infection, Covid-19, Influenza. Electrolyte abnormalities such as hypernatremia. Renal failure / uremia. Hepatic encephalopathy. Hypoxemia. Hypercapnic respiratory failure. Psychosis. Drug or alcohol intoxication. Medication overdose. Orders placed to evaluate differential diagnosis based on the above differential, HPI and physical exam EKG: Time 1610. Rate 71. Normal sinus rhythm, No ST-T changes, no ectopy, normal SC & QRS intervals, This was reviewed and interpreted by myself the ER physician at 1615 CT head: No acute intracranial process. no intracranial hemorrhage, no evidence of infarct. no evidence of acute fracture.This was reviewed and interpreted by myself the ER physician. Chest x-ray: No acute process. No infiltrate. No pneumothorax. This was reviewed and interpreted by myself the ER physician. Lab Review: Laboratory results were reviewed and interpreted by myself the emergency room physician. No leukocytosis. No anemia. Platelets are normal at 313. Sodium 135. BUN/creatinine are 25 and 0.7. I reviewed the patient's medical record. Reexamination: Patient remained stable. He has been somewhat somnolent after having medications. While he was here he had become quite agitated at times and was wandering the ER and was wanting to leave. I spoke at length with family. Patient recently went to [facility] and was discharged home with medications. He will not take the medications. Family will not make him take the medications. They do not feel he is an immediate danger to himself. They have follow-up with Dr. Juárez and plans for him going to [facility]. He has dementia issues and these behavioral issues have been ongoing for many many years apparently. Patient is medically cleared. I found no acute findings in his workup. No UTI. No abnormal CT findings. Currently this just a chronic problem that has exacerbations at times. Assessment and plan: Dementia Behavioral disturbances ? IM Haldol and IM Ativan in the emergency room earlier in the day and then again at discharge. - Discharged home - Discussed plan with patient. Answered any questions. - Evaluation and treatment of this problem were appropriate in the emergency setting. Lab Data 03/01/24 16:17 03/01/24 16:17 Radiology Impressions Chest X-Ray 03/01/24 15:51 IMPRESSION: No acute findings. Head CT 03/01/24 15:51 IMPRESSION: No acute intracranial abnormality. Laboratory Results WBC 10.54 10^3/uL (3.29-11.43) 03/01/24 16:17 RBC 4.25 10^6/uL (3.85-5.65) 03/01/24 16:17 Hgb 12.50 g/dL (11.27-16.99) 03/01/24 16:17 Hct 37.9 % (37-53) 03/01/24 16:17 MCV 89.2 fl (82-101) 03/01/24 16:17 MCH 29.4 pg (27-33) 03/01/24 16:17 MCHC 33.0 g/dL (30-55) 03/01/24 16:17 RDW 14.6 % (12.1-15.1) 03/01/24 16:17 Plt Count 313 10^3/cmm (157-399) 03/01/24 16:17 MPV 9.0 fL (7.4-10.4) 03/01/24 16:17 Neut % (Auto) 69.5 % 03/01/24 16:17 Lymph % (Auto) 16.9 % 03/01/24 16:17 [place] % (Auto) 10.5 % 03/01/24 16:17 Eos % (Auto) 2.2 % 03/01/24 16:17 Baso % (Auto) 0.5 % 03/01/24 16:17 Neut # (Auto) 7.33 10^3/uL (1.8-7.7) 03/01/24 16:17 Lymph # (Auto) 1.8 10^3/uL (0.8-4.8) 03/01/24 16:17 [place] # (Auto) 1.1 10^3/uL (0.2-0.9) H 03/01/24 16:17 Eos # (Auto) 0.2 10^3/uL (0.0-0.8) 03/01/24 16:17 Baso # (Auto) 0.1 10^3/uL (0.0-0.1) 03/01/24 16:17 Nucleated RBC % (auto) 0 % 03/01/24 16:17 Nucleated RBCs # 0.0 /100WBC 03/01/24 16:17 Sodium 135 mmol/L (136-145) L 03/01/24 16:17 Potassium 4.7 mmol/L (3.5-5.1) 03/01/24 16:17 Chloride 99 mmol/L (98-107) 03/01/24 16:17 Carbon Dioxide 27 mmol/L (22-29) 03/01/24 16:17 Anion Gap 13.7 (5-19) 03/01/24 16:17 BUN 25 mg/dL (8-23) H 03/01/24 16:17 Creatinine 0.7 mg/dL (0.7-1.2) 03/01/24 16:17 GFR Calculation Not Reportable 03/01/24 16:17 Glucose 107 mg/dL (65-115) 03/01/24 16:17 Calculated Osmolality 285 mOsm/kg (285-295) 03/01/24 16:17 Lactic Acid 0.9 mmol/L (0.5-2.2) 03/01/24 16:17 Calcium 9.5 mg/dL (8.5-10.5) 03/01/24 16:17 Total Bilirubin 0.5 mg/dL (0.15-1.2) 03/01/24 16:17 AST 38 U/L (0-40) 03/01/24 16:17 ALT 33 U/L (0-41) 03/01/24 16:17 Alkaline Phosphatase 75 U/L (40-130) 03/01/24 16:17 Troponin T Baseline 16 ng/L (0-15) H 03/01/24 16:17 Troponin T 120 Minute 16.06 ng/L (0-15) H 03/01/24 18:35 Delta Troponin T 0.06 ABS# (0-10) 03/01/24 18:35 C-Reactive Protein 5.2 mg/L (0.0-4.9) H 03/01/24 16:17 NT-Pro-B Natriuret Pep 436 pg/mL (0-450) 03/01/24 16:17 Total Protein 6.8 g/dL (6.6-8.7) 03/01/24 16:17 Albumin 4.5 g/dL (3.5-5.2) 03/01/24 16:17 Globulin 2.3 g/dL (1.3-4.6) 03/01/24 16:17 Urine Color Yellow (Yellow) 03/01/24 19:45 Urine Appearance Clear (CLEAR) 03/01/24 19:45 Urine pH 7.0 (5-7) 03/01/24 19:45 Ur Specific [place] 1.021 (1.005-1.030) 03/01/24 19:45 Urine Protein Negative (Negative) 03/01/24 19:45 Urine Glucose (UA) Negative (Normal) 03/01/24 19:45 Urine Ketones Negative (Negative) 03/01/24 19:45 Urine Blood Negative (Negative) 03/01/24 19:45 Urine Nitrate Negative (Negative) 03/01/24 19:45 Urine Bilirubin Negative (Negative) 03/01/24 19:45 Urine Urobilinogen 1.0 mg/dL (Negative) 03/01/24 19:45 Ur Leukocyte Esterase Negative (Negative) 03/01/24 19:45 Urine RBC 3-5 /hpf (0-2) 03/01/24 19:45 Urine WBC 0-5 /hpf (0-5) 03/01/24 19:45 Ur Squamous Epith Cells 0-5 /hpf (0-5) 03/01/24 19:45 Amorphous Sediment Not Reportable 03/01/24 19:45 Urine Bacteria None seen /hpf (NONE) 03/01/24 19:45 Hyaline Casts 2.87 /lpf 03/01/24 19:45 Coronavirus (PCR) Negative (Negative) 03/01/24 17:07 Influenza A (PCR) Negative (Negative) 03/01/24 17:07 Influenza Type B (PCR) Negative (Negative) 03/01/24 17:07 RSV (PCR) Negative (Negative) 03/01/24 17:07 All radiology interpretation(s) finalized by discharge Discharge Plan Discharge Patient Disposition: Home Clinical Impression: Dementia Condition: Stable Prescriptions: No Action Men 50 Plus Multivitamin 300-600-300 mcg tablet 1 tab PO DAILY@0700 potassium gluconate 595 mg (99 mg) tablet 595 mg PO DAILY@0700 (DME) Custom Molded Orthotics See Rx Instructions .Route .MEDSUPPLY Qty: 1 0RF Rx Instructions: As directed Alpha and Dupont thiamine HCl (vitamin B1) 100 mg tablet PO melatonin 10 mg capsule 10 mg PO DAILY aspirin [Adult Low Dose Aspirin] 81 mg tablet,delayed release (DR/EC) 81 mg PO DAILY metoprolol tartrate 50 mg tablet 50 mg PO BID Qty: 180 3RF atorvastatin 40 mg tablet 40 mg PO DAILY Qty: 90 3RF ezetimibe [Zetia] 10 mg tablet 10 mg PO DAILY@07 Qty: 90 3RF magnesium L-lactate [Magtab] 84 mg tablet extended release 84 mg PO BID Qty: 180 3RF Metamucil 3.4 gram/5.4 gram Powder 1 - 2 tsp PO DAILY@07 Discharge Orders: Discharge ED (Routine); Ordered 03/01/24 Ordered By: Nena Ferraro Referrals: Vazquez Maza DO [Primary Care Provider] - Discharge Diet: Usual diet Patient Instructions: Dementia (ED) Activity Restrictions/Additional Instructions: Thank you for choosing [facility] for your healthcare needs today. Please realize this is an emergency room and that we are providing you with a medical screening exam and this may not be complete and all inclusive of all the testing and or work up that you may need to determine your ailment or severity of your illness. You have been screened and evaluated and felt safe for discharge. Health conditions do change or evolve sometimes and as such it is important that you follow up with your Primary Doctor to be re checked, 3-5 days is a general good time frame for follow up. 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
[2024-03-01 17:08] VITALS: BP 161/107; PULSE 76; RESP 16
[2024-03-01 17:09] LABS: Troponin(5th) Baseline 16 ng/L (0-15)
[2024-03-01 17:14] LABS: Lactic Sepsis W/Reflex 0.9 mmol/L (0.5-2.2)
[2024-03-01 17:19] LABS: Alanine Aminotransferase 33 U/L (0-41); Albumin Level 4.5 g/dL (3.5-5.2); Alkaline Phosphatase 75 U/L (40-130); Anion Gap 13.7 (5-19); Aspartate Amino Transferase 38 U/L (0-40); Blood Urea Nitrogen 25 mg/dL (8-23); C Reactive Protein 5.2 mg/L (0.0-4.9); Calcium 9.5 mg/dL (8.5-10.5); Carbon Dioxide 27 mmol/L (22-29); Chloride 99 mmol/L (98-107); Creatinine Clr Calc Pharmacy 83.9713; Globulin 2.3 g/dL (1.3-4.6); Glucose 107 mg/dL (65-115); NT Pro B Type Natriuretic Pept 436 pg/mL (0-450); Osmolality Calculated 285 mOsm/kg (285-295); Potassium 4.7 mmol/L (3.5-5.1); Sodium 135 mmol/L (136-145); Total Bilirubin 0.5 mg/dL (0.15-1.2); Total Protein 6.8 g/dL (6.6-8.7)
--- NOTE | 2024-03-01 17:22 | PC.NURSE ---
Pt found standing in doorway with eyes closed. Asked patient if he needed assistance and where he was going. Pt states, I'm trying to get out of here .
[2024-03-01] MEDS: LORazepam 2 mg/mL INJ 1 mL 1 MG IM ×2 (17:48→20:56)
--- NOTE | 2024-03-01 17:51 | ECG_ITS ---
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 Measurements Intervals [place] Rate: 67 P: 49 ME: 188 QRS: 69 QRSD: 100 T: 64 QT: 393 QTc: 417 Interpretive Statements SINUS RHYTHM WITH SINUS ARRHYTHMIA MINIMAL VOLTAGE CRITERIA FOR LVH, CONSIDER NORMAL VARIANT [MEETS CRITERIA IN ONE OF: R(aVL), S(V1), R(V5), R(V5/V6)+S(V1)] Compared to ECG 03/01/2024 16:10:16 No significant changes Electronically Signed On 03-01-2024 23:31:06 CDT by Terra Crespo M.D. [id number]
--- NOTE | 2024-03-01 17:59 | PC.NURSE ---
UPON ENTERING ROOM, PT CALLING 911 ON PERSONAL CELL PHONE. WHEN PT WAS DONE ON THE PHONE, THIS NURSE ASKED PT WHY HE CALLED 911. PT STATES YOU ARE TRYING TO KEEP ME HOSTAGE. THIS NURSE EDUCATED PT THAT THE ER IS JUST TRYING TO HELP HIM AND KEEP HIM SAFE. PT STATED NO YOU ARE NOT. YOU ARE HOLDING ME HOSTAGE. THIS NURSE ASKED PT IF HE KNEW WHY HE WAS BROUGHT IN. PT STATED YOU TELL ME WHY I AM HERE. THIS NURSE INFORMED PT THAT SHE WAS ASKING HIM IF HE KNEW WHERE AND WHY HE WAS HERE TO ASSESS HOW HIS MENTATION IS. PT STATED WELL I AM ASKING YOU IF YOU KNOW WHY I AM HERE TO SEE WHAT YOUR MENTATION IS. PT THEN STANDS UP AND BEGINS WALKING TOWARDS EXIT. THIS NURSE FOLLOWED PT. PT WAS ALSO STOPPED BY KATJA NUNN. PT WAS VERBALLY REDIRECTED BACK TO ROOM. PT WENT BACK TO ROOM AND SAT ON BED. PSA AT BEDSIDE. PT DOOR LEFT OPEN.
[2024-03-01 18:01] LABS: Covid PCR NEGATIVE (Negative); Influenza A NEGATIVE (Negative); Influenza B NEGATIVE (Negative); Respiratory Syncytial Virus Ce NEGATIVE (Negative)
[2024-03-01] MEDS: haloperidol inj 5 mg/mL INJ 1 mL 10 MG IM (18:11)
[2024-03-01 18:25] VITALS: BP 139/66; PULSE 63; RESP 16; O2SAT 90
[2024-03-01 19:22] LABS: Troponin 5 2HR 16.06 ng/L (0-15); Troponin 5 2HR Delta 0.06 ABS# (0-10)
[2024-03-01] MEDS: sodium chloride 0.9% 1,000 ML 999 ML IV (19:48)
[2024-03-01 20:10] LABS: Bilirubin Urine Negative (Negative); Blood Urine Negative (Negative); Glucose Urine UA Negative (Normal); Ketones Urine Negative (Negative); Leukocyte Esterase Urine Negative (Negative); Nitrate Urine Negative (Negative); Protein Urine Negative (Negative); Specific Gravity, Urine 1.021 (1.005-1.030); Urine Appearance Clear (CLEAR); Urine Color Yellow (Yellow)
[2024-03-01 20:15] LABS: Bacteria Urine None Seen /hpf; Hyaline Casts Urine 2.87 /lpf; Squamous Epithelial Cell Urine 0-5 /hpf (0-5); WBC Urine 0-5 /hpf (0-5)
[2024-03-01 20:29] LABS: Add Urine Culture? No
[2024-03-01] MEDS: haloperidol inj 5 mg/mL INJ 1 mL IM (20:56)
[2024-03-01 21:00] VITALS: BP 138/64; PULSE 72; RESP 18; O2SAT 92
[2024-03-01 21:15] VITALS: BP 138/67; PULSE 72; RESP 18; O2SAT 96
== END 2024-03-01 21:16 | disposition home or self-care (01) ==
PROVIDERS: Emergency Provider Emergency Medicine; PCP Electrodiagnostic Medicine
DX: F03.90 Unspecified dementia, unspecified severity, without behavioral disturbance, psychotic disturbance, mood disturbance, and anxiety (principal); Z79.82 Long term (current) use of aspirin; Z11.52 Encounter for screening for COVID-19; Z87.891 Personal history of nicotine dependence
CPT/HCPCS: 0241U; 36415; 70450; 71045; 80053; 81001; 83605; 83880; 84484; 85025; 86140; 87040; 93005; 96372; 99285; J1630; J2060; J7030

== ENCOUNTER → 2024-05-11 15:30 | Outpatient (BNVA) | payer MEDICARE, SELFPAY | PROVIDERS: PCP Electrodiagnostic Medicine; Visit Provider Internal Medicine Cardiovascular Disease | DX: Z95.2 Presence of prosthetic heart valve (principal); E78.5 Hyperlipidemia, unspecified; I10 Essential (primary) hypertension; I48.91 Unspecified atrial fibrillation; I25.10 Atherosclerotic heart disease of native coronary artery without angina pectoris; Z87.891 Personal history of nicotine dependence | CPT/HCPCS: 99214 ==

== ENCOUNTER 2024-10-13 12:02 | Outpatient (CLI) | payer MEDICARE, SELFPAY ==
--- NOTE | 2024-10-13 12:05 | CT_ITS ---
WS: [id number] CT abdomen pelvis wo/w [id number] REASON FOR EXAM: CHRONIC CONSTIPATION IV CONTRAST ADMINISTERED: 100 mL of Omnipaque 350 at 3 mm mild per second. TECHNIQUE: Multiple axial images were obtained pre and post contrast enhancement. Sagittal and coronal reconstructions. TOTAL EXAM DLP: 748.[address] scans at [facility] use at least one of these dose optimization techniques: automated exposure control; mA and/or kV adjustment per patient size (includes targeted exams where dose is matched to clinical indication); or iterative reconstruction. FINDINGS: ABDOMEN: Lung bases are clear. Largest 1.3 cm in diameter. Simple bilateral cysts. Spleen is unremarkable. The pancreas was unremarkable. Normal adrenal glands. 5 mm cyst in the right kidney. Kidneys otherwise within normal limits for age. No abdominal mass or adenopathy. Moderate/significant diverticular disease of the descending and sigmoid colon's without evidence of diverticulitis. The height preatrophy of the diverticulosis produces a short segment of moderate narrowing in the sigmoid colon. No significant dilatation of the colon. No free fluid or focal fluid collection. Extensive calcified plaque in the aorta and major branches. No high-grade stenosis or aneurysmal dilatation. PELVIS: Moderate distention of the urinary bladder. Moderate prostate enlargement. There appears to have been a previous TURP. No mass or adenopathy. No focal fluid or free fluid. 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 No focal bone lesions. CT/CT abdomen pelvis wo/w [id number] IMPRESSION: Benign findings in the liver and right kidney as above. Diverticulosis with segment of hypertrophic narrowing as above.
[2024-10-13] MEDS: iohexol 350 mg/mL 500 mL Btl (per mL) IV (12:22)
== END 2024-10-13 12:03 | disposition home or self-care (01) ==
LOC: RAD 12:04
PROVIDERS: PCP Electrodiagnostic Medicine; Visit Provider Electrodiagnostic Medicine
DX: K59.09 Other constipation (principal); K57.30 Diverticulosis of large intestine without perforation or abscess without bleeding; N28.1 Cyst of kidney, acquired
CPT/HCPCS: 74178

== ENCOUNTER → 2024-11-09 10:56 | Outpatient (BNVA) | payer MEDICARE, SELFPAY | PROVIDERS: PCP Electrodiagnostic Medicine; Visit Provider Nurse Practitioner Family | DX: I77.9 Disorder of arteries and arterioles, unspecified (principal); I48.0 Paroxysmal atrial fibrillation; Z79.82 Long term (current) use of aspirin; I25.10 Atherosclerotic heart disease of native coronary artery without angina pectoris; I10 Essential (primary) hypertension; I73.9 Peripheral vascular disease, unspecified; E78.5 Hyperlipidemia, unspecified; F03.90 Unspecified dementia, unspecified severity, without behavioral disturbance, psychotic disturbance, mood disturbance, and anxiety; Z95.2 Presence of prosthetic heart valve; Z87.891 Personal history of nicotine dependence; G45.3 Amaurosis fugax; R09.89 Other specified symptoms and signs involving the circulatory and respiratory systems | CPT/HCPCS: 99214 ==

== ENCOUNTER 2024-11-11 07:46 | Outpatient (CLI) | payer MEDICARE, SELFPAY ==
--- NOTE | 2024-11-11 08:00 | USCV_ITS ---
AlmonteMarco Antonio serrano Age: 84 Gender: M : 1940 Exam Date: 11/11/2024 08:02 Ordering Phys: Darby Smalls Technologist: CAROLANN Exam Location: [facility]_ Indication: stenosis Risk Factors: Previous Vascular Surgery: Right Brachial BP: / Left Brachial BP: / Right Left Velocity (cm/s) Spectral Plaque Velocity (cm/s) Spectral Plaque Syst/Diast Broadening Syst/Diast Broadening 86.30/ 21.50 Prox CCA 88.10 / 16.20 69.40/ 13.70 Mid CCA 77.80 / 18.80 69.40/ Distal CCA 56.00 / 14.90 55.20/ 12.40 Prox ICA 63.70 / 20.00 79.80/ 22.80 Mid ICA 61.10 / 18.80 69.40/ 20.20 Distal ICA 59.90 / 21.30 66.90 ECA 59.90 1.10 ICA/CCA 1.10 Antegrade Vertebral Antegrade 19.30/ 11.50 cm/s 41.90/ 9.80 cm/s Tri Subclavian Tri 57.90 147.2 0 CONCLUSIONS Right ICA stenosis <50%. Moderate atheromatous plaque right carotid bulb/ICA. Left ICA stenosis <50%. Moderate atheromatous plaque left carotid bulb/ICA. Intimal thickening in the common carotid arteries and internal carotid arteries bilaterally. Normal antegrade Doppler flow noted in the right vertebral artery. Normal antegrade Doppler flow noted in the left vertebral artery. Angelo Fuller MD (Electronically Signed) Final Date: 11 November 2024 10:08 S
== END 2024-11-11 07:47 | disposition home or self-care (01) ==
PROVIDERS: PCP Electrodiagnostic Medicine; Visit Provider Nurse Practitioner Family
DX: R09.89 Other specified symptoms and signs involving the circulatory and respiratory systems (principal); I65.23 Occlusion and stenosis of bilateral carotid arteries
CPT/HCPCS: 93880

== ENCOUNTER 2024-11-12 07:49 | Outpatient (CLI) | payer MEDICARE, SELFPAY ==
--- NOTE | 2024-11-12 07:52 | MR_ITS ---
WS: [id number] MRI BRAIN WITH AND WITHOUT CONTRAST HISTORY: VISION LOSS COMPARISON: None available. TECHNIQUE: Multiplanar imaging performed through the brain with MultiHance 18 ml's IV. No acute infarcts are seen. Evans-white matter differentiation is well preserved. Moderate symmetric atrophy. There is only minimal small vessel changes. No prior infarcts and no hemorrhage. Mild bilateral hippocampal atrophy. No susceptibility artifacts or prior lacunar infarcts. Ventricles and extra-axial spaces are normal. Clivus and pituitary gland are normal. Visualized posterior fossa and brainstem are also normal. Postcontrast images are negative for masses or vascular malformations. Dural venous sinuses are normal. Paranasal sinuses: Well aerated with no significant disease. Mastoid air cells: Normal. Calvarium and scalp: Normal. MR/MR head wo/w con [id number] IMPRESSION: 1. No acute infarct, hemorrhage or enhancing mass. 2. Mild atrophy with only mild small vessel change. 3. Mild hippocampal atrophy. 4. No mass in the sella turcica or displacement of the optic chiasm.
[2024-11-12] MEDS: gadobenate dimeglumine 20 mL vial 18 ML IV (08:54)
== END 2024-11-12 07:50 | disposition home or self-care (01) ==
LOC: RAD 07:50
PROVIDERS: PCP Electrodiagnostic Medicine; Visit Provider Electrodiagnostic Medicine
DX: H54.7 Unspecified visual loss (principal)
CPT/HCPCS: 70553

== ENCOUNTER → 2024-12-06 09:50 | Outpatient (BNVA) | payer MEDICARE, SELFPAY | PROVIDERS: PCP Electrodiagnostic Medicine; Visit Provider Podiatrist Foot & Ankle Surgery | DX: I73.9 Peripheral vascular disease, unspecified (principal); L60.3 Nail dystrophy; G62.9 Polyneuropathy, unspecified; M79.671 Pain in right foot; M79.672 Pain in left foot | CPT/HCPCS: 11721 ==

== ENCOUNTER → 2025-03-08 09:37 | Outpatient (BNVA) | payer MEDICARE, SELFPAY | PROVIDERS: PCP Electrodiagnostic Medicine; Visit Provider Podiatrist Foot & Ankle Surgery | DX: I73.9 Peripheral vascular disease, unspecified (principal); L60.3 Nail dystrophy; G62.9 Polyneuropathy, unspecified | CPT/HCPCS: 11721 ==